=== PATIENT | female | born 1970 | race Caucasian/White ===

== ENCOUNTER 2017-03-21 14:44 | Observation (INO) | payer OTHER ==
[~2017-03-21] VITALS: Ht 170.2 cm; Wt 118.2 kg
[~2017-03-21 14:44] MED LIST: ALBUAER2 INH; CEFD300C3 PO; CETITAB27 PO; DIPH25CA37 PO; FLUT0.15 NAE; FURO-85 PO; GABA-1218 PO; LPT/40 PO; MELO15TA4 PO; NSNN50 NAE; PANT1TAB48 PO
[2017-03-21] MEDS ORDERED: ASPIRIN 81 MG CHEW PO STA (14:56)
[2017-03-21] MEDS ORDERED: SODIUM CHLORIDE 0.9% 1000ML 500 ML IV STA (14:56)
[2017-03-21] MEDS ORDERED: NITROGLYCERIN OINT 2% 1GM PACKET EXT STA (14:56)
[2017-03-21] MEDS ORDERED: SODIUM CHLORIDE 0.9% 1000ML 1,000 ML IV STA (14:56)
[2017-03-21 15:16] LABS: HEMATOCRIT 40.1 % (37-47); MEAN CELL VOLUME 86.2 fL (80-100); MEAN CORPUSCULAR HEMOGLOBIN 29.5 pg (25-34); MEAN CORPUSCULAR HGB CONC 34.2 g/dl (32-36); MEAN PLATELET VOLUME 10.3 fL (7.4-10.4); PLATELET COUNT 258 K/uL (130-400); RED BLOOD COUNT 4.65 M/uL (4.2-5.4); WHITE BLOOD COUNT 11.08 K/uL (4.8-10.8)
--- NOTE | 2017-03-21 15:23 | DIAGNOSTIC IMAGING REPORT ---
CHEST ONE VIEW PORTABLE CLINICAL HISTORY: CHEST PAIN dyspnea COMPARISON STUDY: 07/09/2016 FINDINGS: Mild cardia megaly. Increased pulmonary vasculature. Diaphragms smooth. Costophrenic angles are sharp. There are no focal infiltrates. IMPRESSION: Mild congestive heart failure Electronically signed by: Elieser Degroot M.D. 03/21/2017 3:21 PM Dictated Date/Time: 03/21/2017 3:21 PM
[2017-03-21 15:24] LABS: PROTHROMBIN TIME (PATIENT) 10.2 SECONDS (9.0-12.0)
[2017-03-21 15:36] LABS: ALB/GLOB RATIO 0.9 (0.9-2); BUN/CREATININE RATIO 15.9 (10-20); CALCIUM 8.9 mg/dl (8.5-10.1); CREATININE 0.94 mg/dl (0.60-1.20)
[2017-03-21] MEDS ORDERED: VNTHFA/IN INH (15:39)
[2017-03-21] MEDS ORDERED: MOME6000 NAE (15:39)
--- NOTE | 2017-03-21 15:53 | EMERGENCY ROOM VISIT NOTE ---
History Report prepared by Jessi: Ruthie Chirinos Under the Supervision of: Dr. Lio Smith M.D. First contact with patient: 14:51 Chief Complaint: CHEST PAIN Stated Complaint: CHEST PAIN History of Present Illness The patient is a 46 year old female who presents to the Emergency Room with complaints of persistent left sided chest pain starting this morning. She rates her discomfort as an 8/10 in severity. She has been having intermittent chest pain since November. It was attributed to her anxiety. She had some chest pain last night, but she was able to sleep well. She did not have pain when she woke. The chest pain returned when she learned of her sister's passing. The pain radiates down her arm. She has some SOB. She denies any back pain, jaw pain , nausea, diaphoresis. She has no history of CA. She has not had a stress test before. She has a history of high cholesterol. She is a former smoker. She denies any history of diabetes. She has a family history of CA. Source of History: patient Onset: this morning Position: chest (left) Symptom Intensity: 8/10 Timing: other (persistent) Associated Symptoms: + SOB, No back pain, No diaphoresis, No nausea Note: Pt reports arm pain. Pt denies jaw pain. Review of Systems See HPI for pertinent positives & negatives. A total of 10 systems reviewed and were otherwise negative. Past Medical & Surgical Medical Problems: (1) Elevated troponin (2) SOB (shortness of breath) Family History FH: heart attack Social History Smoking Status: Former Smoker Alcohol Use: none Marital Status: Housing Status: lives with family Occupation Status: unemployed Current/Historical Medications Scheduled Atorvastatin (Lipitor), 40 MG PO DAILY Azelastine Hcl (Astelin Nasal [place]), 2 SPRAYS AILYN BID Celecoxib (CeleBREX), 200 MG PO DAILY Fluticasone Propionate (Nasal) (Flonase Allergy Relief), 2 SPRAYS AILYN BID Gabapentin (Neurontin), 300 MG PO HS Hydroxychloroquine Sulfate (Plaquenil), 400 MG PO HS Mometasone Furoate (Nasal) (Mometasone Furoate), 2 SPRAY AILYN BID Montelukast Sodium (Singulair), 10 MG PO DAILY Pantoprazole (Protonix), 40 MG PO DAILY Scheduled PRN Albuterol Hfa (Ventolin Hfa), 2 PUFFS INH Q6H PRN for SOB/Wheezing Diphenhydramine Hcl (Benadryl Allergy), 25 MG PO HS PRN for Sleep Furosemide (Lasix), 20 MG PO DAILY PRN for Fluid Accumulation/Weight Gain Ipratropium-Albuterol (Combivent Respimat), 1 PUFF INH QID PRN for illness Meclizine Hcl (Meclizine Hcl), 12.5 MG PO TID PRN for Dizziness Meloxicam (Meloxicam), 15 MG PO DAILY PRN for Pain Allergies Coded Allergies: Penicillins (Verified Allergy, Mild, HIVES, 03/21/17) Physical Exam Vital Signs Date Time Temp Pulse Resp B/P Pulse Ox O2 Delivery O2 Flow Rate FiO2 03/21/17 15:13 78 03/21/17 15:06 95 Room Air 03/21/17 14:57 95 Room Air 03/21/17 14:48 36.6 89 20 155/89 96 Room Air Physical Exam GENERAL: Patient is in no acute distress. Tearful and upset. HEENT: No acute trauma, normocephalic atraumatic, mucous membranes moist, no nasal congestion, no scleral icterus. NECK: No stridor, no adenopathy, no meningismus, trachea is midline. LUNGS: Clear to auscultation bilaterally, no wheeze, no rhonchi, breath sounds equal. HEART: Without murmurs gallops or rubs, regular rate and rhythm. ABDOMEN: Soft, nontender, bowel sounds positive, no hernias, no peritonitis. EXTREMITIES: No cyanosis or edema, full range of motion of all the joints without pain or difficulty, no signs for acute trauma. NEUROLOGIC: Oriented x 3, no acute motor or sensory deficits, no focal weakness. SKIN: No rash, no jaundice, no diaphoresis. Medical Decision & Procedures ER Provider Diagnostic Interpretation: X-ray results as stated below per interpretation by me and the radiologist: CHEST ONE VIEW PORTABLE CLINICAL HISTORY: CHEST PAIN dyspnea COMPARISON STUDY: 07/09/2016 FINDINGS: Mild cardia megaly. Increased pulmonary vasculature. Diaphragms smooth. Costophrenic angles are sharp. There are no focal infiltrates. IMPRESSION: Mild congestive heart failure Electronically signed by: Elieser Degroot M.D. 03/21/2017 3:21 PM Dictated Date/Time: 03/21/2017 3:21 PM Laboratory Results 03/21/17 15:00 03/21/17 15:00 Test 03/21/17 15:00 Red Blood Count 4.65 M/uL (4.2-5.4) Mean Corpuscular Volume 86.2 fL (80-100) Mean Corpuscular Hemoglobin 29.5 pg (25-34) Mean Corpuscular Hemoglobin Concent 34.2 g/dl (32-36) RDW Standard Deviation 42.4 fL (36.4-46.3) RDW Coefficient of Variation 13.5 % (11.5-14.5) Mean Platelet Volume 10.3 fL (7.4-10.4) Prothrombin Time 10.2 SECONDS (9.0-12.0) Prothromb Time International Ratio 1.0 (0.9-1.1) Activated Partial Thromboplast Time 26.8 SECONDS (21.0-31.0) Partial Thromboplastin Ratio 1.0 Anion Gap 8.0 mmol/L (3-11) Est Creatinine Clear Calc Drug Dose 96.4 ml/min Estimated GFR () 83.1 Estimated GFR (Non- 71.7 BUN/Creatinine Ratio 15.9 (10-20) Calcium Level 8.9 mg/dl (8.5-10.1) Total Bilirubin 0.5 mg/dl (0.2-1) Aspartate Amino Transf (AST/SGOT) 25 U/L (15-37) Alanine Aminotransferase (ALT/SGPT) 33 U/L (12-78) Alkaline Phosphatase 109 U/L (45-117) Troponin I 0.116 ng/ml (0-0.045) Pro-B-Type Natriuretic Peptide 70 pg/ml (0-450) Total Protein 7.8 gm/dl (6.4-8.2) Albumin 3.6 gm/dl (3.4-5.0) Globulin 4.2 gm/dl (2.5-4.0) Albumin/Globulin Ratio 0.9 (0.9-2) Lipase 192 U/L (73-393) Chemistry Specimen Hemolysis Laboratory results reviewed by me. Medications Administered Medications (Trade) Dose Ordered Sig/Kim Route Start Time Stop Time Status Last Admin Dose Admin Sodium Chloride 500 ml @ 999 mls/hr Q31M STAT IV 03/21/17 14:56 5/16/17 15:26 DC 03/21/17 15:15 999 MLS/HR Sodium Chloride (Nss 1000ml) 1,000 ml @ 200 mls/hr Q5H STAT IV 03/21/17 14:56 03/21/17 19:55 03/21/17 15:50 200 MLS/HR Nitroglycerin (Nitroglycerin 2% Oint) 0.5 inch NOW STAT EXT 03/21/17 14:56 03/21/17 14:58 DC 03/21/17 15:17 0.5 INCH Aspirin (Aspirin Chew) 324 mg NOW STAT PO 03/21/17 14:56 03/21/17 14:58 DC 03/21/17 15:16 324 MG ECG Indication: chest pain Rate (beats per minute): 85 Rhythm: sinus rhythm Findings: PVC, no acute ischemic change, other (no dysrhythmia) ED Course 1451: The patient was evaluated in room A9B. A complete history and physical exam was performed. 1456: Aspirin 324 mg PO, Nitroglycerin 0.5 inch EXT, NSS 1000 ml @ 200 mls/hr IV , NSS 500 ml @ 999 mls/hr IV. 1556: Upon reexamination the patient is feeling somewhat better after the nitro. I discussed results and treatment plan with the patient. She verbalizes agreement and understanding. The patient will be evaluated for further management. 1609: I discussed the patient's case with Dr. Mtz, [facility] hospitalist. He will evaluate the patient for further management. Medical Decision Differential diagnosis: angina, CA, cardiac ischemia, grief response, musculoskeletal chest pain, aortic dissection, PE, anemia There is no anemia. A mild leukocytosis is present, the white count elevation could be consistent with infection or just the stress of her current situation. EKG shows a sinus rhythm with PVCs, no acute ischemia. Cardiac troponin is somewhat elevated-she does have a history of this from a year or so ago. The elevated troponin could be chronic or could be due to acute cardiac injury. Chest x-ray shows a poor inspiratory effort, the radiologist questioned heart failure, I think this is unlikely as her lungs sound clear. There was no pneumonia. BNP was not elevated making CHF less likely. There was no coagulopathy. The patient received IV saline and oral aspirin. She was given nitroglycerin paste. She is feeling improved. The patient's chest pain certainly could be cardiac. This could be a grief response as well I suppose. Given her cardiac risk factors and the troponin elevation, I did think admission/observation would be warranted. I spoke to the patient and to case management. The on-call hospitalist was consulted. Consults Time Called: 1600 Consulting Physician: [facility] Returned Call: 1609 I discussed the patient's case with him. He will evaluate the patient for further management. Impression Primary Impression: Precordial chest pain Additional Impression: Elevated troponin Scribe Attestation The scribe's documentation has been prepared under my direction and personally reviewed by me in its entirety. I confirm that the note above accurately reflects all work, treatment, procedures, and medical decision making performed by me. Departure Information Dispostion Being Evaluated By Hospitalist Rashawn Menezes M.D. (PCP) Patient Instructions My [facility] Problem Qualifiers
[2017-03-21 16:18] LABS: POTASSIUM 4.2 mmol/L (3.5-5.1)
[2017-03-21] MEDS ORDERED: ONDANSETRON INJ 2 MG/ML 2 ML VIAL IV PRN (17:00)
[2017-03-21] MEDS ORDERED: ACETAMINOPHEN 325 MG TAB PO PRN (17:00)
[2017-03-21] MEDS ORDERED: NITROGLYCERIN 0.4 MG SL PER TAB CHARGE SL PRN (17:00)
[2017-03-21 17:13] LABS: CKMB/CK RATIO 1.8 (0-3.0)
[2017-03-21] MEDS ORDERED: IV FLUIDS COMPLETED PRN (17:45)
[2017-03-21] MEDS ORDERED: LORAZEPAM 0.5 MG TAB PO PRN (17:45)
--- NOTE | 2017-03-21 18:00 | ECHOCARDIOGRAM REPORT ---
*NOTICE TO RECEIVING LIBERTARIAN AGENCY This information is strictly Confidential and protected under [place] law. [place] law prohibits you from making any further disclosure of this information unless further disclosure is expressly permitted by the written consent of the person to whom it pertains or is authorized by law. A general authorization for the release of medical or other information is not sufficient for this purpose. Hospital accepts no responsibility if the information is made available to any other person, INCLUDING THE PATIENT. Interpretation Summary * Name: JUSTINA RODRIGUEZ Study Date: 03/21/2017 05:16 PM BP: 140/79 mmHg * Patient Location: [facility] HR: 69 * : 1970 (M/d/yyyy) Gender: Female Height: 67 in * Age: 46 yrs Ethnicity: CA Weight: 256 lb * Ordering Physician: Laura Brasher * Referring Physician: Self, Referred * Performed By: Courtney Simms RCS * * Reason For Study: CHEST PAIN / ELEVATED TROPONIN * BSA: 2.2 m2 * -- Conclusions -- * Normal LV chamber size with moderate concentric LVH. * Normal LV systolic function, EF 65-70%. * No segmental left ventricular wall motion abnormalities are noted. * Grade I diastolic dysfunction. * Aortic valve sclerosis moderate, without significant aortic valvular stenosis. * Mild left atrial enlargement. Procedure Details * A complete two-dimensional transthoracic echocardiogram was performed (2D, M-mode, Doppler and color flow Doppler). Left Ventricle * The left ventricle is normal in size. * There is moderate concentric left ventricular hypertrophy. * Ejection Fraction = 65-70%. * Left ventricular systolic function is normal. * No segmental left ventricular wall motion abnormalities are noted. * The left ventricular wall motion is normal. Right Ventricle * The right ventricular cavity size is normal (basal dimension <4.2 cm in right ventricular apical 4-chamber view). * The right ventricular systolic function is normal as assessed by tricuspid annular plane systolic excursion (TAPSE) (normal >1.5 cm). Atria * The left atrium is mildly dilated. * Right atrial size is normal. * No ASD detected; PFO is not assessed. Mitral Valve * The mitral valve is normal in structure and function. Tricuspid Valve * The tricuspid valve is normal in structure and function. Aortic Valve * The aortic valve is trileaflet. * Aortic valve sclerosis moderate, without significant aortic valvular stenosis. * No hemodynamically significant valvular aortic stenosis. * There is no significant aortic regurgitation. Pulmonic Valve * The pulmonary valve is not well seen, but the Doppler examination is normal without significant regurgitation or stenosis. Great Vessels * The aortic root is normal size. Pericardium/Pleural * There is no pericardial effusion. Left Ventricular Diastolic Function * Grade I diastolic dysfunction, (abnormal relaxation pattern). MMode 2D Measurements and Calculations IVSd 1.6 cm IVSs 1.9 cm LVIDd 4.6 cm LVIDs 2.8 cm LVPWd 1.2 cm LVPWs 1.4 cm IVS/LVPW 1.3 FS 39.1 % EDV(Teich) 99.0 ml ESV(Teich) 30.1 ml EF(Teich) 69.6 % EDV(cubed) 99.5 ml ESV(cubed) 22.5 ml EF(cubed) 77.4 % % IVS thick 20.3 % % LVPW thick 9.5 % LV mass(C)d 261.3 grams LV mass(C)dI 116.3 grams/m\S\2 LV mass(C)s 168.1 grams LV mass(C)sI 74.9 grams/m\S\2 SV(Teich) 68.9 ml SI(Teich) 30.7 ml/m\S\2 SV(cubed) 77.0 ml SI(cubed) 34.3 ml/m\S\2 Ao root diam 2.8 cm Ao root area 6.1 cm\S\2 LA dimension 4.2 cm LA/Ao 1.5 LVOT diam 2.0 cm LVOT area 3.0 cm\S\2 LVAd ap4 32.1 cm\S\2 LVLd ap4 7.9 cm EDV(MOD-sp4) 107.8 ml EDV(sp4-el) 110.4 ml LVAs ap4 20.2 cm\S\2 LVLs ap4 7.0 cm ESV(MOD-sp4) 50.4 ml ESV(sp4-el) 49.5 ml EF(MOD-sp4) 53.2 % EF(sp4-el) 55.2 % LVAd ap2 37.3 cm\S\2 LVLd ap2 8.8 cm EDV(MOD-sp2) 127.2 ml EDV(sp2-el) 134.1 ml LVAs ap2 22.7 cm\S\2 LVLs ap2 7.5 cm ESV(MOD-sp2) 56.3 ml ESV(sp2-el) 58.2 ml EF(MOD-sp2) 55.8 % EF(sp2-el) 56.6 % LVLd %diff 9.9 % EDV(MOD-bp) 123.8 ml LVLs %diff 7.1 % ESV(MOD-bp) 54.4 ml EF(MOD-bp) 56.1 % SV(MOD-sp4) 57.3 ml SI(MOD-sp4) 25.5 ml/m\S\2 SV(MOD-sp2) 70.9 ml SI(MOD-sp2) 31.6 ml/m\S\2 SV(MOD-bp) 69.4 ml SI(MOD-bp) 30.9 ml/m\S\2 SV(sp4-el) 61.0 ml SI(sp4-el) 27.1 ml/m\S\2 SV(sp2-el) 75.9 ml SI(sp2-el) 33.8 ml/m\S\2 Doppler Measurements and Calculations MV E max tyrel 92.7 cm/sec MV A max tyrel 104.1 cm/sec MV E/A 0.89 MV P1/2t max tyrel 128.3 cm/sec MV P1/2t 63.0 msec MVA(P1/2t) 3.5 cm\S\2 MV dec slope 596.9 cm/sec\S\2 MV dec time 0.22 sec Ao V2 max 78.9 cm/sec Ao max PG 2.5 mmHg Ao max PG (full) -1.10 mmHg NIGEL(V,A) 3.7 cm\S\2 NIGEL(V,D) 3.7 cm\S\2 LV V1 max PG 3.6 mmHg LV V1 max 94.7 cm/sec PA V2 max 116.5 cm/sec PA max PG 5.4 mmHg
--- NOTE | 2017-03-21 18:11 | History and Physical ---
History & Physical Date & Time of Service: March 21, 2017 ~ 16:30 Chief Complaint: Chest Pain Primary Care Physician: Rashawn Witt M.D. History of Present Illness 46 year old female who presents to the ER with chest pain. Patient reports a long standing history of chest pain associated with stress or anxiety. Reports she developed chest pain last night after getting excited at her daughter's softball game. She reports the pain lasted a few hours into the evening however once she laid down to go to bed the pain resolved on it's own. This morning when the patient woke up she reports she was chest pain free. She unfortunately received news that her sister unexpectedly at the at the age of 54. She reports the chest pain then returned. She describes it as located on the left side of her chest and describes it as a squeezing sensation. She rates the pain #8/10 at it's worst and it currently now #4/10 after nitro was applied. She reports associated indigestion. She denies shortness of breath, palpitations , nausea, lightheadedness, or diaphoresis. She denies orthopnea and lower extremity edema. No abdominal pain, vomiting, or diarrhea. Denies fever and chills. No urinary symptoms. In the ER, patient's troponin is found to be 0.116 , EKG does not show any acute changes. She given ASA 324mg and nitro was applied. Past Medical/Surgical History Medical Problems: (1) Dyslipidemia Status: Chronic (2) GERD (gastroesophageal reflux disease) Status: Chronic (3) Lumbago Status: Chronic (4) YUSUF (obstructive sleep apnea) Status: Chronic (5) Rhinitis Status: Chronic (6) Sjogrens syndrome Status: Chronic Surgical Problems: (1) History of carpal tunnel surgery Status: Chronic (2) History of tonsillectomy Status: Chronic Family History FH: CAD (coronary artery disease) FATHER ( in his 70s from [place]) Sister today at the age of 54 unexpectedly - no significant known past medical history Social History Smoking Status: Former Smoker Alcohol Use: none Immunizations History of Tetanus Vaccine?: Yes Tetanus Immunization Date: Nov 30, 2009 History of Pneumococcal: Yes Pneumococcal Date: Oct 11, 2015 Multi-Drug Resistant Organisms History of MDRO: No Allergies Coded Allergies: Penicillins (Verified Allergy, Mild, HIVES, 03/21/17) Home Medications Scheduled Atorvastatin (Lipitor), 40 MG PO DAILY Azelastine Hcl (Astelin Nasal [place]), 2 SPRAYS AILYN BID Celecoxib (CeleBREX), 200 MG PO DAILY Fluticasone Propionate (Nasal) (Flonase Allergy Relief), 2 SPRAYS AILYN BID Gabapentin (Neurontin), 1 CAP PO TID Hydroxychloroquine Sulfate (Plaquenil), 400 MG PO HS Montelukast Sodium (Singulair), 10 MG PO DAILY Pantoprazole (Protonix), 40 MG PO DAILY Scheduled PRN Albuterol Hfa (Ventolin Hfa), 2 PUFFS INH Q6H PRN for SOB/Wheezing Diphenhydramine Hcl (Benadryl Allergy), 25 MG PO HS PRN for Sleep Furosemide (Lasix), 20 MG PO DAILY PRN for Fluid Accumulation/Weight Gain Ipratropium-Albuterol (Combivent Respimat), 1 PUFF INH QID PRN for illness Meclizine Hcl (Meclizine Hcl), 12.5 MG PO TID PRN for Dizziness Review of Systems ROS per HPI, all other systems reviewed and negative Physical Exam Vital Signs Date Time Temp Pulse Resp B/P Pulse Ox O2 Delivery O2 Flow Rate FiO2 03/21/17 16:54 75 18 140/79 94 Room Air 03/21/17 15:13 78 03/21/17 15:06 95 Room Air 03/21/17 14:57 95 Room Air 03/21/17 14:48 36.6 89 20 155/89 96 Room Air General Appearance: + pertinent finding (tearful during exam, but in no acute distress) Head: normocephalic Eyes: normal inspection ENT: hearing grossly normal Neck: supple, no JVD Respiratory/Chest: lungs clear, normal breath sounds, no respiratory distress Cardiovascular: regular rate, rhythm, no edema, + systolic murmur Abdomen/GI: normal bowel sounds, non tender, soft Extremities/Musculoskelatal: normal inspection, no calf tenderness Neurologic/Psych: no motor/sensory deficits, alert, normal mood/affect, oriented x 3 Skin: normal color, warm/dry Diagnostics Laboratory Results Results Past 24 Hours Test 03/21/17 15:00 03/21/17 16:04 Range/Units White Blood Count 11.08 4.8-10.8 K/uL Red Blood Count 4.65 4.2-5.4 M/uL Hemoglobin 13.7 12.0-16.0 g/dL Hematocrit 40.1 37-47 % Mean Corpuscular Volume 86.2 80-100 fL Mean Corpuscular Hemoglobin 29.5 25-34 pg Mean Corpuscular Hemoglobin Concent 34.2 32-36 g/dl RDW Standard Deviation 42.4 36.4-46.3 fL RDW Coefficient of Variation 13.5 11.5-14.5 % Platelet Count 258 130-400 K/uL Mean Platelet Volume 10.3 7.4-10.4 fL Prothrombin Time 10.2 9.0-12.0 SECONDS Prothromb Time International Ratio 1.0 0.9-1.1 Activated Partial Thromboplast Time 26.8 21.0-31.0 SECONDS Partial Thromboplastin Ratio 1.0 Sodium Level 140 136-145 mmol/L Potassium Level 4.2 3.5-5.1 mmol/L Chloride Level 108 98-107 mmol/L Carbon Dioxide Level 24 21-32 mmol/L Anion Gap 8.0 3-11 mmol/L Blood Urea Nitrogen 15 7-18 mg/dl Creatinine 0.94 0.60-1.20 mg/dl Est Creatinine Clear Calc Drug Dose 96.4 ml/min Estimated GFR () 83.1 Estimated GFR (Non- 71.7 BUN/Creatinine Ratio 15.9 10-20 Random Glucose 109 70-99 mg/dl Calcium Level 8.9 8.5-10.1 mg/dl Total Bilirubin 0.5 0.2-1 mg/dl Aspartate Amino Transf (AST/SGOT) 25 15-37 U/L Alanine Aminotransferase (ALT/SGPT) 33 12-78 U/L Alkaline Phosphatase 109 45-117 U/L Troponin I 0.116 0-0.045 ng/ml Pro-B-Type Natriuretic Peptide 70 0-450 pg/ml Total Protein 7.8 6.4-8.2 gm/dl Albumin 3.6 3.4-5.0 gm/dl Globulin 4.2 2.5-4.0 gm/dl Albumin/Globulin Ratio 0.9 0.9-2 Lipase 192 73-393 U/L Chemistry Specimen Hemolysis Total Creatine Kinase 130 26-192 U/L Creatine Kinase MB 2.3 0.5-3.6 ng/ml Creatine Kinase MB Ratio 1.8 0-3.0 Diagnostic Radiology CXR IMPRESSION: Mild congestive heart failure Impression Assessment and Plan CHEST PAIN - admit to tele - patient presenting with a long standing history of chest pain typically associated with stress and anxiety; developed chest pain this morning after receiving news that her sister unexpectedly - initial troponin 0.116, EKG without acute ST changes - suspect patient symptoms are due to stress/anxiety and the unexpected news she received today - improvement in chest pain with topical nitro however not resolved; will continue nitro paste - s/p full dose ASA in ED, will continue with 81mg daily - case discussed with Dr. Guzmán - continue to cycle cardiac enzymes, check resting echo - risk factors: HLD, obesity, chronic NSAID use, ? family history of sudden cardiac with sister's expected today - continue statin, check lipids in AM SJGR[employer]'S SYNDROME - on Plaquenil GERD - continue PPI DVT PROPHYLAXIS - SQ Lovenox DISPO - The patient will be placed as observation status for now until further work up is complete. VTE Prophylaxis VTE Risk Assessment Done? Y/N: Yes Risk Level: Moderate Given or contraindicated: Enoxaparin (Lovenox)SQ Note ATTENDING ADDENDUM Record reviewed. Patient interviewed and examined. Care coordinated with BRAEDEN Miranda. Please refer to her documentation for patient's history. Briefly 46 YO female with history of dyslipidemia; no history of ischemic heart disease. Her sister unexpectedly this morning. She developed chest pain after hearing the news of her passing. CP described as left-sided chest pressure with radiation to left arm. It was associated with some nausea, but no emesis, dyspnea, diaphoresis. Received aspirin and nitropaste in ED with improvement of the chest pain. EXAM: General- no distress VS- as noted Neck- no JVD; carotids 2/2 bilat Lungs- clear Heart- RRR, no murmur or gallop appreciated Abdomen- + BS, soft, nontender Extremities- no pretibial edema or calf tenderness; peripheral pulses intact and symmetric Neuro- alert, oriented DATA: Troponin I = 0.116. Other lab studies as noted. EKG performed at 14:55 reviewed and demonstrated NSR at 85 / minute, PVC's, no acute ST or T-wave abnormalities. Chest x-ray reviewed by the undersigned and interpreted by Radiology. Borderline enlargement of cardiac silhouette. Prominent pulmonary vasculature- possible CHF. ASSESSMENT AND PLAN: Chest pain associated with severe emotional stress. Serum troponin I slightly elevated; no acute EKG changes. Consider acute coronary syndrome or possible takotsubo cardiomyopathy. Chest x-ray shows possible CHF. Check echo to assess for wall motion abnormalities and LVEF. Check serial cardiac markers and EKG's. Received aspirin and NTP in ED which will be continued. Add beta mayela and IV heparin if cardiac markers rise or worrisome EKG changes occur. Low-moderate risk for VTE- SQ enoxaparin ordered. Please refer to AYLIN Brasher's documentation for discussion of other issues. Lewis Mtz MD .
[2017-03-21 18:33] VITALS: BP 128/68; PULSE 70; TEMP 36.9; O2SAT 96
[2017-03-21 18:35] VITALS: BP 128/68; PULSE 70; TEMP 36.9; Ht 170.2 cm; Wt 118.2 kg
[2017-03-21 18:43] VITALS: O2SAT 96
[2017-03-21] MEDS: GABAPENTIN 400 MG CAP PO SCH (20:16)
[2017-03-21] MEDS: FLUTICASONE PROPIONATE NA SPR 16 GM BTL NAE SCH (20:16)
[2017-03-21] MEDS: NITROGLYCERIN 2% OINTMENT 30GM TUBE EXT SCH (20:25)
[2017-03-21] MEDS ORDERED: AZELASTINE HCL NAE SCH (21:00)
[2017-03-21] MEDS ORDERED: ENOXAPARIN 40 MG/0.4 ML SYR SC SCH (21:00)
[2017-03-21] MEDS ORDERED: HYDROXYCHLOROQUINE SULFATE 200 MG TAB PO SCH (21:00)
[2017-03-21 23:54] VITALS: BP 134/74; PULSE 85; TEMP 36.6; O2SAT 95
[2017-03-22] MEDS: NITROGLYCERIN 2% OINTMENT 30GM TUBE EXT SCH ×2 (03:10→09:03)
[2017-03-22 03:30] VITALS: BP 101/53; PULSE 73; TEMP 36.8; O2SAT 94
[2017-03-22 05:53] LABS: HEMATOCRIT 37.7 % (37-47); MEAN CELL VOLUME 87.1 fL (80-100); MEAN CORPUSCULAR HEMOGLOBIN 29.8 pg (25-34); MEAN CORPUSCULAR HGB CONC 34.2 g/dl (32-36); MEAN PLATELET VOLUME 10.3 fL (7.4-10.4); PLATELET COUNT 230 K/uL (130-400); RED BLOOD COUNT 4.33 M/uL (4.2-5.4); WHITE BLOOD COUNT 10.48 K/uL (4.8-10.8)
[2017-03-22 06:22] LABS: BUN/CREATININE RATIO 18.4 (10-20); CALCIUM 8.4 mg/dl (8.5-10.1); CREATININE 0.83 mg/dl (0.60-1.20); POTASSIUM 4.2 mmol/L (3.5-5.1)
[2017-03-22 06:31] LABS: CHOLESTEROL/HDL RATIO 5.7; CKMB/CK RATIO 1.5 (0-3.0)
[2017-03-22 07:18] VITALS: BP 137/64; PULSE 69; TEMP 37; O2SAT 93
[2017-03-22] MEDS: GABAPENTIN 400 MG CAP PO SCH (07:45)
[2017-03-22] MEDS: FLUTICASONE PROPIONATE NA SPR 16 GM BTL NAE SCH (07:46)
[2017-03-22] MEDS ORDERED: ATORVASTATIN 40 MG TAB PO SCH (09:00)
[2017-03-22] MEDS ORDERED: ASPIRIN 81 MG ECTAB PO SCH (09:00)
[2017-03-22] MEDS ORDERED: PANTOprazole SOD 40 MG TAB PO SCH (09:00)
[2017-03-22] MEDS ORDERED: MONTELUKAST SOD 10 MG TAB PO SCH (09:00)
--- NOTE | 2017-03-22 10:52 | Procedure Note ---
Procedure Note Date of Service March 22, 2017. Procedure Note nonischemic exercise stress echo noncardiac chest pain ok to d/c to home from a cardiac standpoint hypertensive bp response to exercise recommend starting amlodipine 5mg daily and f/u with pcp for further management.
[2017-03-22] MEDS ORDERED: AMLO-110 PO (11:24)
[2017-03-22] MEDS ORDERED: ATV/1 PO (11:26)
[2017-03-22 11:28] VITALS: BP 156/61; PULSE 76; TEMP 36.6; O2SAT 96
--- NOTE | 2017-03-22 11:35 | Discharge Instructions ---
Discharge Instructions Date of Service March 22, 2017. Admission Reason for Admission: Chest Pain Discharge Discharge Diagnosis / Problem: CHEST PAIN , NO CARDIAC EVENT , HYPERTENSION , ANXIETY DISORDER Discharge Goals Goal(s): Decrease discomfort, Diagnostic testing Activity Recommendations Activity Limitations: resume your previous activity . Instructions / Follow-Up Instructions / Follow-Up HOSPITAL FOLLOW UP WITH DR IBARRA ON Monday03/28/17 @ 10:45 AM PLEASE HAVE BLOOD PRESSURE CHECKED IN CLINIC YOU ARE STARTED ON A NEW MEDICATION FOR HIGH BLOOD PRESSURE NORVASC/AMLODIPINE 5 MG DAILY PLEASE DISCUSS WITH DR IBARRA REGARDING ANXIETY ISSUES SOMETIMES REFERRAL TO A THERAPIST HELPS WITH SYMPTOM YOU ARE ORDERED ATIVAN 0.5 MG TWICE DAILY NEEDED TO TAKE FOR SEVERE ANXIETY SYMPTOM PREFERABLY TAKE AT NIGHT THIS MEDICATION IS HABIT FORMING , TRY TO LIMIT THE USE LESS POSSIBLE THIS MEDICATION WILL MAKE YOU DROWSY DO NOT DRIVE AFTER TAKING ATIVAN DO NOT DRINK ALCOHOL AFTER TAKING ATIVAN , WILL INCREASE THE SEDATIVE EFFECT Current Hospital Diet Patient's current hospital diet: AHA Diet (Heart Healthy) Discharge Diet Recommended Diet: AHA Diet (Heart Healthy) Pending Studies Studies pending at discharge: no Laboratory Results Lipid Panel Test 03/22/17 05:33 Range/Units Triglycerides Level 511 H 0-150 mg/dl Cholesterol Level 154 0-200 mg/dl HDL Cholesterol 27 mg/dl Cholesterol/HDL Ratio 5.7 LDL Cholesterol, Calculated mg/dl Medical Emergencies . Who to Call and When: Medical Emergencies: If at any time you feel your situation is an emergency, please call 911 immediately. . Non-Emergent Contact Non-Emergency issues call your: Primary Care Provider . . "Provider Documentation" section prepared by Iman Bauer. . VTE Core Measure Inpt VTE Proph given/why not?: Enoxaparin (Lovenox)SQ
--- NOTE | 2017-03-22 11:45 | EXERCISE STRESS ECHO ---
*NOTICE TO RECEIVING [employer]Y This information is strictly Confidential and protected under [place] law. [place] law prohibits you from making any further disclosure of this information unless further disclosure is expressly permitted by the written consent of the person to whom it pertains or is authorized by law. A general authorization for the release of medical or other information is not sufficient for this purpose. Hospital accepts no responsibility if the information is made available to any other person, INCLUDING THE PATIENT. Interpretation Summary * Name: JUSTINA RODRIGUEZ Study Date: 03/22/2017 09:48 AM BP: 110/53 mmHg * Patient Location: [id number].[id number]\E207\S\1 HR: 88 * : 1970 (M/d/yyyy) Gender: Female Height: 67 in * Age: 46 yrs Ethnicity: [place] Weight: 260 lb * Ordering Physician: Nicolás Guzmán * Referring Physician: Self, Referred * Performed By: Denisse Dobbs RDCS * * Reason For Study: Chest pain * BSA: 2.3 m2 * -- Conclusions -- * Nonischemic exercise echocardiogram. * No arrhythmias. * Hypertensive BP response to exercise. * Markedly reduced exercise tolerance. Procedure Details * ECHOEX, CPT #78273 Stress Parameters * The stress portion of this study was personally supervised by the undersigned interpreting physician. * Rest heart rate was '88' BPM. * Rest blood pressure was '110/53' * Maximum heart rate achieved was 173 bpm. * Maximum heart rate was 100 % of maximum age-predicted heart rate. * Maximum blood pressure was '214/73' * Total exercise time was '5:01' * Maximum exercise MET level achieved was '7.00' METS * Maximum treadmill speed was '2.50' miles per hour. * Maximum treadmill elevation was '12.00'% grade. * Exercise was terminated due to 'achieving target heart'
--- NOTE | 2017-03-22 13:06 | Discharge Summary ---
Discharge Summary Date of Service March 22, 2017. Discharge Summary Admission Date: March 21, 2017 at 16:50 Discharge Date: March 22, 2017 Discharge Disposition: Home Principal Diagnosis: CHEST PAIN , NO CARDIAC EVENT , HYPERTENSION , ANXIETY DISORDER Procedures: ECHO /CARDIAC EXERCISE STRESS TEST 03/22/17 : * Nonischemic exercise echocardiogram. * No arrhythmias. * Hypertensive BP response to exercise. * Markedly reduced exercise tolerance. RESTING ECHO : 03/21/17 * Normal LV chamber size with moderate concentric LVH. * Normal LV systolic function, EF 65-70%. * No segmental left ventricular wall motion abnormalities are noted. * Grade I diastolic dysfunction. * Aortic valve sclerosis moderate, without significant aortic valvular stenosis. * Mild left atrial enlargement. Pending Studies/Follow-Up: Instructions / Follow-Up HOSPITAL FOLLOW UP WITH DR WITT ON Monday03/28/17 @ 10:45 AM PLEASE HAVE BLOOD PRESSURE CHECKED IN CLINIC YOU ARE STARTED ON A NEW MEDICATION FOR HIGH BLOOD PRESSURE NORVASC/AMLODIPINE 5 MG DAILY PLEASE DISCUSS WITH DR WITT REGARDING ANXIETY ISSUES SOMETIMES REFERRAL TO A THERAPIST HELPS WITH SYMPTOM YOU ARE ORDERED ATIVAN 0.5 MG TWICE DAILY NEEDED TO TAKE FOR SEVERE ANXIETY SYMPTOM PREFERABLY TAKE AT NIGHT THIS MEDICATION IS HABIT FORMING , TRY TO LIMIT THE USE LESS POSSIBLE THIS MEDICATION WILL MAKE YOU DROWSY DO NOT DRIVE AFTER TAKING ATIVAN DO NOT DRINK ALCOHOL AFTER TAKING ATIVAN , WILL INCREASE THE SEDATIVE EFFECT Medication Reconciliation New Medications: Amlodipine (Norvasc) 5 Mg Tab 5 MG PO DAILY for 30 Days, #30 TAB 2 Refills Lorazepam (Ativan) 1 Mg Tab 0.5 MG PO BID PRN for Anxiety/Insomnia, #30 TAB Continued Medications: Albuterol Hfa (Ventolin Hfa) 200 Puffs/82962 Mcg Aers 2 PUFFS INH Q6H PRN for SOB/Wheezing, #1 INHALER Atorvastatin (Lipitor) 40 Mg Tab 40 MG PO DAILY, TAB Azelastine Hcl (Astelin Nasal [place]) 200 Sprays/30 Ml [place] 2 SPRAYS AILYN BID, BTL Celecoxib (CeleBREX) 200 Mg Cap 200 MG PO DAILY, CAP Diphenhydramine Hcl (Benadryl Allergy) 25 Mg Cap 25 MG PO HS PRN for Sleep for 30 Days, #30 CAP Fluticasone Propionate (Nasal) (Flonase Allergy Relief) 50 Mcg/Act Spr 2 SPRAYS AILYN BID Furosemide (Lasix) 20 Mg Tab 20 MG PO DAILY PRN for Fluid Accumulation/Weight Gain, TAB NEEDED FOR FLUID ACCUMULATION OR WEIGHT GAIN 3 DAYS IN A ROW. Gabapentin (Neurontin) 400 Mg Cap 1 CAP PO TID for 30 Days, #90 CAP 1 Refill Hydroxychloroquine Sulfate (Plaquenil) 200 Mg Tab 400 MG PO HS, TAB Ipratropium-Albuterol (Combivent Respimat) 1 Aer Aer 1 PUFF INH QID PRN for illness, INH Meclizine Hcl (Meclizine Hcl) 12.5 Mg Tab 12.5 MG PO TID PRN for Dizziness Montelukast Sodium (Singulair) 10 Mg Tab 10 MG PO DAILY, TAB Pantoprazole (Protonix) 40 Mg Tab 40 MG PO DAILY, TAB Referrals At Discharge Follow up Referrals: Physician Referral - 03/28/17 with Rashawn Witt M.D. Admission Information HPI (per Admitting provider): 46 year old female who presents to the ER with chest pain. Patient reports a long standing history of chest pain associated with stress or anxiety. Reports she developed chest pain last night after getting excited at her daughter's softball game. She reports the pain lasted a few hours into the evening however once she laid down to go to bed the pain resolved on it's own. This morning when the patient woke up she reports she was chest pain free. She unfortunately received news that her sister unexpectedly at the at the age of 54. She reports the chest pain then returned. She describes it as located on the left side of her chest and describes it as a squeezing sensation. She rates the pain #8/10 at it's worst and it currently now #4/10 after nitro was applied. She reports associated indigestion. She denies shortness of breath, palpitations , nausea, lightheadedness, or diaphoresis. She denies orthopnea and lower extremity edema. No abdominal pain, vomiting, or diarrhea. Denies fever and chills. No urinary symptoms. In the ER, patient's troponin is found to be 0.116 , EKG does not show any acute changes. She given ASA 324mg and nitro was applied. Physical Exam (per Admitting): General Appearance: + pertinent finding (tearful during exam, but in no acute distress) Head: normocephalic Eyes: normal inspection ENT: hearing grossly normal Neck: supple, no JVD Respiratory/Chest: lungs clear, normal breath sounds, no respiratory distress Cardiovascular: regular rate, rhythm, no edema, + systolic murmur Abdomen/GI: normal bowel sounds, non tender, soft Extremities/Musculoskelatal: normal inspection, no calf tenderness Neurologic/Psych: no motor/sensory deficits, alert, normal mood/affect, oriented x 3 Skin: normal color, warm/dry Hospital Course returned form exercise cardiac stress test this AM negative test for stress induced ischemia evaluated pt at bedside , no complain of chest pain or SOB BP remains stable very eager to be discharged home P/E: Gen : no sign of distress HEENT : sclera non icteric , HT : regular S1/S2 LUNGS: CTA , no wheeze or rales Abdomen : soft, non tender ext : no edema, no rash or deformity neuro: no focal deficit A/P : CHEST PAIN - atypical for angina -Cardiac stress test negative for stress induced angina /evidence of ischemia -had hypertensive response during stress test -per Cardiology recommendation : pt started on Norvasc 5 mg daily and follow up with PCP next week for further management ANXIETY DISORDER : - patient presented with a long standing history of chest pain typically associated with stress and anxiety; developed chest pain this morning after receiving news that her sister unexpectedly -ordered for low dose Ativan 0.5 mg BID as needed-script given for # 30 tabs only and no refills -pt is counselled to limit use for nursing home because or tolerance and dependency -pt is asked to have referral to Psychiatry and D/w with her family physician regarding her anxiety symptom and possible tx with SSRI and discontinuing Ativan PRN HTN : BP was elevated > 200 on presentation and during cardiac stress test resting BP improved to 130's pt started on Norvasc 5 mg daily -Cardiology recommendation -will need continued follow up with her PCP for further monitoring of BP and adjustment of dose of Norvasc if needed SJGREN'S SYNDROME - on Plaquenil GERD - continue PPI DVT PROPHYLAXIS - SQ Lovenox DISPOSITION : - Stable to be discharge home today Medicine follow up with Dr Witt on Monday03/28/17 @ 10: 45 am Total time spent on discharge = This includes examination of the patient, discharge planning, medication reconciliation, and communication with other providers. Discharge Instructions Discharge Instructions Date of Service March 22, 2017. Admission Reason for Admission: Chest Pain Discharge Discharge Diagnosis / Problem: CHEST PAIN , NO CARDIAC EVENT , HYPERTENSION , ANXIETY DISORDER Discharge Goals Goal(s): Decrease discomfort, Diagnostic testing Activity Recommendations Activity Limitations: resume your previous activity . Instructions / Follow-Up Instructions / Follow-Up HOSPITAL FOLLOW UP WITH DR WITT ON Monday03/28/17 @ 10:45 AM PLEASE HAVE BLOOD PRESSURE CHECKED IN CLINIC YOU ARE STARTED ON A NEW MEDICATION FOR HIGH BLOOD PRESSURE NORVASC/AMLODIPINE 5 MG DAILY PLEASE DISCUSS WITH DR WITT REGARDING ANXIETY ISSUES SOMETIMES REFERRAL TO A THERAPIST HELPS WITH SYMPTOM YOU ARE ORDERED ATIVAN 0.5 MG TWICE DAILY NEEDED TO TAKE FOR SEVERE ANXIETY SYMPTOM PREFERABLY TAKE AT NIGHT THIS MEDICATION IS HABIT FORMING , TRY TO LIMIT THE USE LESS POSSIBLE THIS MEDICATION WILL MAKE YOU DROWSY DO NOT DRIVE AFTER TAKING ATIVAN DO NOT DRINK ALCOHOL AFTER TAKING ATIVAN , WILL INCREASE THE SEDATIVE EFFECT Current Hospital Diet Patient's current hospital diet: AHA Diet (Heart Healthy) Discharge Diet Recommended Diet: AHA Diet (Heart Healthy) Pending Studies Studies pending at discharge: no Laboratory Results Lipid Panel Test 03/22/17 05:33 Range/Units Triglycerides Level 511 H 0-150 mg/dl Cholesterol Level 154 0-200 mg/dl HDL Cholesterol 27 mg/dl Cholesterol/HDL Ratio 5.7 LDL Cholesterol, Calculated mg/dl Medical Emergencies . Who to Call and When: Medical Emergencies: If at any time you feel your situation is an emergency, please call 911 immediately. . Non-Emergent Contact Non-Emergency issues call your: Primary Care Provider . . "Provider Documentation" section prepared by Iman Bauer. . VTE Core Measure Inpt VTE Proph given/why not?: Enoxaparin (Lovenox)SQ Additional Copies To Rashawn Witt M.D.
[2017-03-22 13:21] VITALS: BP 156/61; PULSE 76; TEMP 36.6; O2SAT 96
--- NOTE | 2017-03-22 13:45 | CARDIOLOGY CONSULTATION ---
DATE OF CONSULTATION: 03/21/2017 CONSULTATION REQUESTED BY: BRAEDEN Miranda. REASON FOR CONSULTATION: Chest pain. HISTORY OF PRESENT ILLNESS: Ms. Tucker is a very pleasant 46-year-old woman who presented to [facility] on 03/20/2017 with a complaint of chest pain. The patient was actually already at the hospital after the abrupt passing of her sister. While here, she developed chest pain. She described it as a sharp, stabbing/twisting sensation in her left chest that radiated down her left arm to her left elbow. She denied any associated shortness of breath, diaphoresis, nausea, palpitations, lightheadedness, dizziness, or syncope. She did become concerned and checked herself in the Emergency Department. Upon further questioning, the patient states that she has been having similar episodes over the last several years, all of which occurred in the setting of stress or anxiety. She never has symptoms with exertion and she was understandably very upset with her sister's passing. She states that she did have recurrences of chest discomfort overnight, but refused nitroglycerin. Nitroglycerin was not effective in the Emergency Department. PAST SURGICAL HISTORY: 1. Carpal tunnel surgery. 2. Tonsillectomy. MEDICAL ILLNESSES: 1. Dyslipidemia. 2. Obstructive sleep apnea. 3. Sjogren syndrome. 4. GERD. 5. Lumbago. 6. Obesity. FAMILY HISTORY: Remarkable for father developed coronary artery disease in his 70s. Sister suddenly at age 54 with no significant medical history. SOCIAL HISTORY: The patient is a former smoker, quit about 2 years ago. Denies any alcohol or recreational drug use. REVIEW OF SYSTEMS: As per HPI, all other systems were reviewed and negative at this time. ALLERGIES: PENICILLIN. MEDICATIONS AN OUTPATIENT: 1. Atorvastatin 40 mg daily. 2. Neurontin t.i.d. 3. Plaquenil at bedtime. 4. Singular daily. 5. Protonix daily. 6. Celebrex daily. PHYSICAL EXAMINATION: VITALS: Temperature is 37, pulse 69, respiratory rate 12, and blood pressure 137/64. GENERAL: Awake, alert, and oriented x3, in no acute distress. HEENT: Normocephalic and atraumatic. Pupils equal, round, and reactive to light and accommodation. Extraocular muscles are intact. Anicteric sclerae. Moist mucous membranes. NECK: No JVD, no bruit. CARDIOVASCULAR: Regular. Positive S4. Normal S1 and S2. No S3. There are no murmurs or rubs. PULMONARY: Clear to auscultation bilaterally. No rales, rhonchi, or wheezing. ABDOMEN: Bowel sounds x4, soft. No rebound, guarding, or tenderness. No organomegaly. EXTREMITIES: No clubbing, cyanosis or edema. +2 pedal pulses bilaterally. SKIN: Warm and dry. TEST RESULTS: A stat echocardiogram performed on 03/20/2017 showed normal LV chamber size with moderate concentric LVH, normal LV systolic function, EF 65%-70%, no segmental left ventricular wall motion abnormalities were noted, grade 1 diastolic dysfunction, moderate aortic valve sclerosis without stenosis, and mild left atrial enlargement. Stress echocardiogram performed today was nonischemic, hypertensive blood pressure response to exercise, and significantly reduced exercise tolerance. LABORATORY STUDIES OF SIGNIFICANCE: Troponin of 0.1 throughout the hospitalization. IMPRESSION: 1. Chest pain, nonischemic. 2. Hypertensive response to exercise. 3. Dyslipidemia. 4. Obesity. RECOMMENDATIONS: It was my pleasure to see Ms. Tucker in consultation today. Given the fact that her stress test was nonischemic, no further cardiac testing or intervention is necessary at this time. Her pain is likely secondary to anxiety. So from a cardiac standpoint given her risk factors, I would recommend a daily aspirin of 81 mg for primary prevention as well as starting antihypertensives, specifically amlodipine 5 mg daily and followup with her primary care physician afterwards. Otherwise, no cardiac care followup will be necessary. Okay to discharge to home from a cardiac standpoint.
[2017-06-21] MEDS ORDERED: DIPH25CA65 PO (15:39)
[2017-06-21] MEDS ORDERED: PANT40TA2 PO (17:38)
[2017-06-26] MEDS ORDERED: METO-478 PO (11:06)
[2017-06-26] MEDS ORDERED: LSN5 PO (11:06)
[2017-06-26] MEDS ORDERED: ASPEC81 PO (11:06)
[2017-06-26] MEDS ORDERED: ATOR-26 PO (11:06)
[2017-06-26] MEDS ORDERED: PLV75 PO (11:06)
[2017-06-26] MEDS ORDERED: TPRSR50 PO (11:10)
[2017-08-01] MEDS ORDERED: RANI300T2 PO (14:43)
[2017-08-28] MEDS ORDERED: TPRSR50 PO (11:16)
[2017-08-28] MEDS ORDERED: NTRSLP4 SL (11:39)
== END 2017-03-22 13:55 | disposition home or self-care (01) ==
LOC: ENRESERVDT → ENRESERVTM → C.EDB 14:45 → C.2E 16:50
PROVIDERS: ADMIT Hospitalist; ATTEND Hospitalist
DX: R07.9 Chest pain, unspecified (principal); I10 Essential (primary) hypertension; F41.9 Anxiety disorder, unspecified; M35.00 Sjogren syndrome, unspecified; E78.5 Hyperlipidemia, unspecified; K21.9 Gastro-esophageal reflux disease without esophagitis; E66.9 Obesity, unspecified; G47.33 Obstructive sleep apnea (adult) (pediatric); Z98.890 Other specified postprocedural states; Z90.89 Acquired absence of other organs; Z87.891 Personal history of nicotine dependence; Z88.0 Allergy status to penicillin; Z79.899 Other long term (current) drug therapy; Z82.49 Family history of ischemic heart disease and other diseases of the circulatory system

== ENCOUNTER 2017-06-21 16:43 | Inpatient (IN) | payer OTHER ==
[~2017-06-21] VITALS: Ht 170.2 cm; Wt 116.0 kg
[~2017-06-21 16:43] MED LIST changes: -ALBUAER2 INH; +AMLO-110 PO; -CEFD300C3 PO; -CETITAB27 PO; -DIPH25CA37 PO; +DIPH25CA65 PO; -GABA-1218 PO; -MELO15TA4 PO; -NSNN50 NAE; +VNTHFA/IN INH
[2017-06-21] MEDS ORDERED: GABA400C PO (17:11)
[2017-06-21] MEDS ORDERED: PRT/40 PO (17:38)
[2017-06-21] MEDS ORDERED: NRV/5 PO (17:38)
[2017-06-21] MEDS ORDERED: FLNIN/ NAE (17:38)
[2017-06-21] MEDS ORDERED: LPT40 PO (17:38)
[2017-06-21] MEDS ORDERED: ATV1 PO (17:38)
[2017-06-21] MEDS ORDERED: CYCL0.052 OPB (17:38)
[2017-06-21] MEDS ORDERED: ONDANSETRON INJ 2 MG/ML 2 ML VIAL IV STA (17:44)
--- NOTE | 2017-06-21 18:20 | DIAGNOSTIC IMAGING REPORT ---
CHEST ONE VIEW PORTABLE CLINICAL HISTORY: Evaluate Fever/Sepsis dyspnea COMPARISON STUDY: 03/21/2017 FINDINGS: Mild stable cardiomegaly. Diaphragms are smooth. Lungs are clear. IMPRESSION: Mild stable cardiomegaly. Otherwise negative study The above report was generated using voice recognition software. It may contain grammatical, syntax or spelling errors. Electronically signed by: Elieser Degroot M.D. 06/21/2017 6:18 PM Dictated Date/Time: 06/21/2017 6:18 PM
[2017-06-21 18:23] LABS: ALT/SGPT 34 U/L (12-78); AST/SGOT 52 U/L (15-37); BLOOD UREA NITROGEN 14 mg/dl (7-18); BUN/CREATININE RATIO 9.8 (10-20); CALCIUM 8.9 mg/dl (8.5-10.1); CARBON DIOXIDE 23 mmol/L (21-32); CHLORIDE 110 mmol/L (98-107); GLUCOSE 96 mg/dl (70-99); POTASSIUM 4.1 mmol/L (3.5-5.1); SODIUM 140 mmol/L (136-145)
[2017-06-21 18:24] LABS: INR 0.9 (0.9-1.1); PARTIAL THROMBOPLASTIN RATIO 1.1; PROTHROMBIN TIME (PATIENT) 10.1 SECONDS (9.0-12.0)
[2017-06-21 18:39] LABS: ALKALINE PHOSPHATASE 98 U/L (45-117); CKMB/CK RATIO 5.5 (0-3.0); THYROID STIMULATING HORMONE 0.752 uIu/ml (0.300-4.500)
--- NOTE | 2017-06-21 18:57 | Cardiology Follow-Up ---
Cardiology Follow-Up Date of Service Jun 21, 2017. Cardiology Follow-Up Interventional Cardiology called by Dr. Delgado from the emergency department regarding patient's need for possible urgent cardiac catheterization. Patient was previously seen by Dr. Guzmán from [facility] cardiology in March of 2017 in the setting of atypical chest pain and mildly elevated troponin to 0.1. Patient underwent a stress echo at that time which was negative for ischemia and showed normal LV function.. Mrs. Tucker has a history of hypertension, dyslipidemia, obesity, ongoing tobacco use and significant family history for coronary artery disease (sister of [place] at age 54 within last year) and she presented today after new onset diaphoresis, jaw pain, bilateral arm numbness and chest tightness. Initial EKG was unremarkable but initial troponin was positive to 4.76 When I saw the patient in the ED BP in 110/50s, intermittent sinus bradycardia to 50s. Her chest tightness/arm numbness had resolved with only aspirin en route. She remains very anxious. Suspicion for acute coronary syndrome is high and feel patient should be admitted to telemetry and treated for NSTEMI with aspirin, heparin infusion along with nitrates, opioids as needed. Plan for additional risk stratification , likely cath in AM. As patient is chest pain-free, hemodynamically and electrically stable no need for emergent cardiac catheterization at this time. If she were to have recurrent/persistent pain overnight, please contact and would have low threshold to do procedure tonight.
--- NOTE | 2017-06-21 19:22 | EMERGENCY ROOM VISIT NOTE ---
History Report prepared by Jessi: Vanesa Carrillo Under the Supervision of: Dr. Memo Delgado D.O. First contact with patient: 17:19 Chief Complaint: CARDIAC ASSESSMENT Stated Complaint: CARDIAC SX, History of Present Illness The patient is a 47 year old female who presents to the Emergency Room with complaints of sudden diaphoresis that began around 1500. She currently rates her discomfort as an 8/10 in severity. The patient states that she was at work and states that she broke out in diaphoresis. The patient states that she developed jaw pain, so she went to the nurse's station in the [employer] she works for and states that she had her blood pressure taken. She states that she was also found to be bradycardic. The patient states that she cannot breathe deeply, noting that she will cough. She states that the nurses became concerned and gave the patient 324 mg of aspirin and was transferred to the emergency department via ALS. The patient states that she does not feel like herself. She states that over the last few weeks she has noticed intermittent exertional symptoms. The patient states that today she developed sharp pain in the center of her back, but states that it has alleviated slightly. She additionally reports pain in her ribcage. The patient states that she developed hand tingling today as well. She states that since she was given the aspirin she has been feeling nauseous. The patient reports swelling to her lower extremities when standing for an extended period of time. She reports a history of hyperlipidemia and hypertension. The patient states that a few months ago she lost her sister to an [place], noting that she would have been turning 53 years old. She states that she is a past smoker. The patient denies being given any nitroglycerin. She denies any recent illness, chills, or fever. The patient states that when her sister in March she developed chest pain and was evaluated, noting that her troponin was slightly elevated then. She states that she had a stress test that was normal, so she never had a cardiac catheterization. Source of History: patient Onset: 1500 Position: other (global) Symptom Intensity: 8/10 Quality: other (diaphoresis) Timing: other (sudden) Associated Symptoms: + nausea, + back pain, No fevers, No chills Note: Associated symptoms: jaw pain, bradycardia Review of Systems See HPI for pertinent positives & negatives. A total of 10 systems reviewed and were otherwise negative. Past Medical & Surgical Medical Problems: (1) Dyslipidemia (2) GERD (gastroesophageal reflux disease) (3) Hypertension (4) Lumbago (5) YUSUF (obstructive sleep apnea) (6) Rhinitis (7) Sjogrens syndrome Surgical Problems: (1) History of carpal tunnel surgery (2) History of tonsillectomy Family History FH: CAD (coronary artery disease) FATHER ( in his 70s from [place]) Social History Smoking Status: Former Smoker Alcohol Use: none Housing Status: lives with family Occupation Status: employed Current/Historical Medications Scheduled Amlodipine Besylate (Amlodipine Besylate), 5 MG PO DAILY Atorvastatin (Atorvastatin Calcium), 40 MG PO DAILY Azelastine Hcl (Astelin Nasal [place]), 2 SPRAYS AILYN BID Celecoxib (CeleBREX), 200 MG PO DAILY Fluticasone Propionate (Fluticasone Propionate), 2 SPRAYS AILYN DAILY Gabapentin (Neurontin), 400 MG PO TID Hydroxychloroquine Sulfate (Plaquenil), 400 MG PO HS Ipratropium-Albuterol (Combivent Respimat), 1 PUFF INH QID Montelukast Sodium (Singulair), 10 MG PO DAILY Pantoprazole (Pantoprazole Sodium), 40 MG PO DAILY Scheduled PRN Cyclosporine (Ophth) (Restasis), 1 DROP OPB Q12 PRN for Dry Eye(s) Diphenhydramine Hcl (Benadryl Allergy), 25-50 MG PO HS PRN for Sleep Lorazepam (Lorazepam), 0.5 MG PO BID PRN for Anxiety/Insomnia Meclizine Hcl (Meclizine Hcl), 12.5 MG PO TID PRN for Dizziness Allergies Coded Allergies: Penicillins (Verified Allergy, Mild, HIVES, 03/21/17) Physical Exam Vital Signs Date Time Temp Pulse Resp B/P (MAP) Pulse Ox O2 Delivery O2 Flow Rate FiO2 06/21/17 18:31 113/52 06/21/17 18:30 55 18 98 06/21/17 18:01 143/60 06/21/17 18:00 61 22 98 06/21/17 17:30 46 18 96/58 96 06/21/17 17:26 49 06/21/17 17:00 99/54 8/16/17 16:45 98 Room Air 06/21/17 16:45 36.9 50 18 130/76 98 Room Air Physical Exam CONSTITUTIONAL/VITAL SIGNS: Reviewed / noted above. GENERAL: Non-toxic in appearance. INTEGUMENTARY: Warm, dry, and [place]. HEAD: Normocephalic. EYES: without scleral icterus or trauma. ENT/OROPHARYNX: clear and moist. LYMPHADENOPATHY/NECK: Is supple without lymphadenopathy or meningismus. RESPIRATORY: Lungs clear and equal. CARDIOVASCULAR: Regular rate and rhythm. GI/ABDOMEN: Soft and nontender. No organomegaly or pulsatile mass. No rebound or guarding. Normal bowel sounds. EXTREMITIES: Warm and well perfused. BACK: No CVA tenderness. NEUROLOGICAL: Intact without focal deficits. PSYCHIATRIC: normal affect. MUSCULOSKELETAL: Normally developed with good muscle tone. Medical Decision & Procedures ER Provider Diagnostic Interpretation: X ray results and stated below per my interpretation and radiology interpretation. CHEST ONE VIEW PORTABLE CLINICAL HISTORY: Evaluate Fever/Sepsis dyspnea COMPARISON STUDY: 03/21/2017 FINDINGS: Mild stable cardiomegaly. Diaphragms are smooth. Lungs are clear. IMPRESSION: Mild stable cardiomegaly. Otherwise negative study The above report was generated using voice recognition software. It may contain grammatical, syntax or spelling errors. Electronically signed by: Elieser Degroot M.D. 06/21/2017 6:18 PM Dictated Date/Time: 06/21/2017 6:18 PM Laboratory Results 06/21/17 16:40 Test 06/21/17 16:40 06/21/17 16:58 Prothrombin Time 10.1 SECONDS (9.0-12.0) Prothromb Time International Ratio 0.9 (0.9-1.1) Activated Partial Thromboplast Time 27.3 SECONDS (21.0-31.0) Partial Thromboplastin Ratio 1.1 D-Dimer 410 ug/L FEU (0-500) Anion Gap 7.0 mmol/L (3-11) Est Creatinine Clear Calc Drug Dose 64.2 ml/min Estimated GFR () 51.0 Estimated GFR (Non- 44.0 BUN/Creatinine Ratio 9.8 (10-20) Calcium Level 8.9 mg/dl (8.5-10.1) Total Bilirubin 0.3 mg/dl (0.2-1) Direct Bilirubin < 0.1 mg/dl (0-0.2) Aspartate Amino Transf (AST/SGOT) 52 U/L (15-37) Alanine Aminotransferase (ALT/SGPT) 34 U/L (12-78) Alkaline Phosphatase 98 U/L (45-117) Total Creatine Kinase 551 U/L (26-192) Creatine Kinase MB 30.1 ng/ml (0.5-3.6) Creatine Kinase MB Ratio 5.5 (0-3.0) Troponin I 7.780 ng/ml (0-0.045) Total Protein 7.7 gm/dl (6.4-8.2) Albumin 3.5 gm/dl (3.4-5.0) Lipase 151 U/L (73-393) Thyroid Stimulating Hormone (TSH) 0.752 uIu/ml (0.300-4.500) Bedside Troponin I 4.760 ng/ml (0-0.045) Laboratory results as stated above per my review. Medications Administered Medications (Trade) Dose Ordered Sig/Kim Route Start Time Stop Time Status Last Admin Dose Admin Ondansetron HCl (Zofran Inj) 4 mg NOW STAT IV 06/21/17 17:44 06/21/17 17:45 DC 06/21/17 18:37 4 MG ECG Indication: bradycardia, diaphoresis Rate (beats per minute): 51 Rhythm: sinus bradycardia Findings: no acute ischemic change, no ectopy ED Course 1737: Previous medical records were reviewed. The patient was evaluated in room C10. A complete history and physical examination was performed. 1743: Ordered Zofran Inj 4 mg IV. 1745: I discussed the patients case with Dr. Stafford, Interventional Cardiology. He states that he will come evaluate the patient and decide if the patient should be taken straight to the label folder or if she can be taken tomorrow. 1829: I spoke to Dr. Stafford, Interventional Cardiology. He states that the patient should be evaluated for further treatment and he will do a catheterization in the morning. He states that the patient is in agreement with the treatment plan. 1918: I discussed the patients case with Chelsey Ellis. He is going to evaluate the patient for further treatment. 1923: IV Heparin ordered. Medical Decision Differentials considered include acute myocardial infarction, acute coronary syndrome, myocarditis, pericarditis, pericardial effusions /tamponade, esophageal perforation, thoracic aortic dissection, pulmonary embolism, pneumonia, pneumothorax, pancreatitis, shingles, acute cholecystitis, and perforated abdominal viscus. This is a 47-year-old female who presents to the ED with a chief complaint of having a sudden onset of diaphoresis, jaw pain and some shortness of breath around 3 PM today. The patient reports history of high cholesterol hypertension as well as a sister who from an [place] at the age of 55. This was 3 months ago. 3 months ago the patient did have some discomfort after sister's and was admitted and had a mildly elevated troponin. A stress test the following day did not reveal anything and she was discharged. Her symptoms started today and she came into the ED for evaluation. Her initial twelve-lead EKG as well as a twelve-lead EKG by EMS did not show any acute ischemic changes. Her troponin was elevated at 7.7. The patient's d-dimer was normal. Blood work was otherwise unremarkable. The patient was told the results of the tests. She did see Dr. Stafford, the labor/excavator, who did not feel she required emergent cardiac catheterization tonight. She was not having any significant symptoms and did receive aspirin by EMS. The patient will probably placed on IV heparin. She was seen by the hospitalist and admitted the hospital for further intervention. Medication Reconcilliation Current Medication List: was personally reviewed by me Blood Pressure Screening Patient's blood pressure: Normal blood pressure Blood pressure disposition: Did not require urgent referral Consults Time Called: 1744 Consulting Physician: Dr. Stafford, Interventional Cardiology Returned Call: 1745 I discussed the patients case with Dr. Stafford, Interventional Cardiology. He states that he will come evaluate the patient and decide if the patient should be taken straight to the label folder or if she can be taken tomorrow. Additional Consults: Time Called: 1832 Consulted Physician: Chelsey Ellis Returned Call: 1918 Additional Comments: I discussed the patients case with Chelsey Ellis. He is going to evaluate the patient for further treatment. Impression Primary Impression: NSTEMI (non-ST elevated myocardial infarction) Scribe Attestation The scribe's documentation has been prepared under my direction and personally reviewed by me in its entirety. I confirm that the note above accurately reflects all work, treatment, procedures, and medical decision making performed by me. Departure Information Dispostion Being Evaluated By Hospitalist Referrals Rashawn Witt M.D. (PCP)
[2017-06-21] MEDS ORDERED: SODIUM CHLORIDE 0.9% 1000ML 1,000 ML IV SCH ×3 (19:45→22:45)
[2017-06-21] MEDS ORDERED: HEPARIN 25,000 UNIT/500ML D5W 500 ML IV PRN (19:45)
[2017-06-21] MEDS ORDERED: MoRPHine SULFATE 2 MG/ML CARP IV ONE (20:08)
[2017-06-21] MEDS ORDERED: SODIUM CHLORIDE 0.9% 250ML 250 ML IV ONE (20:15)
[2017-06-21 20:16] LABS: MAGNESIUM 2.3 mg/dl (1.8-2.4)
[2017-06-21] MEDS ORDERED: LORAZEPAM 1 MG TAB PO PRN (20:45)
[2017-06-21] MEDS ORDERED: ALBUT/IPRATROP 3MG/0.5MG NEB 3 ML VIAL INH PRN (20:45)
[2017-06-21] MEDS ORDERED: LORAZEPAM 2 MG/ML 1 ML VIAL IV PRN (20:45)
[2017-06-21] MEDS ORDERED: MECLIZINE HCL 12.5 MG TAB PO PRN ×2 (20:45→21:00)
[2017-06-21] MEDS ORDERED: ACETAMINOPHEN 325 MG TAB PO PRN ×2 (20:45→22:45)
[2017-06-21] MEDS ORDERED: MIDAZOLAM HCL 1 MG/ML 2ML VIAL ONE (21:00)
[2017-06-21] MEDS ORDERED: HEPARIN SOD (PORCINE) 1000 UNIT/ML 10 ML VIAL ONE (21:00)
[2017-06-21] MEDS ORDERED: NiCARDipine HCL INJ 2.5 MG/ML 10 ML AMP ONE (21:00)
[2017-06-21] MEDS ORDERED: FENTANYL CITRATE INJ 50 MCG/1 ML 2 ML VIAL ONE (21:01)
[2017-06-21] MEDS ORDERED: NITROGLYCERIN/D5W 100MCG/ML 20ML SYR ONE (21:01)
--- NOTE | 2017-06-21 21:11 | Procedure Note ---
Pre-Mod Sedation Assessment General Date of Moderate Sedation: Jun 21, 2017. Vital Signs: Vital Signs Past 12 Hours Date Time Temp Pulse Resp B/P (MAP) Pulse Ox O2 Delivery O2 Flow Rate FiO2 06/21/17 21:00 118/54 06/21/17 20:51 115/58 06/21/17 20:46 48 18 96 06/21/17 20:39 129/61 06/21/17 20:31 06/21/17 20:16 47 18 96 06/21/17 20:11 48 16 96 06/21/17 20:00 115/54 06/21/17 19:41 54 25 94 06/21/17 19:36 51 17 97 06/21/17 19:30 99/43 06/21/17 19:06 52 19 97 06/21/17 19:00 104/43 06/21/17 18:36 48 10 99 06/21/17 18:31 113/52 06/21/17 18:30 55 18 98 06/21/17 18:01 143/60 06/21/17 18:00 61 22 98 06/21/17 17:30 46 18 96/58 96 06/21/17 17:26 49 06/21/17 17:00 99/54 06/21/17 16:45 98 Room Air 06/21/17 16:45 36.9 50 18 130/76 98 Room Air Review Cardiovascular: regular rate, rhythm, no edema Abdomen: normal bowel sounds, non tender Lungs: chest non-tender, lungs clear Airway Class: III Pre-Sedation Airway Assessment Oral Cavity: WNL Able to Visualize Vocal Cords: No Short Thick Neck: Yes Hx of Sleep Apnea: No Smoking Status: Former Smoker Mallampati Classification: Class III ASA Classification: Class III Procedure Planning Contraindications-for Mod Sed: None Yes Notes The planned sedation has been discussed with the patient and consent obtained. I have identified the patient, determined the appropriateness of sedation and have assessed the patient immediately prior to the procedure. All medicine(s) and interventions are by my order.
[2017-06-21 21:50] LABS: BASO % 0.2 %; BASO ABS # 0.03 K/uL (0-0.2); COMPLETE YES; HEMATOCRIT 41.3 % (37-47); IG% 0.2 %; LYMPH % 30.3 %; LYMPH ABS # 3.69 K/uL (1.2-3.4); MEAN CELL VOLUME 87.7 fL (80-100); MEAN CORPUSCULAR HEMOGLOBIN 28.9 pg (25-34); MEAN CORPUSCULAR HGB CONC 32.9 g/dl (32-36); MEAN PLATELET VOLUME 11.1 fL (7.4-10.4); NEUT % 63.3 %; PLATELET COUNT 250 K/uL (130-400); RED BLOOD COUNT 4.71 M/uL (4.2-5.4); WHITE BLOOD COUNT 12.19 K/uL (4.8-10.8)
[2017-06-21] MEDS ORDERED: MONT1TAB3 PO (22:02)
[2017-06-21] MEDS ORDERED: HYDR200T5 PO (22:02)
[2017-06-21] MEDS ORDERED: ASTN NAE (22:02)
[2017-06-21] MEDS ORDERED: IPRA1AER2 INH (22:02)
[2017-06-21] MEDS ORDERED: MECL1TAB40 PO (22:02)
[2017-06-21] MEDS ORDERED: CLB/200 PO (22:02)
[2017-06-21] MEDS ORDERED: TICAGRELOR 90 MG TAB PO ONE (22:09)
--- NOTE | 2017-06-21 22:17 | Procedure Note ---
Post-Mod Sedation Assessment General Date of Moderate Sedation Jun 21, 2017. Vital Signs: Vital Signs Past 12 Hours Date Time Temp Pulse Resp B/P (MAP) Pulse Ox O2 Delivery O2 Flow Rate FiO2 06/21/17 21:00 118/54 06/21/17 20:51 115/58 06/21/17 20:46 48 18 96 06/21/17 20:39 129/61 06/21/17 20:31 06/21/17 20:16 47 18 96 06/21/17 20:11 48 16 96 06/21/17 20:00 115/54 06/21/17 19:41 54 25 94 06/21/17 19:36 51 17 97 06/21/17 19:30 99/43 06/21/17 19:06 52 19 97 06/21/17 19:00 104/43 06/21/17 18:36 48 10 99 06/21/17 18:31 113/52 06/21/17 18:30 55 18 98 06/21/17 18:01 143/60 06/21/17 18:00 61 22 98 06/21/17 17:30 46 18 96/58 96 06/21/17 17:26 49 06/21/17 17:00 99/54 06/21/17 16:45 98 Room Air 06/21/17 16:45 36.9 50 18 130/76 98 Room Air Review - Discharge Criteria Vital Signs Stable: Yes Alert/Oriented/Conversant: Yes Returned to Baseline Mental St: Yes Nausea Absent/Minimal: Yes Pain/Discomfort/Absent/Minimal: Yes Normal/Baseline Respirations: Yes Active Bleeding?: No Pt Received D/C Instructions: N/A Prescriptions Given: Transmitted Specific Proced. D/C Criteria Distal Pulses Present (Cardiac: Yes Groin site assessed-Card Cath: N/A Voided Prior To Discharge: N/A Discharged Patients Adult Escort/Transportation: Yes
[2017-06-21 22:35] VITALS: BP 101/34; PULSE 45; TEMP 36.8; O2SAT 94; Ht 170.2 cm; Wt 116.0 kg
--- NOTE | 2017-06-21 22:37 | Cardiac Catheterization ---
Procedure Note Procedure Date Jun 21, 2017. Pre-Procedure Diagnosis Non STEMI AUC Score 8 Post-Procedure Diagnosis Severe CAD, Successful PCI, Elevated Intracardiac Pressures Procedure(s) Performed Coronary Angiography, Left Heart Cath, LV Angiography, Drug Eluting Stent Director Of Strategic Marketing Rivera Cartridge Belt Puncher(s) Fan Estimated Blood Loss 15 Medication(s) Fentanyl, Heparin, Nicardipine, Nitroglycerin, Versed, Lidocaine 1% Ticagrelor Summary of Findings Indication: High-risk NSTEMI/Heart Alert Access: 6Fr Right Radial Artery Catheters: [place], pigtail; JR4 guide Findings: LM - Angiographically normal LAD - Moderate caliber, tortuous vessel, distal luminal irregularities. Small 2nd diagonal with 60-70% ostial stenosis (too small for intervention). Circumflex - Large caliber vessel, angiographically normal RCA - Dominant, mild proximal disease, 20% mid segment disease, 100% occluded distal RCA. Post intervention mild disease in R-PAV before PLB1, moderate caliber PLB2. LVEDP - 25 LVEF 50%, hypokinetic basilar inferior wall -- PCI -- Antithrombotic therapy: Heparin, Ticagrelor Procedure: RCA cannulated with JR 4 guide Vice President Sales And Marketing 50 wire passed across lesion into distal vessel Distal RCA lesion predilated with 2.0 compliant balloon Dilated lesion stented with 2.75 x 23 Xience GILDARDO Stent post-dilated with 2.75 noncompliant balloon IC vasodilators administered for spasm Post procedure BIJU 3 flow, stent well expanded with minimal residual stenosis and no apparent cardiac complications. Arterial Closure: TR Band Summary: 1. Acute 100% distal RCA occlusion 2. Elevated intracardiac filling pressure. Preserved LV function. 3. Successful PCI of distal RCA with 2.75 x 23 Xience GILDARDO Recommendations: Admit to ICU for continued monitoring Loaded with Ticagrelor 180 mg in phlebotomist lab assistant, likely switch to plavix prior to discharge Continue dual-antiplatelet therapy for 1 year Trend troponins until peak, Check Echo in AM Uptitrate SHANE as BP allows. Add beta-mayela as bradycardia resolves Consider diuretics if respiratory symptoms overnight High-dose statin Consult cardiac Rehab Hemodynamics Rest Ao: 108/56 Final Ao: 118/56 LV: 127/25 Recommendations PCI without planned CABG Specimens None Radiation Exposure (mGy) 4123 Contrast (mls) 165 Fluids (cc crystalloids) 205 Drains None Anesthesia Moderate Procedural Complication(s) None Disposition ICU ACC Data Cardiac Status Clinical evaluation leading to the procedure CAD Presntation: Non STEMI Anginal Classification: CCS IV Heart Failure: No, NYHA Class: CCS I Cardiogenic Shock w/in 24Hrs: No Cardiac Arrest w/in 24Hrs: No Imaging studies past 6 months: Yes Stress studies past 6 months: Yes Standard Exercise Stress Test: No Stress Echocardiogram: Yes - Negative Coronary Anatomy Dominant: Right LAD (% Stenosis): Normal D2 (% Stenosis): Ostial (60-70) Circumflex (% Stenosis): Normal RCA (% Stenosis): Distal (100) Left Ventricular Angiography EF (%): 50 Wall Motion: Inferior (Hypokinetic) Diagnostic Physician's Name: Kole Stafford MD Status: Emergency Closure Device Percutaneous Entry Location: Radial Closure Device: Radial Band Recommendations: PCI without planned CABG PCI Indication: PCI for high risk Non-STEMI Lesion Segment Name: Distal RCA Culprit Artery: Yes Stenosis Prior to Rx (%): 100 Chronic Total Occlusion: No IVUS: No FFR: No Pre-Procedure BIJU Flow: 0 Previously Treated Lesion: No Lesion Complexity: Non-High/Non-C Lesion Length (mm): 20 Thrombus Present: Yes Bifurcation Lesion: No Guidewire Across Lesion: Yes Guidewire: Stenosis Post-Procedure (%): 0 Post-Procedure BIJU Flow: 3 Device(s) Deployed: Yes Intraprocedure Events Significant Dissection: No Perforation: No
[2017-06-21 22:42] VITALS: BP 101/34; PULSE 42; TEMP 36.8; O2SAT 95
[2017-06-21] MEDS ORDERED: NITROGLYCERIN 0.4 MG SL PER TAB CHARGE SL PRN (22:45)
--- NOTE | 2017-06-21 22:59 | Critical Care Consultation ---
Critical Care Consultation Date of Consultation: Jun 21, 2017. Attending Physician: Davide Stout MD Reason for Consultation: Post cardiac catheterization care and observation; myocardial infarction secondary to 100% occlusion to the distal RCA History of Present Illness Carmen Tucker is a 47-year-old female past medical history for hyperlipidemia, hypertension and obesity who presented to the ED after reported diaphoresis left jaw pain and arm tingling while at work around 3 PM. Patient works at a [employer] and was seen by nurse there who administered 324 mg of aspirin in had patient transferred to [facility] via ambulance. On arrival to the emergency department her discomfort was rated as 8 out of 10. She was bradycardic. She complained of nausea secondary to aspirin administration. She also stated that her discomfort was radiating around her rib cage as well as a sharp pain in the center of her back. She reports a family history of a sister who a 3 months ago to the date at the age of 54 due of myocardial infarction. Pt states heart disease is common on maternal side of the family; while cancer is on her fathers side. Patient with a past smoker; quit October 2015; having smoked for 30 years 1ppd. Per outpatient records patient was seen by Dr. Guzmán of [facility] cardiology in March of this year for atypical chest pain. Normal left ventricular function was noted on stress echo without signs of ischemia. During the stress test and the patient did have a significant hypertensive response and was placed on amlodipine 5 mg daily. In the emergency department; patient was treated with nitroglycerin and zofran. [id number] troponin was elevated at 4.760 and lab troponin was elevated at 7.780. EKG demonstrated sinus bradycardia and was otherwise unremarkable; did not demonstrate ST segment changes. Dr. Kole Stafford did decide to take the patient for catheterization prior to transfer to the telemetry floor. Per his records and discussion with him 1 drug eluting stent was placed secondary to 100% occlusion to the distal RCA by means of a right radial approach. Patient received Ticagrelor and Heparin. Findings during catheterization were LVEDP 25 and LVEF 50% with hypokinetic basilar inferior wall; as well as 60-70% ostial stenosis of a second diagonal off the LAD that was too small for intervention. Patient was transferred to the ICU. Patient denies fever, chills, malaise. She continues to complain of minimal left jaw pain of 1/10, as well as some peripheral lines to her left vision. She denies any other numbness, tingling, unilateral neuro symptoms. Her chest/ back pain is alleviated. She denies current nausea, upset stomach, change in bowel or bladder habits. Her main complaint at this point is that she is hungry and per discussion with Dr. Stafford a [facility] heart healthy tray has been obtained. Past Medical/Surgical History Medical Problems: ACS (acute coronary syndrome) Dyslipidemia GERD (gastroesophageal reflux disease) Hypertension Lumbago YUSUF (obstructive sleep apnea) Rhinitis Sjogrens syndrome History of tobacco abuse History of carpal tunnel syndrome Chronic pain Surgical Problems: History of carpal tunnel surgery History of tonsillectomy and Adenoids Hx of Trigger finger repair D&C Knee Arthroplasty Biopsy of oropharynx Injections of lumbar/sacral region 4 Sinoplasty Family History Endocrine disorder MOTHER (Thyroid) FH: CAD (coronary artery disease) FATHER ( in his 70s from [place]) FH: breast cancer Aunt FH: diabetes mellitus GRANDMOTHER FHx: allergies FHx: heart disease GRANDMOTHER Uncle Social History Smoking Status: Former Smoker Smokeless Tobacco Use: No Alcohol Use: socially Marital Status: Housing Status: lives with family Occupation Status: employed Allergies Coded Allergies: Penicillins (Verified Allergy, Mild, HIVES, 03/21/17) Home Medications Scheduled Amlodipine Besylate (Amlodipine Besylate), 5 MG PO DAILY Atorvastatin (Atorvastatin Calcium), 40 MG PO DAILY Azelastine Hcl (Astelin Nasal [place]), 2 SPRAYS AILYN BID Celecoxib (CeleBREX), 200 MG PO DAILY Fluticasone Propionate (Fluticasone Propionate), 2 SPRAYS AILYN DAILY Gabapentin (Neurontin), 400 MG PO TID Hydroxychloroquine Sulfate (Plaquenil), 400 MG PO HS Ipratropium-Albuterol (Combivent Respimat), 1 PUFF INH QID Montelukast Sodium (Singulair), 10 MG PO DAILY Pantoprazole (Pantoprazole Sodium), 40 MG PO DAILY Scheduled PRN Cyclosporine (Ophth) (Restasis), 1 DROP OPB Q12 PRN for Dry Eye(s) Diphenhydramine Hcl (Benadryl Allergy), 25-50 MG PO HS PRN for Sleep Lorazepam (Lorazepam), 0.5 MG PO BID PRN for Anxiety/Insomnia Meclizine Hcl (Meclizine Hcl), 12.5 MG PO TID PRN for Dizziness Current Inpatient Medications Current Inpatient Medications Medications (Trade) Dose Ordered Sig/Kim Route Start Time Stop Time Status Last Admin Dose Admin Sodium Chloride 1,000 ml @ 75 mls/hr [id number] IV 06/21/17 19:45 07/21/17 19:44 Morphine Sulfate (MoRPHine SULFATE INJ) 4 mg Q3H PRN IV 06/21/17 20:15 07/05/17 20:14 Acetaminophen (Tylenol Tab) 650 mg Q4H PRN PO 06/21/17 20:45 07/21/17 20:44 Nitroglycerin (Nitrostat Tab) 0.4 mg UD PRN SL 06/21/17 20:45 07/21/17 20:44 Atorvastatin Calcium (Lipitor Tab) 40 mg DAILY PO 06/22/17 09:00 07/22/17 08:59 Fluticasone Propionate (Flonase Nasal [place]) 2 sprays DAILY AILYN 06/22/17 09:00 07/22/17 08:59 Gabapentin (Neurontin Cap) 400 mg TID PO 06/21/17 21:00 07/21/17 20:59 Hydroxychloroquine Sulfate (Plaquenil Tab) 400 mg HS PO 06/21/17 21:00 07/21/17 20:59 Albuterol/ Ipratropium (Combivent Respimat Inh) 2 puffs QID INH 06/21/17 21:00 07/21/17 20:59 Lorazepam (Ativan Tab) 0.5 mg BID PRN PO 06/21/17 20:45 07/21/17 20:44 Montelukast Sodium (Singulair Tab) 10 mg DAILY PO 06/22/17 09:00 07/22/17 08:59 Pantoprazole Sodium (Protonix Tab) 40 mg DAILY PO 06/22/17 09:00 07/22/17 08:59 Miscellaneous Information (Order Awaiting Action) 1 ea QS N/A 06/22/17 00:00 07/22/17 00:00 Miscellaneous Information (Order Awaiting Action) 1 ea QS N/A 06/22/17 00:00 07/22/17 00:00 Albuterol/ Ipratropium (Duoneb) 3 ml Q2H PRN INH 06/21/17 20:45 07/21/17 20:44 Lorazepam (Ativan Inj) 0.5 mg Q4H PRN IV 06/21/17 20:45 07/21/17 20:44 UNV Meclizine HCl (Antivert Tab) 12.5 mg TID PRN PO 06/21/17 21:00 07/21/17 20:44 Nitroglycerin (Nitrostat Tab) 0.4 mg UD PRN SL 06/21/17 22:45 07/21/17 22:44 UNV Sodium Chloride 1,000 ml @ 75 mls/hr [id number] IV 06/21/17 22:45 06/22/17 03:24 UNV Ondansetron HCl (Zofran Inj) 4 mg Q6H PRN IV 06/21/17 22:45 07/21/17 22:44 UNV Aspirin (Ecotrin Tab) 81 mg QAM PO 06/22/17 09:00 07/22/17 08:59 UNV Lisinopril (Zestril Tab) 5 mg QAM PO 06/22/17 09:00 07/22/17 08:59 UNV Acetaminophen (Tylenol Tab) 650 mg Q4H PRN PO 06/21/17 22:45 07/21/17 22:44 UNV Ticagrelor (Brilinta Cap) 90 mg BID PO 06/22/17 09:00 07/22/17 08:59 UNV Review of Systems 12 systems reviewed and negative other than previously mentioned in the HPI. Physical Exam Date Time Temp Pulse Resp B/P (MAP) Pulse Ox O2 Delivery O2 Flow Rate FiO2 06/21/17 22:42 36.8 42 20 101/34 (56) 95 Room Air 06/21/17 22:25 48 16 142/80 (100) 95 Room Air 06/21/17 22:10 48 16 135/80 (98) 95 Room Air 06/21/17 21:00 118/54 06/21/17 20:51 115/58 06/21/17 20:46 48 18 96 06/21/17 20:39 129/61 06/21/17 20:31 06/21/17 20:16 47 18 96 06/21/17 20:11 48 16 96 8/16/17 20:00 115/54 06/21/17 19:41 54 25 94 06/21/17 19:36 51 17 97 06/21/17 19:30 99/43 06/21/17 19:06 52 19 97 06/21/17 19:00 104/43 06/21/17 18:36 48 10 99 06/21/17 18:31 113/52 06/21/17 18:30 55 18 98 06/21/17 18:01 143/60 06/21/17 18:00 61 22 98 06/21/17 17:30 46 18 96/58 96 06/21/17 17:26 49 06/21/17 17:00 99/54 06/21/17 16:45 98 Room Air 06/21/17 16:45 36.9 50 18 130/76 98 Room Air Vital Signs - as noted Laboratory Data - as noted Physical Exam: General - NAD, Eating dinner tray Eyes - PERRL, EOMI No icterus, gaze conjugate ENT - Mucosa moist, no lesions or candidiasis Neck - Supple, trachea midline, no masses or lymphadenopathy, no JVD or bruits Lungs - No paradoxical chest wall movement, clear to auscultation bilaterally, no wheezes, rales, or rhonchi Heart - Sinus bradycardia, rate of 44, No murmur, rubs, clicks, or gallops appreciated Abdomen - BS present, no bruits noted, tympanic to percussion, soft, nontender, nondistended, no organomegaly Extremities - No edema, pedal pulses intact Neuro - A&O X 4 Proprioception intact, neg pronator drift Strength extremities equal and appropriate bilaterally Reflexes: normal and equal Cerebellum: Finger to nose appropriate CN:PERRL, EOMI, no facial asymmetry, uvula/tongue midline Laboratory Results Last 24 Hours Test 06/21/17 16:40 06/21/17 16:58 06/21/17 21:47 White Blood Count 12.19 K/uL Red Blood Count 4.71 M/uL Hemoglobin 13.6 g/dL Hematocrit 41.3 % Mean Corpuscular Volume 87.7 fL Mean Corpuscular Hemoglobin 28.9 pg Mean Corpuscular Hemoglobin Concent 32.9 g/dl Platelet Count 250 K/uL Mean Platelet Volume 11.1 fL Neutrophils (%) (Auto) 63.3 % Lymphocytes (%) (Auto) 30.3 % Monocytes (%) (Auto) 5.0 % Eosinophils (%) (Auto) 1.0 % Basophils (%) (Auto) 0.2 % Neutrophils # (Auto) 7.72 K/uL Lymphocytes # (Auto) 3.69 K/uL Monocytes # (Auto) 0.61 K/uL Eosinophils # (Auto) 0.12 K/uL Basophils # (Auto) 0.03 K/uL RDW Standard Deviation 45.3 fL RDW Coefficient of Variation 14.0 % Immature Granulocyte % (Auto) 0.2 % Immature Granulocyte # (Auto) 0.02 K/uL Prothrombin Time 10.1 SECONDS Prothromb Time International Ratio 0.9 Activated Partial Thromboplast Time 27.3 SECONDS Partial Thromboplastin Ratio 1.1 D-Dimer 410 ug/L FEU Sodium Level 140 mmol/L Potassium Level 4.1 mmol/L Chloride Level 110 mmol/L Carbon Dioxide Level 23 mmol/L Anion Gap 7.0 mmol/L Blood Urea Nitrogen 14 mg/dl Creatinine 1.40 mg/dl Est Creatinine Clear Calc Drug Dose 64.2 ml/min Estimated GFR () 51.0 Estimated GFR (Non- 44.0 BUN/Creatinine Ratio 9.8 Random Glucose 96 mg/dl Calcium Level 8.9 mg/dl Magnesium Level 2.3 mg/dl Total Bilirubin 0.3 mg/dl Direct Bilirubin < 0.1 mg/dl Aspartate Amino Transf (AST/SGOT) 52 U/L Alanine Aminotransferase (ALT/SGPT) 34 U/L Alkaline Phosphatase 98 U/L Total Creatine Kinase 551 U/L Creatine Kinase MB 30.1 ng/ml Creatine Kinase MB Ratio 5.5 Troponin I 7.780 ng/ml Total Protein 7.7 gm/dl Albumin 3.5 gm/dl Lipase 151 U/L Thyroid Stimulating Hormone (TSH) 0.752 uIu/ml Bedside Troponin I 4.760 ng/ml Kaolin Activated Coagulation Time 202 SECONDS Diagnostic Results CHEST ONE VIEW PORTABLE CLINICAL HISTORY: Evaluate Fever/Sepsis dyspnea COMPARISON STUDY: 03/21/2017 FINDINGS: Mild stable cardiomegaly. Diaphragms are smooth. Lungs are clear. IMPRESSION: Mild stable cardiomegaly. Otherwise negative study The above report was generated using voice recognition software. It may contain grammatical, syntax or spelling errors. Electronically signed by: Elieser Degroot M.D. 06/21/2017 6:18 PM Dictated Date/Time: 06/21/2017 6:18 PM Assessment & Plan (1) Dyslipidemia (2) GERD (gastroesophageal reflux disease) (3) ACS (acute coronary syndrome) (4) NSTEMI (non-ST elevated myocardial infarction) (5) Hypertension (6) YUSUF (obstructive sleep apnea) PLAN: Neuro: * Pain well controlled; will follow closely and provide pain medication base on hemodynamics * Chronic Low Back/Right Leg Pain * Continue home dose of Neurontin 400 mg PO TID * A & O x 4 Resp: * Supplemental oxygen as required * Adequate Saturations on room air * Monitor for changes; Goal Saturations > 92% * Continue home respiratory regimen * Ipratropium/albuterol * YUSUF: CPAP of 10 ordered * Pt not sure of home settings * Outpt records demonstrate Auto CPAP of 5-15 CV: * EKG post cath, will increasing pain * Asymptomatic Bradycardia: Requested pacer pads be placed in room * 180mg Ticagrelor in [employer] Worker, next dose in AM * Likely to transition to Plavix outpatient * Will require dual antiplatelet therapy x 1 yr * Trend Troponin x 8h * ECHO pending in AM * Will titrate post-MA Cardiac meds * SHANE & BB * Will hold BB currently 2/2 bradycardia * High dose Statin: Check Lipid Panel AM * Will need cardiac rehab Fluids/Renal: * Continue fluids overnight NSS @ 75mL/hr secondary to SONAM * EF of 50%, monitor for fluid overload * Monitor I&Os * No jeong in place * Daily PRP/Electrolytes ID: * Afebrile with mild leukocytosis * No indication for broad spectrum antibiotics at this time * Trend fever curve & Monitor CBC GI/Nutrition: * Begin AHA Heart Healthy Diet * Check LFTs x 1 2/2 Sjgren medications & Brilinta use * Continue Home pantoprazole 40mg PO Daily Heme: * H&H Stable, Plts WNL * DVT Prophylaxis: SCDs ordered Endocrine: * No DM Diagnosis: Obtain A1c * Accu-Checks per protocol, started insulin infusion for 2 blood sugars greater than 180 MSK/Skin: * Sjogren: Continue home medications * Plaquenil 400mg PO HS; Restasis PRN CCT: 0 Minutes; Level 3 in patient billing. This time is exclusive of all separately billable procedures. Thank you for involving us in the care of this patient. Please refer to Dr. Denver Eldridge's addendum for further recommendations.
[2017-06-21 23:59] VITALS: O2SAT 99
[2017-06-22] VITALS (27 sets, daily range): BP systolic 92–211; BP diastolic 46–81; PULSE 43–88; TEMP 36.7–37.2; O2SAT 91–99
[2017-06-22] MEDS ORDERED: MoRPHine SULFATE 2 MG/ML CARP IV STA (00:09)
[2017-06-22] MEDS: MoRPHine SULFATE 4 MG/ML 1 ML CARP\\VIAL IV PRN (00:14)
[2017-06-22] MEDS: IPRATROPIUM BROMIDE/ALBUTEROL respimat INH INH SCH ×5 (00:14→19:52)
[2017-06-22] MEDS: HYDROXYCHLOROQUINE SULFATE 200 MG TAB PO SCH ×2 (00:15→19:53)
[2017-06-22] MEDS: GABAPENTIN 400 MG CAP PO SCH ×4 (00:15→19:53)
[2017-06-22] MEDS: ONDANSETRON INJ 2 MG/ML 2 ML VIAL IV PRN (00:29)
[2017-06-22] MEDS ORDERED: NURSING VERBAL MED ORDER ONE (01:30)
[2017-06-22] MEDS ORDERED: AMIODARONE IV BOLUS / DRIP IV STA (02:09)
[2017-06-22] MEDS ORDERED: AMIODARONE 360MG / 200ML D5W ONE (02:10)
[2017-06-22] MEDS ORDERED: AMIODARONE 150MG / 100ML D5W ONE (02:10)
[2017-06-22] MEDS ORDERED: AMIODARONE / D5W 200 ML IV SCH (02:15)
[2017-06-22 03:00] LABS: URINE APPEARANCE CLOUDY (CLEAR); URINE BILIRUBIN NEG (NEG); URINE COLOR DK YELLOW; URINE EPITHELIAL CELL AUTO >30 /lpf (0-5); URINE NITRITE NEG (NEG); URINE SPECIFIC GRAVITY 1.041 (1.000-1.030); UROBILINOGEN NEG (NEG)
[2017-06-22 03:18] LABS: MANUAL MICROSCOPIC REQUIRED? NO; REVIEW REQ? YES
[2017-06-22 03:21] LABS: BUN/CREATININE RATIO 12.3 (10-20); CALCIUM 7.2 mg/dl (8.5-10.1); CREATININE 1.2 mg/dl (0.60-1.20); MAGNESIUM 1.8 mg/dl (1.8-2.4); PHOSPHORUS 3.1 mg/dl (2.5-4.9); POTASSIUM 3.6 mmol/L (3.5-5.1)
[2017-06-22 03:25] LABS: ISTAT ARTERIAL BLOOD GAS HCO3 16 meq/L (19-24); ISTAT ARTERIAL BLOOD GAS PCO2 26 mmHg (35-46); ISTAT ARTERIAL BLOOD GAS PO2 75 mmHg (80-95); ISTAT CARBON DIOXIDE 17 mEq/l (24-31); ISTAT HEMATOCRIT 33 % (37-47); ISTAT HEMOGLOBIN 11.2 g/dl (12.0-16.0); ISTAT SODIUM 139 mEq/L (135-144)
[2017-06-22 03:34] LABS: BETA-HYDROXYBUTYRATE 1.04 mg/dL (0.2-2.81)
[2017-06-22 03:54] LABS: BASO % 0.2 %; BASO ABS # 0.03 K/uL (0-0.2); COMPLETE YES; EOS % 0.2 %; HEMATOCRIT 35.5 % (37-47); IG% 0.2 %; LYMPH % 18.1 %; LYMPH ABS # 2.31 K/uL (1.2-3.4); MEAN CELL VOLUME 86.4 fL (80-100); MEAN CORPUSCULAR HEMOGLOBIN 29.2 pg (25-34); MEAN CORPUSCULAR HGB CONC 33.8 g/dl (32-36); MEAN PLATELET VOLUME 10.5 fL (7.4-10.4); MONO % 3.8 %; NEUT % 77.5 %; PLATELET COUNT 206 K/uL (130-400); RED BLOOD COUNT 4.11 M/uL (4.2-5.4); WHITE BLOOD COUNT 12.75 K/uL (4.8-10.8)
--- NOTE | 2017-06-22 04:00 | Critical Care Progress Note ---
Critical Care Progress Note Date of Service Jun 22, 2017. Critical Care Progress Note Around 0200 pt went from asymptomatic sinus bradycardia into V. fib and CODE BLUE was called. One round or approximately 2 minutes of chest compressions were performed while defibrillator was charging and patient was being fitted with pads. Epinephrine was ready and was about to be pushed when the all clear was given for shock. Patient did not receive epinephrine. Patient was shocked with 120 J once and chest compressions were immediately restarted. She began to become arousable and chest compressions were stopped to check for rhythm. She returned to normal sinus rhythm. Initially her blood pressure was in the 170s systolically but trended down to the 140s and eventually back into the low 100s; where she had been prior to this cardiac event. During this time both Dr. Eldridge and Dr. Stafford were made aware of the patient's condition. Pts remained in the room. An EKG was obtained and an amiodarone drip with bolus was started. Patient had CPAP in place secondary to obstructive sleep apnea prior to event; oxygen saturations remained stable throughout code. Stat PRP, magnesium and phosphorus were sent for lab. I was called with a lab value of greater than 600 for glucose. Having noted the patient's glucose was previously less than 100 and a urine taken shortly after the code was negative for glucose; I suspected that this was a spurious value. I asked the patient's nurse to check glucose via Accu-Check, which was in the 161. I recent stat PRP , magnesium and phosphorus. EKG performed after return to sinus rhythm did not demonstrate continued ischemia. STAT CXR was performed after CPR . Formal read is pending, per my professional opinion I see no overt fluid overload, pulmonary edema, pneumothorax, or rib fracture. Dr. Eldridge arrived to examine the pt and performed bedside cardiac ultrasound. Patient's EF was noted to be adequate. Greater than 50% collapse of the IVC was noted during respiration and a 500 mL bolus of Lactated Ringer was started. Patient requested lights be off and CPAP mask back on, so that she could get some rest. She is currently returned to the prior baseline of sinus bradycardia with a blood pressure systolically in the low 100s, and adequate oxygenation. She is hemodynamically stable. We'll continue to follow closely. I have personally evaluated and examined this patient. I agree with assessment and plan of Roly Daniels PA-C. Patient is critically ill due to patient is critically ill due to ventricular fibrillation, cardiac arrest requiring electrical cardioversion. During my evaluation the patient was chest pain and palpitation free, however she was complaining of global fatigue. I have answered her and her 's questions. Given the acute kidney injury decided to proceed with a limited bedside echo to better evaluate her current cardiac function that she she can tolerate increased hydration. Given that her EF appears to be normal at this time and not frankly hypokinetic we will proceed with a bolus of fluid and continue maintenance at 75 ML's an hour. I have personally spent 40 minutes of critical care time in the direct management of this patient. This is a life/limb threatening event. This includes time spent evaluating patient, direct bedside care, chart review, placing orders, interpretation of diagnostic studies, discussion with consultants, patient, and family members, as well as other required patient management activities. This time is exclusive of all separately billable procedures, and teaching time and separate from and in addition to any other critical care service time.
[2017-06-22 04:23] LABS: BUN/CREATININE RATIO 15.3 (10-20); CALCIUM 8.3 mg/dl (8.5-10.1); CHOLESTEROL/HDL RATIO 5.4; CREATININE 1.1 mg/dl (0.60-1.20); PHOSPHORUS 3.2 mg/dl (2.5-4.9); POTASSIUM 4.4 mmol/L (3.5-5.1)
--- NOTE | 2017-06-22 05:23 | Procedure Note ---
Procedure Note Date of Service Jun 22, 2017. Procedure Note Critical Care Medicine Point of Care Bedside Ultrasound Procedure: Limited Transthoracic Echocardiogram Indication: V. fib arrest in the setting of recent cardiac cath Date: 06/22/2017 Attending: Derrick Eldridge DO Fellow/Resident/Physician Traffic Chief: Brenda Daniels Organs Examined: Heart, Vascular system Pericardial fluid: Absent Right ventricle size: Normal LV Contractility: Normal RV Contractility: Normal IVC size: SIZE in CM 2cm (<1.2 cm predicts right atrial pressure < 10 mmHg) Mechanically ventilated breaths: No Hemodynamic Status: Heart rate 55, blood pressure 120/80 IVC respiratory variation 50 % Spontaneous breaths: Yes Positive Pressure breaths: Not applicable (> 20% variation indicative of fluid responsiveness) Intravascular volume status: Hypovolemic Impression: Normal right and left ventricular systolic function at this time, no evidence of volume overload Plan: Given 500 mils of a lactated Ringer bolus for hydration in the setting of acute kidney injury Images obtained are saved for permanent record
[2017-06-22 06:30] LABS: ALKALINE PHOSPHATASE 81 U/L (45-117); ALT/SGPT 172 U/L (12-78); AST/SGOT 234 U/L (15-37)
--- NOTE | 2017-06-22 06:37 | DIAGNOSTIC IMAGING REPORT ---
CHEST ONE VIEW PORTABLE CLINICAL HISTORY: Code Purple dyspnea COMPARISON STUDY: 06/21/2017 FINDINGS: Mild bronchovascular prominence. No focal infiltrate. Diaphragms remain smooth. IMPRESSION: Mild stable cardiomegaly. Bronchovascular prominence with no well-defined focal infiltrate The above report was generated using voice recognition software. It may contain grammatical, syntax or spelling errors. Electronically signed by: Elieser Degroot M.D. 06/22/2017 6:35 AM Dictated Date/Time: 06/22/2017 6:35 AM
--- NOTE | 2017-06-22 06:42 | HISTORY & PHYSICAL EXAMINATION ---
DATE OF ADMISSION: 06/21/2017 PRIMARY CARE DOCTOR: Dr. Witt. CHIEF COMPLAINT: Left-sided chest pain. HISTORY OF PRESENT ILLNESS: History obtained from patient and records. Medical history significant for hypertension, hyperlipidemia, reflux, past tobacco abuse, Sjogren's syndrome as per records, YUSUF on CPAP. Recent confinement last March 2017 for chest pain. Stress test was normal. 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 No unusual cough symptoms. Coworkers at facility gave her aspirin prior to EMS transport to the hospital. Troponin was noted to be 7 at the ER. IV heparin started in the ER for acute coronary syndrome. Pain initially improved in the Emergency Room. Seen by the technician support engineer at the Emergency Room. Diagnostic cardiac catheterization contemplated in the morning; low threshold for emergent cardiac cath with recurrence of discomfort as per note. Patient currently complaining of escalating discomfort in the left jaw with shortness of breath. MEDICAL HISTORY: As above. SURGERIES: She has had carpal tunnel surgery, tonsillectomy, trigger finger surgery. HOME MEDICATIONS: Include fluticasone, Neurontin, Plaquenil, Combivent, lorazepam, meclizine, Singulair, Protonix, Zolastin, amlodipine, atorvastatin, Celebrex, Restasis, Benadryl. ALLERGIES: PENICILLIN. FAMILY HISTORY: Heart disease. PERSONAL AND SOCIAL HISTORY: Past history of chronic intake of alcoholic beverages. Personal shelter cook. REVIEW OF SYSTEMS: As per HPI, all other ROS negative. PHYSICAL EXAMINATION: VITAL SIGNS: Blood pressure was noted to be 101/34, pulse rate 45, RR 18, temperature 36.8, sats 94 on room air. GENERAL: Noted to be uncomfortable, obese, no respiratory distress. SKIN: Normal color. HEENT: [place] palpebral conjunctivae. Dry mucosa. NECK: Short neck. LUNGS: Decreased breath sounds. HEART: Bradycardic. ABDOMEN: Soft. NT EXTREMITIES: Minimal LE edema. No tenderness NEUROLOGIC: No gross focality. LABS: Hemoglobin was noted to be 14, hematocrit 41, white cell count was noted to be 2.19, platelets noted to be 250. Sodium noted to be 140, potassium 4.1, chloride 110, CO2 20, BUN 40, creatinine 1.4, glucose was noted to be 96, troponin 7.78. Chest x-ray cardiomegaly. EKG, as per my interpretation, rate of 51, sinus bradycardia, Q-waves in the inferior leads. ASSESSMENT: 1. Acute coronary syndrome. Patient's jaw discomfort currently escalating again 2. Hypertension, blood pressure on the lower side. 3. Hyperlipidemia on statin therapy. 4. Past tobacco abuse. 5. Sjogren syndrome, as per records. PLAN: PCU as per initial Cardiology recommendations. Analgesia Aspirin for CAD prevention ff troponin . 2D echo R ACS Lipid profile Fluid bolus now for borderline blood pressure. DVT prophylaxis, heparin. Full code. I updated Dr. Stafford of the patient's worsening jaw discomfort. He is okay proceeding with tele admission for now. PX may need a heart alert later. MTDD
[2017-06-22] MEDS: FLUTICASONE PROPIONATE NA SPR 16 GM BTL NAE SCH (07:52)
[2017-06-22] MEDS: MONTELUKAST SOD 10 MG TAB PO SCH (07:53)
[2017-06-22] MEDS: PANTOprazole SOD 40 MG TAB PO SCH (07:53)
[2017-06-22] MEDS: ASPIRIN 81 MG ECTAB PO SCH (07:53)
[2017-06-22] MEDS: LISINOPRIL 5 MG TAB PO SCH (07:54)
[2017-06-22 07:56] LABS: ESTIMATED AVERAGE GLUCOSE 123 mg/dl; HA1C FLAG Normal (Normal)
[2017-06-22] MEDS ORDERED: TICAGRELOR 90 MG TAB PO ONE (07:57)
--- NOTE | 2017-06-22 07:58 | Critical Care Progress Note ---
Critical Care Progress Note Date of Service Jun 22, 2017. ICU Day ICU Day Number: [address] Eldridge Subjective Patient is a 47-year-old female who was admitted to the ICU overnight status post NSTEMI with cardiac catheterization revealing 100% distal RCA occlusion. Patient received one GILDARDO. At approximately 2 AM, the patient went into V. fib. She was shocked one time with return of spontaneous circulation. She remains on the amiodarone drip which has been decreased per cardiology. On evaluation today, the patient reports that she has had a little bit of a cough and felt some tightness with breathing, but denies any other symptoms at this point. She just completed her breakfast. She denies any current headaches , dizziness, lightheadedness, chest pain, palpitations, hemoptysis, nausea, vomiting, or abdominal pain. Objective VITAL SIGNS - Vital signs and nursing notes were reviewed. GENERAL - 47-year-old female appearing her stated age who is in no acute distress. Communicates well with provider and answers questions appropriately. NECK - Neck with FROM. Supple to palpation. LUNGS - Chest wall symmetric without accessory muscle use, intercostals retractions, or central cyanosis. Normal vesicular breath sounds CTA B/L. No wheezes, rales, or rhonchi appreciated. CARDIAC - RRR with S1/S2. No murmur, rubs, or gallops appreciated. No reproducible tenderness to palpation appreciated over the anterior chest wall. ABDOMEN - Abdominal contour obese and without pulsations or visible masses. BS normoactive all four quadrants. No tenderness, palpable masses, hepatosplenomegaly, or ascites noted. EXTREMITIES - No clubbing or peripheral cyanosis. No pretibial edema present. +3 /5 radial and dorsalis pedis pulses palpated throughout. +5/5 strength noted in UE/LE bilaterally. NEUROLOGIC - Cranial nerves II through XII grossly intact. PSYCH - A&Ox3 and cooperates fully with examiner. Pt is very pleasant and interacts well with examiner. Current SOFA Score SOFA Score Response (Comments) Value Platelets (x10) > 150 0 Bilirubin (mg/dL) < 1.2 0 [place] Coma Score 15 0 Level of Hypotension No Hypotension 0 Creatinine (mg/dL) < 1.2 0 Total 0 Assessment & Plan (1) GERD (gastroesophageal reflux disease) (2) ACS (acute coronary syndrome) (3) NSTEMI (non-ST elevated myocardial infarction) (4) Hypertension (5) YUSUF (obstructive sleep apnea) (6) Dyslipidemia (7) Ventricular fibrillation Reason Critically Ill: 47-year-old female presenting with an STEMI with subsequent GILDARDO to distal RCA with subsequent V. fib episode last evening. Neuro - * CAM ICU: NEGATIVE * PRN pain medication as needed. Cardiac - * NSTEMI with 100% RCA occlusion - GILDARDO x1 * DAPT/SHANE/BB/Statin per protocol. * Trend Troponins. * Echo: * Conclusions -- * 1. Normal LV size, mild concentric LVH. * 2. Normal LV systolic function. LVEF 65-70%. Moderate inferior hypokineis at the base. * 3. Normal RV size and function. * 4. Mild aortic valve sclerorsis. Trace mitral regurgitation. * 5. No prior studies for comparison. * Will increase statin to 80 mg daily - home dose 40 mg. * Will defer to Cardiology for continue recommendations for v. fib management. Respiratory - * Former Smoker, YUSUF. * Continue home CPAP settings. * Supplemental oxygen as needed. * Changed from DuoNeb 2 Xopenex when necessary. * Continue home inhalers as scheduled. GI - * Tolerating AHA diet well. * Does not use her Pantoprazole regularly at home. Will continue to encourage her do so. RENAL/LYTES - * Discontinued IVF as tolerating POs well. * Monitor Lyes - replace appropriately. - * Discontinued Isabel Catheter. ENDO - * A1C 5.9. * No h/o DM. HEME - * Stable H&H. ID - * No concerns for infection at this time. * Continue to monitor fever curve. LINES/IV ACCESS - * PIVs intact DVT PROPHYLAXIS - * SCDs. * Shaun Thank you for this consultation allow us to be part of this patient's care. Please refer to my attending physician's documentation for any further recommendations. I have personally evaluated and examined this patient. I agree with assessment and plan of Ashley Tapia PA-C. I discussed the patient's case with cardiology: Dr. Stafford continue IV amiodarone and convert to oral once infusion load completed. Anticipate downgrade to telemetry tomorrow Consults & Procedures Consultants: Dr. Stafford - Cardiology Procedures: Recent PTCA Data Medications: Current Inpatient Medications Medications (Trade) Dose Ordered Sig/Kim Route Start Time Stop Time Status Last Admin Dose Admin Sodium Chloride 1,000 ml @ 75 mls/hr [id number] IV 06/21/17 19:45 07/21/17 19:44 06/22/17 00:14 75 MLS/HR Morphine Sulfate (MoRPHine SULFATE INJ) 4 mg Q3H PRN IV 06/21/17 20:15 07/05/17 20:14 06/22/17 00:14 4 MG Acetaminophen (Tylenol Tab) 650 mg Q4H PRN PO 06/21/17 20:45 07/21/17 20:44 Nitroglycerin (Nitrostat Tab) 0.4 mg UD PRN SL 06/21/17 20:45 07/21/17 20:44 Atorvastatin Calcium (Lipitor Tab) 40 mg DAILY PO 06/22/17 09:00 07/22/17 08:59 Fluticasone Propionate (Flonase Nasal [place]) 2 sprays DAILY AILYN 06/22/17 09:00 07/22/17 08:59 Gabapentin (Neurontin Cap) 400 mg TID PO 06/21/17 21:00 07/21/17 20:59 06/22/17 00:15 400 MG Hydroxychloroquine Sulfate (Plaquenil Tab) 400 mg HS PO 06/21/17 21:00 07/21/17 20:59 06/22/17 00:15 400 MG Albuterol/ Ipratropium (Combivent Respimat Inh) 2 puffs QID INH 06/21/17 21:00 07/21/17 20:59 06/22/17 00:14 2 PUFFS Lorazepam (Ativan Tab) 0.5 mg BID PRN PO 06/21/17 20:45 07/21/17 20:44 Montelukast Sodium (Singulair Tab) 10 mg DAILY PO 06/22/17 09:00 07/22/17 08:59 Pantoprazole Sodium (Protonix Tab) 40 mg DAILY PO 06/22/17 09:00 07/22/17 08:59 Miscellaneous Information (Order Awaiting Action) 1 ea QS N/A 06/22/17 00:00 07/22/17 00:00 Miscellaneous Information (Order Awaiting Action) 1 ea QS N/A 06/22/17 00:00 07/22/17 00:00 Albuterol/ Ipratropium (Duoneb) 3 ml Q2H PRN INH 06/21/17 20:45 07/21/17 20:44 Lorazepam (Ativan Inj) 0.5 mg Q4H PRN IV 06/21/17 20:45 07/21/17 20:44 Meclizine HCl (Antivert Tab) 12.5 mg TID PRN PO 06/21/17 21:00 07/21/17 20:44 Ondansetron HCl (Zofran Inj) 4 mg Q6H PRN IV 06/21/17 22:45 07/21/17 22:44 06/22/17 00:29 4 MG Aspirin (Ecotrin Tab) 81 mg QAM PO 06/22/17 09:00 07/22/17 08:59 Lisinopril (Zestril Tab) 5 mg QAM PO 06/22/17 09:00 07/22/17 08:59 Ticagrelor (Brilinta Cap) 90 mg BID PO 06/22/17 09:00 07/22/17 08:59 Amiodarone HCL/ Dextrose 200 ml @ 33.3 mls/hr Q6H1M IV 06/22/17 02:15 06/22/17 08:15 06/22/17 02:30 33.3 MLS/HR Amiodarone HCL/ Dextrose 200 ml @ 16.7 mls/hr [id number] IV 06/22/17 08:00 07/22/17 07:59 Vital Signs: Date Time Temp Pulse Resp B/P (MAP) Pulse Ox O2 Delivery O2 Flow Rate FiO2 06/22/17 06:00 54 18 131/55 (80) 96 CPAP 06/22/17 04:00 36.9 49 18 113/55 (74) 98 CPAP 06/22/17 04:00 98 CPAP 06/22/17 03:21 47 98 21 06/22/17 03:10 48 108/49 (56) 97 06/22/17 03:00 51 109/55 (66) 95 06/22/17 02:50 51 104/49 (60) 95 06/22/17 02:40 57 115/46 (75) 94 06/22/17 02:30 62 101/65 (80) 94 06/22/17 02:21 84 92/72 (82) 93 06/22/17 02:14 74 155/81 (115) 95 06/22/17 02:10 61 211/53 (113) 98 06/22/17 02:00 46 16 106/55 (72) 97 CPAP 06/22/17 00:53 45 16 95 CPAP 21 06/22/17 00:53 45 95 21 06/22/17 00:01 36.7 48 16 127/70 (89) 99 Room Air 06/21/17 23:59 99 Room Air 06/21/17 22:42 36.8 42 20 101/34 (56) 95 Room Air 06/21/17 22:35 36.8 45 18 101/34 94 Room Air 06/21/17 22:25 48 16 142/80 (100) 95 Room Air 06/21/17 22:10 48 16 135/80 (98) 95 Room Air 06/21/17 21:00 118/54 06/21/17 20:51 115/58 06/21/17 20:46 48 18 96 06/21/17 20:39 129/61 06/21/17 20:31 06/21/17 20:16 47 18 96 06/21/17 20:11 48 16 96 06/21/17 20:00 115/54 06/21/17 19:41 54 25 94 06/21/17 19:36 51 17 97 06/21/17 19:30 99/43 06/21/17 19:06 52 19 97 06/21/17 19:00 104/43 06/21/17 18:36 48 10 99 06/21/17 18:31 113/52 06/21/17 18:30 55 18 98 06/21/17 18:01 143/60 06/21/17 18:00 61 22 98 06/21/17 17:30 46 18 96/58 96 06/21/17 17:26 49 06/21/17 17:00 99/54 06/21/17 16:45 98 Room Air 06/21/17 16:45 36.9 50 18 130/76 98 Room Air Laboratory Results: Last 24 Hours Test 06/21/17 16:40 06/21/17 16:58 06/21/17 21:47 06/22/17 02:27 White Blood Count 12.19 K/uL Red Blood Count 4.71 M/uL Hemoglobin 13.6 g/dL Hematocrit 41.3 % Mean Corpuscular Volume 87.7 fL Mean Corpuscular Hemoglobin 28.9 pg Mean Corpuscular Hemoglobin Concent 32.9 g/dl Platelet Count 250 K/uL Mean Platelet Volume 11.1 fL Neutrophils (%) (Auto) 63.3 % Lymphocytes (%) (Auto) 30.3 % Monocytes (%) (Auto) 5.0 % Eosinophils (%) (Auto) 1.0 % Basophils (%) (Auto) 0.2 % Neutrophils # (Auto) 7.72 K/uL Lymphocytes # (Auto) 3.69 K/uL Monocytes # (Auto) 0.61 K/uL Eosinophils # (Auto) 0.12 K/uL Basophils # (Auto) 0.03 K/uL RDW Standard Deviation 45.3 fL RDW Coefficient of Variation 14.0 % Immature Granulocyte % (Auto) 0.2 % Immature Granulocyte # (Auto) 0.02 K/uL Prothrombin Time 10.1 SECONDS Prothromb Time International Ratio 0.9 Activated Partial Thromboplast Time 27.3 SECONDS Partial Thromboplastin Ratio 1.1 D-Dimer 410 ug/L FEU Sodium Level 140 mmol/L 130 mmol/L Potassium Level 4.1 mmol/L 3.6 mmol/L Chloride Level 110 mmol/L 97 mmol/L Carbon Dioxide Level 23 mmol/L 16 mmol/L Anion Gap 7.0 mmol/L 17.0 mmol/L Blood Urea Nitrogen 14 mg/dl 15 mg/dl Creatinine 1.40 mg/dl 1.20 mg/dl Est Creatinine Clear Calc Drug Dose 64.2 ml/min 74.4 ml/min Estimated GFR () 51.0 61.5 Estimated GFR (Non- 44.0 53.0 BUN/Creatinine Ratio 9.8 12.3 Random Glucose 96 mg/dl 650 mg/dl Calcium Level 8.9 mg/dl 7.2 mg/dl Magnesium Level 2.3 mg/dl 1.8 mg/dl Total Bilirubin 0.3 mg/dl Direct Bilirubin < 0.1 mg/dl Aspartate Amino Transf (AST/SGOT) 52 U/L Alanine Aminotransferase (ALT/SGPT) 34 U/L Alkaline Phosphatase 98 U/L Total Creatine Kinase 551 U/L Creatine Kinase MB 30.1 ng/ml Creatine Kinase MB Ratio 5.5 Troponin I 7.780 ng/ml Total Protein 7.7 gm/dl Albumin 3.5 gm/dl Lipase 151 U/L Thyroid Stimulating Hormone (TSH) 0.752 uIu/ml Bedside Troponin I 4.760 ng/ml Kaolin Activated Coagulation Time 202 SECONDS Phosphorus Level 3.1 mg/dl Beta-Hydroxybutyric Acid 1.04 mg/dL Test 06/22/17 02:40 06/22/17 02:49 06/22/17 03:25 06/22/17 03:35 Urine Color DK YELLOW Urine Appearance CLOUDY Urine pH 5.0 Urine Specific [place] 1.041 Urine Protein 3+ Urine Glucose (UA) NEG Urine Ketones NEG Urine Occult Blood TRACE Urine Nitrite NEG Urine Bilirubin NEG Urine Urobilinogen NEG Urine Leukocyte Esterase NEG Urine WBC (Auto) 1-5 /hpf Urine RBC (Auto) 0-4 /hpf Urine Hyaline Casts (Auto) 5-10 /lpf Urine Epithelial Cells (Auto) >30 /lpf Urine Bacteria (Auto) NEG Urine Renal Epithelial Cells /lpf Urine Pathogenic Casts /lpf Bedside Hemoglobin 11.2 g/dl Bedside Hematocrit 33 % Bedside Blood Gas pH (LAB) 7.40 Bedside Blood Gas pCO2 (LAB) 26 mmHg Bedside Blood Gas pO2 (LAB) 75 mmHg Bedside Blood Gas HCO3 (LAB) 16 meq/L Bedside Blood Gas Total CO2 17 mEq/l Bedside Blood Gas Base Excess (LAB) -9.0 meq/L Bedside Blood Gas O2 Saturation 95.0 % Bedside Sodium 139 mEq/L Bedside Potassium 3.8 mEq/L Bedside Glucose 161 mg/dl White Blood Count 12.75 K/uL Red Blood Count 4.11 M/uL Hemoglobin 12.0 g/dL Hematocrit 35.5 % Mean Corpuscular Volume 86.4 fL Mean Corpuscular Hemoglobin 29.2 pg Mean Corpuscular Hemoglobin Concent 33.8 g/dl Platelet Count 206 K/uL Mean Platelet Volume 10.5 fL Neutrophils (%) (Auto) 77.5 % Lymphocytes (%) (Auto) 18.1 % Monocytes (%) (Auto) 3.8 % Eosinophils (%) (Auto) 0.2 % Basophils (%) (Auto) 0.2 % Neutrophils # (Auto) 9.87 K/uL Lymphocytes # (Auto) 2.31 K/uL Monocytes # (Auto) 0.48 K/uL Eosinophils # (Auto) 0.03 K/uL Basophils # (Auto) 0.03 K/uL RDW Standard Deviation 44.4 fL RDW Coefficient of Variation 14.0 % Immature Granulocyte % (Auto) 0.2 % Immature Granulocyte # (Auto) 0.03 K/uL Sodium Level 141 mmol/L Potassium Level 4.4 mmol/L Chloride Level 112 mmol/L Carbon Dioxide Level 21 mmol/L Anion Gap 8.0 mmol/L Blood Urea Nitrogen 17 mg/dl Creatinine 1.10 mg/dl Est Creatinine Clear Calc Drug Dose 81.1 ml/min Estimated GFR () 68.3 Estimated GFR (Non- 58.9 BUN/Creatinine Ratio 15.3 Random Glucose 161 mg/dl Estimated Average Glucose 123 mg/dl Hemoglobin A1c 5.9 % Calcium Level 8.3 mg/dl Phosphorus Level 3.2 mg/dl Magnesium Level 2.0 mg/dl Triglycerides Level 412 mg/dl Cholesterol Level 136 mg/dl HDL Cholesterol 25 mg/dl LDL Cholesterol Direct 82 mg/dl LDL Cholesterol, Calculated mg/dl VLDL Cholesterol, Calculated mg/dl Cholesterol/HDL Ratio 5.4 Test 06/22/17 05:45 Total Bilirubin 0.2 mg/dl Direct Bilirubin < 0.1 mg/dl Aspartate Amino Transf (AST/SGOT) 234 U/L Alanine Aminotransferase (ALT/SGPT) 172 U/L Alkaline Phosphatase 81 U/L Troponin I 30.000 ng/ml Total Protein 6.6 gm/dl Albumin 3.0 gm/dl
[2017-06-22] MEDS: AMIODARONE / D5W 200 ML IV SCH ×3 (07:59→22:09)
[2017-06-22] MEDS: TICAGRELOR 90 MG TAB PO SCH ×2 (08:00→19:52)
[2017-06-22] MEDS ORDERED: AMLODIPINE BESYLATE 5 MG TAB PO SCH (09:00)
[2017-06-22] MEDS ORDERED: ASPIRIN 325 MG ECTAB PO SCH (09:00)
[2017-06-22] MEDS ORDERED: ATORVASTATIN 40 MG TAB PO SCH (09:00)
[2017-06-22] MEDS ORDERED: ATORVASTATIN 40 MG TAB PO STA (09:12)
[2017-06-22] MEDS: LEVALBUTEROL 1.25MG/3ML NEB INH PRN ×2 (09:42→22:15)
--- NOTE | 2017-06-22 10:07 | ECHOCARDIOGRAM REPORT ---
*NOTICE TO RECEIVING [employer] This information is strictly Confidential and protected under [place] law. [place] law prohibits you from making any further disclosure of this information unless further disclosure is expressly permitted by the written consent of the person to whom it pertains or is authorized by law. A general authorization for the release of medical or other information is not sufficient for this purpose. Hospital accepts no responsibility if the information is made available to any other person, INCLUDING THE PATIENT. Interpretation Summary * Name: JUSTINA RODRIGUEZ Study Date: 06/22/2017 06:36 AM BP: 113/55 mmHg * Patient Location: .MSICU\[id number]\E105\S\1 HR: 46 * : 1970 (M/d/yyyy) Gender: Female Height: 67 in * Age: 47 yrs Ethnicity: CA Weight: 257 lb * Ordering Physician: Boyd Cunningham * Referring Physician: Self, Referred * Performed By: Yash Kennedy RCS * * Reason For Study: AMI * BSA: 2.2 m2 * -- Conclusions -- * 1. Normal LV size, mild concentric LVH. * 2. Normal LV systolic function. LVEF 65-70%. Moderate inferior hypokineis at the base. * 3. Normal RV size and function. * 4. Mild aortic valve sclerorsis. Trace mitral regurgitation. * 5. No prior studies for comparison. Procedure Details * Left Ventricle The left ventricle is grossly normal size. There is mild concentric left ventricular hypertrophy. Ejection Fraction = 65-70%. Moderate inferior hypokinesis at the base. * Right Ventricle The right ventricle is grossly normal size. The right ventricular systolic function is normal as assessed by tricuspid annular plane systolic excursion (TAPSE) (normal >1.5 cm). * Atria The left atrial size is normal. Right atrial size is normal. No ASD detected; PFO is not assessed. * Mitral Valve The mitral valve is grossly normal. There is no mitral valve stenosis. There is trace mitral regurgitation. * Tricuspid Valve The tricuspid valve is not well visualized, but is grossly normal. There is trace tricuspid regurgitation. Right ventricular systolic pressure is normal. * Aortic Valve Aortic valve sclerosis mild, without significant aortic valvular stenosis. No hemodynamically significant valvular aortic stenosis. There is no significant aortic regurgitation. * Pulmonic Valve The pulmonary valve is inadequately visualized, but the Doppler data is adequate for interpretation. There is no pulmonic valvular stenosis. There is no pulmonic valvular regurgitation. * Great Vessels The aortic root and proximal ascending aorta are normal sized. * Pericardium/Pleural There is no pericardial effusion. * * MMode 2D Measurements and Calculations * IVSd 1.3 cm * * LVIDd 4.8 cm * LVIDs 2.7 cm * LVPWd 1.4 cm * * IVS/LVPW 0.94 * FS 44.1 % * EDV(Teich) 109.0 ml * ESV(Teich) 27.0 ml * EF(Teich) 75.3 % * * EDV(cubed) 112.5 ml * ESV(cubed) 19.6 ml * EF(cubed) 82.6 % * * LV mass(C)d 264.5 grams * LV mass(C)dI 117.6 grams/m\S\2 * * SV(Teich) 82.0 ml * SI(Teich) 36.5 ml/m\S\2 * SV(cubed) 92.9 ml * SI(cubed) 41.3 ml/m\S\2 * * Ao root diam 2.8 cm * Ao root area 6.0 cm\S\2 * * LVOT diam 2.1 cm * LVOT area 3.4 cm\S\2 * * LVAd ap4 28.3 cm\S\2 * LVLd ap4 8.9 cm * EDV(MOD-sp4) 73.8 ml * EDV(sp4-el) 76.9 ml * LVAs ap4 12.6 cm\S\2 * LVLs ap4 6.1 cm * ESV(MOD-sp4) 22.5 ml * ESV(sp4-el) 22.1 ml * EF(MOD-sp4) 69.5 % * EF(sp4-el) 71.3 % * * LVAd ap2 28.5 cm\S\2 * LVLd ap2 8.3 cm * EDV(MOD-sp2) 80.4 ml * EDV(sp2-el) 83.3 ml * LVAs ap2 12.7 cm\S\2 * LVLs ap2 6.8 cm * ESV(MOD-sp2) 21.2 ml * ESV(sp2-el) 20.3 ml * EF(MOD-sp2) 73.6 % * EF(sp2-el) 75.7 % * * LVLd %diff -6.87 % * EDV(MOD-bp) 79.3 ml * LVLs %diff 10.1 % * ESV(MOD-bp) 20.9 ml * EF(MOD-bp) 73.7 % * * SV(MOD-sp4) 51.3 ml * SI(MOD-sp4) 22.8 ml/m\S\2 * * SV(MOD-sp2) 59.2 ml * SI(MOD-sp2) 26.3 ml/m\S\2 * * SV(MOD-bp) 58.4 ml * SI(MOD-bp) 26.0 ml/m\S\2 * * SV(sp4-el) 54.8 ml * SI(sp4-el) 24.4 ml/m\S\2 * * SV(sp2-el) 63.1 ml * SI(sp2-el) 28.0 ml/m\S\2 * * * Doppler Measurements and Calculations * MV E max tyrel 126.0 cm/sec * MV A max tyrel 71.3 cm/sec * * MV E/A 1.8 * * MV dec time 0.20 sec * * Ao V2 max 236.7 cm/sec * Ao max PG 22.4 mmHg * Ao max PG (full) 17.5 mmHg * Ao V2 mean 140.6 cm/sec * Ao mean PG 10.1 mmHg * Ao mean PG (full) 7.6 mmHg * Ao V2 VTI 50.3 cm * NIGEL(I,A) 1.8 cm\S\2 * NIGEL(I,D) 1.8 cm\S\2 * NIGEL(V,A) 1.6 cm\S\2 * NIGEL(V,D) 1.6 cm\S\2 * * LV V1 max PG 4.9 mmHg * LV V1 mean PG 2.5 mmHg * * LV V1 max 111.1 cm/sec * LV V1 mean 73.9 cm/sec * LV V1 VTI 27.2 cm * * SV(Ao) 302.9 ml * SI(Ao) 134.6 ml/m\S\2 * SV(LVOT) 92.1 ml * SI(LVOT) 41.0 ml/m\S\2 * * TR max tyrel 207.2 cm/sec * *
[2017-06-22] MEDS: HEPARIN SOD 5000 UNIT/0.5 ML CARP SQ SCH ×2 (13:49→22:10)
[2017-06-22] MEDS ORDERED: SODIUM CHLORIDE 0.9% 10ML FLUSH IV ONE (13:51)
--- NOTE | 2017-06-22 17:22 | Progress Note ---
Internal Med Progress Note Date of Service: Jun 22, 2017. Provider Documentation: SUBJECTIVE: s/p cardiac cath and stent placement last night no chest pain but not able to take breath and somewhat ob afebrile no nausea no sweating hemodynamics stable OBJECTIVE: Vital Signs-as noted below Exam: General-alert and awake. Not in distress. Obese ENT-normal hearing Neck-no neck masses Lungs-cta b/l no wheezing or crackles Heart-s1 and s2 heard regular rhythm no murmurs Abdomen-soft bowel sounds present non tender no distension Extremities-no edema no erythema Neuro-alert and oriented moves extremities Lab data as noted below. ASSESSMENT & PLAN: 1. Acute coronary syndrome. s/p cardiac cath and GILDARDO to Distal RCA post cath had an episode of v fib and was shocked once currently stable on amiodarone drip on aspirin, statin and Brilinta cardiology and critical on board. 2. Hypertension, blood pressure on the lower side. on lisinopril will monitor. 3. Hyperlipidemia on statin therapy. 4. Past tobacco abuse. 5. Sjogren syndrome, as per records. On Plaquenil 6. Morbid Obesity may need sleep study as out patient. DVT PROPHYLAXIS hep sub q DISPOSITION monitor in ICU Vital Signs: Date Time Temp Pulse Resp B/P (MAP) Pulse Ox O2 Delivery O2 Flow Rate FiO2 06/22/17 16:00 37.2 68 18 123/51 (75) 97 Room Air 06/22/17 16:00 97 Room Air 06/22/17 14:00 68 18 97/53 (68) 95 Room Air 06/22/17 12:00 36.7 66 20 109/53 (71) 96 Room Air 06/22/17 12:00 96 Room Air 06/22/17 10:00 68 18 142/70 (94) 97 Nasal Cannula 2.0 06/22/17 09:43 55 18 97 Nasal Cannula 2.0 06/22/17 08:00 36.7 43 18 151/52 (85) 97 Nasal Cannula 2.0 06/22/17 08:00 97 Room Air 06/22/17 06:00 54 18 131/55 (80) 96 CPAP 06/22/17 04:00 36.9 49 18 113/55 (74) 98 CPAP 06/22/17 04:00 98 CPAP 06/22/17 03:21 47 98 21 06/22/17 03:10 48 108/49 (56) 97 06/22/17 03:00 51 109/55 (66) 95 06/22/17 02:50 51 104/49 (60) 95 06/22/17 02:40 57 115/46 (75) 94 06/22/17 02:30 62 101/65 (80) 94 06/22/17 02:21 84 92/72 (82) 93 06/22/17 02:14 74 155/81 (115) 95 06/22/17 02:10 61 211/53 (113) 98 06/22/17 02:00 46 16 106/55 (72) 97 CPAP 06/22/17 00:53 45 16 95 CPAP 21 06/22/17 00:53 45 95 21 06/22/17 00:01 36.7 48 16 127/70 (89) 99 Room Air 06/21/17 23:59 99 Room Air 06/21/17 22:42 36.8 42 20 101/34 (56) 95 Room Air 06/21/17 22:35 36.8 45 18 101/34 94 Room Air 06/21/17 22:25 48 16 142/80 (100) 95 Room Air 06/21/17 22:10 48 16 135/80 (98) 95 Room Air 06/21/17 21:00 118/54 06/21/17 20:51 115/58 06/21/17 20:46 48 18 96 06/21/17 20:39 129/61 06/21/17 20:31 06/21/17 20:16 47 18 96 06/21/17 20:11 48 16 96 06/21/17 20:00 115/54 06/21/17 19:41 54 25 94 06/21/17 19:36 51 17 97 06/21/17 19:30 99/43 06/21/17 19:06 52 19 97 06/21/17 19:00 104/43 06/21/17 18:36 48 10 99 06/21/17 18:31 113/52 06/21/17 18:30 55 18 98 06/21/17 18:01 143/60 06/21/17 18:00 61 22 98 06/21/17 17:30 46 18 96/58 96 06/21/17 17:26 49 Lab Results: Results Past 24 Hours Test 06/21/17 21:47 06/22/17 02:27 06/22/17 02:40 06/22/17 02:49 Range/Units Kaolin Activated Coagulation Time 202 94-140 SECONDS Sodium Level 130 136-145 mmol/L Potassium Level 3.6 3.5-5.1 mmol/L Chloride Level 97 98-107 mmol/L Carbon Dioxide Level 16 21-32 mmol/L Anion Gap 17.0 3-11 mmol/L Blood Urea Nitrogen 15 7-18 mg/dl Creatinine 1.20 0.60-1.20 mg/dl Est Creatinine Clear Calc Drug Dose 74.4 ml/min Estimated GFR () 61.5 Estimated GFR (Non- 53.0 BUN/Creatinine Ratio 12.3 10-20 Random Glucose 650 70-99 mg/dl Calcium Level 7.2 8.5-10.1 mg/dl Phosphorus Level 3.1 2.5-4.9 mg/dl Magnesium Level 1.8 1.8-2.4 mg/dl Beta-Hydroxybutyric Acid 1.04 0.2-2.81 mg/dL Urine Color DK YELLOW Urine Appearance CLOUDY CLEAR Urine pH 5.0 4.5-7.5 Urine Specific [place] 1.041 1.000-1.030 Urine Protein 3+ NEG Urine Glucose (UA) NEG NEG Urine Ketones NEG NEG Urine Occult Blood TRACE NEG Urine Nitrite NEG NEG Urine Bilirubin NEG NEG Urine Urobilinogen NEG NEG Urine Leukocyte Esterase NEG NEG Urine WBC (Auto) 1-5 0-5 /hpf Urine RBC (Auto) 0-4 0-4 /hpf Urine Hyaline Casts (Auto) 5-10 0-5 /lpf Urine Epithelial Cells (Auto) >30 0-5 /lpf Urine Bacteria (Auto) NEG NEG Urine Renal Epithelial Cells 0-5 /lpf Urine Pathogenic Casts 0 /lpf Bedside Hemoglobin 11.2 12.0-16.0 g/dl Bedside Hematocrit 33 37-47 % Bedside Blood Gas pH (LAB) 7.40 7.35-7.45 Bedside Blood Gas pCO2 (LAB) 26 35-46 mmHg Bedside Blood Gas pO2 (LAB) 75 80-95 mmHg Bedside Blood Gas HCO3 (LAB) 16 19-24 meq/L Bedside Blood Gas Total CO2 17 24-31 mEq/l Bedside Blood Gas Base Excess (LAB) -9.0 -9-1.8 meq/L Bedside Blood Gas O2 Saturation 95.0 90-95 % Bedside Sodium 139 135-144 mEq/L Bedside Potassium 3.8 3.3-5.0 mEq/L Test 06/22/17 03:25 06/22/17 03:35 06/22/17 05:45 06/22/17 12:22 Range/Units Bedside Glucose 161 70-90 mg/dl White Blood Count 12.75 4.8-10.8 K/uL Red Blood Count 4.11 4.2-5.4 M/uL Hemoglobin 12.0 12.0-16.0 g/dL Hematocrit 35.5 37-47 % Mean Corpuscular Volume 86.4 80-100 fL Mean Corpuscular Hemoglobin 29.2 25-34 pg Mean Corpuscular Hemoglobin Concent 33.8 32-36 g/dl Platelet Count 206 130-400 K/uL Mean Platelet Volume 10.5 7.4-10.4 fL Neutrophils (%) (Auto) 77.5 % Lymphocytes (%) (Auto) 18.1 % Monocytes (%) (Auto) 3.8 % Eosinophils (%) (Auto) 0.2 % Basophils (%) (Auto) 0.2 % Neutrophils # (Auto) 9.87 1.4-6.5 K/uL Lymphocytes # (Auto) 2.31 1.2-3.4 K/uL Monocytes # (Auto) 0.48 0.11-0.59 K/uL Eosinophils # (Auto) 0.03 0-0.5 K/uL Basophils # (Auto) 0.03 0-0.2 K/uL RDW Standard Deviation 44.4 36.4-46.3 fL RDW Coefficient of Variation 14.0 11.5-14.5 % Immature Granulocyte % (Auto) 0.2 % Immature Granulocyte # (Auto) 0.03 0.00-0.02 K/uL Sodium Level 141 136-145 mmol/L Potassium Level 4.4 3.5-5.1 mmol/L Chloride Level 112 98-107 mmol/L Carbon Dioxide Level 21 21-32 mmol/L Anion Gap 8.0 3-11 mmol/L Blood Urea Nitrogen 17 7-18 mg/dl Creatinine 1.10 0.60-1.20 mg/dl Est Creatinine Clear Calc Drug Dose 81.1 ml/min Estimated GFR () 68.3 Estimated GFR (Non- 58.9 BUN/Creatinine Ratio 15.3 10-20 Random Glucose 161 70-99 mg/dl Estimated Average Glucose 123 mg/dl Hemoglobin A1c 5.9 4.5-5.6 % Calcium Level 8.3 8.5-10.1 mg/dl Phosphorus Level 3.2 2.5-4.9 mg/dl Magnesium Level 2.0 1.8-2.4 mg/dl Triglycerides Level 412 0-150 mg/dl Cholesterol Level 136 0-200 mg/dl HDL Cholesterol 25 mg/dl LDL Cholesterol Direct 82 mg/dl LDL Cholesterol, Calculated mg/dl VLDL Cholesterol, Calculated mg/dl Cholesterol/HDL Ratio 5.4 Total Bilirubin 0.2 0.2-1 mg/dl Direct Bilirubin < 0.1 0-0.2 mg/dl Aspartate Amino Transf (AST/SGOT) 234 15-37 U/L Alanine Aminotransferase (ALT/SGPT) 172 12-78 U/L Alkaline Phosphatase 81 45-117 U/L Troponin I 30.000 14.000 0-0.045 ng/ml Total Protein 6.6 6.4-8.2 gm/dl Albumin 3.0 3.4-5.0 gm/dl Microbiology Results 06/21/17 MRSA DNA Surveillance Screen - Final, Complete Specimen Negative for MRSA by DNA Probe
--- NOTE | 2017-06-22 18:13 | Cardiology Consultation ---
Cardiology Consultation Date of Consultation: Jun 22, 2017. Reason for Consultation: Post AMI care History of Present Illness Mrs. Tucker is a 47 year-old female with a history of hypertension, dyslipidemia, obesity, ongoing tobacco use and a significant family history for coronary artery disease (sister of [place] at age 54 within last year) who presented yesterday after with new onset diaphoresis, jaw pain, bilateral arm numbness and chest tightness. She was seen initially in the ED where initial BP [id number] with intermittent sinus bradycardia to 50s. Her chest tightness/arm numbness had resolved with only aspirin en route but she continued to have mild jaw discomfort. Initial EKG was unremarkable but initial troponin was positive to 4.76. Attempted initially to control pain with opiods/nitro but jaw pain persistent and patient eventually taken urgently to [facility] main[facility] yesterday evening. In [facility] found to have an occluded distal RCA which was treated with a single GILDARDO (2.75 x 23 Xience) with good angiographic result and resolution of chest/jaw discomfort. She was transferred to the ICU where overnight had 1 episode of VT/VF requiring brief chest compressions, and defibrillation. She had quick ROSC and did not require intubation. Post event ECG unchanged. Started on amiodarone infusion. Since then she has remained chest pain free. She endorses feeling of difficulty catching her breath while trying to sleep. Intermittently using bipap. Past Medical/Surgical History Hypertension, hyperlipidemia, reflux, past tobacco abuse, Sjogren's syndrome as per records, YUSUF on CPAP. Family History Endocrine disorder MOTHER (Thyroid) FH: CAD (coronary artery disease) FATHER ( in his 70s from [place]) FH: breast cancer Aunt FH: diabetes mellitus GRANDMOTHER FHx: allergies FHx: heart disease GRANDMOTHER Uncle Sister from [place] in 50s Dad from [place] in 70s. Social History Smoking Status: Former Smoker History of Alcohol Use: No Review of Systems 10 point review of systems was completed and was otherwise negative unless stated in HPI All Other Systems: Reviewed and Negative Allergies Coded Allergies: Penicillins (Verified Allergy, Mild, HIVES, 03/21/17) Medications Current Inpatient Medications Medications (Trade) Dose Ordered Sig/Kim Route Start Time Stop Time Status Last Admin Dose Admin Morphine Sulfate (MoRPHine SULFATE INJ) 4 mg Q3H PRN IV 06/21/17 20:15 07/05/17 20:14 06/22/17 00:14 4 MG Acetaminophen (Tylenol Tab) 650 mg Q4H PRN PO 06/21/17 20:45 07/21/17 20:44 Nitroglycerin (Nitrostat Tab) 0.4 mg UD PRN SL 06/21/17 20:45 07/21/17 20:44 Fluticasone Propionate (Flonase Nasal [place]) 2 sprays DAILY AILYN 06/22/17 09:00 07/22/17 08:59 06/22/17 07:52 2 SPRAYS Gabapentin (Neurontin Cap) 400 mg TID PO 06/21/17 21:00 07/21/17 20:59 06/22/17 13:48 400 MG Hydroxychloroquine Sulfate (Plaquenil Tab) 400 mg HS PO 06/21/17 21:00 07/21/17 20:59 06/22/17 00:15 400 MG Albuterol/ Ipratropium (Combivent Respimat Inh) 2 puffs QID INH 06/21/17 21:00 07/21/17 20:59 06/22/17 17:31 2 PUFFS Lorazepam (Ativan Tab) 0.5 mg BID PRN PO 06/21/17 20:45 07/21/17 20:44 Montelukast Sodium (Singulair Tab) 10 mg DAILY PO 06/22/17 09:00 07/22/17 08:59 06/22/17 07:53 10 MG Pantoprazole Sodium (Protonix Tab) 40 mg DAILY PO 06/22/17 09:00 07/22/17 08:59 06/22/17 07:53 40 MG Miscellaneous Information (Order Awaiting Action) 1 ea QS N/A 06/22/17 00:00 07/22/17 00:00 Miscellaneous Information (Order Awaiting Action) 1 ea QS N/A 06/22/17 00:00 07/22/17 00:00 Lorazepam (Ativan Inj) 0.5 mg Q4H PRN IV 06/21/17 20:45 07/21/17 20:44 Meclizine HCl (Antivert Tab) 12.5 mg TID PRN PO 06/21/17 21:00 07/21/17 20:44 Ondansetron HCl (Zofran Inj) 4 mg Q6H PRN IV 06/21/17 22:45 07/21/17 22:44 06/22/17 00:29 4 MG Aspirin (Ecotrin Tab) 81 mg QAM PO 06/22/17 09:00 07/22/17 08:59 06/22/17 07:53 81 MG Lisinopril (Zestril Tab) 5 mg QAM PO 06/22/17 09:00 07/22/17 08:59 06/22/17 07:54 5 MG Ticagrelor (Brilinta Cap) 90 mg BID PO 06/22/17 09:00 07/22/17 08:59 06/22/17 08:00 90 MG Amiodarone HCL/ Dextrose 200 ml @ 16.7 mls/hr [id number] IV 06/22/17 08:00 07/22/17 07:59 06/22/17 09:49 16.7 MLS/HR Atorvastatin Calcium (Lipitor Tab) 80 mg DAILY PO 06/23/17 09:00 07/22/17 08:59 Heparin Sodium (Porcine) (Heparin Sq 5000 Unit/0.5ml) 5,000 unit Q8 SQ 06/22/17 14:00 07/22/17 13:59 06/22/17 13:49 5,000 UNIT Levalbuterol (Xopenex 1.25MG/ 3ML Neb) 1.25 mg Q6R PRN INH 06/22/17 09:15 07/22/17 09:14 06/22/17 09:42 1.25 MG Physical Exam Vital Signs Past 12 Hours Date Time Temp Pulse Resp B/P (MAP) Pulse Ox O2 Delivery O2 Flow Rate FiO2 06/22/17 16:00 37.2 68 18 123/51 (75) 97 Room Air 06/22/17 16:00 97 Room Air 06/22/17 14:00 68 18 97/53 (68) 95 Room Air 06/22/17 12:00 36.7 66 20 109/53 (71) 96 Room Air 06/22/17 12:00 96 Room Air 06/22/17 10:00 68 18 142/70 (94) 97 Nasal Cannula 2.0 06/22/17 09:43 55 18 97 Nasal Cannula 2.0 06/22/17 08:00 36.7 43 18 151/52 (85) 97 Nasal Cannula 2.0 06/22/17 08:00 97 Room Air 06/22/17 06:00 54 18 131/55 (80) 96 CPAP General: Comfortable, no acute distress Eyes: Sclerae anicteric, extraocular movements intact HENT: Oropharynx clear mucous membranes moist Neck: Supple, no lymphadenopathy, no thyromegaly. Lungs: Clear to auscultation bilaterally, no rhonchi or wheezes Cardiac: Regular rate and rhythm, 2/6 systolic ejection murmur, no rubs or gallops. No JVD. No peripheral edema. Extremities well perfused. Vascular: Normal carotid upstrokes, no bruits. 2+ radial pulses. No access site complications Abdomen: Soft, nontender, nondistended positive bowel sounds. No hepatosplenomegaly Musculoskeletal: Normal gait. No joint deformities Skin: No rashes or lesions. Neuro: Cranial nerves 2-12 grossly intact, remainder exam nonfocal Psych: Alert orient x3, normal affect and mood Data Laboratory Results: Last 24 Hours Test 06/21/17 21:47 06/22/17 02:27 06/22/17 02:40 06/22/17 02:49 Kaolin Activated Coagulation Time 202 SECONDS Sodium Level 130 mmol/L Potassium Level 3.6 mmol/L Chloride Level 97 mmol/L Carbon Dioxide Level 16 mmol/L Anion Gap 17.0 mmol/L Blood Urea Nitrogen 15 mg/dl Creatinine 1.20 mg/dl Est Creatinine Clear Calc Drug Dose 74.4 ml/min Estimated GFR () 61.5 Estimated GFR (Non- 53.0 BUN/Creatinine Ratio 12.3 Random Glucose 650 mg/dl Calcium Level 7.2 mg/dl Phosphorus Level 3.1 mg/dl Magnesium Level 1.8 mg/dl Beta-Hydroxybutyric Acid 1.04 mg/dL Urine Color DK YELLOW Urine Appearance CLOUDY Urine pH 5.0 Urine Specific [place] 1.041 Urine Protein 3+ Urine Glucose (UA) NEG Urine Ketones NEG Urine Occult Blood TRACE Urine Nitrite NEG Urine Bilirubin NEG Urine Urobilinogen NEG Urine Leukocyte Esterase NEG Urine WBC (Auto) 1-5 /hpf Urine RBC (Auto) 0-4 /hpf Urine Hyaline Casts (Auto) 5-10 /lpf Urine Epithelial Cells (Auto) >30 /lpf Urine Bacteria (Auto) NEG Urine Renal Epithelial Cells /lpf Urine Pathogenic Casts /lpf Bedside Hemoglobin 11.2 g/dl Bedside Hematocrit 33 % Bedside Blood Gas pH (LAB) 7.40 Bedside Blood Gas pCO2 (LAB) 26 mmHg Bedside Blood Gas pO2 (LAB) 75 mmHg Bedside Blood Gas HCO3 (LAB) 16 meq/L Bedside Blood Gas Total CO2 17 mEq/l Bedside Blood Gas Base Excess (LAB) -9.0 meq/L Bedside Blood Gas O2 Saturation 95.0 % Bedside Sodium 139 mEq/L Bedside Potassium 3.8 mEq/L Test 06/22/17 03:25 06/22/17 03:35 06/22/17 05:45 06/22/17 12:22 Bedside Glucose 161 mg/dl White Blood Count 12.75 K/uL Red Blood Count 4.11 M/uL Hemoglobin 12.0 g/dL Hematocrit 35.5 % Mean Corpuscular Volume 86.4 fL Mean Corpuscular Hemoglobin 29.2 pg Mean Corpuscular Hemoglobin Concent 33.8 g/dl Platelet Count 206 K/uL Mean Platelet Volume 10.5 fL Neutrophils (%) (Auto) 77.5 % Lymphocytes (%) (Auto) 18.1 % Monocytes (%) (Auto) 3.8 % Eosinophils (%) (Auto) 0.2 % Basophils (%) (Auto) 0.2 % Neutrophils # (Auto) 9.87 K/uL Lymphocytes # (Auto) 2.31 K/uL Monocytes # (Auto) 0.48 K/uL Eosinophils # (Auto) 0.03 K/uL Basophils # (Auto) 0.03 K/uL RDW Standard Deviation 44.4 fL RDW Coefficient of Variation 14.0 % Immature Granulocyte % (Auto) 0.2 % Immature Granulocyte # (Auto) 0.03 K/uL Sodium Level 141 mmol/L Potassium Level 4.4 mmol/L Chloride Level 112 mmol/L Carbon Dioxide Level 21 mmol/L Anion Gap 8.0 mmol/L Blood Urea Nitrogen 17 mg/dl Creatinine 1.10 mg/dl Est Creatinine Clear Calc Drug Dose 81.1 ml/min Estimated GFR () 68.3 Estimated GFR (Non- 58.9 BUN/Creatinine Ratio 15.3 Random Glucose 161 mg/dl Estimated Average Glucose 123 mg/dl Hemoglobin A1c 5.9 % Calcium Level 8.3 mg/dl Phosphorus Level 3.2 mg/dl Magnesium Level 2.0 mg/dl Triglycerides Level 412 mg/dl Cholesterol Level 136 mg/dl HDL Cholesterol 25 mg/dl LDL Cholesterol Direct 82 mg/dl LDL Cholesterol, Calculated mg/dl VLDL Cholesterol, Calculated mg/dl Cholesterol/HDL Ratio 5.4 Total Bilirubin 0.2 mg/dl Direct Bilirubin < 0.1 mg/dl Aspartate Amino Transf (AST/SGOT) 234 U/L Alanine Aminotransferase (ALT/SGPT) 172 U/L Alkaline Phosphatase 81 U/L Troponin I 30.000 ng/ml 14.000 ng/ml Total Protein 6.6 gm/dl Albumin 3.0 gm/dl Test 06/22/17 17:35 Echo from today shows normal LV function EF 65-70 percent, moderate basilar inferior wall hypokinesis. Trace mitral regurgitation aortic valve sclerosis without stenosis. EKG from this a.m. shows sinus bradycardia with no dynamic ST changes and inferior infarct Assessment & Plan 1. Occluded RCA/acute coronary syndrome--status post PCI with GILDARDO to RCA 2. Post [place] cardiac arrest/VF requiring single defibrillation 3. Sinus bradycardia 4. Dyslipidemia 5. Hypertension with LVH 6. Morbid obesity with suspected obstructive sleep apnea 7. Prior tobacco abuse Patient has been chest pain-free and hemodynamically stable since cardiac arrest event overnight LV function is preserved on echo and troponin has peaked For now recommend-- -continued monitoring in ICU setting overnight -Continue amiodarone infusion for 48 hours -continue dual antiplatelet therapy with aspirin and ticagrelor -Continue high-intensity statin -continue SHANE-inhibitor and titrate as able. No beta-mayela in the setting of bradycardia Will continue to follow
[2017-06-22] MEDS ORDERED: POLYETHYLENE (MIRALAX) 17 GM PACK PO SCH (19:45)
[2017-06-22] MEDS ORDERED: DOCUSATE SODIUM 100 MG CAP ONE (19:50)
[2017-06-22] MEDS: DOCUSATE SODIUM 100 MG CAP PO SCH (19:52)
[2017-06-23] VITALS (20 sets, daily range): BP systolic 93–135; BP diastolic 49–69; PULSE 64–99; TEMP 36.6–37.2; O2SAT 92–98
[2017-06-23 06:03] LABS: BASO % 0.3 %; BASO ABS # 0.03 K/uL (0-0.2); COMPLETE YES; EOS % 1.2 %; HEMATOCRIT 34.6 % (37-47); IG% 0.2 %; LYMPH % 35.1 %; LYMPH ABS # 3.41 K/uL (1.2-3.4); MEAN CELL VOLUME 87.2 fL (80-100); MEAN CORPUSCULAR HEMOGLOBIN 28.5 pg (25-34); MEAN CORPUSCULAR HGB CONC 32.7 g/dl (32-36); MEAN PLATELET VOLUME 10.5 fL (7.4-10.4); MONO % 5.7 %; NEUT % 57.5 %; PLATELET COUNT 191 K/uL (130-400); RED BLOOD COUNT 3.97 M/uL (4.2-5.4); WHITE BLOOD COUNT 9.71 K/uL (4.8-10.8)
[2017-06-23] MEDS: HEPARIN SOD 5000 UNIT/0.5 ML CARP SQ SCH ×3 (06:05→21:39)
[2017-06-23 06:37] LABS: ALT/SGPT 104 U/L (12-78); BLOOD UREA NITROGEN 14 mg/dl (7-18); BUN/CREATININE RATIO 16.7 (10-20); CALCIUM 7.9 mg/dl (8.5-10.1); CARBON DIOXIDE 25 mmol/L (21-32); CHLORIDE 112 mmol/L (98-107); CREATININE 0.84 mg/dl (0.60-1.20); GLUCOSE 94 mg/dl (70-99); MAGNESIUM 2.1 mg/dl (1.8-2.4); SODIUM 141 mmol/L (136-145)
[2017-06-23 06:45] LABS: ALKALINE PHOSPHATASE 75 U/L (45-117); AST/SGOT 61 U/L (15-37)
[2017-06-23] MEDS: MONTELUKAST SOD 10 MG TAB PO SCH (07:37)
[2017-06-23] MEDS: TICAGRELOR 90 MG TAB PO SCH ×2 (07:37→21:31)
[2017-06-23] MEDS: GABAPENTIN 400 MG CAP PO SCH ×3 (07:37→21:30)
[2017-06-23] MEDS: ASPIRIN 81 MG ECTAB PO SCH (07:37)
[2017-06-23] MEDS: LISINOPRIL 5 MG TAB PO SCH (07:37)
[2017-06-23] MEDS: PANTOprazole SOD 40 MG TAB PO SCH (07:37)
[2017-06-23] MEDS: ATORVASTATIN 40 MG TAB PO SCH (07:37)
[2017-06-23] MEDS: DOCUSATE SODIUM 100 MG CAP PO SCH ×2 (07:38→17:49)
[2017-06-23] MEDS: IPRATROPIUM BROMIDE/ALBUTEROL respimat INH INH SCH ×4 (07:38→21:29)
[2017-06-23] MEDS: FLUTICASONE PROPIONATE NA SPR 16 GM BTL NAE SCH (07:38)
[2017-06-23] MEDS: AMIODARONE 200 MG TAB PO SCH ×2 (09:47→21:29)
--- NOTE | 2017-06-23 12:07 | Critical Care Progress Note ---
Critical Care Progress Note Date of Service Jun 23, 2017. ICU Day ICU Day Number: [address] Eldridge Subjective Patient is a 47-year-old female admitted to the ICU status post GILDARDO placement to the distal RCA. Patient had episode of V. fib which resolved with one shock. There is been no return of dysrhythmia. Her amiodarone drip has completed. She will be transitioned to oral amiodarone while in hospital. Patient felt well overnight. She complained of some reproducible pain to the anterior chest. She reports that her breathing has improved. She offers no other complaints at this time. Objective VITAL SIGNS - Vital signs and nursing notes were reviewed. GENERAL - 47-year-old female appearing her stated age who is in no acute distress. Communicates well with provider and answers questions appropriately. NECK - Neck with FROM. Supple to palpation. LUNGS - Chest wall symmetric without accessory muscle use, intercostals retractions, or central cyanosis. Normal vesicular breath sounds CTA B/L. No wheezes, rales, or rhonchi appreciated. CARDIAC - RRR with S1/S2. No murmur, rubs, or gallops appreciated. Mil reproducible tenderness to palpation appreciated over the anterior chest wall. ABDOMEN - Abdominal contour obese and without pulsations or visible masses. BS normoactive all four quadrants. No tenderness, palpable masses, hepatosplenomegaly, or ascites noted. EXTREMITIES - No clubbing or peripheral cyanosis. No pretibial edema present. +3 /5 radial and dorsalis pedis pulses palpated throughout. +5/5 strength noted in UE/LE bilaterally. NEUROLOGIC - Cranial nerves II through XII grossly intact. PSYCH - A&Ox3 and cooperates fully with examiner. Pt is very pleasant and interacts well with examiner. Current SOFA Score SOFA Score Response (Comments) Value Platelets (x10) > 150 0 Bilirubin (mg/dL) < 1.2 0 Ryley Coma Score 15 0 Level of Hypotension No Hypotension 0 Creatinine (mg/dL) < 1.2 0 Total 0 Previous SOFA Scores 0 Assessment & Plan (1) GERD (gastroesophageal reflux disease) (2) ACS (acute coronary syndrome) (3) NSTEMI (non-ST elevated myocardial infarction) (4) Hypertension (5) YUSUF (obstructive sleep apnea) (6) Dyslipidemia (7) Ventricular fibrillation Reason Critically Ill: 47-year-old female presenting with an STEMI with subsequent GILDARDO to distal RCA with subsequent V. fib episode last evening. Neuro - * [facility] ICU: NEGATIVE Cardiac - * NSTEMI with 100% RCA occlusion - GILDARDO x1 * DAPT/SHANE/BB/Statin per protocol. - Will hold on BB at this time 2/2 to bradycardia - this can be titrated up as tolerated per cardiology recommendation. * Troponins continue to trend down. * Amiodarone gtt d/c - now on 200 mg PO daily - will defer to cardiology for any continued treatments. Respiratory - * Former Smoker, YUSUF. * Continue home CPAP settings. * Supplemental oxygen as needed. * Changed from DuoNeb 2 Xopenex when necessary. * Continue home inhalers as scheduled. GI - * Tolerating AHA diet well. * Does not use her Pantoprazole regularly at home. Will continue to encourage her do so. RENAL/LYTES - * Monitor Lyes - replace appropriately. - * Discontinued Isabel Catheter. ENDO - * A1C 5.9. * No h/o DM. HEME - * Stable H&H. ID - * No concerns for infection at this time. * Continue to monitor fever curve. LINES/IV ACCESS - * PIVs intact DVT PROPHYLAXIS - * SCDs. * Brilinta At this time, the patient can be downgraded to telemetry status for continued monitoring throughout her stay per cardiology. Thank you for this consultation allow us to be part of this patient's care. Please refer to my attending physician's documentation for any further recommendations. I have personally evaluated and examined this patient. I agree with assessment and plan of Ashley Tapia PA-C. No ectopy overnight, stable for down grade to telemetry. Consults & Procedures Consultants: Dr. Stafford - Cardiology Procedures: Recent PTCA Data Medications: Current Inpatient Medications Medications (Trade) Dose Ordered Sig/Kim Route Start Time Stop Time Status Last Admin Dose Admin Morphine Sulfate (MoRPHine SULFATE INJ) 4 mg Q3H PRN IV 06/21/17 20:15 07/05/17 20:14 06/22/17 00:14 4 MG Acetaminophen (Tylenol Tab) 650 mg Q4H PRN PO 06/21/17 20:45 07/21/17 20:44 Nitroglycerin (Nitrostat Tab) 0.4 mg UD PRN SL 06/21/17 20:45 07/21/17 20:44 Fluticasone Propionate (Flonase Nasal [place]) 2 sprays DAILY AILYN 06/22/17 09:00 07/22/17 08:59 06/23/17 07:38 2 SPRAYS Gabapentin (Neurontin Cap) 400 mg TID PO 06/21/17 21:00 07/21/17 20:59 06/23/17 07:37 400 MG Hydroxychloroquine Sulfate (Plaquenil Tab) 400 mg HS PO 06/21/17 21:00 07/21/17 20:59 06/22/17 19:53 400 MG Albuterol/ Ipratropium (Combivent Respimat Inh) 2 puffs QID INH 06/21/17 21:00 07/21/17 20:59 06/23/17 07:38 2 PUFFS Lorazepam (Ativan Tab) 0.5 mg BID PRN PO 06/21/17 20:45 07/21/17 20:44 Montelukast Sodium (Singulair Tab) 10 mg DAILY PO 06/22/17 09:00 07/22/17 08:59 06/23/17 07:37 10 MG Pantoprazole Sodium (Protonix Tab) 40 mg DAILY PO 06/22/17 09:00 07/22/17 08:59 06/23/17 07:37 40 MG Miscellaneous Information (Order Awaiting Action) 1 ea QS N/A 06/22/17 00:00 07/22/17 00:00 Miscellaneous Information (Order Awaiting Action) 1 ea QS N/A 06/22/17 00:00 07/22/17 00:00 Lorazepam (Ativan Inj) 0.5 mg Q4H PRN IV 06/21/17 20:45 07/21/17 20:44 Meclizine HCl (Antivert Tab) 12.5 mg TID PRN PO 06/21/17 21:00 07/21/17 20:44 Ondansetron HCl (Zofran Inj) 4 mg Q6H PRN IV 06/21/17 22:45 07/21/17 22:44 06/22/17 00:29 4 MG Aspirin (Ecotrin Tab) 81 mg QAM PO 06/22/17 09:00 07/22/17 08:59 06/23/17 07:37 81 MG Lisinopril (Zestril Tab) 5 mg QAM PO 06/22/17 09:00 07/22/17 08:59 06/23/17 07:37 5 MG Ticagrelor (Brilinta Cap) 90 mg BID PO 06/22/17 09:00 07/22/17 08:59 06/23/17 07:37 90 MG Atorvastatin Calcium (Lipitor Tab) 80 mg DAILY PO 06/23/17 09:00 07/22/17 08:59 06/23/17 07:37 80 MG Heparin Sodium (Porcine) (Heparin Sq 5000 Unit/0.5ml) 5,000 unit Q8 SQ 06/22/17 14:00 07/22/17 13:59 06/23/17 06:05 5,000 UNIT Levalbuterol (Xopenex 1.25MG/ 3ML Neb) 1.25 mg Q6R PRN INH 06/22/17 09:15 07/22/17 09:14 06/22/17 22:15 1.25 MG Docusate Sodium (coLACE CAP) 100 mg BID PO 06/22/17 21:00 07/22/17 20:59 06/23/17 07:38 100 MG Amiodarone HCl (Cordarone Tab) 200 mg BID PO 06/23/17 09:00 07/23/17 08:59 06/23/17 09:47 200 MG Vital Signs: Date Time Temp Pulse Resp B/P (MAP) Pulse Ox O2 Delivery O2 Flow Rate FiO2 06/23/17 08:00 71 18 107/58 (74) 95 Room Air 06/23/17 08:00 Room Air 06/23/17 06:24 66 18 97 Room Air 06/23/17 05:01 82 18 118/58 (78) 96 Room Air 06/23/17 04:01 36.9 64 17 93/51 (65) 96 Room Air 06/23/17 04:00 95 Room Air 06/23/17 03:12 85 21 135/62 (86) 95 Room Air 06/23/17 03:01 65 18 111/55 (73) 98 Room Air 06/23/17 02:00 66 16 107/50 (69) 97 Room Air 06/23/17 01:00 66 16 102/49 (66) 96 Room Air 06/23/17 00:37 37.2 83 18 124/54 (77) 95 BiPAP 06/23/17 00:01 95 Room Air 06/22/17 23:00 79 16 120/60 (80) 91 BiPAP 06/22/17 22:27 77 97 21 06/22/17 22:21 77 18 99/56 (70) 99 Room Air 06/22/17 22:15 76 18 95 Room Air 06/22/17 20:11 36.9 73 18 108/61 (77) 94 Room Air 06/22/17 20:00 95 Room Air 06/22/17 18:00 88 18 97 Room Air 06/22/17 16:00 37.2 68 18 123/51 (75) 97 Room Air 06/22/17 16:00 97 Room Air 06/22/17 14:00 68 18 97/53 (68) 95 Room Air 06/22/17 12:00 36.7 66 20 109/53 (71) 96 Room Air 06/22/17 12:00 96 Room Air Laboratory Results: Last 24 Hours Test 06/22/17 12:22 06/22/17 17:35 06/22/17 23:28 06/22/17 23:59 Troponin I 14.000 ng/ml 10.500 ng/ml 8.410 ng/ml Bedside Glucose 131 mg/dl Test 06/23/17 05:46 06/23/17 05:48 Bedside Glucose 97 mg/dl White Blood Count 9.71 K/uL Red Blood Count 3.97 M/uL Hemoglobin 11.3 g/dL Hematocrit 34.6 % Mean Corpuscular Volume 87.2 fL Mean Corpuscular Hemoglobin 28.5 pg Mean Corpuscular Hemoglobin Concent 32.7 g/dl Platelet Count 191 K/uL Mean Platelet Volume 10.5 fL Neutrophils (%) (Auto) 57.5 % Lymphocytes (%) (Auto) 35.1 % Monocytes (%) (Auto) 5.7 % Eosinophils (%) (Auto) 1.2 % Basophils (%) (Auto) 0.3 % Neutrophils # (Auto) 5.58 K/uL Lymphocytes # (Auto) 3.41 K/uL Monocytes # (Auto) 0.55 K/uL Eosinophils # (Auto) 0.12 K/uL Basophils # (Auto) 0.03 K/uL RDW Standard Deviation 45.7 fL RDW Coefficient of Variation 14.4 % Immature Granulocyte % (Auto) 0.2 % Immature Granulocyte # (Auto) 0.02 K/uL Sodium Level 141 mmol/L Potassium Level 4.0 mmol/L Chloride Level 112 mmol/L Carbon Dioxide Level 25 mmol/L Anion Gap 4.0 mmol/L Blood Urea Nitrogen 14 mg/dl Creatinine 0.84 mg/dl Est Creatinine Clear Calc Drug Dose 106.5 ml/min Estimated GFR () 94.6 Estimated GFR (Non- 81.6 BUN/Creatinine Ratio 16.7 Random Glucose 94 mg/dl Calcium Level 7.9 mg/dl Phosphorus Level 3.0 mg/dl Magnesium Level 2.1 mg/dl Total Bilirubin 0.3 mg/dl Direct Bilirubin < 0.1 mg/dl Aspartate Amino Transf (AST/SGOT) 61 U/L Alanine Aminotransferase (ALT/SGPT) 104 U/L Alkaline Phosphatase 75 U/L Troponin I 6.770 ng/ml Total Protein 6.4 gm/dl Albumin 2.8 gm/dl
--- NOTE | 2017-06-23 13:29 | Cardiology Follow-Up ---
Subjective Subjective Date of Service: Jun 23, 2017. Pt evaluation today including: conversation w/ patient, conversation w/ family , physical exam, chart review, lab review, review of studies, review of inpatient medication list Additional Details: Feeling well this a.m.. Denies any recurrent chest or jaw discomfort. Shortness of breath from yesterday improved Telemetry reviewed no further events overnight. Problem List Medical Problems: (1) Chest pain Status: Acute (2) GERD (gastroesophageal reflux disease) Status: Chronic (3) NSTEMI (non-ST elevated myocardial infarction) Status: Acute (4) Pneumonia Status: Acute (5) Right knee pain Status: Acute (6) Sinusitis Status: Acute (7) Vertigo Status: Acute Review of Systems Constitutional: No fever, No chills ENT: No hearing loss Respiratory: No cough, No sputum Cardiac: No chest pain Abdomen: No pain Heme: No abnormal bleeding/bruising Skin: No rash Objective Vital Signs Last Vital Signs Documentation Date Time Temp Pulse Resp B/P (MAP) Pulse Ox O2 Delivery O2 Flow Rate FiO2 06/23/17 12:00 99 18 99/49 (66) Room Air 06/23/17 08:00 95 06/23/17 04:01 36.9 06/22/17 22:27 21 06/22/17 10:00 2.0 Physical Exam: General Appearance: no apparent distress ENT: hearing grossly normal, pharynx normal Neck: no JVD Respiratory/Chest: lungs clear, normal breath sounds, no respiratory distress Cardiovascular: regular rate, rhythm, no JVD, + systolic murmur (2/6 systolic ejection) Abdomen: normal bowel sounds, non tender, soft Extremities: no pedal edema, no calf tenderness, + pertinent finding (Right radial artery access site hematoma, ecchymosis. Distal sensation, pulses intact ) Neurologic/Psychiatric: no motor/sensory deficits, alert, normal mood/affect Skin: normal color, no rash Assessment and Plan 1. Occluded RCA/acute coronary syndrome--status post PCI with GILDARDO to RCA 2. Post NM cardiac arrest/VF requiring single defibrillation 3. Sinus bradycardia 4. Dyslipidemia 5. Hypertension with LVH 6. Morbid obesity with suspected obstructive sleep apnea 7. Prior tobacco abuse 8. Sjogren syndrome Patient remains largely asymptomatic, chest pain-free. She has been hemodynamically and electrically stable since the night immediately postprocedure. No apparent access site complications. Stable blood counts and renal function --from a cardiac standpoint okay for transition to telemetry today --continue dual antiplatelet therapy with aspirin and ticagrelor --continue current SHANE-inhibitor, high-intensity statin --will consider addition of low-dose beta-mayela tomorrow --agree transition from IV to p.o. amiodarone today --> transition off amiodarone tomorrow From cardiac standpoint would tentatively target discharge on Monday. Prior to discharge would transition from Brilinta to clopidogrel (hold a.m. dose of Brilinta on 06/25 and instead give clopidogrel 300 mg that morning and then continue 75 mg of clopidogrel daily the following day) Medications: 06/23/17 05:48 Red Blood Count 3.97, Mean Corpuscular Volume 87.2, Mean Corpuscular Hemoglobin 28.5, Mean Corpuscular Hemoglobin Concent 32.7, Mean Platelet Volume 10.5, Neutrophils (%) (Auto) 57.5, Lymphocytes (%) (Auto) 35.1, Monocytes (%) (Auto) 5.7, Eosinophils (%) (Auto) 1.2, Basophils (%) (Auto) 0.3, Neutrophils # (Auto) 5.58, Lymphocytes # (Auto) 3.41, Monocytes # (Auto) 0.55, Eosinophils # (Auto) 0.12, Basophils # (Auto) 0.03 06/23/17 05:48 Test 06/23/17 05:46 06/23/17 05:48 Bedside Glucose 97 mg/dl (70-90) White Blood Count 9.71 K/uL (4.8-10.8) Red Blood Count 3.97 M/uL (4.2-5.4) Hemoglobin 11.3 g/dL (12.0-16.0) Hematocrit 34.6 % (37-47) Mean Corpuscular Volume 87.2 fL (80-100) Mean Corpuscular Hemoglobin 28.5 pg (25-34) Mean Corpuscular Hemoglobin Concent 32.7 g/dl (32-36) Platelet Count 191 K/uL (130-400) Mean Platelet Volume 10.5 fL (7.4-10.4) Neutrophils (%) (Auto) 57.5 % Lymphocytes (%) (Auto) 35.1 % Monocytes (%) (Auto) 5.7 % Eosinophils (%) (Auto) 1.2 % Basophils (%) (Auto) 0.3 % Neutrophils # (Auto) 5.58 K/uL (1.4-6.5) Lymphocytes # (Auto) 3.41 K/uL (1.2-3.4) Monocytes # (Auto) 0.55 K/uL (0.11-0.59) Eosinophils # (Auto) 0.12 K/uL (0-0.5) Basophils # (Auto) 0.03 K/uL (0-0.2) RDW Standard Deviation 45.7 fL (36.4-46.3) RDW Coefficient of Variation 14.4 % (11.5-14.5) Immature Granulocyte % (Auto) 0.2 % Immature Granulocyte # (Auto) 0.02 K/uL (0.00-0.02) Anion Gap 4.0 mmol/L (3-11) Est Creatinine Clear Calc Drug Dose 106.5 ml/min Estimated GFR () 94.6 Estimated GFR (Non- 81.6 BUN/Creatinine Ratio 16.7 (10-20) Calcium Level 7.9 mg/dl (8.5-10.1) Phosphorus Level 3.0 mg/dl (2.5-4.9) Magnesium Level 2.1 mg/dl (1.8-2.4) Total Bilirubin 0.3 mg/dl (0.2-1) Direct Bilirubin < 0.1 mg/dl (0-0.2) Aspartate Amino Transf (AST/SGOT) 61 U/L (15-37) Alanine Aminotransferase (ALT/SGPT) 104 U/L (12-78) Alkaline Phosphatase 75 U/L (45-117) Troponin I 6.770 ng/ml (0-0.045) Total Protein 6.4 gm/dl (6.4-8.2) Albumin 2.8 gm/dl (3.4-5.0) Lab Results: Current Inpatient Medications Medications (Trade) Dose Ordered Sig/Kim Route Start Time Stop Time Status Last Admin Dose Admin Morphine Sulfate (MoRPHine SULFATE INJ) 4 mg Q3H PRN IV 06/21/17 20:15 07/05/17 20:14 06/22/17 00:14 4 MG Acetaminophen (Tylenol Tab) 650 mg Q4H PRN PO 06/21/17 20:45 07/21/17 20:44 Nitroglycerin (Nitrostat Tab) 0.4 mg UD PRN SL 06/21/17 20:45 07/21/17 20:44 Fluticasone Propionate (Flonase Nasal [place]) 2 sprays DAILY AILYN 06/22/17 09:00 07/22/17 08:59 06/23/17 07:38 2 SPRAYS Gabapentin (Neurontin Cap) 400 mg TID PO 06/21/17 21:00 07/21/17 20:59 06/23/17 07:37 400 MG Hydroxychloroquine Sulfate (Plaquenil Tab) 400 mg HS PO 06/21/17 21:00 07/21/17 20:59 06/22/17 19:53 400 MG Albuterol/ Ipratropium (Combivent Respimat Inh) 2 puffs QID INH 06/21/17 21:00 07/21/17 20:59 06/23/17 07:38 2 PUFFS Lorazepam (Ativan Tab) 0.5 mg BID PRN PO 06/21/17 20:45 07/21/17 20:44 Montelukast Sodium (Singulair Tab) 10 mg DAILY PO 06/22/17 09:00 07/22/17 08:59 06/23/17 07:37 10 MG Pantoprazole Sodium (Protonix Tab) 40 mg DAILY PO 06/22/17 09:00 07/22/17 08:59 06/23/17 07:37 40 MG Miscellaneous Information (Order Awaiting Action) 1 ea QS N/A 06/22/17 00:00 07/22/17 00:00 Miscellaneous Information (Order Awaiting Action) 1 ea QS N/A 06/22/17 00:00 07/22/17 00:00 Lorazepam (Ativan Inj) 0.5 mg Q4H PRN IV 06/21/17 20:45 07/21/17 20:44 Meclizine HCl (Antivert Tab) 12.5 mg TID PRN PO 06/21/17 21:00 07/21/17 20:44 Ondansetron HCl (Zofran Inj) 4 mg Q6H PRN IV 06/21/17 22:45 07/21/17 22:44 06/22/17 00:29 4 MG Aspirin (Ecotrin Tab) 81 mg QAM PO 06/22/17 09:00 07/22/17 08:59 06/23/17 07:37 81 MG Lisinopril (Zestril Tab) 5 mg QAM PO 06/22/17 09:00 07/22/17 08:59 06/23/17 07:37 5 MG Ticagrelor (Brilinta Cap) 90 mg BID PO 06/22/17 09:00 07/22/17 08:59 06/23/17 07:37 90 MG Atorvastatin Calcium (Lipitor Tab) 80 mg DAILY PO 06/23/17 09:00 07/22/17 08:59 06/23/17 07:37 80 MG Heparin Sodium (Porcine) (Heparin Sq 5000 Unit/0.5ml) 5,000 unit Q8 SQ 06/22/17 14:00 07/22/17 13:59 06/23/17 06:05 5,000 UNIT Levalbuterol (Xopenex 1.25MG/ 3ML Neb) 1.25 mg Q6R PRN INH 06/22/17 09:15 07/22/17 09:14 06/22/17 22:15 1.25 MG Docusate Sodium (coLACE CAP) 100 mg BID PO 06/22/17 21:00 07/22/17 20:59 06/23/17 07:38 100 MG Amiodarone HCl (Cordarone Tab) 200 mg BID PO 06/23/17 09:00 07/23/17 08:59 06/23/17 09:47 200 MG
[2017-06-23] MEDS: ONDANSETRON INJ 2 MG/ML 2 ML VIAL IV PRN (14:10)
--- NOTE | 2017-06-23 18:30 | Progress Note ---
Internal Med Progress Note Date of Service: Jun 23, 2017. Provider Documentation: SUBJECTIVE: s/p cardiac cath and stent placement resting comfortably afebrile denies any chest pain or sob today no nausea OBJECTIVE: Vital Signs-as noted below Exam: General-alert and awake. Not in distress. Obese ENT-normal hearing Neck-no neck masses Lungs-cta b/l no wheezing or crackles Heart-s1 and s2 heard regular rhythm no murmurs Abdomen-soft bowel sounds present non tender no distension Extremities-no edema no erythema Neuro-alert and oriented moves extremities Lab data as noted below. ASSESSMENT & PLAN: 1. Acute coronary syndrome. s/p cardiac cath and GILDARDO to Distal RCA post cath had an episode of v fib and was shocked once currently stable was on amiodarone drip currently transitioned to po amiodarone on aspirin, statin and Brilinta cardiology and critical on board. Transferred to tele today 2. Hypertension, blood pressure on the lower side. on lisinopril will monitor. 3. Hyperlipidemia on statin therapy. 4. Past tobacco abuse. 5. Sjogren syndrome, as per records. On Plaquenil 6. Morbid Obesity YUSUF on cap at home. DVT PROPHYLAXIS hep sub q DISPOSITION Transfer to tele possible d/c on Monday Vital Signs: Date Time Temp Pulse Resp B/P (MAP) Pulse Ox O2 Delivery O2 Flow Rate FiO2 06/23/17 16:00 95 Room Air 06/23/17 15:30 36.8 65 18 114/65 (81) 95 Room Air 06/23/17 12:00 99 18 99/49 (66) Room Air 06/23/17 12:00 Room Air 06/23/17 08:00 71 18 107/58 (74) 95 Room Air 06/23/17 08:00 Room Air 06/23/17 06:24 66 18 97 Room Air 06/23/17 05:01 82 18 118/58 (78) 96 Room Air 06/23/17 04:01 36.9 64 17 93/51 (65) 96 Room Air 06/23/17 04:00 95 Room Air 06/23/17 03:12 85 21 135/62 (86) 95 Room Air 06/23/17 03:01 65 18 111/55 (73) 98 Room Air 06/23/17 02:00 66 16 107/50 (69) 97 Room Air 06/23/17 01:00 66 16 102/49 (66) 96 Room Air 06/23/17 00:37 37.2 83 18 124/54 (77) 95 BiPAP 06/23/17 00:01 95 Room Air 06/22/17 23:00 79 16 120/60 (80) 91 BiPAP 06/22/17 22:27 77 97 21 06/22/17 22:21 77 18 99/56 (70) 99 Room Air 06/22/17 22:15 76 18 95 Room Air 06/22/17 20:11 36.9 73 18 108/61 (77) 94 Room Air 06/22/17 20:00 95 Room Air Lab Results: Results Past 24 Hours Test 06/22/17 23:28 06/22/17 23:59 06/23/17 05:46 06/23/17 05:48 Range/Units Troponin I 8.410 6.770 0-0.045 ng/ml Bedside Glucose 131 97 70-90 mg/dl White Blood Count 9.71 4.8-10.8 K/uL Red Blood Count 3.97 4.2-5.4 M/uL Hemoglobin 11.3 12.0-16.0 g/dL Hematocrit 34.6 37-47 % Mean Corpuscular Volume 87.2 80-100 fL Mean Corpuscular Hemoglobin 28.5 25-34 pg Mean Corpuscular Hemoglobin Concent 32.7 32-36 g/dl Platelet Count 191 130-400 K/uL Mean Platelet Volume 10.5 7.4-10.4 fL Neutrophils (%) (Auto) 57.5 % Lymphocytes (%) (Auto) 35.1 % Monocytes (%) (Auto) 5.7 % Eosinophils (%) (Auto) 1.2 % Basophils (%) (Auto) 0.3 % Neutrophils # (Auto) 5.58 1.4-6.5 K/uL Lymphocytes # (Auto) 3.41 1.2-3.4 K/uL Monocytes # (Auto) 0.55 0.11-0.59 K/uL Eosinophils # (Auto) 0.12 0-0.5 K/uL Basophils # (Auto) 0.03 0-0.2 K/uL RDW Standard Deviation 45.7 36.4-46.3 fL RDW Coefficient of Variation 14.4 11.5-14.5 % Immature Granulocyte % (Auto) 0.2 % Immature Granulocyte # (Auto) 0.02 0.00-0.02 K/uL Sodium Level 141 136-145 mmol/L Potassium Level 4.0 3.5-5.1 mmol/L Chloride Level 112 98-107 mmol/L Carbon Dioxide Level 25 21-32 mmol/L Anion Gap 4.0 3-11 mmol/L Blood Urea Nitrogen 14 7-18 mg/dl Creatinine 0.84 0.60-1.20 mg/dl Est Creatinine Clear Calc Drug Dose 106.5 ml/min Estimated GFR () 94.6 Estimated GFR (Non- 81.6 BUN/Creatinine Ratio 16.7 10-20 Random Glucose 94 70-99 mg/dl Calcium Level 7.9 8.5-10.1 mg/dl Phosphorus Level 3.0 2.5-4.9 mg/dl Magnesium Level 2.1 1.8-2.4 mg/dl Total Bilirubin 0.3 0.2-1 mg/dl Direct Bilirubin < 0.1 0-0.2 mg/dl Aspartate Amino Transf (AST/SGOT) 61 15-37 U/L Alanine Aminotransferase (ALT/SGPT) 104 12-78 U/L Alkaline Phosphatase 75 45-117 U/L Total Protein 6.4 6.4-8.2 gm/dl Albumin 2.8 3.4-5.0 gm/dl
[2017-06-23] MEDS: HYDROXYCHLOROQUINE SULFATE 200 MG TAB PO SCH (21:31)
[2017-06-23] MEDS: LEVALBUTEROL 1.25MG/3ML NEB INH PRN (21:51)
[2017-06-23] MEDS: NITROGLYCERIN 0.4 MG SL PER TAB CHARGE SL PRN ×2 (22:29→22:43)
[2017-06-23] MEDS: MoRPHine SULFATE 4 MG/ML 1 ML CARP\\VIAL IV PRN (22:44)
[2017-06-23] MEDS ORDERED: TRAMADOL HCL 50 MG TAB PO PRN (22:45)
[2017-06-24] VITALS (11 sets, daily range): BP systolic 93–126; BP diastolic 41–58; PULSE 64–81; TEMP 36.5–36.8; O2SAT 92–96
[2017-06-24] MEDS ORDERED: SODIUM CHLORIDE 0.9% 250ML 250 ML IV ONE
[2017-06-24] MEDS: HEPARIN SOD 5000 UNIT/0.5 ML CARP SQ SCH ×3 (06:39→21:12)
[2017-06-24 07:01] LABS: BASO % 0.3 %; BASO ABS # 0.03 K/uL (0-0.2); COMPLETE YES; EOS % 1.9 %; HEMATOCRIT 34.7 % (37-47); IG% 0.3 %; MEAN CELL VOLUME 86.1 fL (80-100); MEAN CORPUSCULAR HEMOGLOBIN 29.3 pg (25-34); MEAN PLATELET VOLUME 10.6 fL (7.4-10.4); MONO % 4.9 %; NEUT % 61.6 %; PLATELET COUNT 215 K/uL (130-400); RED BLOOD COUNT 4.03 M/uL (4.2-5.4); WHITE BLOOD COUNT 10.96 K/uL (4.8-10.8)
[2017-06-24] MEDS: TICAGRELOR 90 MG TAB PO SCH ×2 (08:11→21:07)
[2017-06-24] MEDS: FLUTICASONE PROPIONATE NA SPR 16 GM BTL NAE SCH (08:12)
[2017-06-24] MEDS: LISINOPRIL 5 MG TAB PO SCH (08:12)
[2017-06-24] MEDS: MONTELUKAST SOD 10 MG TAB PO SCH (08:13)
[2017-06-24] MEDS: GABAPENTIN 400 MG CAP PO SCH ×3 (08:13→21:06)
[2017-06-24] MEDS: PANTOprazole SOD 40 MG TAB PO SCH (08:13)
[2017-06-24] MEDS: ATORVASTATIN 40 MG TAB PO SCH (08:14)
[2017-06-24] MEDS: AMIODARONE 200 MG TAB PO SCH ×2 (08:14→21:05)
[2017-06-24] MEDS: ASPIRIN 81 MG ECTAB PO SCH (08:14)
[2017-06-24] MEDS: IPRATROPIUM BROMIDE/ALBUTEROL respimat INH INH SCH ×4 (08:15→21:05)
[2017-06-24] MEDS: DOCUSATE SODIUM 100 MG CAP PO SCH ×2 (11:00→21:00)
--- NOTE | 2017-06-24 16:19 | CARDIOLOGY PROGRESS NOTE ---
DATE: 06/24/2017 DATE: 06/24/2017 SUBJECTIVE: The patient was seen by me today in her telemetry unit room. She reports that overnight she had and episode of left lateral squeezing chest discomfort. It is beneath her left breast. No associated symptoms with it. No associated jaw or midscapular discomfort. With her presenting symptoms she had jaw l and mid scapular discomfort. She states that the discomfort overnight was similar to that which she experienced at the time of admission, but less intensity. Since then, she reports no further such discomfort. She is predominantly staying in bed. She has gotten up to go to the toilet. No chest discomfort with her minimal exertion. No orthopnea or PND. No palpitations, lightheadedness, or syncope. No calf discomfort. No neurologic symptoms. No bleeding complaints. No fevers or chills. No pulmonary, GI, or urinary complaints. The patient stated to me that her chest discomfort was approximately 4:00 a.m. overnight. Reviewed nursing notes states that the discomfort was actually reported at 2215 last evening. An electrocardiogram was performed and revealed no acute changes. No relief with sublingual nitroglycerin. She did receive relief after after intravenous morphine. MEDICATIONS: Atorvastatin 80 mg daily, amiodarone 200 mg b.i.d., docusate sodium 100 mg b.i.d., subQ heparin 5000 units q. 8 hours, Xopenex 1.25 mg nebulizer q. 6 hours as needed, fluticasone 2 sprays daily, Singulair 10 mg daily, pantoprazole 40 mg daily, aspirin 81 mg daily, lisinopril 5 mg daily, ticagrelor 90 mg b.i.d., gabapentin 400 mg t.i.d., Plaquenil 400 mg at bedtime, Combivent 2 puffs q.i.d., and a few p.r.n. medications. ALLERGIES AND ADVERSE DRUG REACTIONS: PENICILLIN. MONITOR HISTORY OVER THE PAST 24 HOURS: Sinus rhythm. No ventricular tachycardia. PHYSICAL EXAMINATION: VITAL SIGNS: Late this morning with oral temperature 36.7, pulse 70, blood pressure 100/58, pulse oximetry room air 95%. GENERAL APPEARANCE: Shows her to be in no distress. She is sitting upright in her bed. NECK: No jugular venous distention noted. She does have a thick neck. Difficult to evaluate JVP. LUNGS: Normal respiratory effort. Clear. No rales or wheezes. HEART: Regular rate and rhythm. S1, S2 normal. No S3 or S4. No rub. 2/6 systolic murmur left lower sternal border. No diastolic murmur. ABDOMEN: Soft. Nontender. No palpable masses or organomegaly. EXTREMITIES: Right radial catheterization site without active bleeding. Right radial pulse strongly palpable. Nontender. No evidence of arterial insufficiency right hand. Trace pretibial edema bilaterally. No calf tenderness. NEUROLOGIC: Alert and oriented x3. Motor grossly intact. PSYCHIATRIC: Affect is normal. Metabolic profile today with WBC 10.96, hemoglobin 11.8, hematocrit 34.7, platelet count 215. Metabolic profile not performed today. Troponin I on June 22 was 30.00. Since then, the troponin I's have progressively decreased. Troponin I last evening was 5.850. ASSESSMENT: 1. Status post cardiac catheterization 06/21/2017 for non-ST elevation myocardial infarction. Total distal RCA occlusion noted. Subsequent PCI to the occlusion. Deployment of a 2.75 x 23 mm Xience drug-eluting stent. No residual stenosis. 2. Episode of left-sided chest discomfort overnight. No acute ST segment abnormalities noted. Since then, no further complaints of chest discomfort. 3. Normal overall left ventricular systolic function on post-PCI echo. Basal inferior hypokinesis. 4. Troponin I obtained last night was 5.850. However, this was obtained at the time of the chest discomfort. No followup troponin I's were ordered. 5. Ventricular fibrillation complicating reperfusion of the RCA. No further significant ventricular arrhythmias. 6. No evidence of congestive heart failure. 7. Blood pressure under good control. RECOMMENDATIONS AND PLAN: 1. Repeat troponin I today. 2. Switch to clopidogrel tomorrow. We will give a loading dose of 300 mg, then 75 mg daily. 3. Discontinue amiodarone tomorrow morning. Tomorrow morning start metoprolol succinate ER 50 mg daily. The bradycardia present at time of admission has resolved. 4. Increase activity. The patient is reluctant to get out of bed. 5. Continue atorvastatin and aspirin. 6. Continue low dose lisinopril. She had borderline low blood pressure this morning.
--- NOTE | 2017-06-24 19:06 | Progress Note ---
Internal Med Progress Note Date of Service: Jun 24, 2017. Provider Documentation: SUBJECTIVE: had chest pain last night but resolved now afebrile no sob no nausea hemodynamics stable OBJECTIVE: Vital Signs-as noted below Exam: General-alert and awake. Not in distress. Obese ENT-normal hearing Neck-no neck masses Lungs-cta b/l no wheezing or crackles Heart-s1 and s2 heard regular rhythm no murmurs Abdomen-soft bowel sounds present non tender no distension Extremities-no edema no erythema Neuro-alert and oriented moves extremities Lab data as noted below. ASSESSMENT & PLAN: 1. Acute coronary syndrome. s/p cardiac cath and GILDARDO to Distal RCA post cath had an episode of v fib and was shocked once currently stable was on amiodarone drip currently transitioned to po amiodarone on aspirin, statin and Brilinta cardiology on board. had an episode of chest pain last night relieved by morphine. Ekg no acute findings and troponin trending down cardiology changing Brilinta to Plavix and adding Lopressor. Will monitor 2. Hypertension, blood pressure on the lower side. on lisinopril. Starting Toprol xl tomorrow will monitor. 3. Hyperlipidemia on statin therapy. 4. Past tobacco abuse. 5. Sjogren syndrome, as per records. On Plaquenil 6. Morbid Obesity YUSUF on cap at home. DVT PROPHYLAXIS hep sub q DISPOSITION Monitor in tele possible d/c in 1-2 day. Vital Signs: Date Time Temp Pulse Resp B/P (MAP) Pulse Ox O2 Delivery O2 Flow Rate FiO2 06/24/17 16:00 95 Room Air 06/24/17 15:11 36.8 73 18 117/57 (77) 94 Room Air 06/24/17 12:00 95 Room Air 06/24/17 11:56 36.7 70 20 100/58 (72) 95 Room Air 06/24/17 08:05 36.8 69 18 105/41 (62) 94 Room Air 06/24/17 08:00 95 Room Air 06/24/17 04:42 36.5 67 22 111/52 (71) 94 Room Air 06/24/17 04:00 Room Air 06/24/17 00:03 36.7 81 22 93/53 (66) 96 BiPAP 06/24/17 00:00 Room Air CPAP 06/23/17 23:00 89 20 93/53 (66) 97 06/23/17 22:30 85 110/65 (80) 06/23/17 22:15 84 20 129/65 (86) 97 CPAP 06/23/17 21:58 80 95 21 06/23/17 21:51 80 18 95 Room Air 06/23/17 20:00 Room Air 06/23/17 19:34 36.6 80 22 110/69 (83) 92 Room Air Lab Results: Results Past 24 Hours Test 06/23/17 22:59 06/24/17 04:44 06/24/17 06:42 06/24/17 16:14 Range/Units Troponin I 5.850 4.510 0-0.045 ng/ml White Blood Count 10.96 4.8-10.8 K/uL Red Blood Count 4.03 4.2-5.4 M/uL Hemoglobin 11.8 12.0-16.0 g/dL Hematocrit 34.7 37-47 % Mean Corpuscular Volume 86.1 80-100 fL Mean Corpuscular Hemoglobin 29.3 25-34 pg Mean Corpuscular Hemoglobin Concent 34.0 32-36 g/dl Platelet Count 215 130-400 K/uL Mean Platelet Volume 10.6 7.4-10.4 fL Neutrophils (%) (Auto) 61.6 % Lymphocytes (%) (Auto) 31.0 % Monocytes (%) (Auto) 4.9 % Eosinophils (%) (Auto) 1.9 % Basophils (%) (Auto) 0.3 % Neutrophils # (Auto) 6.75 1.4-6.5 K/uL Lymphocytes # (Auto) 3.40 1.2-3.4 K/uL Monocytes # (Auto) 0.54 0.11-0.59 K/uL Eosinophils # (Auto) 0.21 0-0.5 K/uL Basophils # (Auto) 0.03 0-0.2 K/uL RDW Standard Deviation 44.9 36.4-46.3 fL RDW Coefficient of Variation 14.3 11.5-14.5 % Immature Granulocyte % (Auto) 0.3 % Immature Granulocyte # (Auto) 0.03 0.00-0.02 K/uL
[2017-06-24] MEDS: HYDROXYCHLOROQUINE SULFATE 200 MG TAB PO SCH (21:06)
[2017-06-24] MEDS: LEVALBUTEROL 1.25MG/3ML NEB INH PRN (21:22)
[2017-06-25] VITALS (7 sets, daily range): BP systolic 112–124; BP diastolic 48–58; PULSE 63–83; TEMP 36.5–36.8; O2SAT 92–98
[2017-06-25] MEDS: HEPARIN SOD 5000 UNIT/0.5 ML CARP SQ SCH ×3 (05:47→21:09)
[2017-06-25 06:08] LABS: BASO % 0.4 %; BASO ABS # 0.04 K/uL (0-0.2); COMPLETE YES; EOS % 2.3 %; HEMATOCRIT 36.3 % (37-47); IG% 0.4 %; LYMPH % 26.3 %; LYMPH ABS # 2.95 K/uL (1.2-3.4); MEAN CELL VOLUME 86.2 fL (80-100); MEAN CORPUSCULAR HEMOGLOBIN 29.5 pg (25-34); MEAN CORPUSCULAR HGB CONC 34.2 g/dl (32-36); MEAN PLATELET VOLUME 10.4 fL (7.4-10.4); MONO % 5.6 %; PLATELET COUNT 226 K/uL (130-400); RED BLOOD COUNT 4.21 M/uL (4.2-5.4); WHITE BLOOD COUNT 11.21 K/uL (4.8-10.8)
[2017-06-25] MEDS ORDERED: CLOPIDOGREL BISULFATE 300 MG TAB PO ONE (07:00)
[2017-06-25] MEDS: PANTOprazole SOD 40 MG TAB PO SCH (08:03)
[2017-06-25] MEDS: MONTELUKAST SOD 10 MG TAB PO SCH (08:03)
[2017-06-25] MEDS: ASPIRIN 81 MG ECTAB PO SCH (08:03)
[2017-06-25] MEDS: GABAPENTIN 400 MG CAP PO SCH ×3 (08:03→20:59)
[2017-06-25] MEDS: LISINOPRIL 5 MG TAB PO SCH (08:03)
[2017-06-25] MEDS: ATORVASTATIN 40 MG TAB PO SCH (08:04)
[2017-06-25] MEDS: IPRATROPIUM BROMIDE/ALBUTEROL respimat INH INH SCH ×4 (08:05→20:58)
[2017-06-25] MEDS: FLUTICASONE PROPIONATE NA SPR 16 GM BTL NAE SCH (08:05)
[2017-06-25] MEDS: METOPROLOL SUCC 50MG EXT REL TAB PO SCH (08:32)
[2017-06-25] MEDS: DOCUSATE SODIUM 100 MG CAP PO SCH ×2 (14:07→20:58)
--- NOTE | 2017-06-25 14:37 | CARDIOLOGY PROGRESS NOTE ---
DATE: 06/25/2017 SUBJECTIVE: The patient was seen by me this morning in the telemetry unit room. She has had no further complaints of chest pain since early yesterday. None since I saw her yesterday. She is walking in the [place]. No dyspnea at rest or with her normal activities. No palpitations, lightheadedness, or syncope. No pain at her right radial catheterization site. She complains of belching after eating meals. No abdominal pain or epigastric pain. She complains of pain in her right leg with walking, this is anterior in location and extends from her knee down to her foot. No complaint of calf pain. No bleeding complaints. No skin rash complaints. No fevers or chills. No pulmonary complaints. ALLERGIES AND ADVERSE DRUG REACTIONS: PENICILLIN. CURRENT MEDICATIONS: Clopidogrel 75 mg daily, metoprolol succinate ER 50 mg daily, atorvastatin 80 mg daily, docusate sodium 100 mg b.i.d., subQ heparin 5000 units q. 8 hours, fluticasone 2 sprays daily, Singulair 10 mg daily, pantoprazole 40 mg daily, aspirin 81 mg daily, lisinopril 5 mg daily, gabapentin 400 mg t.i.d., Plaquenil 400 mg at bedtime, Combivent 2 puffs q.i.d., and several p.r.n. medications. Monitor reveals sinus rhythm. PHYSICAL EXAMINATION: VITAL SIGNS: This morning with oral temperature 36.7, pulse 69, blood pressure 117/53, pulse oximetry 95%. NECK: No jugular venous distention. LUNGS: Normal respiratory effort. Clear. No rales or wheezes. HEART: Regular rate and rhythm. S1, S2 normal. No S3 or S4. No rub. 2/6 systolic murmur left sternal border. No diastolic murmur. ABDOMEN: Soft. Nontender. No palpable masses or organomegaly. EXTREMITIES: Trace pretibial edema bilaterally. No calf tenderness. No erythema or increased warmth of the legs. Right radial catheterization site without bleeding. Right radial pulse strongly palpable. No evidence for arterial insufficiency in the right hand. NEUROLOGIC: Alert and oriented x3. Motor grossly intact. PSYCHIATRIC: Affect normal. Electrocardiogram performed this morning with normal sinus rhythm, right superior axis deviation, inferior OK, T-wave inversions 1 and aVL. Suspect arm lead reversal. LABORATORY DATA: This morning with WBC 11.21, hemoglobin 12.4, hematocrit 36.3, platelet count 226. Metabolic profile: Sodium 141, potassium 4.0, chloride 112, carbon dioxide 25, BUN 14, creatinine 0.4, random glucose 94. Troponin I yesterday afternoon was 4.510, the evening before on 06/23/2017 it had been 5.850, prior to that it had been 6.770. Peak troponin I was 30.00 on 06/22/2017 at 05:45 a.m. ASSESSMENT: 1. No further complaints of any chest discomfort. Cardiac enzymes after the episode of chest discomfort the evening of 06/23/2017 shows steadily decline since the peak troponin I on 06/22/2017. No evidence of acute myocardial injury based on the repeat cardiac enzymes. Electrocardiogram without any diagnostic ischemic changes. She does have an inferior myocardial infarction. 2. Status post drug-eluting stent distal right coronary artery on 06/21/2017. 3. Ventricular fibrillation complicating reperfusion of right coronary artery. No further significant ventricular arrhythmias. 4. No evidence of congestive heart failure. 5. Complaints of leg pain. No evidence of significant swelling in the leg. Nothing to suggest deep venous thrombosis on exam. 6. Postprandial belching. She is on pantoprazole. RECOMMENDATIONS: 1. Continue current doses of metoprolol and lisinopril. Her blood pressure and heart rate under adequate control. 2. Continue dual antiplatelet therapy of aspirin and clopidogrel. 3. Continue maximum dose of atorvastatin. 4. Increase activity.
--- NOTE | 2017-06-25 18:23 | Progress Note ---
Internal Med Progress Note Date of Service: Jun 25, 2017. Provider Documentation: SUBJECTIVE: resting comfortably hemodynamically stable no chest pain or sob today ambulated in [address] way but complained of some leg pain while ambulating as per nursing staff no nausea OBJECTIVE: Vital Signs-as noted below Exam: General-alert and awake. Not in distress. Obese ENT-normal hearing Neck-no neck masses Lungs-cta b/l no wheezing or crackles Heart-s1 and s2 heard regular rhythm no murmurs Abdomen-soft bowel sounds present non tender no distension Extremities-no edema no erythema Neuro-alert and oriented moves extremities Lab data as noted below. ASSESSMENT & PLAN: 1. Acute coronary syndrome. s/p cardiac cath and GILDARDO to Distal RCA post cath had an episode of v fib and was shocked once currently stable was on amiodarone drip currently transitioned to po amiodarone which was discontinued yesterday on aspirin, statin and Brilinta cardiology on board. had an episode of chest pain last night relieved by morphine. Ekg no acute findings and troponin trending down cardiology changing Brilinta to Plavix and adding Lopressor. stable 2. Hypertension, blood pressure on the lower side. on lisinopril. Starting Toprol xl tomorrow will monitor.stable 3. Hyperlipidemia on statin therapy. 4. Past tobacco abuse. 5. Sjogren syndrome, as per records. On Plaquenil 6. Morbid Obesity YUSUF on cap at home. DVT PROPHYLAXIS hep sub q DISPOSITION Monitor in tele possible d/c in am Vital Signs: Date Time Temp Pulse Resp B/P (MAP) Pulse Ox O2 Delivery O2 Flow Rate FiO2 06/25/17 16:00 Room Air CPAP 06/25/17 15:29 36.5 69 20 116/51 (72) 95 Room Air 06/25/17 12:17 36.8 63 18 118/58 (78) 93 Room Air 06/25/17 12:00 Room Air CPAP 06/25/17 08:00 Room Air CPAP 06/25/17 07:44 36.7 69 18 117/53 (74) 95 Room Air 06/25/17 04:00 36.7 83 18 112/48 (69) 98 Room Air 06/25/17 04:00 CPAP 06/25/17 00:00 CPAP 06/25/17 00:00 36.7 83 18 119/52 (74) 94 Room Air 06/24/17 21:30 64 92 21 06/24/17 21:23 64 18 92 Room Air 06/24/17 20:00 Room Air 06/24/17 19:52 36.7 76 18 126/48 (74) 95 Room Air Lab Results: Results Past 24 Hours Test 06/25/17 05:41 06/25/17 16:02 Range/Units White Blood Count 11.21 4.8-10.8 K/uL Red Blood Count 4.21 4.2-5.4 M/uL Hemoglobin 12.4 12.0-16.0 g/dL Hematocrit 36.3 37-47 % Mean Corpuscular Volume 86.2 80-100 fL Mean Corpuscular Hemoglobin 29.5 25-34 pg Mean Corpuscular Hemoglobin Concent 34.2 32-36 g/dl Platelet Count 226 130-400 K/uL Mean Platelet Volume 10.4 7.4-10.4 fL Neutrophils (%) (Auto) 65.0 % Lymphocytes (%) (Auto) 26.3 % Monocytes (%) (Auto) 5.6 % Eosinophils (%) (Auto) 2.3 % Basophils (%) (Auto) 0.4 % Neutrophils # (Auto) 7.29 1.4-6.5 K/uL Lymphocytes # (Auto) 2.95 1.2-3.4 K/uL Monocytes # (Auto) 0.63 0.11-0.59 K/uL Eosinophils # (Auto) 0.26 0-0.5 K/uL Basophils # (Auto) 0.04 0-0.2 K/uL RDW Standard Deviation 44.6 36.4-46.3 fL RDW Coefficient of Variation 14.2 11.5-14.5 % Immature Granulocyte % (Auto) 0.4 % Immature Granulocyte # (Auto) 0.04 0.00-0.02 K/uL Bedside Glucose 108 70-90 mg/dl
[2017-06-25] MEDS: HYDROXYCHLOROQUINE SULFATE 200 MG TAB PO SCH (20:59)
[2017-06-26] VITALS: BP 107/54; PULSE 68; TEMP 36.8; O2SAT 95
[2017-06-26 03:55] VITALS: BP 111/43; PULSE 66; TEMP 36.5; O2SAT 96
[2017-06-26] MEDS: HEPARIN SOD 5000 UNIT/0.5 ML CARP SQ SCH (06:00)
[2017-06-26 06:19] LABS: BASO % 0.3 %; BASO ABS # 0.03 K/uL (0-0.2); COMPLETE YES; EOS % 2.8 %; HEMATOCRIT 37.5 % (37-47); IG% 0.3 %; LYMPH % 29.3 %; LYMPH ABS # 2.75 K/uL (1.2-3.4); MEAN CELL VOLUME 86.4 fL (80-100); MEAN CORPUSCULAR HGB CONC 33.6 g/dl (32-36); MEAN PLATELET VOLUME 10.6 fL (7.4-10.4); NEUT % 61.3 %; PLATELET COUNT 252 K/uL (130-400); RED BLOOD COUNT 4.34 M/uL (4.2-5.4); WHITE BLOOD COUNT 9.39 K/uL (4.8-10.8)
[2017-06-26] MEDS: LISINOPRIL 5 MG TAB PO SCH (07:44)
[2017-06-26] MEDS: FLUTICASONE PROPIONATE NA SPR 16 GM BTL NAE SCH (07:44)
[2017-06-26] MEDS: IPRATROPIUM BROMIDE/ALBUTEROL respimat INH INH SCH (07:44)
[2017-06-26] MEDS: GABAPENTIN 400 MG CAP PO SCH (07:45)
[2017-06-26] MEDS: METOPROLOL SUCC 50MG EXT REL TAB PO SCH (07:45)
[2017-06-26] MEDS: DOCUSATE SODIUM 100 MG CAP PO SCH (07:45)
[2017-06-26] MEDS: MONTELUKAST SOD 10 MG TAB PO SCH (07:45)
[2017-06-26] MEDS: ASPIRIN 81 MG ECTAB PO SCH (07:45)
[2017-06-26] MEDS: ATORVASTATIN 40 MG TAB PO SCH (07:46)
[2017-06-26] MEDS: PANTOprazole SOD 40 MG TAB PO SCH (07:46)
[2017-06-26 08:00] VITALS: BP 97/59; PULSE 62; TEMP 36.8; O2SAT 94
[2017-06-26] MEDS ORDERED: CLOPIDOGREL BISULFATE 75 MG TAB PO SCH (09:00)
[2017-06-26] MEDS ORDERED: ATOR-26 PO (11:06)
[2017-06-26] MEDS ORDERED: ASPEC81 PO (11:06)
[2017-06-26] MEDS ORDERED: METO1TAB31 PO (11:06)
[2017-06-26] MEDS ORDERED: LSN5 PO (11:06)
[2017-06-26] MEDS ORDERED: PLV75 PO (11:06)
--- NOTE | 2017-06-26 11:09 | Discharge Instructions ---
Discharge Instructions Date of Service Jun 26, 2017. Admission Reason for Admission: Acute Coronary Syndrome, Nstemi Discharge Discharge Diagnosis / Problem: NSTEMI, V.FIB Discharge Goals Goal(s): Decrease discomfort, Improve function Activity Recommendations Activity Limitations: per Instructions/Follow-up section Lifting Limitations: no more than 5 pounds Exercise/Sports Limitations: until after follow-up appointment Shower/Bathe: keep incision dry . Instructions / Follow-Up Instructions / Follow-Up FOLLOWUP WITH FAMILY DOCTOR ON June AT 11AM FOLLOWUP WITH CARDIOLOGY SCHEDULED. TO TAKE MEDICATIONS PRESCRIBED REGULARLY. AVOID ADVIL, MOTRIN, IBUPROFEN, ALEVE, MELOXICAM OR CELECOXIB OR ANY OTHER NSAID 'S( AT PRESCRIBED FOR MAINTENANCE PARTS TECHNICIAN USE THEY CAN CAUSE, GASTRIC ULCERS, KIDNEY FAILURE AND HEART ATTACKS. TO D/W FAMILY DOCTAR FOR ALTERNATIVE PAIN MEDS. CAN USE TYLENOL NEEDED (AT APPROPRIATE DOSES.) NO STRENUOUS ACTIVITY OR WEIGHT LIFTING(NOT MORE THAN 5POUNDS) UNTIL SEEN BY CARDIOLOGY. Current Hospital Diet Patient's current hospital diet: AHA Diet (Heart Healthy) Discharge Diet Recommended Diet: AHA Diet (Heart Healthy) Pending Studies Studies pending at discharge: no Laboratory Results Hemoglobin A1c Test 06/22/17 03:35 Range/Units Estimated Average Glucose 123 mg/dl Hemoglobin A1c 5.9 H 4.5-5.6 % Lipid Panel Test 06/22/17 03:35 Range/Units Triglycerides Level 412 H 0-150 mg/dl Cholesterol Level 136 0-200 mg/dl HDL Cholesterol 25 mg/dl Cholesterol/HDL Ratio 5.4 LDL Cholesterol, Calculated mg/dl Work Instructions Return To Work: after follow-up (LEAVE FROM WORK UNTIL SEEN BY CARDIOLOGY IN 2 WEEKS) Lifting Limitations: NO MORE THAN 5POUNDS Additional Instructions: LEAVE FROM WORK UNTIL SEEN BY CARDIOLOGY IN 2 WEEKS Medical Emergencies . Who to Call and When: Medical Emergencies: If at any time you feel your situation is an emergency, please call 911 immediately. . Non-Emergent Contact Non-Emergency issues call your: Primary Care Provider . . "Provider Documentation" section prepared by Davide Stout. . VTE Core Measure Inpt VTE Proph given/why not?: Unfractionated heparin SQ
[2017-06-26] MEDS ORDERED: TPRSR50 PO (11:10)
[2017-06-26 11:23] VITALS: BP 97/59; PULSE 62; TEMP 36.8; O2SAT 94
--- NOTE | 2017-06-26 11:35 | Progress Note ---
Post ICU Progress Note Date & Time Jun 26, 2017 at 11:32 Vital Signs Vital Signs Past 12 Hours Date Time Temp Pulse Resp B/P (MAP) Pulse Ox O2 Delivery O2 Flow Rate FiO2 06/26/17 11:23 36.8 62 20 94 Room Air 06/26/17 08:00 Room Air 06/26/17 08:00 36.8 62 20 97/59 (72) 94 Room Air 06/26/17 04:00 Room Air 06/26/17 03:55 36.5 66 18 111/43 (65) 96 Room Air 06/26/17 00:00 36.8 68 18 107/54 (71) 95 Room Air 06/25/17 23:59 CPAP Notes Mental Status: alert / awake, participated in evaluation Nausea / Vomiting: adequately controlled Pain: adequately controlled Airway Patency, RR, SpO2: stable & adequate BP & HR: stable & adequate Carmen was admitted after experiencing chest discomfort and shortness of breath requiring the need for cardiac catheterization. She was found to have a 100% occluded RCA. Status post stenting, the patient had an episode of ventricular fibrillation which responded to cardioversion 1. She was on amiodarone for the initial portion of her stay. She had been doing well throughout the weekend, but did describe an episode of chest discomfort which prolong her stay and additional day. On review of her cardiology notes and troponin, she has had no other complaints of pain. She is scheduled to be discharged today. I did discuss patient's admission with her today. She offers no complaint this point and reports feeling much better. She does report that she did have an episode where her leg buckled while ambulating the halls, but she feels this may be related to being bedridden over the last few days. She does have a known history of sciatic issues and relates it to this. The patient does have an appointment on with her primary care provider and in 2 weeks with her interventionalist. I'll patient questions were addressed and answered appropriately to the patient's satisfaction. Consider outpatient follows: PCP - , Cardiology - 2 weeks Repeat imaging needed: Per Cardiology Follow up cultures: None Reviewed progress notes, labs, and inpatient medication list Continue current management Additional recommendations: None at this time. Please feel free to reconsult as needed. Critical Care will sign off at this time. Resident Physician Supervision Note: I agree with the above note Documented By: Enrico Garsia MD Consults & Procedures Consultants: Dr. Stafford - Cardiology Procedures: Recent PTCA
[2017-06-26 11:36] VITALS: BP 110/49; PULSE 68; TEMP 36.8; O2SAT 94
--- NOTE | 2017-06-26 15:05 | Progress Note ---
Internal Med Progress Note Date of Service: Jun 26, 2017. Provider Documentation: SUBJECTIVE: resting comfortably slept ok ambulated ok except for some left knee discomfort no chest pain or sob no nausea ok for discharge OBJECTIVE: Vital Signs-as noted below Exam: General-alert and awake. Not in distress. Obese ENT-normal hearing Neck-no neck masses Lungs-cta b/l no wheezing or crackles Heart-s1 and s2 heard regular rhythm no murmurs Abdomen-soft bowel sounds present non tender no distension Extremities-no edema no erythema Neuro-alert and oriented moves extremities Lab data as noted below. ASSESSMENT & PLAN: 1. Acute coronary syndrome. s/p cardiac cath and GILDARDO to Distal RCA post cath had an episode of v fib and was shocked once currently stable was on amiodarone drip currently transitioned to po amiodarone which was discontinued yesterday on aspirin, statin and Brilinta cardiology on board. had an episode of chest pain last night relieved by morphine. Ekg no acute findings and troponin trending down cardiology changing Brilinta to Plavix and adding Lopressor. stable d/cde on aspirin, Plavix, Toprol xl, statin and lisinopril advised not to stop aspirin and Plavix and to take all her medications regularly as prescribed f/u with pcp and cardiology 2. Hypertension, blood pressure on the lower side. on lisinopril and Toprol xl will monitor.f/u with pcp 3. Hyperlipidemia on high dose statin therapy. 4. Past tobacco abuse. 5. Sjogren syndrome, as per records. On Plaquenil 6. Morbid Obesity YUSUF on cap at home. discharged home Vital Signs: Date Time Temp Pulse Resp B/P (MAP) Pulse Ox O2 Delivery O2 Flow Rate FiO2 06/26/17 11:36 36.8 68 18 110/49 (69) 94 Room Air 06/26/17 11:23 36.8 62 20 94 Room Air 06/26/17 08:00 Room Air 06/26/17 08:00 36.8 62 20 97/59 (72) 94 Room Air 06/26/17 04:00 Room Air 06/26/17 03:55 36.5 66 18 111/43 (65) 96 Room Air 06/26/17 00:00 36.8 68 18 107/54 (71) 95 Room Air 06/25/17 23:59 CPAP 06/25/17 22:16 64 92 21 06/25/17 20:00 Room Air 06/25/17 19:35 36.6 75 18 124/55 (78) 95 Room Air 06/25/17 16:00 Room Air CPAP 06/25/17 15:29 36.5 69 20 116/51 (72) 95 Room Air Lab Results: Results Past 24 Hours Test 06/25/17 16:02 06/26/17 05:26 Range/Units Bedside Glucose 108 70-90 mg/dl White Blood Count 9.39 4.8-10.8 K/uL Red Blood Count 4.34 4.2-5.4 M/uL Hemoglobin 12.6 12.0-16.0 g/dL Hematocrit 37.5 37-47 % Mean Corpuscular Volume 86.4 80-100 fL Mean Corpuscular Hemoglobin 29.0 25-34 pg Mean Corpuscular Hemoglobin Concent 33.6 32-36 g/dl Platelet Count 252 130-400 K/uL Mean Platelet Volume 10.6 7.4-10.4 fL Neutrophils (%) (Auto) 61.3 % Lymphocytes (%) (Auto) 29.3 % Monocytes (%) (Auto) 6.0 % Eosinophils (%) (Auto) 2.8 % Basophils (%) (Auto) 0.3 % Neutrophils # (Auto) 5.76 1.4-6.5 K/uL Lymphocytes # (Auto) 2.75 1.2-3.4 K/uL Monocytes # (Auto) 0.56 0.11-0.59 K/uL Eosinophils # (Auto) 0.26 0-0.5 K/uL Basophils # (Auto) 0.03 0-0.2 K/uL RDW Standard Deviation 44.8 36.4-46.3 fL RDW Coefficient of Variation 14.3 11.5-14.5 % Immature Granulocyte % (Auto) 0.3 % Immature Granulocyte # (Auto) 0.03 0.00-0.02 K/uL
--- NOTE | 2017-06-26 15:08 | Discharge Summary ---
Discharge Summary Date of Service Jun 26, 2017. Discharge Summary Admission Date: Jun 21, 2017 at 23:40 Discharge Date: Jun 26, 2017 Discharge Disposition: Home Principal Diagnosis: nstemi v fib post cath resolved with one shock Secondary Diagnoses/Problems: for hypertension, hyperlipidemia, reflux, past tobacco abuse, Sjogren's syndrome as per records, YUSUF on CPAP. Procedures: CXR: Mild stable cardiomegaly. Otherwise negative study ECHO: 1. Normal LV size, mild concentric LVH. * 2. Normal LV systolic function. LVEF 65-70%. Moderate inferior hypokineis at the base. * 3. Normal RV size and function. * 4. Mild aortic valve sclerorsis. Trace mitral regurgitation. * 5. No prior studies for comparison. Consultations: CARDIOLOGY CRITICAL CARE Medication Reconciliation New Medications: Atorvastatin (Lipitor) 80 Mg Tab 1 TAB PO DAILY for 30 Days, #30 TAB 2 Refills Aspirin (Aspirin EC Low Dose) 81 Mg Ectab 81 MG PO QAM, #30 2 Refills Clopidogrel Bisulfate (Clopidogrel) 75 Mg Tab 75 MG PO QAM, #30 TAB 2 Refills Lisinopril (Lisinopril) 5 Mg Tab 5 MG PO QAM, #30 TAB 2 Refills Metoprolol Succinate (Metoprolol Succinate ER) 50 Mg Tabcr 50 MG PO QAM, #30 2 Refills Continued Medications: Azelastine Hcl (Astelin Nasal [place]) 200 Sprays/30 Ml [place] 2 SPRAYS AILYN BID, BTL Cyclosporine (Ophth) (Restasis) 0.05 % Emu 1 DROP OPB Q12 PRN for Dry Eye(s) Diphenhydramine Hcl (Benadryl Allergy) 25 Mg Cap 25-50 MG PO HS PRN for Sleep, CAP Fluticasone Propionate (Fluticasone Propionate) 120 Sprays/6000 Mcg [place] 2 SPRAYS AILYN DAILY Gabapentin (Neurontin) 400 Mg Cap 400 MG PO TID, CAP Hydroxychloroquine Sulfate (Plaquenil) 200 Mg Tab 400 MG PO HS, TAB Ipratropium-Albuterol (Combivent Respimat) 1 Aer Aer 1 PUFF INH QID, INH Lorazepam (Lorazepam) 1 Mg Tab 0.5 MG PO BID PRN for Anxiety/Insomnia Meclizine Hcl (Meclizine Hcl) 12.5 Mg Tab 12.5 MG PO TID PRN for Dizziness Montelukast Sodium (Singulair) 10 Mg Tab 10 MG PO DAILY, TAB Pantoprazole (Pantoprazole Sodium) 40 Mg Tab 40 MG PO DAILY Discontinued Medications: Amlodipine Besylate (Amlodipine Besylate) 5 Mg Tab 5 MG PO DAILY Atorvastatin (Atorvastatin Calcium) 40 Mg Tab 40 MG PO DAILY Celecoxib (CeleBREX) 200 Mg Cap 200 MG PO DAILY, CAP Admission Information HPI (per Admitting provider): History obtained from patient and records. Medical history significant for hypertension, hyperlipidemia, reflux, past tobacco abuse, Sjogren's syndrome as per records, YUSUF on CPAP. Recent confinement last March 2017 for chest pain. Stress test was normal. Yesterday, patient was at work as a cook for a local personal [employer] when she noted to have left-sided pain, achy, going to her neck and jaw with some shortness of breath. No unusual cough symptoms. Coworkers at facility gave her aspirin prior to EMS transport to the hospital. Troponin was noted to be 7 at the ER. IV heparin started in the ER for acute coronary syndrome. Pain initially improved in the Emergency Room. Seen by the development writer at the Emergency Room. Diagnostic cardiac catheterization contemplated in the morning; low threshold for emergent cardiac cath with recurrence of discomfort as per note. Patient currently complaining of escalating discomfort in the left jaw with shortness of breath. Physical Exam (per Admitting): VITAL SIGNS: Blood pressure was noted to be 101/34, pulse rate 45, RR 18, temperature 36.8, sats 94 on room air. GENERAL: Noted to be uncomfortable, obese, no respiratory distress. SKIN: Normal color. HEENT: [place] palpebral conjunctivae. Dry mucosa. NECK: Short neck. LUNGS: Decreased breath sounds. HEART: Bradycardic. ABDOMEN: Soft. NT EXTREMITIES: Minimal LE edema. No tenderness NEUROLOGIC: No gross focality. Hospital Course 1. Acute coronary syndrome. s/p cardiac cath and GILDARDO to Distal RCA post cath had an episode of v fib and was shocked once currently stable was on amiodarone drip currently transitioned to po amiodarone which was discontinued yesterday on aspirin, statin and Brilinta cardiology on board. had an episode of chest pain last night relieved by morphine. Ekg no acute findings and troponin trending down cardiology changing Brilinta to Plavix and adding Lopressor. stable d/cde on aspirin, Plavix, Toprol xl, statin and lisinopril advised not to stop aspirin and Plavix and to take all her medications regularly as prescribed f/u with pcp and cardiology 2. Hypertension, blood pressure on the lower side. on lisinopril and Toprol xl will monitor.f/u with pcp 3. Hyperlipidemia on high dose statin therapy. 4. Past tobacco abuse. 5. Sjogren syndrome, as per records. On Plaquenil 6. Morbid Obesity YUSUF on cap at home. discharged home Total time spent on discharge = 35MINUTES This includes examination of the patient, discharge planning, medication reconciliation, and communication with other providers. Discharge Instructions Discharge Instructions Date of Service Jun 26, 2017. Admission Reason for Admission: Acute Coronary Syndrome, Nstemi Discharge Discharge Diagnosis / Problem: NSTEMI, V.FIB Discharge Goals Goal(s): Decrease discomfort, Improve function Activity Recommendations Activity Limitations: per Instructions/Follow-up section Lifting Limitations: no more than 5 pounds Exercise/Sports Limitations: until after follow-up appointment Shower/Bathe: keep incision dry . Instructions / Follow-Up Instructions / Follow-Up FOLLOWUP WITH FAMILY DOCTOR ON June AT 11AM FOLLOWUP WITH CARDIOLOGY SCHEDULED. TO TAKE MEDICATIONS PRESCRIBED REGULARLY. AVOID ADVIL, MOTRIN, IBUPROFEN, ALEVE, MELOXICAM OR CELECOXIB OR ANY OTHER NSAID 'S( AT PRESCRIBED FOR RETIREMENT USE THEY CAN CAUSE, GASTRIC ULCERS, KIDNEY FAILURE AND HEART ATTACKS. TO D/W FAMILY DOCTAR FOR ALTERNATIVE PAIN MEDS. CAN USE TYLENOL NEEDED (AT APPROPRIATE DOSES.) NO STRENUOUS ACTIVITY OR WEIGHT LIFTING(NOT MORE THAN 5POUNDS) UNTIL SEEN BY CARDIOLOGY. Current Hospital Diet Patient's current hospital diet: AHA Diet (Heart Healthy) Discharge Diet Recommended Diet: AHA Diet (Heart Healthy) Pending Studies Studies pending at discharge: no Laboratory Results Hemoglobin A1c Test 06/22/17 03:35 Range/Units Estimated Average Glucose 123 mg/dl Hemoglobin A1c 5.9 H 4.5-5.6 % Lipid Panel Test 06/22/17 03:35 Range/Units Triglycerides Level 412 H 0-150 mg/dl Cholesterol Level 136 0-200 mg/dl HDL Cholesterol 25 mg/dl Cholesterol/HDL Ratio 5.4 LDL Cholesterol, Calculated mg/dl Work Instructions Return To Work: after follow-up (LEAVE FROM WORK UNTIL SEEN BY CARDIOLOGY IN 2 WEEKS) Lifting Limitations: NO MORE THAN 5POUNDS Additional Instructions: LEAVE FROM WORK UNTIL SEEN BY CARDIOLOGY IN 2 WEEKS Medical Emergencies . Who to Call and When: Medical Emergencies: If at any time you feel your situation is an emergency, please call 911 immediately. . Non-Emergent Contact Non-Emergency issues call your: Primary Care Provider . . "Provider Documentation" section prepared by Davide Stout. . VTE Core Measure Inpt VTE Proph given/why not?: Unfractionated heparin SQ
[2017-08-01] MEDS ORDERED: RANI300T2 PO (14:43)
== END 2017-06-26 12:15 | disposition home or self-care (01) | DRG 246 ==
LOC: EDBD 16:43 → C.EDC 16:44 → CANRESERV 19:57 → ENRESERV 19:57 → C.MSICU 20:13 → UNDOADMIN 20:13 → ENRESERV 21:55 → C.MSICU 23:40 → C.2E 06-23 15:40
PROVIDERS: ADMIT Internal Medicine; ATTEND Internal Medicine
PROC: 4A023N7 Measurement of Cardiac Sampling and Pressure, Left Heart, Percutaneous Approach (ICD-10-PCS; principal; 2017-06-21 20:58)
PROC: B2111ZZ Fluoroscopy of Multiple Coronary Arteries using Low Osmolar Contrast (ICD-10-PCS; principal; 2017-06-21 20:58)
PROC: B2151ZZ Fluoroscopy of Left Heart using Low Osmolar Contrast (ICD-10-PCS; principal; 2017-06-21 20:58)
PROC: 027034Z Dilation of Coronary Artery, One Artery with Drug-eluting Intraluminal Device, Percutaneous Approach (ICD-10-PCS; principal; 2017-06-21 20:58)
PROC: 5A2204Z Restoration of Cardiac Rhythm, Single (ICD-10-PCS; 2017-06-22)
DX: I21.4 Non-ST elevation (NSTEMI) myocardial infarction (principal); I46.9 Cardiac arrest, cause unspecified; I49.01 Ventricular fibrillation; N17.9 Acute kidney failure, unspecified; Z68.41 Body mass index [BMI] 40.0-44.9, adult; I24.9 Acute ischemic heart disease, unspecified; I25.10 Atherosclerotic heart disease of native coronary artery without angina pectoris; R00.1 Bradycardia, unspecified; R14.2 Eructation; I10 Essential (primary) hypertension; E78.5 Hyperlipidemia, unspecified; K21.9 Gastro-esophageal reflux disease without esophagitis; M35.00 Sjogren syndrome, unspecified; G89.29 Other chronic pain; G47.33 Obstructive sleep apnea (adult) (pediatric); E66.01 Morbid (severe) obesity due to excess calories; Z96.659 Presence of unspecified artificial knee joint; Z87.891 Personal history of nicotine dependence; Z82.49 Family history of ischemic heart disease and other diseases of the circulatory system; Z79.1 Long term (current) use of non-steroidal anti-inflammatories (NSAID); Z79.899 Other long term (current) drug therapy

== ENCOUNTER 2017-08-25 18:57 | Inpatient (IN) | payer OTHER ==
[~2017-08-25] VITALS: Ht 180.3 cm; Wt 112.9 kg
[~2017-08-25 18:57] MED LIST changes: -AMLO-110 PO; +ASPEC81 PO; +ATOR-26 PO; -DIPH25CA65 PO; +FLNIN/ NAE; -FLUT0.15 NAE; -FURO-85 PO; +IPRA1AER2 INH; -LPT/40 PO; +LSN5 PO; -PANT1TAB48 PO; +PLV75 PO; +PRT/40 PO; +RANI300T2 PO; +TPRSR50 PO; -VNTHFA/IN INH
[2017-08-25] MEDS ORDERED: ASPIRIN 324 MG CHEW PO STA (19:42)
[2017-08-25] MEDS ORDERED: SODIUM CHLORIDE 0.9% 500ML 500 ML IV STA (19:42)
[2017-08-25] MEDS ORDERED: NITROGLYCERIN OINT 2% 1GM PACKET EXT ONE (19:45)
[2017-08-25] MEDS ORDERED: DOXY100C2 PO (20:01)
[2017-08-25] MEDS ORDERED: TRAZ50TA35 PO (20:01)
[2017-08-25] MEDS ORDERED: ONDANSETRON INJ 2 MG/ML 2 ML VIAL IV STA (20:06)
--- NOTE | 2017-08-25 20:17 | DIAGNOSTIC IMAGING REPORT ---
CHEST ONE VIEW PORTABLE CLINICAL HISTORY: Atypical chest pain COMPARISON STUDY: 06/22/2017 FINDINGS: The heart is at the upper limits of normal in size. There is no failure. There is no focal pulmonary consolidation. There are no pleural effusions.[ IMPRESSION: No active disease in the chest. Electronically signed by: Yunier Graves M.D. 08/25/2017 8:16 PM Dictated Date/Time: 08/25/2017 8:16 PM
[2017-08-25 20:18] LABS: BASO % 0.4 %; BASO ABS # 0.04 K/uL (0-0.2); COMPLETE YES; EOS % 1.6 %; HEMATOCRIT 38.2 % (37-47); IG% 0.2 %; LYMPH % 38.4 %; LYMPH ABS # 3.85 K/uL (1.2-3.4); MEAN CELL VOLUME 85.5 fL (80-100); MEAN CORPUSCULAR HEMOGLOBIN 29.1 pg (25-34); MEAN PLATELET VOLUME 10.9 fL (7.4-10.4); MONO % 5.5 %; NEUT % 53.9 %; PLATELET COUNT 247 K/uL (130-400); RED BLOOD COUNT 4.47 M/uL (4.2-5.4); WHITE BLOOD COUNT 10.02 K/uL (4.8-10.8)
[2017-08-25 20:30] LABS: INR 0.9 (0.9-1.1); PARTIAL THROMBOPLASTIN RATIO 1.1
[2017-08-25] MEDS ORDERED: FENTANYL CITRATE INJ 50 MCG/1 ML 2 ML VIAL IV STA ×2 (20:33→21:27)
[2017-08-25 20:48] LABS: BUN/CREATININE RATIO 21.9 (10-20); CALCIUM 8.7 mg/dl (8.5-10.1); CREATININE 0.83 mg/dl (0.60-1.20); POTASSIUM 4.1 mmol/L (3.5-5.1)
[2017-08-25] MEDS ORDERED: HEPARIN IV LOW DOSE NO BOLUS STA (21:51)
[2017-08-25 22:08] LABS: MAGNESIUM 1.9 mg/dl (1.8-2.4)
[2017-08-25 22:15] VITALS: BP 118/68; PULSE 66; TEMP 36.8; O2SAT 96; Ht 180.3 cm; Wt 112.9 kg
[2017-08-25] MEDS ORDERED: ATORVASTATIN 40 MG TAB PO ONE (22:18)
[2017-08-25] MEDS ORDERED: TRAZODONE HCL 50 MG TAB PO PRN (22:30)
[2017-08-25] MEDS ORDERED: SODIUM CHLORIDE 0.9% 1000ML 1,000 ML IV ONE (22:30)
--- NOTE | 2017-08-25 22:43 | EMERGENCY ROOM VISIT NOTE ---
History Report prepared by Jessi: Mechelle Shin Under the Supervision of: Dr. Clay Abraham M.D. First contact with patient: 19:35 Chief Complaint: CHEST PAIN Stated Complaint: JAW PAIN,CHEST PAIN Nursing Triage Summary: pt c/o jaw pain into her shoulder, past mi in jun and she states that how it started back then History of Present Illness The patient is a 47 year old female who presents to the Emergency Room with complaints of jaw pain which radiates to her shoulder that started last night. The patient notes that she also has some chest tightness that is similar to when she had a heart attack. The patient rates her pain as a 7/10. She notes that when she previously had a heart attack her pain started in her jaw. The patient denies any shortness of breath, sweats, leg swelling or abdominal pain. Source of History: patient Onset: last night Position: jaw Symptom Intensity: 7 on the 10 Quality: other (radiates to shoulder) Timing: constant Associated Symptoms: No diaphoresis, No SOB, No abdominal pain Review of Systems See HPI for pertinent positives & negatives. A total of 10 systems reviewed and were otherwise negative. Past Medical & Surgical Medical Problems: (1) ACS (acute coronary syndrome) (2) Dyslipidemia (3) GERD (gastroesophageal reflux disease) (4) Hypertension (5) Lumbago (6) YUSUF (obstructive sleep apnea) (7) Rhinitis (8) Sjogrens syndrome (9) Ventricular fibrillation Surgical Problems: (1) History of carpal tunnel surgery (2) History of tonsillectomy Family History Endocrine disorder MOTHER (Thyroid) FH: CAD (coronary artery disease) FATHER ( in his 70s from [place]) FH: breast cancer Aunt FH: diabetes mellitus GRANDMOTHER FHx: allergies FHx: heart disease GRANDMOTHER Uncle Social History Smoking Status: Never Smoker Alcohol Use: none Marital Status: Housing Status: lives with family Occupation Status: employed Current/Historical Medications Scheduled Aspirin (Aspirin EC Low Dose), 81 MG PO QAM Atorvastatin (Lipitor), 1 TAB PO DAILY Clopidogrel Bisulfate (Clopidogrel), 75 MG PO QAM Doxycycline Hyclate (Vibramycin), 100 MG PO BID Fluticasone Propionate (Fluticasone Propionate), 2 SPRAYS AILYN DAILY Ipratropium-Albuterol (Combivent Respimat), 1 PUFF INH QID Lisinopril (Lisinopril), 5 MG PO QAM Metoprolol Succinate (Metoprolol Succinate ER), 50 MG PO QAM Pantoprazole (Pantoprazole Sodium), 40 MG PO DAILY Ranitidine (Zantac), 300 MG PO HS Scheduled PRN Trazodone Hcl (Trazodone), 50 MG PO HS PRN for Sleep Allergies Coded Allergies: Penicillins (Verified Allergy, Mild, HIVES, 03/21/17) Physical Exam Vital Signs Date Time Temp Pulse Resp B/P (MAP) Pulse Ox O2 Delivery O2 Flow Rate FiO2 08/25/17 20:45 66 18 141/73 96 Room Air 08/25/17 20:04 95 Room Air 08/25/17 20:03 67 16 170/77 95 Room Air 08/25/17 19:18 91 08/25/17 19:02 36.6 85 18 125/71 97 Room Air Physical Exam Constitutional: Vital signs reviewed. Eyes: Pupils are equal round reactive to light. Conjunctiva are noninjected. ENT: Pharynx is clear without erythema or exudate. Mucous membranes are moist. Neck supple without meningeal signs. Respiratory: Clear to auscultation bilaterally. Breath sounds are equal bilaterally. Cardiovascular: Regular rate and rhythm. No rubs or gallops. GI: Soft, nondistended and nontender. Bowel sounds are present. Musculoskeletal: No peripheral edema. No lower extremity tenderness. Integumentary: No cyanosis. Neurological: The patient is awake and alert. No focal deficits. Psychiatric: Normal affect. Medical Decision & Procedures ER Provider Diagnostic Interpretation: Radiology results as stated below per my review and the radiologist's interpretation: CHEST ONE VIEW PORTABLE FINDINGS: The heart is at the upper limits of normal in size. There is no failure. There is no focal pulmonary consolidation. There are no pleural effusions.[ IMPRESSION: No active disease in the chest. Electronically signed by: Yunier Graves M.D. Laboratory Results 08/25/17 19:18 Red Blood Count 4.47, Mean Corpuscular Volume 85.5, Mean Corpuscular Hemoglobin 29.1, Mean Corpuscular Hemoglobin Concent 34.0, Mean Platelet Volume 10.9, Neutrophils (%) (Auto) 53.9, Lymphocytes (%) (Auto) 38.4, Monocytes (%) (Auto) 5.5, Eosinophils (%) (Auto) 1.6, Basophils (%) (Auto) 0.4, Neutrophils # (Auto) 5.40, Lymphocytes # (Auto) 3.85, Monocytes # (Auto) 0.55, Eosinophils # (Auto) 0.16, Basophils # (Auto) 0.04 08/25/17 19:18 Test 08/25/17 19:18 08/25/17 19:43 White Blood Count 10.02 K/uL (4.8-10.8) Red Blood Count 4.47 M/uL (4.2-5.4) Hemoglobin 13.0 g/dL (12.0-16.0) Hematocrit 38.2 % (37-47) Mean Corpuscular Volume 85.5 fL (80-100) Mean Corpuscular Hemoglobin 29.1 pg (25-34) Mean Corpuscular Hemoglobin Concent 34.0 g/dl (32-36) Platelet Count 247 K/uL (130-400) Mean Platelet Volume 10.9 fL (7.4-10.4) Neutrophils (%) (Auto) 53.9 % Lymphocytes (%) (Auto) 38.4 % Monocytes (%) (Auto) 5.5 % Eosinophils (%) (Auto) 1.6 % Basophils (%) (Auto) 0.4 % Neutrophils # (Auto) 5.40 K/uL (1.4-6.5) Lymphocytes # (Auto) 3.85 K/uL (1.2-3.4) Monocytes # (Auto) 0.55 K/uL (0.11-0.59) Eosinophils # (Auto) 0.16 K/uL (0-0.5) Basophils # (Auto) 0.04 K/uL (0-0.2) RDW Standard Deviation 43.2 fL (36.4-46.3) RDW Coefficient of Variation 13.9 % (11.5-14.5) Immature Granulocyte % (Auto) 0.2 % Immature Granulocyte # (Auto) 0.02 K/uL (0.00-0.02) Anion Gap 8.0 mmol/L (3-11) Est Creatinine Clear Calc Drug Dose 104.8 ml/min Estimated GFR () 96.0 Estimated GFR (Non- 82.8 BUN/Creatinine Ratio 21.9 (10-20) Calcium Level 8.7 mg/dl (8.5-10.1) Magnesium Level 1.9 mg/dl (1.8-2.4) Troponin I 0.771 ng/ml (0-0.045) Chemistry Specimen Hemolysis Bedside Troponin I 0.070 ng/ml (0-0.045) Medications Administered Medications (Trade) Dose Ordered Sig/Kim Route Start Time Stop Time Status Last Admin Dose Admin Aspirin (Aspirin Chew) 324 mg NOW STAT PO 08/25/17 19:42 08/25/17 19:43 DC 08/25/17 19:50 324 MG Nitroglycerin (Nitroglycerin 2% Oint) 1 inch NOW ONCE EXT 08/25/17 19:45 08/25/17 19:46 DC 08/25/17 19:50 1 INCH Sodium Chloride 500 ml @ 999 mls/hr Q31M STAT IV 08/25/17 19:42 08/25/17 20:12 DC 08/25/17 19:52 999 MLS/HR Ondansetron HCl (Zofran Inj) 4 mg NOW STAT IV 08/25/17 20:06 08/25/17 20:07 DC 08/25/17 20:14 4 MG Fentanyl Citrate (Fentanyl Inj) 50 mcg NOW STAT IV 08/25/17 20:33 08/25/17 20:34 DC 08/25/17 20:44 50 MCG Fentanyl Citrate (Fentanyl Inj) 50 mcg NOW STAT IV 08/25/17 21:27 08/25/17 21:28 DC 08/25/17 21:43 50 MCG ECG Indication: chest pain Rate (beats per minute): 68 Rhythm: normal sinus Findings: T-wave inversion (lead 3), no ectopy Comparison ECG Date: Repeat EKG: rate 63 bpm Change: no significant change ED Course 1937: The patient was evaluated in room A2. A complete history and physical exam was performed. 1941: Sodium Chloride 500 ml @ 999 mls/hr IV, Aspirin 324 mg PO. 1944: Nitroglycerin 1 inch EXT. 2005: Zofran Inj 4 mg IV. 2027: I discussed the patient's test results with her. She still has some chest pain with a rate of 4. I recommended admission to the patient. 2032: Fentanyl Inj 50 mcg IV. 2033: I spoke with Dr. Narayan. We discussed the patient and her results. The patient will be further evaluated by him. 2119: The patient is still having some chest pain. I am repeating EKG. 2146: I reassessed the patient she is in mild residual pain and Dr. Cunningham is in the room her. Medical Decision This is a 47-year-old female presents with chest pain. Differential diagnosis includes unstable angina, [place], and STEMI, pleurisy, pneumonia. I did perform a limited focused review of portions of the patient's old chart on the electronic medical record. The patient was admitted in June for a NSTEMI stent in distal RCA and has a episode of vfib post cath. I did evaluate the patient as noted above. Patient is presenting with chest pain radiating to her jaw and shoulder. She had similar symptoms when she had her and STEMI several months ago. IV access was established. The patient was placed on a continuous youth nutritional monitor. I did treat patient with nitroglycerin paste. She was also given normal saline IV and aspirin orally. I did order and personally review the patient's 12-lead EKG and chest x-ray as described above. Her twelve-lead EKG does not show any acute ischemic changes. I did order and review the patient's blood work as noted in the electronic medical record. Troponin is slightly elevated. I did reassess the patient several times. She did have recurrent pain and was given 2 doses of IV fentanyl. I also repeated twelve-lead EKG which showed no change from her prior EKG. I did recommend hospitalization. I did discuss case with the hospitalist and medical case manager. The hospitalist did start her on heparin IV. Medication Reconcilliation Current Medication List: was personally reviewed by me Blood Pressure Screening Patient's blood pressure: Elevated blood pressure Blood pressure disposition: Elevated BP felt to be situational Consults Time Called: 2029 Consulting Physician: Dr. Erma Barbosa Returned Call: [address] Narayan. We discussed the patient and her results. The patient will be further evaluated by him. Impression Primary Impression: Acute coronary syndrome Scribe Attestation The scribe's documentation has been prepared under my direct and personally reviewed by me in its entirety. I confirm that the note above accurately reflects all work, treatment, procedures, and medical decision making performed by me. Departure Information Dispostion Being Evaluated By Hospitalist Referrals Rashawn Witt M.D. (PCP) Patient Instructions My [facility]
[2017-08-25] MEDS: RANITIDINE HCL 150 MG TAB PO SCH (22:55)
[2017-08-25 23:07] LABS: INR 0.9 (0.9-1.1); PARTIAL THROMBOPLASTIN RATIO 1.1; PROTHROMBIN TIME (PATIENT) 10.1 SECONDS (9.0-12.0)
[2017-08-25] MEDS: HEPARIN 25,000 UNIT/500ML D5W 500 ML IV PRN (23:41)
[2017-08-26] VITALS (16 sets, daily range): BP systolic 91–139; BP diastolic 53–79; PULSE 49–65; TEMP 36.5–37.2; O2SAT 94–98
--- NOTE | 2017-08-26 05:18 | HISTORY & PHYSICAL EXAMINATION ---
DATE OF ADMISSION: 08/25/2017 PRIMARY CARE PHYSICIAN: Rashawn Witt MD. CHIEF COMPLAINT: Chest pain. HISTORY OF PRESENT ILLNESS: History obtained from patient and records. Medical history significant for CAD post-stenting, hypertension, hyperlipidemia, reflux, sleep apnea on CPAP, past tobacco abuse. Recent confinement last June 2017 for non-ST elevation [place]. Patient had drug-eluting stent placement to distal RCA. Post-cath had an episode of ventricular fibrillation and was shocked once. Patient discharged on aspirin and Plavix. Px compliant with medication. Last night the patient noted some jaw discomfort similar to episode of angina before going to bed. Discomfort was gone when the patient woke up in the morning. 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 Patient later on noted left-sided chest pain, achy, going to the jaw. Patient brought to the Emergency Room. Some relief with nitro paste placed in the ER. MEDICAL HISTORY: As above. A 2D echo done in June 2017 showed LVH, LVEF 60-70%, moderate inferior hypokinesis at the base. Normal RV size function, mild aortic valve sclerosis, trace MR. SURGERIES: She has had carpal tunnel, tonsillectomy, trigger finger. HOME MEDICATIONS: Include trazodone, Zantac, atorvastatin, aspirin, Plavix, lisinopril, metoprolol, Combivent, fluticasone, gabapentin. ALLERGIES: ALLERGIC TO PENICILLIN. FAMILY HISTORY: Heart disease. 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 REVIEW OF SYSTEMS: As per HPI. All other ROS negative. PHYSICAL EXAMINATION: VITAL SIGNS: Blood pressure was noted to be initially 170/70 later 141/70, later 115/58, pulse rate noted to be 63, RR 16, T 37 sats 96% on room air. GENERAL: Noted to be obese, looks older than stated age, slightly uncomfortable. Slightly anxious, no respiratory distress. SKIN: Normal color. Warm. HEENT: [place] palpebral conjunctivae. No ptosis. Moist buccal mucosa. NECK: Short neck. No tenderness. LUNGS: Decreased breath sounds. No anterior chest wall tenderness. CV: Regular rate and rhythm. No murmur. Palpable LE pulses. ABDOMEN: Some distention, non tender. EXTREMITIES: No edema, mo tenderness. No gross deformities. NEUROLOGIC: Coherent, no gross focality. LABORATORY DATA: Hemoglobin was noted to be 13, hematocrit 38.2, white cell count 10, platelets 247. Sodium 139, chloride 109, CO2 22, BUN 18, creatinine 0.88, glucose 108. Troponin was noted to be 0.771. Chest x-ray showed no active disease. EKG as per my interpretation, rate of 65, normal sinus rhythm, some T-wave inversion in inferior leads, PRWP. ASSESSMENT: 1. Acute coronary syndrome history of coronary artery disease, post stenting June 2017. 2. Hypertension, slightly elevated. 3. Hyperlipidemia on statin therapy. 4. hx postcath VF 5. Past tobacco abuse. 6. Sleep apnea on CPAP. PLAN: PCU. Continue antiplatelets, beta mayela, statin medications, IV heparin for now. Follow cardiac markers. 2D echo. Cardio consult. RE ACS (Patient known to Dr. Stafford.) DVT prophylaxis, Heparin. Full code. MTDD
[2017-08-26 07:18] LABS: BASO % 0.6 %; BASO ABS # 0.05 K/uL (0-0.2); COMPLETE YES; EOS % 1.9 %; HEMATOCRIT 35.9 % (37-47); IG% 0.2 %; LYMPH ABS # 3.89 K/uL (1.2-3.4); MEAN CELL VOLUME 85.9 fL (80-100); MEAN CORPUSCULAR HEMOGLOBIN 28.5 pg (25-34); MEAN CORPUSCULAR HGB CONC 33.1 g/dl (32-36); MEAN PLATELET VOLUME 10.5 fL (7.4-10.4); MONO % 5.8 %; NEUT % 47.5 %; PLATELET COUNT 198 K/uL (130-400); RED BLOOD COUNT 4.18 M/uL (4.2-5.4); WHITE BLOOD COUNT 8.85 K/uL (4.8-10.8)
[2017-08-26 07:31] LABS: PARTIAL THROMBOPLASTIN RATIO 1.2
[2017-08-26] MEDS: IPRATROPIUM BROMIDE/ALBUTEROL respimat INH INH SCH ×4 (07:40→19:32)
[2017-08-26] MEDS: FLUTICASONE PROPIONATE NA SPR 16 GM BTL NAE SCH (07:41)
[2017-08-26] MEDS: LISINOPRIL 5 MG TAB PO SCH (07:42)
[2017-08-26] MEDS: ASPIRIN 81 MG ECTAB PO SCH (07:42)
[2017-08-26] MEDS: METOPROLOL SUCC 50MG EXT REL TAB PO SCH (07:42)
[2017-08-26] MEDS: PANTOprazole SOD 40 MG TAB PO SCH (07:43)
[2017-08-26] MEDS: CLOPIDOGREL BISULFATE 75 MG TAB PO SCH (07:43)
[2017-08-26] MEDS ORDERED: HEPARIN IV BOLUS 4,500 UNIT in SYRINGE 0 ML IV ONE ×2 (08:45→21:45)
[2017-08-26] MEDS: ACETAMINOPHEN 325 MG TAB PO PRN ×2 (08:57→17:09)
[2017-08-26] MEDS: HEPARIN 25,000 UNIT/500ML D5W 500 ML IV PRN ×3 (09:00→21:46)
[2017-08-26] MEDS: NITROGLYCERIN 0.4 MG SL PER TAB CHARGE SL PRN ×2 (09:40→16:16)
[2017-08-26] MEDS ORDERED: MIDAZOLAM HCL 1 MG/ML 2ML VIAL ONE (11:45)
[2017-08-26] MEDS ORDERED: NiCARDipine HCL INJ 2.5 MG/ML 10 ML AMP ONE (11:45)
[2017-08-26] MEDS ORDERED: HEPARIN SOD (PORCINE) 1000 UNIT/ML 10 ML VIAL ONE (11:45)
[2017-08-26] MEDS ORDERED: FENTANYL CITRATE INJ 50 MCG/1 ML 2 ML VIAL ONE (11:45)
[2017-08-26] MEDS ORDERED: NITROGLYCERIN/D5W 100MCG/ML 20ML SYR ONE (11:47)
--- NOTE | 2017-08-26 12:28 | CARDIOLOGY CONSULTATION ---
DATE OF CONSULTATION: 08/26/2017 PERTINENT HISTORY: Mrs. Tucker is a 47-year-old white female, admitted yesterday with an intermittent chest pain syndrome. Her initial troponin was elevated and EKG abnormal. This consultation was ordered to assist in her cardiac management. The patient's recent history began on June 21 of this year when she presented to our Emergency Room with a non-ST elevation [place]. She was taken to the cardiac catheterization lab by Dr. Stafford and was found to have a totally occluded distal right coronary artery. A 2.75 x 23 mm Xience drug-eluting stent was placed. She was also noted to have a 60%-70% ostial second diagonal stenosis, which was too small for an intervention. There was a 20% mid right coronary artery stenosis also noted. The patient's procedure was complicated by ventricular fibrillation arrest, which converted to sinus rhythm after 1 defibrillation. She was found to have normal left ventricular systolic function with an ejection fraction of 50% and an basilar inferior wall motion abnormality. The patient did well until evening, August 24. She developed intermittent jaw discomfort at approximately 08:30 p.m. She is able to fall asleep at 10:00 p.m. and when she woke Monday morning, had no symptoms. The patient proceeded to work and then noted intermittent jaw discomfort, which occasionally radiated to her left shoulder. There were no other associated symptoms such as shortness of breath, nausea, vomiting, or diaphoresis. However, the patient explains this as reminiscent of her presentation back in June. She was brought to the Emergency Room because of her complaints and a sublingual nitroglycerin was able to resolve her symptoms. She was placed on intravenous heparin and admitted to the telemetry unit. She did demonstrate dynamic inferior EKG changes. She had one further episode of jaw discomfort radiating to the left shoulder last evening while on the telemetry unit. Currently, the patient is resting comfortably without complaints. PAST MEDICAL HISTORY: 1. Coronary artery disease -- see above. 2. Right coronary artery drug-eluting stent -- 2.75 x 23 Xience -- 06/21/2017. 3. Hypertension. 4. Mild left ventricular hypertrophy. 5. Hypercholesterolemia. 6. Obstructive sleep apnea. 7. GERD. 8. Carpal tunnel release. 9. Tonsillectomy. 10. Sjogren syndrome. 11. Trigger finger repair. 12. History of D&C. MEDICATIONS: 1. Heparin drip. 2. Toprol-XL 50 mg per day. 3. Zestril 5 mg per day. 4. Lipitor 80 mg at bedtime. 5. Aspirin 81 mg per day. 6. Plavix 75 mg per day. 7. Zantac 300 mg at bedtime. 8. Protonix 40 mg per day. 9. Combivent 1 puff q.i.d. 10. Flonase 2 squirts daily. ALLERGIES: PENICILLIN. SOCIAL HISTORY: The patient is and lives with her . She works as a cook at [employer]. Quit tobacco use in 2015, but has a 12-rprn-vull history. Alcohol use is social. FAMILY HISTORY: Father in his 70s from an [place]. Sister at age 54 from an [place]. REVIEW OF SYSTEMS: Ten point review of systems is negative except for that described above. PHYSICAL EXAMINATION: GENERAL: This is a well-developed and well-nourished white female in no acute distress. VITAL SIGNS: Blood pressure 121/71 with a regular pulse of 60. Respiratory rate is 18. The patient is afebrile at 36.5 degrees Celsius. Saturation is 98% on room air. HEENT: Negative. NECK: Supple with full carotid upstrokes. There are no carotid bruits. Jugular venous pressure is flat at 90 degrees. There is no thyromegaly. CARDIOVASCULAR: Reveals a regular rhythm with normal S1 and S2. Heart sounds are distant. No obvious murmurs. LUNGS: Clear without rales, rhonchi, or wheezes. ABDOMEN: Obese without bruits. EXTREMITIES: Reveal intact radial artery pulses bilaterally. There is no peripheral edema. LABORATORY DATA: CBC notes a hemoglobin of 11.9, hematocrit 35.9, white count 8.8, and platelet count 190,000. Electrolytes note a sodium of 139, potassium 4.1, chloride 109, bicarbonate 22, BUN 18, creatinine 0.8, and glucose 108. Magnesium level normal at 1.9. Troponin I level was 0.771 with a followup value of 0.712. PTT is supratherapeutic at 31.2. Initial EKG notes sinus rhythm with a left atrial abnormality and a subacute inferior wall infarction pattern. Second EKG was identical to the first. Third EKG notes sinus bradycardia and a nonspecific T-wave abnormality. Subacute inferior wall pattern has resolved. Chest x-ray shows no acute disease. IMPRESSION: Mrs. Tucker was experiencing an acute coronary syndrome. I have discussed the case with Dr. Singleton, who is wholesale diamond broker for the interventional program. She will be taken to cardiac catheterization laboratory for an urgent procedure. PLAN: 1. Continue current medications. 2. Heart alert activated to initiate an urgent cardiac catheterization.
[2017-08-26] MEDS ORDERED: D5W AND 1/2NSS 1,000 ML IV SCH (12:32)
--- NOTE | 2017-08-26 13:00 | ECHOCARDIOGRAM REPORT ---
*NOTICE TO RECEIVING REPUBLICAN AGENCY This information is strictly Confidential and protected under [place] law. [place] law prohibits you from making any further disclosure of this information unless further disclosure is expressly permitted by the written consent of the person to whom it pertains or is authorized by law. A general authorization for the release of medical or other information is not sufficient for this purpose. Hospital accepts no responsibility if the information is made available to any other person, INCLUDING THE PATIENT. Interpretation Summary * Name: JUSTINA RODRIGUEZ Study Date: 08/26/2017 06:49 AM BP: 139/78 mmHg * Patient Location: C.2T\S\S244\S\1 HR: 57 * : 1970 (M/d/yyyy) Gender: Female Height: 67 in * Age: 47 yrs Ethnicity: CA Weight: 242 lb * Ordering Physician: Boyd Cunningham * Referring Physician: Self, Referred * Performed By: Anant Santos RCS * * Reason For Study: AMI * BSA: 2.2 m2 * -- Conclusions -- * Left ventricular systolic function is normal. * Small area of akinesis involving the inferior base. * Ejection Fraction = 60-65%. * There is mild concentric left ventricular hypertrophy. * There is mild mitral regurgitation. Procedure Details * A complete two-dimensional transthoracic echocardiogram was performed (2D, M-mode, Doppler and color flow Doppler). Left Ventricle * The left ventricle is normal in size. * There is mild concentric left ventricular hypertrophy. * Left ventricular systolic function is normal. * Ejection Fraction = 60-65%. * Small area of akinesis involving the inferior base. Right Ventricle * The right ventricle is grossly normal size. * The right ventricular systolic function is normal as assessed by tricuspid annular plane systolic excursion (TAPSE) (normal >1.5 cm). Atria * The left atrium is mildly dilated. * Right atrial size is normal. * There is no evidence of atrial septal defect, but resolution does not allow assessment for a patent foramen ovale. Mitral Valve * The mitral valve anatomy is normal. * There is no mitral valve stenosis. * There is mild mitral regurgitation. Tricuspid Valve * The tricuspid valve anatomy is normal. * There is no tricuspid stenosis. * There is mild tricuspid regurgitation. Aortic Valve * The aortic valve is tricuspid. The leaflet thickness if normal. There is no aortic stenosis, and no significant insufficiency. * The aortic valve opens well. * Aortic valve sclerosis mild, without significant aortic valvular stenosis. * No aortic regurgitation is present. Pulmonic Valve * The pulmonary valve is not well seen, but the Doppler examination is normal without significant regurgitation or stenosis. Great Vessels * The aortic root is normal size. * The pulmonary is not well visualized. Pericardium/Pleural * There is no pericardial effusion. Great Vessels * Normal inferior vena cava size and collapsability with sniff indicates a normal right atrial pressure of 3 mmHg MMode 2D Measurements and Calculations IVSd 1.3 cm IVSs 1.5 cm LVIDd 4.4 cm LVIDs 2.8 cm LVPWd 1.3 cm LVPWs 1.5 cm IVS/LVPW 1.0 FS 36.3 % EDV(Teich) 89.7 ml ESV(Teich) 30.3 ml EF(Teich) 66.2 % EDV(cubed) 87.7 ml ESV(cubed) 22.6 ml EF(cubed) 74.2 % % IVS thick 19.4 % % LVPW thick 20.0 % LV mass(C)d 211.4 grams LV mass(C)dI 96.4 grams/m\S\2 LV mass(C)s 150.4 grams LV mass(C)sI 68.6 grams/m\S\2 SV(Teich) 59.4 ml SI(Teich) 27.1 ml/m\S\2 SV(cubed) 65.1 ml SI(cubed) 29.7 ml/m\S\2 Ao root diam 3.6 cm Ao root area 10.2 cm\S\2 ACS 1.5 cm LA dimension 4.6 cm asc Aorta Diam 2.7 cm LA/Ao 1.3 LVOT diam 2.1 cm LVOT area 3.4 cm\S\2 EDV(MOD-sp4) 104.0 ml ESV(MOD-sp4) 42.0 ml EF(MOD-sp4) 59.6 % EDV(MOD-sp2) 123.0 ml ESV(MOD-sp2) 41.0 ml EF(MOD-sp2) 66.7 % SV(MOD-sp4) 62.0 ml SI(MOD-sp4) 28.3 ml/m\S\2 SV(MOD-sp2) 82.0 ml SI(MOD-sp2) 37.4 ml/m\S\2 Doppler Measurements and Calculations MV E max tyrel 122.1 cm/sec MV A max tyrel 80.5 cm/sec MV E/A 1.5 MV P1/2t max tyrel 154.4 cm/sec MV P1/2t 82.3 msec MVA(P1/2t) 2.7 cm\S\2 MV dec slope 549.6 cm/sec\S\2 MV dec time 0.23 sec Ao V2 max 252.5 cm/sec Ao max PG 25.5 mmHg Ao max PG (full) 20.7 mmHg Ao V2 mean 149.2 cm/sec Ao mean PG 10.8 mmHg Ao mean PG (full) 8.7 mmHg Ao V2 VTI 54.6 cm NIGEL(I,A) 1.6 cm\S\2 NIGEL(I,D) 1.6 cm\S\2 NIGEL(V,A) 1.5 cm\S\2 NIGEL(V,D) 1.5 cm\S\2 LV V1 max PG 4.8 mmHg LV V1 mean PG 2.1 mmHg LV V1 max 109.9 cm/sec LV V1 mean 67.3 cm/sec LV V1 VTI 26.2 cm SV(Ao) 555.5 ml SI(Ao) 253.3 ml/m\S\2 SV(LVOT) 89.3 ml SI(LVOT) 40.7 ml/m\S\2 PA V2 max 110.9 cm/sec PA max PG 5.0 mmHg TR max tyrel 183.2 cm/sec
[2017-08-26] MEDS ORDERED: NURSING VERBAL MED ORDER ONE (13:15)
[2017-08-26] MEDS ORDERED: ~HEPARIN DRIP~STOP ORDER SCH (13:30)
[2017-08-26 13:32] LABS: PARTIAL THROMBOPLASTIN RATIO 1.2
--- NOTE | 2017-08-26 15:26 | Progress Note ---
Progress Note Date of Service Aug 26, 2017. Progress Note Patient s/p cardiac cath. As per cardiology Dr. Krause, there was no stent placed however patient will continue to benefit from medical management for NSTEMI. Heparin drip IV reordered to be restarted today. Patient's physical exam after cardiac cath is unchanged as before cardiac cath General: no acute distress, verbal Neuro: awake and alert and follows directions HEENT: continues to express having left jaw pain but jaw is nontender, eyes EOMI , no JVD Heart: regular rate Lungs: CTABL, no wheezing Abdomen: soft, nontender, + bowel sounds Extremities: no focal neurological deficits of extremities Plan: Continue IV heparin, antiplatelets, beta mayela, statin medications. follow further cardiology recommendations Full code.
[2017-08-26] MEDS: ATORVASTATIN 40 MG TAB PO SCH (19:32)
[2017-08-26] MEDS: RANITIDINE HCL 150 MG TAB PO SCH (19:32)
[2017-08-26 21:23] LABS: PARTIAL THROMBOPLASTIN RATIO 1.2
--- NOTE | 2017-08-26 21:51 | OPERATIVE REPORT ---
DATE OF OPERATION: 08/26/2017 CATHETERIZATION REPORT INDICATIONS: Unstable angina and positive troponin in a 45-year-old female, whose past medical history is significant for an inferior wall ND 2 months earlier. The patient has [place] Cardiovascular Society class 4 angina with variable T-wave inversions. No congestive heart failure. No stress test was performed. METHOD: Upon arrival in the cathead operator, the patient was prepped and draped in the usual sterile fashion. After local infiltration of 2% lidocaine, a 6-Citizen Of [place] sheath was placed in the right femoral artery. The sheath was aspirated and flushed. A 6-Citizen [place] JL4 diagnostic catheter was advanced under fluoroscopic guidance to the central circulation, where it was aspirated and flushed and after confirmation of an adequate waveform, it was advanced into the left main. Cineangiograms of the left coronary artery obtained and reviewed. The catheter ____ the sheath was aspirated and flushed. A 6-[place]izen [place] diagnostic JR4 catheter was advanced over wire under fluoroscopic guidance to the central circulation, where it was aspirated and flushed. After confirmation of adequate waveform, it was advanced into the right coronary artery. Cineangiograms of the right coronary artery obtained and reviewed. The catheter ____ the sheath was aspirated and flushed. A 6-[place]izen [place] angled pigtail was used to cross the aortic valve in retrograde fashion. Left ventricular diastolic pressure was measured. Left ventriculography was performed using 36 mL of contrast dye at 0.3 seconds less than 450 psi. The catheter was removed from the left ventricle to aorta under continuous pressure monitoring and removed from the body over the wire and the sheath aspirated and flushed. An Angio-Seal was deployed in right femoral artery. The patient returned to her room in good condition. COMPLICATIONS: None. FINDINGS: Left main is normal. Left anterior descending artery is moderate in caliber with a 25% mid noncritical stenosis. No dissection flap. No thrombus. Normal BIUJ grade 3 flow is noted. First diagonal branch is free of significant disease. Left circumflex marginal branches are free of significant disease. A low rising small circumflex posterolateral branch has a mid 50% stenosis, too small to consider for percutaneous coronary intervention. The right coronary artery is moderate in caliber with no significant stenosis present. The posterior descending artery is free of significant disease. The ostial and proximal posterior AV extension of the right coronary artery is patent with no thrombus, no restenosis, and no dissection present. The remainder of the posterior AV extension of the right coronary artery and multiple posterolateral branches arising from it are free of significant disease. Left ventricular end diastolic pressure is normal. No significant aortic valve gradient demonstrated. Left ventriculography demonstrates normal left ventricular size and function. Ejection fraction estimated at 55%-60% with basilar inferior akinesis noted. IMPRESSION: Noncritical coronary artery disease. No evidence of restenosis of the stented right coronary artery. Normal LV systolic function with evidence of prior inferior wall myocardial infarction as described above. I attest to the content of the Intraoperative Record and any orders documented therein. Any exception s are noted below.
[2017-08-27] VITALS (8 sets, daily range): BP systolic 94–134; BP diastolic 57–73; PULSE 52–74; TEMP 36.5–36.9; O2SAT 93–98
[2017-08-27 03:42] LABS: BASO % 0.3 %; BASO ABS # 0.03 K/uL (0-0.2); COMPLETE YES; HEMATOCRIT 36.3 % (37-47); IG% 0.1 %; LYMPH % 41.7 %; LYMPH ABS # 3.68 K/uL (1.2-3.4); MEAN CELL VOLUME 86.4 fL (80-100); MEAN CORPUSCULAR HEMOGLOBIN 28.6 pg (25-34); MEAN CORPUSCULAR HGB CONC 33.1 g/dl (32-36); MEAN PLATELET VOLUME 10.3 fL (7.4-10.4); MONO % 5.7 %; NEUT % 50.2 %; PLATELET COUNT 190 K/uL (130-400); WHITE BLOOD COUNT 8.83 K/uL (4.8-10.8)
[2017-08-27 03:53] LABS: PARTIAL THROMBOPLASTIN RATIO 1.4
[2017-08-27] MEDS: NITROGLYCERIN 0.4 MG SL PER TAB CHARGE SL PRN (03:55)
[2017-08-27] MEDS ORDERED: HEPARIN IV BOLUS 4,500 UNIT in SYRINGE 0 ML IV ONE (04:15)
[2017-08-27] MEDS: HEPARIN 25,000 UNIT/500ML D5W 500 ML IV PRN (04:19)
[2017-08-27] MEDS ORDERED: SIMETHICONE 80 MG CHEW PO STA (04:20)
[2017-08-27 05:02] LABS: ALB/GLOB RATIO 0.7 (0.9-2); BUN/CREATININE RATIO 13.1 (10-20); CALCIUM 8.4 mg/dl (8.5-10.1); CREATININE 0.86 mg/dl (0.60-1.20); POTASSIUM 4.3 mmol/L (3.5-5.1)
[2017-08-27] MEDS: LISINOPRIL 5 MG TAB PO SCH (08:28)
[2017-08-27] MEDS: ASPIRIN 81 MG ECTAB PO SCH (08:28)
[2017-08-27] MEDS: PANTOprazole SOD 40 MG TAB PO SCH (08:28)
[2017-08-27] MEDS: IPRATROPIUM BROMIDE/ALBUTEROL respimat INH INH SCH ×4 (08:28→21:28)
[2017-08-27] MEDS: CLOPIDOGREL BISULFATE 75 MG TAB PO SCH (08:28)
[2017-08-27] MEDS: METOPROLOL SUCC 50MG EXT REL TAB PO SCH ×2 (08:28→21:27)
[2017-08-27] MEDS: FLUTICASONE PROPIONATE NA SPR 16 GM BTL NAE SCH (08:29)
--- NOTE | 2017-08-27 12:05 | CARDIOLOGY PROGRESS NOTE ---
DATE: 08/27/2017 SUBJECTIVE: Ms. Tucker is resting comfortably in bed. She had 1 episode of chest discomfort approximately 02:00 a.m. this morning that resolved spontaneously. No further jaw discomfort. Results of her cardiac catheterization assessed in detail. OBJECTIVE: VITAL SIGNS: Blood pressure 110/60 with a regular pulse of 52. Respiratory rate is 16. The patient is afebrile at 36.7 degrees Celsius. Saturation is 96% on room air. NECK: Supple with full carotid upstrokes. No carotid bruits. Jugular venous pressure is flat at 90 degrees. There is no thyromegaly. CARDIOVASCULAR: Reveals a regular rhythm with normal S1 and S2. Heart sounds are distant. No obvious murmurs. LUNGS: Clear without rales, rhonchi, or wheezes. ABDOMEN: Soft and nontender without bruits. EXTREMITIES: Reveal intact radial artery pulses bilaterally. There is no peripheral edema. Dressing on her right groin is dry. No bruits or ecchymoses noted. LABORATORY DATA: CBC notes hemoglobin 12.0, hematocrit 36.3, white count 8.8, and platelet count 190,000. Electrolytes note a sodium of 141, potassium 4.3, chloride 109, bicarbonate 27, BUN 11, creatinine 0.86, and glucose 101. EKG this morning notes sinus rhythm with a left atrial abnormality and a subacute pattern of an inferior myocardial infarction. brand marketing manager is benign. IMPRESSION AND PLAN: 1. Presumed acute coronary syndrome -- underwent urgent cardiac catheterization yesterday, which revealed a patent stent in the right coronary artery, a 25% mid LAD stenosis, and a 50% posterolateral branch stenosis, which was too small for an intervention. She either had spontaneous lysis of a thrombus or her symptoms could be nonischemic. We will discontinue heparin today and increase her beta mayela. 2. Hypertension -- controlled. 3. Mild left ventricular hypertrophy. 4. Hypercholesterolemia -- continue high intensity statin. 5. Obstructive sleep apnea. 6. Gastroesophageal reflux disease. MTDD
--- NOTE | 2017-08-27 18:50 | Progress Note ---
Progress Note Date of Service Aug 27, 2017. Progress Note Subjective: no acute distress, periodically having same complaint of left sided jaw pain, no chest pain, no shortness of breath General: no acute distress, verbal Neuro: awake and alert and follows directions HEENT: continues to express having left jaw pain but jaw is nontender, eyes EOMI , no JVD Heart: regular rate Lungs: CTABL, no wheezing Abdomen: soft, nontender, + bowel sounds Extremities: no focal neurological deficits of extremities Assessment and Plan Patient was evaluated for NSTEMI. Patient was placed on IV heparin drip. Cardiac cath was performed on 08/26/[address]. Patient resumed IV heparin drip for further medical management. Cardiology service requested heparin drip to be stopped today on 08/27/17. As per Cardiology, Dr. Krause, I have ordered metoprolol succinate 50 mg BID which is an increased dose of Beta mayela. Continuing aspirin and statin. Also continueing medications to treat GERD. It is unclear as to why patient still having symptoms of jaw pain - possible anginal symptoms vs dental work needed? Patient otherwise can be discharged to home as per cardiology service Dr. Krause if continues to be doing well and stable on the increased Beta blockers Full code.
[2017-08-27] MEDS: RANITIDINE HCL 150 MG TAB PO SCH (21:28)
[2017-08-27] MEDS: ATORVASTATIN 40 MG TAB PO SCH (21:28)
[2017-08-28 02:44] VITALS: BP 119/64; PULSE 64; TEMP 36.8; O2SAT 96
[2017-08-28 07:07] LABS: BASO % 0.5 %; BASO ABS # 0.04 K/uL (0-0.2); COMPLETE YES; HEMATOCRIT 38.6 % (37-47); IG% 0.2 %; LYMPH % 34.3 %; LYMPH ABS # 2.85 K/uL (1.2-3.4); MEAN CELL VOLUME 86.2 fL (80-100); MEAN CORPUSCULAR HEMOGLOBIN 28.8 pg (25-34); MEAN CORPUSCULAR HGB CONC 33.4 g/dl (32-36); MEAN PLATELET VOLUME 10.8 fL (7.4-10.4); MONO % 5.4 %; NEUT % 57.6 %; PLATELET COUNT 216 K/uL (130-400); RED BLOOD COUNT 4.48 M/uL (4.2-5.4); WHITE BLOOD COUNT 8.31 K/uL (4.8-10.8)
[2017-08-28 07:10] LABS: PARTIAL THROMBOPLASTIN RATIO 1.1
[2017-08-28 07:48] VITALS: BP 120/76; PULSE 56; TEMP 36.9; O2SAT 97
[2017-08-28] MEDS: IPRATROPIUM BROMIDE/ALBUTEROL respimat INH INH SCH (08:25)
[2017-08-28] MEDS: METOPROLOL SUCC 50MG EXT REL TAB PO SCH (08:25)
[2017-08-28] MEDS: FLUTICASONE PROPIONATE NA SPR 16 GM BTL NAE SCH (08:25)
[2017-08-28] MEDS: ASPIRIN 81 MG ECTAB PO SCH (08:26)
[2017-08-28] MEDS: PANTOprazole SOD 40 MG TAB PO SCH (08:26)
[2017-08-28] MEDS: CLOPIDOGREL BISULFATE 75 MG TAB PO SCH (08:26)
[2017-08-28] MEDS: LISINOPRIL 5 MG TAB PO SCH (08:26)
[2017-08-28] MEDS ORDERED: TPRSR50 PO (11:16)
--- NOTE | 2017-08-28 11:18 | Discharge Instructions ---
Discharge Instructions Date of Service Aug 28, 2017. Admission Reason for Admission: Acs (Acute Coronary Syndrome) Discharge Discharge Diagnosis / Problem: NSTEMI Discharge Goals Goal(s): Improve function, Improve disease control Activity Recommendations Activity Limitations: resume your previous activity NSTEMI . Instructions / Follow-Up Instructions / Follow-Up Patient was evaluated for NSTEMI. Patient was placed on IV heparin drip. Cardiac cath was performed on 08/26/[address]. Cardiac Cath report Left main is normal. Left anterior descending artery is moderate in caliber with a 25% mid noncritical stenosis. No dissection flap. No thrombus. Normal BIJU grade 3 flow is noted. First diagonal branch is free of significant disease. Left circumflex marginal branches are free of significant disease. A low rising small circumflex posterolateral branch has a mid 50% stenosis, too small to consider for percutaneous coronary intervention. The right coronary artery is moderate in caliber with no significant stenosis present. The posterior descending artery is free of significant disease. The ostial and proximal posterior AV extension of the right coronary artery is patent with no thrombus, no restenosis, and no dissection present. The remainder of the posterior AV extension of the right coronary artery and multiple posterolateral branches arising from it are free of significant disease. Left ventricular end diastolic pressure is normal. No significant aortic valve gradient demonstrated. Left ventriculography demonstrates normal left ventricular size and function. Ejection fraction estimated at 55%-60% with basilar inferior akinesis noted. IMPRESSION: Noncritical coronary artery disease. No evidence of restenosis of the stented right coronary artery. Normal LV systolic function with evidence of prior inferior wall myocardial infarction Patient resumed IV heparin drip for further medical management after cardiac cath. Cardiology service requested heparin drip to be stopped today on 08/27/17. As per Cardiology, Dr. Krause, start on metoprolol succinate 50 mg BID which is an increased dose of Beta mayela. Continue other home medications Discharge with follow up to Cardiology with Naldo Narayanan Primary care appointment with primary care doctor Eduar on 08/31/17 at 1: 05 PM. Patient can call [phone] for re-scheduling with primary acre doctor if needed Current Hospital Diet Patient's current hospital diet: AHA Diet (Heart Healthy) Discharge Diet Recommended Diet: AHA Diet (Heart Healthy) Pending Studies Studies pending at discharge: no Laboratory Results 08/28/17 06:14 Red Blood Count 4.48, Mean Corpuscular Volume 86.2, Mean Corpuscular Hemoglobin 28.8, Mean Corpuscular Hemoglobin Concent 33.4, Mean Platelet Volume 10.8, Neutrophils (%) (Auto) 57.6, Lymphocytes (%) (Auto) 34.3, Monocytes (%) (Auto) 5.4, Eosinophils (%) (Auto) 2.0, Basophils (%) (Auto) 0.5, Neutrophils # (Auto) 4.78, Lymphocytes # (Auto) 2.85, Monocytes # (Auto) 0.45, Eosinophils # (Auto) 0.17, Basophils # (Auto) 0.04 08/27/17 03:34 Test 08/25/17 19:18 08/25/17 19:43 08/25/17 22:48 08/26/17 12:13 Magnesium Level 1.9 mg/dl (1.8-2.4) Chemistry Specimen Hemolysis Bedside Troponin I 0.070 ng/ml (0-0.045) Prothrombin Time 10.1 SECONDS (9.0-12.0) Prothromb Time International Ratio 0.9 (0.9-1.1) Kaolin Activated Coagulation Time 153 SECONDS (94-140) Test 08/27/17 03:34 08/27/17 11:55 08/28/17 06:14 Anion Gap 5.0 mmol/L (3-11) Est Creatinine Clear Calc Drug Dose 109.4 ml/min Estimated GFR () 91.9 Estimated GFR (Non- 79.3 BUN/Creatinine Ratio 13.1 (10-20) Calcium Level 8.4 mg/dl (8.5-10.1) Total Bilirubin 0.2 mg/dl (0.2-1) Aspartate Amino Transf (AST/SGOT) 13 U/L (15-37) Alanine Aminotransferase (ALT/SGPT) 24 U/L (12-78) Alkaline Phosphatase 91 U/L (45-117) Total Protein 6.8 gm/dl (6.4-8.2) Albumin 2.9 gm/dl (3.4-5.0) Globulin 3.9 gm/dl (2.5-4.0) Albumin/Globulin Ratio 0.7 (0.9-2) Troponin I 0.752 ng/ml (0-0.045) White Blood Count 8.31 K/uL (4.8-10.8) Red Blood Count 4.48 M/uL (4.2-5.4) Hemoglobin 12.9 g/dL (12.0-16.0) Hematocrit 38.6 % (37-47) Mean Corpuscular Volume 86.2 fL (80-100) Mean Corpuscular Hemoglobin 28.8 pg (25-34) Mean Corpuscular Hemoglobin Concent 33.4 g/dl (32-36) Platelet Count 216 K/uL (130-400) Mean Platelet Volume 10.8 fL (7.4-10.4) Neutrophils (%) (Auto) 57.6 % Lymphocytes (%) (Auto) 34.3 % Monocytes (%) (Auto) 5.4 % Eosinophils (%) (Auto) 2.0 % Basophils (%) (Auto) 0.5 % Neutrophils # (Auto) 4.78 K/uL (1.4-6.5) Lymphocytes # (Auto) 2.85 K/uL (1.2-3.4) Monocytes # (Auto) 0.45 K/uL (0.11-0.59) Eosinophils # (Auto) 0.17 K/uL (0-0.5) Basophils # (Auto) 0.04 K/uL (0-0.2) RDW Standard Deviation 44.0 fL (36.4-46.3) RDW Coefficient of Variation 14.1 % (11.5-14.5) Immature Granulocyte % (Auto) 0.2 % Immature Granulocyte # (Auto) 0.02 K/uL (0.00-0.02) Activated Partial Thromboplast Time 27.8 SECONDS (21.0-31.0) Partial Thromboplastin Ratio 1.1 Hemoglobin A1c Test 06/22/17 03:35 Range/Units Estimated Average Glucose 123 mg/dl Hemoglobin A1c 5.9 H 4.5-5.6 % Lipid Panel Test 06/22/17 03:35 Range/Units Triglycerides Level 412 H 0-150 mg/dl Cholesterol Level 136 0-200 mg/dl HDL Cholesterol 25 mg/dl Cholesterol/HDL Ratio 5.4 LDL Cholesterol, Calculated mg/dl Work Instructions Return To Work: after follow-up (return t work on 09/11/2017) Medical Emergencies . Who to Call and When: Medical Emergencies: If at any time you feel your situation is an emergency, please call 911 immediately. . Non-Emergent Contact Non-Emergency issues call your: Primary Care Provider, Transportation Design Engineer . . "Provider Documentation" section prepared by Luis Trinidda. . VTE Core Measure Inpt VTE Proph given/why not?: Unfractionated heparin SQ
[2017-08-28 11:20] VITALS: BP 120/76; PULSE 56; TEMP 36.9; O2SAT 97
--- NOTE | 2017-08-28 11:28 | Discharge Summary ---
Discharge Summary Date of Service Aug 28, 2017. Discharge Summary Admission Date: Aug 25, 2017 at 21:35 Discharge Date: Aug 28, 2017 Discharge Disposition: Home Principal Diagnosis: NSTEMI Procedures: cardiac cath Consultations: cardiology Medication Reconciliation New Medications: Metoprolol Succinate (Metoprolol Succinate ER) 50 Mg Tabcr 50 MG PO BID for 30 Days, #60 Continued Medications: Aspirin (Aspirin EC Low Dose) 81 Mg Ectab 81 MG PO QAM, #30 2 Refills Atorvastatin (Lipitor) 80 Mg Tab 1 TAB PO DAILY for 30 Days, #30 TAB 2 Refills Clopidogrel Bisulfate (Clopidogrel) 75 Mg Tab 75 MG PO QAM, #30 TAB 2 Refills Fluticasone Propionate (Fluticasone Propionate) 120 Sprays/6000 Mcg Inha 2 SPRAYS AILYN DAILY Ipratropium-Albuterol (Combivent Respimat) 1 Aer Aer 1 PUFF INH QID, INH Lisinopril (Lisinopril) 5 Mg Tab 5 MG PO QAM, #30 TAB 2 Refills Pantoprazole (Pantoprazole Sodium) 40 Mg Tab 40 MG PO DAILY Ranitidine (Zantac) 300 Mg Tab 300 MG PO HS, TAB Trazodone Hcl (Trazodone) 50 Mg Tab 50 MG PO HS PRN for Sleep DID NOT START YET Discontinued Medications: Doxycycline Hyclate (Vibramycin) 100 Mg Cap 100 MG PO BID Metoprolol Succinate (Metoprolol Succinate ER) 50 Mg Tabcr 50 MG PO QAM, #30 2 Refills Admission Information HPI (per Admitting provider): Recent confinement last June 2017 for non-ST elevation FL. Patient had drug- eluting stent placement to distal RCA. Post-cath had an episode of ventricular fibrillation and was shocked once. Patient discharged on aspirin and Plavix. Px compliant with medication. Last night the patient noted some jaw discomfort similar to episode of angina before going to bed. Discomfort was gone when the patient woke up in the morning. 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 Patient later on noted left-sided chest pain, achy, going to the jaw. Patient brought to the Emergency Room. Some relief with nitro paste placed in the ER. MEDICAL HISTORY: As above. A 2D echo done in June 2017 showed LVH, LVEF 60-70%, moderate inferior hypokinesis at the base. Normal RV size function, mild aortic valve sclerosis, trace MR. SURGERIES: She has had carpal tunnel, tonsillectomy, trigger finger. HOME MEDICATIONS: Include trazodone, Zantac, atorvastatin, aspirin, Plavix, lisinopril, metoprolol, Combivent, fluticasone, gabapentin. ALLERGIES: ALLERGIC TO PENICILLIN. FAMILY HISTORY: Heart disease. 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 REVIEW OF SYSTEMS: As per HPI. All other ROS negative. Physical Exam (per Admitting): PHYSICAL EXAMINATION: VITAL SIGNS: Blood pressure was noted to be initially 170/70 later 141/70, later 115/58, pulse rate noted to be 63, RR 16, T 37 sats 96% on room air. GENERAL: Noted to be obese, looks older than stated age, slightly uncomfortable. Slightly anxious, no respiratory distress. SKIN: Normal color. Warm. HEENT: [place] palpebral conjunctivae. No ptosis. Moist buccal mucosa. NECK: Short neck. No tenderness. LUNGS: Decreased breath sounds. No anterior chest wall tenderness. CV: Regular rate and rhythm. No murmur. Palpable LE pulses. ABDOMEN: Some distention, non tender. EXTREMITIES: No edema, mo tenderness. No gross deformities. NEUROLOGIC: Coherent, no gross focality. Hospital Course Patient was evaluated for NSTEMI. Patient was placed on IV heparin drip. Cardiac cath was performed on 08/26/[address] Cardiac Cath report Left main is normal. Left anterior descending artery is moderate in caliber with a 25% mid noncritical stenosis. No dissection flap. No thrombus. Normal BJIU grade 3 flow is noted. First diagonal branch is free of significant disease. Left circumflex marginal branches are free of significant disease. A low rising small circumflex posterolateral branch has a mid 50% stenosis, too small to consider for percutaneous coronary intervention. The right coronary artery is moderate in caliber with no significant stenosis present. The posterior descending artery is free of significant disease. The ostial and proximal posterior AV extension of the right coronary artery is patent with no thrombus, no restenosis, and no dissection present. The remainder of the posterior AV extension of the right coronary artery and multiple posterolateral branches arising from it are free of significant disease. Left ventricular end diastolic pressure is normal. No significant aortic valve gradient demonstrated. Left ventriculography demonstrates normal left ventricular size and function. Ejection fraction estimated at 55%-60% with basilar inferior akinesis noted. IMPRESSION: Noncritical coronary artery disease. No evidence of restenosis of the stented right coronary artery. Normal LV systolic function with evidence of prior inferior wall myocardial infarction Patient resumed IV heparin drip for further medical management after cardiac cath. Cardiology service requested heparin drip to be stopped today on 08/27/17. As per Cardiology, Dr. Krause, start on metoprolol succinate 50 mg BID which is an increased dose of Beta mayela. Continue other home medications Discharge with follow up to Cardiology with Naldo Narayanan Primary care appointment with primary care doctor Eduar on 08/31/17 at 1: 05 PM. Patient can call [phone] for re-scheduling with primary care doctor if needed Total time spent on discharge = This includes examination of the patient, discharge planning, medication reconciliation, and communication with other providers. Discharge Instructions see above
[2017-08-28] MEDS ORDERED: NTRSLP4 SL (11:39)
== END 2017-08-28 11:55 | disposition home or self-care (01) | DRG 282 ==
LOC: C.EDB 18:58 → C.2T 21:35 → ENRESERV 21:44
PROVIDERS: ADMIT Hospitalist; ATTEND Hospitalist
PROC: 4A023N7 Measurement of Cardiac Sampling and Pressure, Left Heart, Percutaneous Approach (ICD-10-PCS; principal; 2017-08-26 11:41)
PROC: B211YZZ Fluoroscopy of Multiple Coronary Arteries using Other Contrast (ICD-10-PCS; principal; 2017-08-26 11:41)
DX: I21.4 Non-ST elevation (NSTEMI) myocardial infarction (principal); E78.5 Hyperlipidemia, unspecified; I25.2 Old myocardial infarction; I11.9 Hypertensive heart disease without heart failure; K21.9 Gastro-esophageal reflux disease without esophagitis; G47.33 Obstructive sleep apnea (adult) (pediatric); M35.00 Sjogren syndrome, unspecified; E78.00 Pure hypercholesterolemia, unspecified; E66.9 Obesity, unspecified; Z79.899 Other long term (current) drug therapy; Z79.82 Long term (current) use of aspirin; Z79.02 Long term (current) use of antithrombotics/antiplatelets; Z95.5 Presence of coronary angioplasty implant and graft; Z68.34 Body mass index [BMI] 34.0-34.9, adult; Z87.891 Personal history of nicotine dependence; Z83.49 Family history of other endocrine, nutritional and metabolic diseases; Z82.49 Family history of ischemic heart disease and other diseases of the circulatory system; Z85.3 Personal history of malignant neoplasm of breast; Z83.3 Family history of diabetes mellitus

== ENCOUNTER → 2017-11-07 | Outpatient (CLI) | payer OTHER ==
[~2017-11-07] MED LIST changes: -ASPEC81 PO; +ASPI-320 PO; +ASPI81TA28 PO; +CLOP1TAB15 PO; +EZET10TA66 PO; +FLUT0.15 NAE; +ISOS60TA25 PO; +LISI-730 PO; -LSN5 PO; +METO50TA8 PO; +NTRGSL/4 UT; +NTRSLP4 SL; +PANT40TA PO; +PANT40TA2 PO; -PRT/40 PO; +TRAZ50TA35 PO
--- NOTE | 2017-11-07 12:04 | DIAGNOSTIC IMAGING REPORT ---
RIGHT GROIN DOPPLER ULTRASOUND CLINICAL HISTORY: Right groin pain. Recent catheterization. Evaluate access site. COMPARISON STUDY: No previous studies for comparison. TECHNIQUE: Grayscale and color and duplex Doppler sonography of the right groin was performed. FINDINGS: No right groin pseudoaneurysm was identified. There was biphasic flow within the right external iliac artery with monophasic flow within the right common femoral and superficial femoral arteries. There was biphasic flow within the left external iliac and common femoral arteries. No right groin hematoma was identified. IMPRESSION: 1. No right groin pseudoaneurysm or hematoma. 2. Monophasic flow within the right common femoral and superficial femoral arteries which raises the possibility of inflow disease. Electronically signed by: Otoniel Daugherty M.D. 11/07/2017 12:02 PM Dictated Date/Time: 11/07/2017 12:00 PM
== END | disposition home or self-care (01) ==
LOC: C.ULTR 10:27
PROVIDERS: ATTEND Physician Assistant Medical
DX: R10.30 Lower abdominal pain, unspecified (principal)

== ENCOUNTER → 2018-01-04 | Outpatient (CLI) | payer OTHER ==
[~2018-01-04] MED LIST changes: +ASPEC81 PO; -ASPI-320 PO; -ASPI81TA28 PO; -CLOP1TAB15 PO; -EZET10TA66 PO; -FLUT0.15 NAE; -ISOS60TA25 PO; -LISI-730 PO; +LSN5 PO; -METO50TA8 PO; -NTRGSL/4 UT; -PANT40TA PO
--- NOTE | 2018-01-04 15:56 | DIAGNOSTIC IMAGING REPORT ---
CT OF THE SINUSES WITHOUT CONTRAST FUSION PROTOCOL CLINICAL HISTORY: Recurrent acute and chronic sinusitis status post sinus surgery. COMPARISON STUDY: Sinus CT December 16, [address] July 09, 2016. TECHNIQUE: Axial images of the sinuses were obtained without IV contrast according to the Fusion protocol. Coronal reformats were viewed. FINDINGS: The visualized portions of the intracranial contents are unremarkable on this unenhanced exam. Orbits are unremarkable. There is no fluid within the mastoid air cells or middle ears. The ossicles are intact. There is no mass within the nasal cavity or the sinuses. There are postoperative findings consistent with bilateral maxillary medial antrostomies as well as partial ethmoidectomies and turbinate resections. The frontoethmoidal and sphenoethmoidal recesses are patent. There is mild mucosal thickening of the sinuses. The medial antrostomies are patent. There is minimal rightward deviation of the nasal septum without spur formation. No air-fluid levels are present. Sinus opacification has significantly improved since exam of July 09, 2016. There are minimal secretions within left ethmoid air cells. The patient is edentulous. IMPRESSION: 1. Postoperative findings within the sinuses, as described above. Mild mucosal thickening of the sinuses with patent major drainage pathways. Significant improvement when compared to exam of July 09, 2016. 2. Minimal rightward deviation of the nasal septum without spur formation. Electronically signed by: Otoniel Daugherty M.D. 01/04/2018 3:54 PM Dictated Date/Time: 01/04/2018 3:49 PM
== END | disposition home or self-care (01) ==
LOC: C.CTS 15:09
DX: J32.9 Chronic sinusitis, unspecified (principal)

== ENCOUNTER 2018-01-16 19:13 | Emergency (ER) | payer OTHER ==
[~2018-01-16] VITALS: Ht 170.2 cm; Wt 108.1 kg
[2018-01-16 19:23] VITALS: TEMP 36.7; Ht 170.2 cm; Wt 108.1 kg
[2018-01-16] MEDS ORDERED: ISOS60TA25 PO (21:00)
[2018-01-16 21:04] LABS: BASO % 0.3 %; BASO ABS # 0.04 K/uL (0-0.2); EOS % 0.4 %; EOS ABS # 0.06 K/uL (0-0.5); IG# 0.05 K/uL (0.00-0.02); LYMPH ABS # 3.93 K/uL (1.2-3.4); MEAN CELL VOLUME 84.7 fL (80-100); MEAN CORPUSCULAR HEMOGLOBIN 28.9 pg (25-34); MEAN CORPUSCULAR HGB CONC 34.1 g/dl (32-36); MEAN PLATELET VOLUME 10.6 fL (7.4-10.4); MONO ABS # 1.02 K/uL (0.11-0.59); NEUT ABS # 9.44 K/uL (1.4-6.5); PLATELET COUNT 267 K/uL (130-400); RED CELL DISTRIBUTION WIDTH SD 43.3 fL (36.4-46.3); WHITE BLOOD COUNT 14.54 K/uL (4.8-10.8)
[2018-01-16] MEDS ORDERED: FLUT0.15 NAE (21:09)
[2018-01-16] MEDS ORDERED: NTRGSL/4 UT (21:09)
[2018-01-16] MEDS ORDERED: CLOP1TAB15 PO (21:09)
[2018-01-16] MEDS ORDERED: RANI300T2 PO (21:09)
[2018-01-16] MEDS ORDERED: ASPI81TA28 PO (21:09)
[2018-01-16] MEDS ORDERED: METO50TA8 PO (21:09)
[2018-01-16] MEDS ORDERED: TRAZ50TA35 PO (21:09)
[2018-01-16] MEDS ORDERED: ATOR-26 PO (21:09)
[2018-01-16] MEDS ORDERED: LSN5 PO (21:09)
[2018-01-16] MEDS ORDERED: IPRA1AER2 INH (21:09)
[2018-01-16] MEDS ORDERED: PANT40TA PO (21:09)
[2018-01-16 21:14] LABS: INR 0.9 (0.9-1.1); PTT PATIENT 26.1 SECONDS (21.0-31.0)
[2018-01-16] MEDS ORDERED: OPTIRAY 320 IV PRN (21:15)
[2018-01-16 21:50] LABS: POTASSIUM 4.1 mmol/L (3.5-5.1)
[2018-01-16 21:58] LABS: CREATININE 1.03 mg/dl (0.60-1.20)
[2018-01-16 21:59] LABS: ALBUMIN 3.8 gm/dl (3.4-5.0); CALCIUM 9.1 mg/dl (8.5-10.1); TOTAL PROTEIN 8.3 gm/dl (6.4-8.2)
[2018-01-16] MEDS ORDERED: SODIUM CHLORIDE 0.9% 1000ML 1,000 ML IV STA (22:01)
--- NOTE | 2018-01-16 22:29 | EMERGENCY ROOM VISIT NOTE ---
History First contact with patient: 20:16 Chief Complaint: EYE ASSESSMENT Stated Complaint: BLURRIED VISION History of Present Illness The patient is a 47 year old female who presents to the Emergency Room with complaints of "blurred vision". The patient states that she was referred here from the [facility] eye clinic for evaluation for a finding of plaque in the R eye. The patient states that the eye doctor, Dr. Villanueva did call here in advance. The call was taken by our charge nurse here, and it was noted that there was plaque identified in the patient's right eye, and because of this indicating a risk of stroke, they sent her here to be safe. Patient notes no symptoms at this time other than blurred vision because she had her eyes dilated. Prior to having her eyes dilated at the doctor's office she had no symptoms. She notes in the past she has had periodic blurred vision, as well as double vision. She notes none at this time. She denies any other symptoms. She notes that she did have an [facility] in August 2017. She does take Plavix, as well as cholesterol medications. Review of Systems A complete 10-point Review of Systems was discussed with the patient, with pertinent positives and negatives listed in the History of Present Illness. All remaining Review of Systems questions can be considered negative unless otherwise specified. Past Medical/Surgical History Medical Problems: (1) ACS (acute coronary syndrome) (2) Dyslipidemia (3) GERD (gastroesophageal reflux disease) (4) Hypertension (5) Lumbago (6) YUSUF (obstructive sleep apnea) (7) Rhinitis (8) Sjogrens syndrome (9) Ventricular fibrillation Surgical Problems: (1) History of carpal tunnel surgery (2) History of tonsillectomy Family History Endocrine disorder MOTHER (Thyroid) FH: CAD (coronary artery disease) FATHER ( in his 70s from [place]) FH: breast cancer Aunt FH: diabetes mellitus GRANDMOTHER FHx: allergies FHx: heart disease GRANDMOTHER Uncle Social History Smoking Status: Never Smoker Alcohol Use: none Marital Status: Housing Status: lives with family Occupation Status: employed Current/Historical Medications Scheduled Aspirin (Aspirin Ec), 81 MG PO DAILY Atorvastatin (Lipitor), 80 MG PO DAILY Clopidogrel (Plavix), 75 MG PO DAILY Fluticasone Propionate (Nasal) (Flonase Allergy Relief), 2 SPRAYS AILYN DAILY Ipratropium-Albuterol (Combivent Respimat), 1 PUFFS INH QID Isosorbide Mononitrate Ext Rel (Imdur Ext Rel), 60 MG PO DAILY Lisinopril (Lisinopril), 5 MG PO DAILY Metoprolol Succ (Toprol Xl) (Toprol-Xl), 50 MG PO BID Nitroglycerin (Nitrostat), 0.4 MG UT PRN Pantoprazole (Protonix), 40 MG PO DAILY Ranitidine (Zantac), 300 MG PO HS Trazodone Hcl (Trazodone), 50 MG PO HS Physical Exam Vital Signs Date Time Temp Pulse Resp B/P (MAP) Pulse Ox O2 Delivery O2 Flow Rate FiO2 01/17/18 00:38 81 20 118/65 96 Room Air 01/16/18 23:10 63 18 119/59 96 01/16/18 21:35 66 115/60 95 Room Air 01/16/18 19:23 36.7 80 18 148/80 97 Room Air Right Eye Acuity: 20/25 W/O CORRECTIVE LENSES Left Eye Acuity: 20/20 W/O CORRECTIVE LENSES Physical Exam VITAL SIGNS - Vital signs and nursing notes were reviewed. Stable. GENERAL -47-year-old female appearing her stated age who is in no acute distress. Communicates well with provider and answers questions appropriately. SKIN - Without rashes. No petechial rashes. HEAD - NC/AT. EYES - PERRL with EOMI bilaterally. Pupils are dilated. Brief funduscopic examination is unremarkable. Sclera anicteric. Palpebral conjunctiva pink and moist with no injection noted. EARS - No deformities of external structures noted on gross examination bilaterally. External auditory canals without discharge or otorrhea. Tympanic membranes pearly ac without retraction or bulging. No fluid or purulent material visualized behind the TM. Handle of malleus, umbo, cone of light, pars tensa/flaccid all easily visualized. NOSE - Midline and without cyanosis. No epistaxis or purulent drainage noted. MOUTH/OROPHARYNX - Without perioral cyanosis. Tongue is midline. EXTREMITIES - +5/5 strength noted in UE/LE bilaterally. NEUROLOGIC - Cranial nerves II through XII grossly intact. Medical Decision & Procedures ER Provider Diagnostic Interpretation: ANGIOGRAPHY HEAD COMBO CLINICAL HISTORY: Transient visual changes. COMPARISON STUDY: Head CT July 09, 2016. TECHNIQUE: Unenhanced and arterial phase imaging of the head was performed. Injection of 116 cc Optiray 320 IV was uneventful. Sagittal and coronal reconstructions were viewed as well as maximal intensity projections on an independent 3-D workstation. FINDINGS: No acute intracranial hemorrhage, midline shift or mass effect is present. Ventricular system is normal. Basilar cisterns are patent. There are no extra-axial collections. Ac-white differentiation is maintained. There are no findings to suggest acute dural sinus thrombosis or acute territorial infarct. There is mild calcified plaque within bilateral cavernous carotids without significant stenosis. The bilateral M1, M2, A1 and A2 segments are patent. There is no abrupt vessel cut off. Posterior circulation is intact. IMPRESSION: 1. No acute intracranial findings. 2. Unremarkable CTA of the head. 3. Mild atherosclerotic plaque within bilateral cavernous carotids without significant stenosis. Electronically signed by: Otoniel Daugherty M.D. 01/16/2018 10:42 PM Dictated Date/Time: 01/16/2018 10:[address] ANGIOGRAPHY OF THE NECK WITH CONTRAST CLINICAL HISTORY: Transient vision changes. COMPARISON STUDY: No previous studies for comparison. Technique: CT angiography of the carotid and vertebral arteries was obtained using Optiray 320 IV and 3D reconstruction on an independent workstation. NASCET criteria was utilized. A dose lowering technique was utilized adhering to the principles of ALARA. Findings: Lung apices are clear. There is no cervical lymphadenopathy. There are no suspicious osseous lesions. No prevertebral edema is noted. A few thyroid nodules are noted, including a 1.5 cm left lobe thyroid nodule. The origins of the bilateral common carotid, internal carotid and vertebral arteries are patent. Both vertebral arteries are patent without significant stenosis. There is no dissection within the major vasculature of the neck. There is moderate calcified and noncalcified atherosclerotic plaque within the proximal bilateral internal carotid arteries. The proximal right internal carotid artery measures 2.9 mm in caliber while the distal cervical portion of the right internal carotid artery measures 4 mm. The proximal left internal carotid artery measures 2.8 mm in caliber while the distal left internal carotid artery measures 4 mm. The left internal carotid artery plaque is ulcerated. The CTA of the head will be reported separately. IMPRESSION: 1. Moderate calcified and noncalcified atherosclerotic plaque within the proximal bilateral internal carotid arteries with mild stenosis of the proximal bilateral internal carotid arteries, measuring approximately 30%. Left internal carotid artery plaque is ulcerated. 2. Otherwise, unremarkable CTA of the neck. 3. Several thyroid nodules which measure up to 1.5 cm. Electronically signed by: Otoniel Daugherty M.D. 01/16/2018 10:37 PM Dictated Date/Time: 01/16/2018 10:29 PM Laboratory Results 01/16/18 20:50 Red Blood Count 4.84, Mean Corpuscular Volume 84.7, Mean Corpuscular Hemoglobin 28.9, Mean Corpuscular Hemoglobin Concent 34.1, Mean Platelet Volume 10.6, Neutrophils (%) (Auto) 65.0, Lymphocytes (%) (Auto) 27.0, Monocytes (%) (Auto) 7.0, Eosinophils (%) (Auto) 0.4, Basophils (%) (Auto) 0.3, Neutrophils # (Auto) 9.44, Lymphocytes # (Auto) 3.93, Monocytes # (Auto) 1.02, Eosinophils # (Auto) 0.06, Basophils # (Auto) 0.04 01/16/18 20:50 Test 01/16/18 20:50 01/16/18 22:28 White Blood Count 14.54 K/uL (4.8-10.8) Red Blood Count 4.84 M/uL (4.2-5.4) Hemoglobin 14.0 g/dL (12.0-16.0) Hematocrit 41.0 % (37-47) Mean Corpuscular Volume 84.7 fL (80-100) Mean Corpuscular Hemoglobin 28.9 pg (25-34) Mean Corpuscular Hemoglobin Concent 34.1 g/dl (32-36) Platelet Count 267 K/uL (130-400) Mean Platelet Volume 10.6 fL (7.4-10.4) Neutrophils (%) (Auto) 65.0 % Lymphocytes (%) (Auto) 27.0 % Monocytes (%) (Auto) 7.0 % Eosinophils (%) (Auto) 0.4 % Basophils (%) (Auto) 0.3 % Neutrophils # (Auto) 9.44 K/uL (1.4-6.5) Lymphocytes # (Auto) 3.93 K/uL (1.2-3.4) Monocytes # (Auto) 1.02 K/uL (0.11-0.59) Eosinophils # (Auto) 0.06 K/uL (0-0.5) Basophils # (Auto) 0.04 K/uL (0-0.2) RDW Standard Deviation 43.3 fL (36.4-46.3) RDW Coefficient of Variation 14.0 % (11.5-14.5) Immature Granulocyte % (Auto) 0.3 % Immature Granulocyte # (Auto) 0.05 K/uL (0.00-0.02) Prothrombin Time 9.9 SECONDS (9.0-12.0) Prothromb Time International Ratio 0.9 (0.9-1.1) Activated Partial Thromboplast Time 26.1 SECONDS (21.0-31.0) Partial Thromboplastin Ratio 1.0 Anion Gap 11.0 mmol/L (3-11) Est Creatinine Clear Calc Drug Dose 83.7 ml/min Estimated GFR () 73.9 Estimated GFR (Non- 63.8 BUN/Creatinine Ratio 16.9 (10-20) Calcium Level 9.1 mg/dl (8.5-10.1) Total Bilirubin 0.2 mg/dl (0.2-1) Aspartate Amino Transf (AST/SGOT) 17 U/L (15-37) Alanine Aminotransferase (ALT/SGPT) 29 U/L (12-78) Alkaline Phosphatase 96 U/L (45-117) Total Protein 8.3 gm/dl (6.4-8.2) Albumin 3.8 gm/dl (3.4-5.0) Globulin 4.5 gm/dl (2.5-4.0) Albumin/Globulin Ratio 0.9 (0.9-2) Urine Color YELLOW Urine Appearance CLEAR (CLEAR) Urine pH 5.0 (4.5-7.5) Urine Specific [place] 1.042 (1.000-1.030) Urine Protein NEG (NEG) Urine Glucose (UA) NEG (NEG) Urine Ketones NEG (NEG) Urine Occult Blood TRACE (NEG) Urine Nitrite NEG (NEG) Urine Bilirubin NEG (NEG) Urine Urobilinogen NEG (NEG) Urine Leukocyte Esterase NEG (NEG) Urine WBC (Auto) 1-5 /hpf (0-5) Urine RBC (Auto) 0-4 /hpf (0-4) Urine Hyaline Casts (Auto) 0 /lpf (0-5) Urine Epithelial Cells (Auto) 20-30 /lpf (0-5) Urine Bacteria (Auto) NEG (NEG) Medications Administered Medications (Trade) Dose Ordered Sig/Kim Route Start Time Stop Time Status Last Admin Dose Admin Sodium Chloride 1,000 ml @ 999 mls/hr Q1H1M STAT IV 01/16/18 22:01 01/16/18 23:01 DC 01/16/18 22:26 999 MLS/HR Medical Decision Patient was seen and evaluated as above. She presents to us today referred by her eye doctor because during routine examination there are findings of plaque in the right eye. The eye doctor called here in advance and spoke with the ED charge nurse, it was noted that because of the identified plaque in the R eye she has an increased risk of stroke therefore to be safe sent her here for evaluation. I did attempt to call this eye doctor to review physical exam findings however it was already past 8:00 PM and they were closed. Review was performed of nursing notes and vital signs. After obtaining a thorough history and physical examination the above work up was performed. Decision was made to obtain a CTA of the patient's head and neck to evaluate for any potential stenosis or occlusion. The timing of the finding in the right eye at this time is uncertain, and could be chronic. For that reason, I do not believe that any emergent intervention is necessary. It is important that upon my examination she has no symptoms not had any earlier today per patient. Visual acuity unremarkable. CBC does reveal leukocytosis around 14.5 however this appears to be nonspecific, and she has no infectious symptoms or findings at this time. She was given a liter of fluid she certainly could be dehydrated. I discussed the case with the attending physician, and it was recommended to have the patient closely follow-up with her family doctor as well as have evaluation by ophthalmology. I did have a thorough discussion with the patient regarding the plaque on the CT scans, and the findings of the eye. I informed her that these findings could be chronic and have been there for quite some time, but did caution her that if she develops strokelike symptoms or sudden loss of vision she is certainly to return as soon as possible. I informed her that there is really no way to completely prevent a stroke however did go over with her different risk factors of which can be modified to decrease her risk. She is to call the family doctor and harness preparer first thing tomorrow. There is no chest pain, shortness of breath, cough or fever. No urinary symptoms. The patient was educated upon management, had questions answered prior to discharge , and was discharged home in good condition. Case was discussed with the attending physician, Dr. Monteiro. I attest that I have personally reviewed the patient medication list. I attest that I have reviewed the patient's blood pressure and it was found to be elevated. In the evaluation and treatment of this patient, the following differential diagnoses were considered: Concussion, Contrecoup Injury, Brain Tumor, Depression, Encephalitis, Hypothyroidism, Meningitis, CVA, TIA, Migraine, Cluster Headache, Intracranial Abnormality, Intracranial Hemorrhage, Subdural Hematoma, Subarachnoid Hemorrhage, Hydrocephalus, central retinal artery occlusion, vein occlusion, among others. Impression Primary Impression: Eye exam abnormal Additional Impression: Elevated white blood cell count, unspecified Departure Information Dispostion Home / Self-Care Condition GOOD Referrals Rashawn Witt M.D. (PCP) Chuy Zimmer M.D. Patient Instructions My [facility] Additional Instructions You were seen in the emergency department for evaluation of an abnormal eye exam. A CT scan of your head and neck looking at the arteries was obtained. No emergent finding was identified however follow-up with family doctor is recommended for further evaluation and management of your symptoms and plaque found on CT scan results. Please call eye doctor (Dr. Zimmer) for further evaluation and management by the harness preparer of your eye from their standpoint. I do recommend continuing your medications and watching your blood pressure. As discussed, elevated blood pressure, high cholesterol and other factors can place you at risk for stroke. For this reason, I do recommend follow-up with the family doctor for further evaluation into risks that can lead to stroke. Your white blood count on blood work was found to be elevated today. For this reason I also recommend follow up with your family doctor to trend this elevated value. Please return with any new/concerning symptoms. Thank you for your time. Problem Qualifiers
--- NOTE | 2018-01-16 22:39 | DIAGNOSTIC IMAGING REPORT ---
CT ANGIOGRAPHY OF THE NECK WITH CONTRAST CLINICAL HISTORY: Transient vision changes. COMPARISON STUDY: No previous studies for comparison. Technique: CT angiography of the carotid and vertebral arteries was obtained using OptiraInteractive TKO 320 IV and 3D reconstruction on an independent workstation. NASCET criteria was utilized. A dose lowering technique was utilized adhering to the principles of ALARA. Findings: Lung apices are clear. There is no cervical lymphadenopathy. There are no suspicious osseous lesions. No prevertebral edema is noted. A few thyroid nodules are noted, including a 1.5 cm left lobe thyroid nodule. The origins of the bilateral common carotid, internal carotid and vertebral arteries are patent. Both vertebral arteries are patent without significant stenosis. There is no dissection within the major vasculature of the neck. There is moderate calcified and noncalcified atherosclerotic plaque within the proximal bilateral internal carotid arteries. The proximal right internal carotid artery measures 2.9 mm in caliber while the distal cervical portion of the right internal carotid artery measures 4 mm. The proximal left internal carotid artery measures 2.8 mm in caliber while the distal left internal carotid artery measures 4 mm. The left internal carotid artery plaque is ulcerated. The CTA of the head will be reported separately. IMPRESSION: 1. Moderate calcified and noncalcified atherosclerotic plaque within the proximal bilateral internal carotid arteries with mild stenosis of the proximal bilateral internal carotid arteries, measuring approximately 30%. Left internal carotid artery plaque is ulcerated. 2. Otherwise, unremarkable CTA of the neck. 3. Several thyroid nodules which measure up to 1.5 cm. Electronically signed by: Otoniel Daugherty M.D. 01/16/2018 10:37 PM Dictated Date/Time: 01/16/2018 10:29 PM
--- NOTE | 2018-01-16 22:43 | DIAGNOSTIC IMAGING REPORT ---
ANGIOGRAPHY HEAD COMBO CLINICAL HISTORY: Transient visual changes. COMPARISON STUDY: Head CT July 09, 2016. TECHNIQUE: Unenhanced and arterial phase imaging of the head was performed. Injection of 116 cc Optiray 320 IV was uneventful. Sagittal and coronal reconstructions were viewed as well as maximal intensity projections on an independent 3-D workstation. FINDINGS: No acute intracranial hemorrhage, midline shift or mass effect is present. Ventricular system is normal. Basilar cisterns are patent. There are no extra-axial collections. Ac-white differentiation is maintained. There are no findings to suggest acute dural sinus thrombosis or acute territorial infarct. There is mild calcified plaque within bilateral cavernous carotids without significant stenosis. The bilateral M1, M2, A1 and A2 segments are patent. There is no abrupt vessel cut off. Posterior circulation is intact. IMPRESSION: 1. No acute intracranial findings. 2. Unremarkable CTA of the head. 3. Mild atherosclerotic plaque within bilateral cavernous carotids without significant stenosis. Electronically signed by: Otoniel Daugherty M.D. 01/16/2018 10:42 PM Dictated Date/Time: 01/16/2018 10:38 PM
[2018-01-17 00:38] VITALS: BP 118/65; PULSE 81; O2SAT 96
== END 2018-01-17 00:39 | disposition home or self-care (01) ==
LOC: C.EDB 19:14 → C.EDC 01-17 00:39
DX: H57.8 Other specified disorders of eye and adnexa (principal); D72.829 Elevated white blood cell count, unspecified; I10 Essential (primary) hypertension; E78.5 Hyperlipidemia, unspecified; M35.00 Sjogren syndrome, unspecified; K21.9 Gastro-esophageal reflux disease without esophagitis; G47.33 Obstructive sleep apnea (adult) (pediatric); Z79.02 Long term (current) use of antithrombotics/antiplatelets; Z79.82 Long term (current) use of aspirin; Z98.890 Other specified postprocedural states; Z86.79 Personal history of other diseases of the circulatory system; Z82.49 Family history of ischemic heart disease and other diseases of the circulatory system; Z80.3 Family history of malignant neoplasm of breast; Z83.3 Family history of diabetes mellitus; Z83.49 Family history of other endocrine, nutritional and metabolic diseases; Z84.89 Family history of other specified conditions

== ENCOUNTER → 2018-01-18 | Outpatient (CLI) | payer OTHER ==
[~2018-01-18] MED LIST changes: -ASPEC81 PO; +ASPI81TA28 PO; +CLOP1TAB15 PO; -FLNIN/ NAE; +FLUT0.15 NAE; +ISOS60TA25 PO; +METO50TA8 PO; +NTRGSL/4 UT; -NTRSLP4 SL; +PANT40TA PO; -PANT40TA2 PO; -PLV75 PO; -TPRSR50 PO
[2018-01-18 18:07] LABS: ALT/SGPT 26 U/L (12-78); AST/SGOT 8 U/L (15-37); CHOLESTEROL 151 mg/dl (0-200); LDL CHOLESTEROL (DIRECT) 102 mg/dl
== END | disposition home or self-care (01) ==
LOC: C.LAB1850 16:42
PROVIDERS: ATTEND Physician Assistant Medical
DX: I25.10 Atherosclerotic heart disease of native coronary artery without angina pectoris (principal)

== ENCOUNTER → 2018-03-22 | Outpatient (CLI) | payer OTHER ==
--- NOTE | 2018-03-22 13:16 | DIAGNOSTIC IMAGING REPORT ---
PA ERECT CHEST SINGLE VIEW CLINICAL HISTORY: Preoperative chest. COMPARISON STUDY: 08/25/2017 FINDINGS: The cardiac and mediastinal contours are normal. There is no evidence of focal pulmonary consolidation. There is no evidence of failure. No pleural effusions are visualized.[ IMPRESSION: No active disease in the chest. Electronically signed by: Yunier Graves M.D. 03/22/2018 1:15 PM Dictated Date/Time: 03/22/2018 1:15 PM
== END | disposition home or self-care (01) ==
LOC: C.RAD1850 12:34
PROVIDERS: ATTEND Student in an Organized Health Care Education/Training Program
DX: Z01.810 Encounter for preprocedural cardiovascular examination (principal)

== ENCOUNTER 2018-11-22 16:41 | Observation (INO) ==
[2018-11-22] MEDS ORDERED: ENOXAPARIN 1 MG/KG SC SCH (17:45)
[2018-11-22] MEDS ORDERED: NITROGLYCERIN SL 0.4 MG/TAB TAB SL PRN (17:46)
[2018-11-22] MEDS ORDERED: NITROGLYCERIN 2% OINTMENT 30GM TUBE EXT STA (17:46)
[2018-11-22] MEDS ORDERED: ONDANSETRON INJ 2 MG/ML 2 ML VIAL IV PRN (17:52)
[2018-11-22] MEDS ORDERED: ZOLPIDEM TARTRATE 5 MG TAB PO PRN (17:52)
[2018-11-22] MEDS ORDERED: MoRPHine SULFATE 4 MG/ML 1 ML CARP\\VIAL IV PRN (17:52)
[2018-11-22] MEDS ORDERED: ACETAMINOPHEN 325 MG TAB PO PRN (17:52)
[2018-11-22] MEDS ORDERED: ALUMINUM/MAGNESIUM SUSP 30 ML UDC PO PRN (17:52)
[2018-11-22] MEDS ORDERED: ASPIRIN 81 MG CHEW PO ONE (17:55)
[2018-11-22 18:28] LABS: Basophils # (auto) 0.04 K/uL (0-0.2); Basophils % (auto) 0.3 %; Eosinophils # (auto) 0.13 K/uL (0-0.5); Hematocrit (blood only) 37.7 % (37-47); Immature Granulocytes # (auto) 0.02 K/uL (0.00-0.02); Immature Granulocytes % (auto) 0.2 %; Lymphocytes # (auto) 4.39 K/uL (1.2-3.4); Lymphocytes % (auto) 34.7 %; Mean Corpuscular Hgb Conc 34.5 g/dL (32-36); Mean Corpuscular Volume 84.9 fL (80-100); Mean Platelet Volume 9.9 fL (7.4-10.4); Monocytes # (auto) 0.71 K/uL (0.11-0.59); Monocytes % (auto) 5.6 %; Neutrophils # (auto) 7.37 K/uL (1.4-6.5); Neutrophils % (auto) 58.2 %; Platelet Count 225 K/uL (130-400); RDW Standard Deviation 46.5 fL (36.4-46.3); Red Blood Count 4.44 M/uL (4.2-5.4); White Blood Count 12.66 K/uL (4.8-10.8)
[2018-11-22 18:46] LABS: Alanine Aminotransferase 24 U/L (12-78); Albumin Level 3.4 gm/dl (3.4-5.0); Aspartate Aminotransferase 13 U/L (15-37); BUN Creatinine Ratio 21.6 (10-20); Bilirubin Direct < 0.1 mg/dl (0-0.2); Blood Urea Nitrogen 22 mg/dl (7-18); Carbon Dioxide 22 mmol/L (21-32); Chloride 109 mmol/L (98-107); Creatinine Clr Calc Pharmacy 85.2 ml/min; Est GFR (African American) 73.4; Est GFR (Non-African American) 63.3; Glucose 82 mg/dl (70-99); Potassium 3.8 mmol/L (3.5-5.1); Sodium 138 mmol/L (136-145)
[2018-11-22] MEDS: AMLODIPINE BESYLATE 5 MG TAB PO SCH (18:47)
[2018-11-22 18:52] LABS: Albumin Globulin Ratio 0.8 (0.9-2); Alkaline Phosphatase 100 U/L (45-117); Bilirubin,Total 0.3 mg/dl (0.2-1); Globulin 4.2 gm/dl (2.5-4.0); Total Protein 7.6 gm/dl (6.4-8.2); Troponin I 0.355 ng/ml (0-0.045)
[2018-11-22 19:22] LABS: Partial Thromboplastin Time 26.4 Seconds (21.0-31.0); Prothrombin Time 10.4 Seconds (9.0-12.0)
--- NOTE | 2018-11-22 21:21 | XRay Report ---
XR chest 2V routine CLINICAL HISTORY: Chest pain. COMPARISON STUDY: Chest radiograph September 20, 2018. FINDINGS: Lung volumes are normal. There is no pneumothorax or pleural effusion. There is no consolid ation. Cardiomediastinal silhouette is stable. There may be subtle Rosa B lines. IMPRESSION: Possible Rosa B lines which raise the possibility of mild interstitial pulmonary edema . Electronically signed by: Otoniel Daugherty M.D. 11/22/2018 9:19 PM
[2018-11-22] MEDS: ENOXAPARIN INJ 120 MG/0.8 ML SYR SQ SCH (21:25)
[2018-11-22] MEDS ORDERED: HYDROXYCHLOROQUINE SULFATE 200 MG TAB PO PRN (22:31)
[2018-11-22] MEDS ORDERED: AMLODIPINE BESYLATE 5 MG TAB PO ONE (22:39)
[2018-11-22] MEDS ORDERED: ATORVASTATIN 40 MG TAB PO SCH (22:40)
[2018-11-22] MEDS ORDERED: EZETIMIBE 10 MG TABLET PO SCH (22:40)
[2018-11-23 06:17] LABS: Troponin I 0.365 ng/ml (0-0.045)
[2018-11-23] MEDS ORDERED: AZELASTINE~ORDER AWAITING ACTION SCH (08:00)
[2018-11-23] MEDS: ENOXAPARIN INJ 120 MG/0.8 ML SYR SQ SCH (08:11)
[2018-11-23] MEDS: AMLODIPINE BESYLATE 5 MG TAB PO SCH (08:14)
[2018-11-23] MEDS ORDERED: ISOSORBIDE MONO EXTENDED REL 60 MG TABCR PO SCH (09:00)
[2018-11-23] MEDS ORDERED: FLUTICASONE PROPIONATE NA SPR 16 GM BTL SCH (09:00)
[2018-11-23] MEDS ORDERED: CLOPIDOGREL BISULFATE 75 MG TAB PO SCH (09:00)
[2018-11-23] MEDS ORDERED: RANOLAZINE 500 MG ER TAB PO SCH (09:00)
[2018-11-23] MEDS ORDERED: PANTOprazole 40 MG TAB PO SCH (09:00)
[2018-11-23] MEDS ORDERED: ASPIRIN 81 MG ECTAB PO SCH (09:00)
[2018-11-23] MEDS ORDERED: IOVERSOL 100ml IV PRN (10:02)
--- NOTE | 2018-11-23 10:09 | CT Scan Report ---
CT angio chest PE protocol CT DOSE: 676.52 mGy.cm HISTORY: Chest pain. Dyspnea. r/o PE PE PROTOCOL PER DR GUAJARDO TECHNIQUE: Multiaxial CT images of the chest were performed following the intravenous administration of contrast to evaluate the pulmonary arteries. Maximal intensity projection images were also obtaine d. A dose lowering technique was utilized adhering to the principles of ALARA. COMPARISON STUDY: None. FINDINGS: There is a normal caliber thoracic aorta with no evidence for dissection. There is no evide nce for pulmonary embolus. No pleural effusions. No pneumothorax. The liver and spleen are unremarkab le. No mediastinal or hilar lymphadenopathy. The central airways are patent. The lungs are clear. IMPRESSION: No evidence for pulmonary embolus. The lungs are clear. The above report was generated using voice recognition software. It may contain grammatical, syntax or spelling errors. Electronically signed by: Elieser Degroot M.D. 11/23/2018 10:08 AM
--- NOTE | 2018-11-28 12:43 | History & Physical Report ---
Date of Service November 28, 2018 Assessment & Plan (1) Chest pain: 1. Coronary artery disease--NSTEMI 06/2017 post GILDARDO to distal RCA; residual branch vessel disease 2. Dyslipidemia--on high intensity statin 3. Hypertension--well-controlled on current therapy 4. Ongoing tobacco abuse 5. Reported peripheral arterial disease Dr. Stafford also saw the patient and plan was made in collaboration with him. Patient presents to the clinic acutely complaining of left sided jaw and chest discomfort as well as nausea. Her symptoms started around 2:00 a.m. this morning and are similar to previous angina. She underwent cardiac catheterization in August 2018 for similar symptoms with elevated troponin which demonstrated patent RCA stent and severe small vessel branch disease. Her troponin drawn at 10 am this morning is elevated at 0.327. EKG demonstrates sinus rhythm without any acute changes. Her symptoms may be secondary to vasospasm. We recommend direct hospital admission for observation and trending of cardiac enzymes which the patient is agreeable to. History of Present Illness Primary Care Provider: Rashawn Tucker is a 48-year-old female with a medical history significant for coronary artery disease status post NSTEMI with distal RCA GILDARDO 06/21/2017, dyslipidemia, obesity, tobacco use, mild carotid artery stenosis, peripheral arterial disease, stenosis of distal aorta. Patient's cardiac history dates back to 06/21/2017 when she presented acutely to [facility] complaining of New Onset Chest Tightness, Jaw Pain, Diaphoresis, and Bilateral Arm Numbness which resolved following the administration of Aspirin in route. Her initial EKG showed no acute changes, but her initial Troponin I was elevated at 4.76 ng/mL. Patient was diagnosed with an NSTEMI. Patient was noted to have an acute distal RCA occlusion which was treated with a single drug -eluting stent. Post MS course complicated by VT/VF requiring compressions and defibrillation. Post MS LV function preserved. She completed cardiac rehab post MS. Since that time she was diagnosed with peripheral arterial disease with decreased RHONDA on the right. She was also noted to have a retinal plaque on eye exam 01/2018. More recently patient was readmitted to [facility] in August 2018 with chest pain/ pain into neck reminiscent of prior symptoms. Troponin mildly elevated to 0.34. Underwent repeat cardiac catheterization which showed patent RCA stent. She was noted to have branch vessel disease involving very small right PDA and second diagonal. To be a potential culprit. Vessels too small for intervention and treated medically. She was discharged on amlodipine in addition to prior antianginal therapy. She presents to the clinic acutely today complaining jaw and chest pain. She reports that her symptoms started around 2:00 a.m. when she woke up with left- sided jaw pain. She took nitroglycerin and her symptoms resolved about 30 minutes later. Her jaw pain returned earlier today and his been constant but not nearly as severe. She also complains of intermittent left-sided chest discomfort radiating into her left upper extremity which occurs at random and most recently occurred while driving to our office. Her symptoms are similar to what she experienced with her NSTEMI and most recent hospitalization. She also reports not feeling well in general. She has some nausea currently. She denies shortness of breath, vomiting, diaphoresis, orthopnea, PND, edema, palpitations, lightheadedness, near-syncope or syncope. Allergies Allergy/AdvReac Type Severity Reaction Status Date / Time Penicillins Allergy Mild HIVES Verified 09/25/18 12:05 Home Medications Home Medications Medication Instructions Recorded Confirmed Type aspirin 81 mg PO QAM 08/27/18 09/25/18 History atorvastatin 80 mg PO QPM 08/27/18 09/25/18 History azelastine 2 spray INTRANASAL QAM 08/27/18 09/25/18 History clopidogrel 75 mg PO QAM 08/27/18 09/25/18 History ezetimibe 10 mg PO QPM 08/27/18 09/25/18 History fluticasone 2 spray INTRANASAL QAM 08/27/18 09/25/18 History furosemide [Lasix] 20 mg PO DAILY PRN 08/27/18 09/25/18 History hydroxychloroquine [Plaquenil] 200 mg PO QPM PRN 08/27/18 09/25/18 History ipratropium-albuterol [Combivent 1 puff INHALATION QID PRN 08/27/18 09/25/18 History Respimat] nitroglycerin 0.4 mg SUBLINGUAL DIRECTED PRN 08/27/18 09/25/18 History pantoprazole 40 mg PO QAM 08/27/18 09/25/18 History ranitidine HCl 300 mg PO HS 08/27/18 09/25/18 History hydrocodone-acetaminophen [[place]] 1 - 2 tab PO .q4-6 hours PRN #30 09/25/18 Rx tab amlodipine [Norvasc] 10 mg PO QAM #60 tab 11/23/18 Rx isosorbide mononitrate 120 mg PO QAM #30 tab 11/23/18 Rx nitroglycerin [Nitrostat] 0.4 mg SUBLINGUAL UD PRN 30 Days 11/23/18 Rx #30 tab ranolazine [Ranexa] 1,000 mg PO BID #60 tab 11/23/18 Rx Past Med/Surg History Medical History Myocardial Infarction 06/2017 STENT X 1 TO RCA, second MS in 08/2018 Pre-diabetes A1C 6.0 08/28/18 CAD (coronary artery disease) STENT X 1 TO RCA (06/2017) PVD (peripheral vascular disease) GERD (gastroesophageal reflux disease) CONTROLLED Dyslipidemia YUSUF (obstructive sleep apnea) CPAP Sjogrens syndrome Arthritis ON PLAQUENIL; PATIENT DENIES RHEUMATOID ARTHTIS Asthma STABLE Chronic obstructive pulmonary disease STABLE Hyperlipidemia Hypertension Osteoarthritis Rhinitis Social History marital status: Current Living Situation: Spouse current occupational status: employed Other Information That Helps Us Care for You: No Feels Safe at Home: Yes Smoking Status: Former smoker Second Hand Exposure: No Hx Alcohol Use: No Hx Substance Use: No Beliefs That Will Affect Care: None Preferred Language: Divehi Review of Systems 10 point ROS otherwise negative unless stated in HPI Physical Exam 2 Vital Signs (Past 24 Hours): Last Vital Signs Temp 36.6 C 11/23/18 14:36 Pulse 64 11/23/18 14:36 Resp 18 11/23/18 14:36 BP 155/78 H 11/23/18 14:36 Pulse Ox 98 11/23/18 14:36 Physical Exam: General: No acute distress but obviously does not feel well. HEENT: Head is normal. PERRLA. EOMI. Sclerae anicteric. Ears, nose and throat unremarkable. Mucous membranes moist. Neck: Normal carotid upstrokes, no bruits. No appreciable JVD. Lungs: Clear to auscultation bilaterally without rales, rhonchi or wheezes. Cardiac: Regular rate and rhythm. S1-S2 normal. No appreciable murmur, gallop or rub. Abdomen: Soft and nontender. Bowel sounds normal. No mass or organomegaly. No abdominal bruit. Extremities/vascular: Well perfused. No peripheral edema. Radial, DP and PT pulses 2+ bilaterally Skin: No rash or abnormal lesions. Normal turgor. Neurologic: Nonfocal Psychiatric: Affect appropriate. Alert and oriented.
--- NOTE | 2018-11-28 22:56 | Discharge Summary ---
Date of Service November 23, 2018 Admission HPI Per Admitting Provider Mrs. Tucker is a 48-year-old female with a medical history significant for coronary artery disease status post NSTEMI with distal RCA GILDARDO 06/21/2017, dyslipidemia, obesity, tobacco use, mild carotid artery stenosis, peripheral arterial disease, stenosis of distal aorta. Patient's cardiac history dates back to 06/21/2017 when she presented acutely to [facility] complaining of New Onset Chest Tightness, Jaw Pain, Diaphoresis, and Bilateral Arm Numbness which resolved following the administration of Aspirin in route. Her initial EKG showed no acute changes, but her initial Troponin I was elevated at 4.76 ng/mL. Patient was diagnosed with an NSTEMI. Patient was noted to have an acute distal RCA occlusion which was treated with a single drug -eluting stent. Post AR course complicated by VT/VF requiring compressions and defibrillation. Post AR LV function preserved. She completed cardiac rehab post AR. Since that time she was diagnosed with peripheral arterial disease with decreased RHONDA on the right. She was also noted to have a retinal plaque on eye exam 01/2018. More recently patient was readmitted to [facility] in August 2018 with chest pain/ pain into neck reminiscent of prior symptoms. Troponin mildly elevated to 0.34. Underwent repeat cardiac catheterization which showed patent RCA stent. She was noted to have branch vessel disease involving very small right PDA and second diagonal. To be a potential culprit. Vessels too small for intervention and treated medically. She was discharged on amlodipine in addition to prior antianginal therapy. She presents to the clinic acutely today complaining jaw and chest pain. She reports that her symptoms started around 2:00 a.m. when she woke up with left- sided jaw pain. She took nitroglycerin and her symptoms resolved about 30 minutes later. Her jaw pain returned earlier today and his been constant but not nearly as severe. She also complains of intermittent left-sided chest discomfort radiating into her left upper extremity which occurs at random and most recently occurred while driving to our office. Her symptoms are similar to what she experienced with her NSTEMI and most recent hospitalization. She also reports not feeling well in general. She has some nausea currently. She denies shortness of breath, vomiting, diaphoresis, orthopnea, PND, edema, palpitations, lightheadedness, near-syncope or syncope. Hospital Course (1) Chest pain: Patient was admitted to telemetry from outpatient cardiology clinic due to chest pain radiating up into her jaw consistent with prior anginal symptoms and mildly elevated troponin. She was started on Nitropaste and home calcium channel mayela, long-acting nitrate were increased. Beta-mayela was discontinued in the setting of suspected vasospastic angina. Overnight chest pain gradually resolved. Serial troponins essentially flat at 0.3, and unchanged from last admission in August 2018 during which she underwent cardiac catheterization which showed nonobstructive disease. CTA in the a.m. showed no evidence of PE or dissection. Repeat echocardiogram showed preserved LV function with no pericardial effusion. On hospital day 2 patient was up walking the halls largely symptom-free. Telemetry was unremarkable. Patient's presenting symptoms were thought unlikely to be secondary to an acute coronary syndrome and was discharged to home on vasodilators for vasospastic angina. She will follow-up in cardiology clinic in 2-3 weeks. Discharge Instructions Home Medications aspirin 81 mg PO QAM 08/27/18 [History Confirmed 09/25/18] atorvastatin 80 mg PO QPM 08/27/18 [History Confirmed 09/25/18] azelastine 2 spray INTRANASAL QAM 08/27/18 [History Confirmed 09/25/18] clopidogrel 75 mg PO QAM 08/27/18 [History Confirmed 09/25/18] ezetimibe 10 mg PO QPM 08/27/18 [History Confirmed 09/25/18] fluticasone 2 spray INTRANASAL QAM 08/27/18 [History Confirmed 09/25/18] furosemide [Lasix] 20 mg PO DAILY PRN 08/27/18 [History Confirmed 09/25/18] hydroxychloroquine [Plaquenil] 200 mg PO QPM PRN 08/27/18 [History Confirmed ] ipratropium-albuterol [Combivent Respimat] 1 puff INHALATION QID PRN 08/27/18 [ History Confirmed 09/25/18] nitroglycerin 0.4 mg SUBLINGUAL DIRECTED PRN 08/27/18 [History Confirmed ] pantoprazole 40 mg PO QAM 08/27/18 [History Confirmed 09/25/18] ranitidine HCl 300 mg PO HS 08/27/18 [History Confirmed 09/25/18] hydrocodone-acetaminophen [[place]] 1 - 2 tab PO .q4-6 hours PRN #30 tab 09/25/18 [Rx] amlodipine [Norvasc] 10 mg PO QAM #60 tab 11/23/18 [Rx] isosorbide mononitrate 120 mg PO QAM #30 tab 11/23/18 [Rx] nitroglycerin [Nitrostat] 0.4 mg SUBLINGUAL UD PRN 30 Days #30 tab 11/23/18 [Rx] ranolazine [Ranexa] 1,000 mg PO BID #60 tab 11/23/18 [Rx]
== END 2018-11-23 15:09 | disposition home or self-care (01) ==
LOC: 2S

== ENCOUNTER 2019-06-16 14:13 | Observation (INO) ==
[2019-06-16] MEDS ORDERED: NITROGLYCERIN SL 0.4 MG/TAB TAB SL PRN ×3 (15:02→18:16)
--- NOTE | 2019-06-16 15:21 | XRay Report ---
XR chest 1V portable CLINICAL HISTORY: 48 years-old Female presenting with Chest Pain. TECHNIQUE: Portable upright AP view of the chest was obtained. COMPARISON: 03/05/2019. FINDINGS: Borderline enlarged cardiac silhouette. Mild pulmonary vascular prominence. No focal opacity. No larg e effusion or pneumothorax. Osseous structures normal. Upper abdomen normal. IMPRESSION: 1. Possible mild volume overload. Otherwise no acute cardiopulmonary disease. Electronically signed by: Adolfo Abbott M.D. 06/16/2019 3:20 PM
[2019-06-16 15:29] LABS: Basophils # (auto) 0.03 K/uL (0-0.2); Basophils % (auto) 0.2 %; Eosinophils # (auto) 0.17 K/uL (0-0.5); Eosinophils % (auto) 1.3 %; Hematocrit (blood only) 39.1 % (37-47); Hemoglobin 13.2 g/dL (12.0-16.0); Immature Granulocytes # (auto) 0.03 K/uL (0.00-0.02); Immature Granulocytes % (auto) 0.2 %; Lymphocytes # (auto) 3.57 K/uL (1.2-3.4); Lymphocytes % (auto) 27.2 %; Mean Corpuscular Hgb Conc 33.8 g/dL (32-36); Mean Corpuscular Volume 81.8 fL (80-100); Mean Platelet Volume 10.3 fL (7.4-10.4); Monocytes # (auto) 0.73 K/uL (0.11-0.59); Monocytes % (auto) 5.6 %; Neutrophils # (auto) 8.58 K/uL (1.4-6.5); Neutrophils % (auto) 65.5 %; Platelet Count 243 K/uL (130-400); RDW Coefficient of Variation 14.4 % (11.5-14.5); RDW Standard Deviation 43.1 fL (36.4-46.3); Red Blood Count 4.78 M/uL (4.2-5.4); White Blood Count 13.11 K/uL (4.8-10.8)
[2019-06-16 15:36] LABS: Albumin Level 3.6 gm/dl (3.4-5.0); BUN Creatinine Ratio 22.1 (10-20); Calcium 8.8 mg/dl (8.5-10.1); Creatinine Clr Calc Pharmacy 96.1 ml/min; Est GFR (African American) 85.3; Est GFR (Non-African American) 73.6; Magnesium 1.9 mg/dl (1.8-2.4); Potassium 3.8 mmol/L (3.5-5.1)
[2019-06-16 15:39] LABS: Prothrombin Time 9.9 Seconds (9.0-12.0)
[2019-06-16 15:44] LABS: D Dimer 360 ug/L FEU (0-500)
[2019-06-16 16:02] LABS: Albumin Globulin Ratio 0.9 (0.9-2); Bilirubin,Total 0.3 mg/dl (0.2-1); Globulin 4.2 gm/dl (2.5-4.0); Total Protein 7.8 gm/dl (6.4-8.2); Troponin I 0.343 ng/ml (0-0.045)
[2019-06-16 16:06] LABS: Pregnancy Test, Serum Negative (Negative)
[2019-06-16] MEDS ORDERED: ASPIRIN CHEW 324 MG PO STA (16:20)
--- NOTE | 2019-06-16 17:18 | History & Physical Report ---
Date of Service June 16, 2019 Assessment & Plan (1) Chest pain: (2) CAD (coronary artery disease): Mrs. Tucker is a 48-year-old female with a significant PMH for coronary artery disease status post NSTEMI with distal RCA GILDARDO 06/21/2017, dyslipidemia, HTN, obesity, former tobacco use, mild carotid artery stenosis, peripheral arterial disease, Sjogren's, YUSUF, GERD who presents to [facility] ED secondary to chest pain x2 hours. In ED Chest pain relieved with nitro SL EKG unchanged, troponin chronically elevated 0.313 today hemodynamically stable ACS vs coronary vasospasm due to known distal RCA disease admit to telemetry consult [facility] cardiology cycle troponin x 2 repeat ECG A1C, Lipid panel in a.m. repeat echocardiogram NPO after midnight in event cardiology to procedure with additonal diagnostic testing continue current Antianginal regimen/cardiac regimen of ASA, statin, Plavix, diltiazem, Imdur (3) Hypertension: blood pressure acceptable on lisinopril, diltiazem, imdur (4) Dyslipidemia: continue high intensity statin, zetia (5) PVD (peripheral vascular disease): Hx of distal aortic stent 03/28/2018 with chronic mild lower extremity dependent edema continue high dose statin, ASA, plavix (6) Pre-diabetes: 1C 6.0 08/28/18 In setting of CAD/PVD recommend dietary and lifestyle modifications for disease prevention repeat A1C (7) YUSUF (obstructive sleep apnea): CPAP at HS (8) GERD (gastroesophageal reflux disease): continue PPI and F2lxszwch, sx controlled (9) DVT prophylaxis: SCD/TEDS Disposition: D/C to home when able Follow up: PCP Dr. Witt upon discharge along with appropriate [facility] cardiology follow up Patient was seen and examined in collaboration with Dr. Bauer, please see addendum History of Present Illness Chief Complaint: Chest pain radiating to Jaw x 2 hours. Primary Care Provider: Rashawn Witt MD Mrs. Tucker is a 48-year-old female with a significant PMH for coronary artery disease status post NSTEMI with distal RCA GILDARDO 06/21/2017, dyslipidemia, HTN, obesity, former tobacco use, mild carotid artery stenosis, peripheral arterial disease, Sjogren's, YUSUF, GERD who presents to [facility] ED secondary to chest pain x2 hours. 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 Symptoms lasted until arrival to ED where she was administered sublingual nitro and symptoms resolved. Pain rated 5/10. She further had associated diaphoresis and nausea. Symptoms improved with rest, but nothing made them worse. Sx similar to prior presentation of angina and NSTEMI. Pt overall very frustrated due to have similar presentations in past. Up until today she overall been doing well. Taking medications as prescribed. No significant weight gain. Denies any recent illness, fever, chills, sweats, lightheadedness, dizziness, syncope, shortness breath at rest, hemoptysis, nausea, vomiting, diarrhea, change in bowel or urinary habits. Patient's cardiac history dates back to 06/21/2017 when she presented to [facility] acutely complaining of chest pain, jaw pain, diaphoresis. She was diagnosed with an NSTEMI and initial troponin elevation of 4.76. She underwent cardiac cath and had acute distal RCA occlusion and was treated with single drug-eluting stent. Most recently patient was readmitted to [facility] in 08/2018 with similar presenting chest pain. She had mild troponin elevation of 0.34. She underwent repeat cardiac catheterization which showed patent RCA stent. Further noted to have severe branch vessel disease involving small right PDA and second diagonal. This is unfortunately too small to undergo intervention. She was therefore managed medically. She presented to outpatient cardiology office in November 2018 with again similar symptoms but unchanged EKG or troponin. She was admitted to hospital for further observation and initiated on diltiazem. Cardiology has been managing her medically. She follows [facility] cardiology. Allergies Allergy/AdvReac Type Severity Reaction Status Date / Time Penicillins Allergy Mild Hives Verified 06/16/19 15:01 Home Medications Home Medications Medication Instructions Recorded Confirmed Type Combivent Respimat 1 puff INHALATION QID PRN 08/27/18 06/16/19 History aspirin 81 mg PO QAM 08/27/18 06/16/19 History atorvastatin 80 mg PO QPM 08/27/18 06/16/19 History azelastine 2 spray INTRANASAL QAM 08/27/18 06/16/19 History clopidogrel 75 mg PO QAM 08/27/18 06/16/19 History ezetimibe 10 mg PO QPM 08/27/18 06/16/19 History fluticasone propionate 2 spray INTRANASAL QAM 08/27/18 06/16/19 History furosemide [Lasix] 20 mg PO DAILY PRN 08/27/18 06/16/19 History nitroglycerin 0.4 mg SUBLINGUAL DIRECTED PRN 08/27/18 06/16/19 History pantoprazole 40 mg PO QAM 08/27/18 06/16/19 History ranitidine HCl 300 mg PO HS 08/27/18 06/16/19 History diltiazem HCl 120 mg PO QAM 03/05/19 06/16/19 History isosorbide mononitrate 180 mg PO QAM 03/05/19 06/16/19 History omega 4-afs-rqd-fish oil [Fish Oil] 1 cap PO BID 03/05/19 06/16/19 History doxycycline monohydrate 100 mg PO BID 06/16/19 06/16/19 History Past Med/Surg History Medical History Myocardial Infarction 06/2017 STENT X 1 TO RCA, second OR in 08/2018 Pre-diabetes A1C 6.0 08/28/18 CAD (coronary artery disease) STENT X 1 TO RCA (06/2017) PVD (peripheral vascular disease) GERD (gastroesophageal reflux disease) CONTROLLED Dyslipidemia YUSUF (obstructive sleep apnea) CPAP Sjogrens syndrome Arthritis ON PLAQUENIL; PATIENT DENIES RHEUMATOID ARTHTIS Asthma STABLE Chronic obstructive pulmonary disease STABLE Hyperlipidemia Hypertension Osteoarthritis Rhinitis Surgical History History of procedure for peripheral vascular disease DISTAL AORTIC STENT/BALLOON ANGIOPLASTY (03/2018)- FOLLOWS WITH [facility] History of adenoidectomy History of arthroscopy RT KNEE History of cardiac cath X3 TOTAL 06/2017- STENT TO RCA X 1 PLACED 08/2018= NO STENTS History of carpal tunnel release History of dilatation and curettage History of sinus surgery ENDOSCOPIC SINUS SURGERY= 04/07/14= GRADE 2 VIEW, MAC 3, ETT 7.0 AT [facility] History of tonsillectomy S/P trigger finger release Family History Grandmother Coronary heart disease Diabetes Social History Preferred Language: Korean Communication Ability: Effective Visual Impairment: No Limitations Mounter Flutes And Piccolos Required: No Beliefs That Will Affect Care: None marital status: Current Living Situation: Spouse current occupational status: employed Other Information That Helps Us Care for You: No Feels Safe at Home: Yes Safety Concerns: Feels Safe At This Time Smoking Status: Former smoker Age Started Using Tobacco: 16 ; packs per day: 1 ; Years Smoked: 28 ; Number of Years Since Quit: 2 ; Second Hand Exposure: Yes ; Tobacco Cessation Education Requested by Patient: No (quit 3 years ago) Hx Alcohol Use: No Hx Substance Use: No Review of Systems Review of Systems: As noted per HPI, 10 systems reviewed and negative unless noted above. Physical Exam Physical Exam: Gen: WD/WN, obese, F, NAD, tearful, sitting up in bed, pleasant, conversing easily Head: Normocephalic, Atraumatic Eyes: Sclera normal, no conjunctival injection, PERRLA, EOMI ENT: Gross hearing intact, normal pharynx, mucous membranes moist Neck: supple, no adenopathy, No JVD, no bruit, Resp: Clear to auscultation b/l, no wheeze, rales, rhonchi. Normal insp/exp effort, no accessory muscle use CV: Regular rate, regular rhythm, soft 1/6 BRAULIO RUSB, no rub, gallop, or ectopy Abd: obese abd, +BS x 4, soft, nontender, nondistended Musculoskeletal: moves extremities active rom x 4, strength intact, good third mate strength Extremities: No edema bilaterally Skin: warm, moist, no rash, negative turgor, cap refill < 2sec Neuro: Alert and oriented x 3, speech normal, good mood/affect, cran nerve 2-12 intact grossly : deferred Results & Data Vital Signs (Past 12 Hours) Vital Signs Temp Pulse Pulse Resp BP BP Pulse Ox 06/16/19 15:50 65 18 116/71 95 06/16/19 15:45 73 18 125/79 96 06/16/19 15:40 64 18 121/80 96 06/16/19 15:35 71 18 135/77 94 06/16/19 15:32 71 18 137/65 94 06/16/19 15:25 73 18 98/56 L 95 08/11/19 15:20 84 18 112/64 96 06/16/19 15:13 93 06/16/19 15:00 66 18 112/69 95 06/16/19 14:57 76 21 139/72 94 06/16/19 14:54 97 06/16/19 14:44 73 18 139/72 95 06/16/19 14:18 37.0 C 81 18 156/79 H 97 Laboratory Results Short CBC 06/16/19 06/16/19 06/16/19 Range/Units 14:45 14:45 14:45 WBC 13.11 H (4.8-10.8) K/uL Hgb 13.2 (12.0-16.0) g/dL Hct 39.1 (37-47) % Plt Count 243 (130-400) K/uL Magnesium 1.9 Cancelled (1.8-2.4) mg/dl Troponin I 0.343 H* (0-0.045) ng/ml TSH 0.362 Cancelled (0.300-4.500) uIu/ml BMP 06/16/19 14:45 Sodium 141 Potassium 3.8 Chloride 108 H Carbon Dioxide 24 BUN 20 H Creatinine 0.91 Glucose 104 H Calcium 8.8 Cardiac Enzymes 06/16/19 Range/Units 14:45 Troponin I 0.343 H* (0-0.045) ng/ml Liver Function 06/16/19 Range/Units 14:45 Total Bilirubin 0.3 (0.2-1) mg/dl AST 14 L (15-37) U/L ALT 28 (12-78) U/L Alkaline Phosphatase 109 (45-117) U/L Albumin 3.6 (3.4-5.0) gm/dl Diagnostic Findings CXR: IMPRESSION: 1. Possible mild volume overload. Otherwise no acute cardiopulmonary disease. Medications Administered Nitroglycerin (Nitrostat) 0.4 mg SL UD PRN PRN Reason: Chest Pain Stop: 07/16/19 15:01 Last Admin: 06/16/19 15:18 Dose: 0.4 mg Documented by: [id number] Discontinued Medications Aspirin (Aspirin) 324 mg PO NOW STA Stop: 06/16/19 16:21 Last Admin: 06/16/19 16:37 Dose: 324 mg Documented by: [id number] ECG Rate (beats per minute): 74 Rhythm: normal sinus Change: no significant change Code Status & VTE Plan Code Status Full Code VTE Prophylaxis Plan VTE Prophylaxis will be ordered: Yes Supervising Physician Co-Signing Physician Notes Attending addendum: Seen examined care coordinated with Neelam Rashid PA-C This is a 48-year-old female with history of coronary artery disease, presents with recurrent episode of unstable angina symptoms last admission to [facility] on May 2019 with similar symptoms Had ER visit on March 05 with anginal symptoms, ER cardiac work-up found to be negative, patient was discharged home Patient had a cardiac MRI done on January 14, 2019 at [facility] Showed normal cardiac function, mild mild wall motion abnormality at basal area, Report of the cardiac MRI will be scanned into the system Presented today with symptom of chest heaviness tightness with pain radiating to the jaw since 11 AM In the ER symptoms subsided with sublingual nitro EKG unremarkable, initial troponin mildly elevated, history of chronically elevated troponin, Physical exam: General: Anxious, no apparent distress HEENT: Sclera nonicteric pupils equal bilateral reactive to light Neck: No thyromegaly noted carotid bruit Pulmonary: Clear to auscultate bilaterally no wheeze or rales Cardio: Regular rate and rhythm normal S1 and S2 no murmur gallop, no lower extremity edema, no JVD Abdomen: Soft nontender Extremity: Normal strength no cyanosis or clubbing Skin: Warm and moist, no rash noted Neuro: No focal neurological deficit Assessment plan: Anginal symptom, recurrent Presents with substernal chest heaviness with symptoms radiating to jaw No complaint of shortness of breath no orthopnea no dizzy spell or lightheadedness Symptom improved with sublingual nitro Patient will be observed in telemetry Serial cardiac marker markers will be followed Resting echo ordered We will order Nitropaste, (patient reports of resolution of chest heaviness after sublingual nitro Ordered to be held if systolic blood pressure less than 100 Case discussed with on-call cardiology by MICHAEL Cortes Recommends to increase diltiazem dose No indication to for IV heparin Agreeable for echo serial cardiac marker and cardiac work-up for angina Patient will be evaluated by cardiology team tomorrow Follows with [facility] physician group cardiology Dr. Kole Stafford- consulted Please refer to further documentation by Neelam Rashid PA-C for discussion of other chronic issues Iman Bauer MD
--- NOTE | 2019-06-16 17:43 | Emergency Department Note ---
Entered by Toma Dalal acting as a scribe for History of Present Illness General Chief complaint: Cardiac Assessment Stated complaint: JAW PAIN, NAUSEA, INDIGESTION, SWEATY, WEAK Source: patient History of Present Illness Onset (ago): hour(s) 6 Location: chest Radiation: non-radiation Severity: similar to prior episodes Pain Consistency: + constant Maximum Pain Intensity: 4 Current Pain Intensity: 4 Quality: + other (tightness) Associated symptoms: + cough, + fever/chills (negative fever), + nausea/vomiting (negative vomiting), + weakness and + other (dizziness); no shortness of breath The patient is a 48 year old female with a history of myocardial infarctions who presents to the Emergency Room with complaints of chest pain that started around 11 am this morning, about 6 hours prior to arrival. The patient first noticed the pain while she was at work, and noted that she was not doing any heavy lifting. She describes the chest pain as a "tightness" and denies any pain radiating to her arms. She also reports widespread body weakness as well as jaw pain. She states that she feels slightly lightheaded, nauseous, and has chills. The patient describes her current symptoms as being similar to a prior [place] she was treated for. She is currently taking Aspirin and Plavix, but did not take any Nitroglycerin today. She also reports lower leg swelling, which has been an ongoing problem but comes and goes. The patient notes a cough as well, and is not a smoker. She denies fever, SOB, and abdominal pain. Home Medications Home Medications Medication Instructions Recorded Confirmed Type Combivent Respimat 1 puff INHALATION QID PRN 08/27/18 06/16/19 History aspirin 81 mg PO QAM 08/27/18 06/16/19 History atorvastatin 80 mg PO QPM 08/27/18 06/16/19 History azelastine 2 spray INTRANASAL QAM 08/27/18 06/16/19 History clopidogrel 75 mg PO QAM 08/27/18 06/16/19 History ezetimibe 10 mg PO QPM 08/27/18 06/16/19 History fluticasone propionate 2 spray INTRANASAL QAM 08/27/18 06/16/19 History furosemide [Lasix] 20 mg PO DAILY PRN 08/27/18 06/16/19 History nitroglycerin 0.4 mg SUBLINGUAL DIRECTED PRN 08/27/18 06/16/19 History pantoprazole 40 mg PO QAM 08/27/18 06/16/19 History ranitidine HCl 300 mg PO HS 08/27/18 06/16/19 History diltiazem HCl 120 mg PO QAM 03/05/19 06/16/19 History isosorbide mononitrate 180 mg PO QAM 03/05/19 06/16/19 History omega 6-czk-nij-fish oil [Fish Oil] 1 cap PO BID 03/05/19 06/16/19 History doxycycline monohydrate 100 mg PO BID 06/16/19 06/16/19 History Allergies Allergy/AdvReac Type Severity Reaction Status Date / Time Penicillins Allergy Mild Hives Verified 06/16/19 15:01 Past Med/Surg History Medical History Myocardial Infarction 06/2017 STENT X 1 TO RCA, second [place] in 08/2018 Pre-diabetes A1C 6.0 08/28/18 CAD (coronary artery disease) STENT X 1 TO RCA (06/2017) PVD (peripheral vascular disease) GERD (gastroesophageal reflux disease) CONTROLLED Dyslipidemia YUSUF (obstructive sleep apnea) CPAP Sjogrens syndrome Arthritis ON PLAQUENIL; PATIENT DENIES RHEUMATOID ARTHTIS Asthma STABLE Chronic obstructive pulmonary disease STABLE Hyperlipidemia Hypertension Osteoarthritis Rhinitis Surgical History History of procedure for peripheral vascular disease DISTAL AORTIC STENT/BALLOON ANGIOPLASTY (03/2018)- FOLLOWS WITH [facility] History of adenoidectomy History of arthroscopy RT KNEE History of cardiac cath X3 TOTAL 06/2017- STENT TO RCA X 1 PLACED 08/2018= NO STENTS History of carpal tunnel release History of dilatation and curettage History of sinus surgery ENDOSCOPIC SINUS SURGERY= 04/07/14= GRADE 2 VIEW, MAC 3, ETT 7.0 AT [facility] History of tonsillectomy S/P trigger finger release Family History Grandmother Coronary heart disease Diabetes Social History Preferred Language: Kinyarwanda Communication Ability: Effective Visual Impairment: No Limitations Breaker Operator Required: No Beliefs That Will Affect Care: None marital status: Current Living Situation: Spouse current occupational status: employed Other Information That Helps Us Care for You: No Feels Safe at Home: Yes Safety Concerns: Feels Safe At This Time Smoking Status: Former smoker Age Started Using Tobacco: 16 ; packs per day: 1 ; Years Smoked: 28 ; Number of Years Since Quit: 2 ; Second Hand Exposure: Yes ; Tobacco Cessation Education Requested by Patient: No (quit 3 years ago) Hx Alcohol Use: No Hx Substance Use: No Review of Systems See HPI for pertinent positives & negatives. and A total of 10 systems reviewed and were otherwise negative Physical Exam Vital Signs Vital Signs - 24 hr 06/16/19 14:18 06/16/19 14:44 06/16/19 14:54 Temperature 37.0 C Temperature Source Oral Sepsis Recent Fever Within 48 Hours No Sepsis New/Unexplained Change in Mental Status No Sepsis Action Taken by Nursing No Action Required Pulse Rate 81 73 Pulse Rate [Apical] Pulse Rate from SpO2 Sensor 74 Pulse Rhythm [Apical] Pulse Strength [Apical] Respiratory Rate 18 18 Respiratory Effort / Characteristics Respiratory Depth Normal Respiratory Pattern Blood Pressure 156/79 H 139/72 Blood Pressure [Right Arm] Blood Pressure Mean 104 94 Blood Pressure Mean [Right Arm] Pulse Oximetry 97 95 97 Oxygen Delivery Method Room Air Room Air 06/16/19 14:57 06/16/19 15:00 06/16/19 15:13 Temperature Temperature Source Sepsis Recent Fever Within 48 Hours Sepsis New/Unexplained Change in Mental Status Sepsis Action Taken by Nursing Pulse Rate 66 Pulse Rate [Apical] 76 Pulse Rate from SpO2 Sensor 69 Pulse Rhythm [Apical] Regular Pulse Strength [Apical] Normal Respiratory Rate 21 18 Respiratory Effort / Characteristics Non-Labored Spontaneous Respiratory Depth Normal Respiratory Pattern Regular Blood Pressure 112/69 Blood Pressure [Right Arm] 139/72 Blood Pressure Mean 83 Blood Pressure Mean [Right Arm] 94 Pulse Oximetry 94 95 93 Oxygen Delivery Method Room Air Room Air 06/16/19 15:20 06/16/19 15:25 06/16/19 15:32 Temperature Temperature Source Sepsis Recent Fever Within 48 Hours Sepsis New/Unexplained Change in Mental Status Sepsis Action Taken by Nursing Pulse Rate 84 73 71 Pulse Rate [Apical] Pulse Rate from SpO2 Sensor 82 71 69 Pulse Rhythm [Apical] Pulse Strength [Apical] Respiratory Rate 18 18 18 Respiratory Effort / Characteristics Respiratory Depth Respiratory Pattern Blood Pressure 112/64 98/56 L 137/65 Blood Pressure [Right Arm] Blood Pressure Mean 80 70 89 Blood Pressure Mean [Right Arm] Pulse Oximetry 96 95 94 Oxygen Delivery Method 06/16/19 15:35 06/16/19 15:40 06/16/19 15:45 Temperature Temperature Source Sepsis Recent Fever Within 48 Hours Sepsis New/Unexplained Change in Mental Status Sepsis Action Taken by Nursing Pulse Rate 71 64 73 Pulse Rate [Apical] Pulse Rate from SpO2 Sensor 67 65 71 Pulse Rhythm [Apical] Pulse Strength [Apical] Respiratory Rate 18 18 18 Respiratory Effort / Characteristics Respiratory Depth Respiratory Pattern Blood Pressure 135/77 121/80 125/79 Blood Pressure [Right Arm] Blood Pressure Mean 96 93 94 Blood Pressure Mean [Right Arm] Pulse Oximetry 94 96 96 Oxygen Delivery Method 06/16/19 15:50 06/16/19 17:00 Temperature Temperature Source Sepsis Recent Fever Within 48 Hours Sepsis New/Unexplained Change in Mental Status Sepsis Action Taken by Nursing Pulse Rate 65 Pulse Rate [Apical] Pulse Rate from SpO2 Sensor 64 Pulse Rhythm [Apical] Pulse Strength [Apical] Respiratory Rate 18 18 Respiratory Effort / Characteristics Respiratory Depth Respiratory Pattern Blood Pressure 116/71 Blood Pressure [Right Arm] 106/57 L Blood Pressure Mean 86 Blood Pressure Mean [Right Arm] 73 Pulse Oximetry 95 97 Oxygen Delivery Method Room Air GENERAL: Awake, alert, fatigued-appearing HENT: Normocephalic, atraumatic. EYES: Normal conjunctiva. Sclera non-icteric. NECK: Supple. No nuchal rigidity. RESPIRATORY: Clear to auscultation. No wheezes. Normal respiratory effort. CARDIAC: Normal rate. Normal rhythm. Extremities warm and well perfused. GI: Soft, non-distended. No tenderness to palpation. No rebound or guarding. No masses. RECTAL: Deferred. MUSCULOSKELETAL: Atraumatic. Chest examination reveals no tenderness. LOWER EXTREMITIES: Calves are equal size bilaterally and non-tender. Trace edema NEURO: Normal sensorium. No sensory or motor deficits noted. No facial droop. SKIN: Warm and dry. No rash or jaundice noted. Course 1503: Past medical records reviewed. The patient was evaluated in room B04B. A complete history and physical exam was performed. 1625: Upon reevaluation, I discussed findings and results with the patient, and they verbalized agreement of the treatment plan. I spoke with Juancarlos Roth of the [facility]. The patient will be evaluated for further management and care. Administered Medications Discontinued Medications Aspirin (Aspirin) 324 mg PO NOW STA Stop: 06/16/19 16:21 Last Admin: 06/16/19 16:37 Dose: 324 mg Documented by: [id number] Nitroglycerin (Nitrostat) 0.4 mg SL UD PRN PRN Reason: Chest Pain Stop: 07/16/19 15:01 Last Admin: 06/16/19 15:18 Dose: 0.4 mg Documented by: [id number] Medical Decision Making Differential Diagnosis Differential diagnosis includes: cardiac ischemia, aortic dissection, pulmonary embolism, pneumonia, pneumothorax, musculoskeletal, infections, pericarditis, myocarditis, esophageal rupture, gastrointestinal, as well as others were entertained. Medical Records Attestation: I reviewed the patient's medical records. Home Medications Current Medication List: was personally reviewed by me Laboratory Data Attestation: I reviewed the patient's lab results. Result diagrams: 06/16/19 14:45 06/16/19 14:45 Lab Results 06/16/19 06/16/19 06/16/19 Range/Units 14:45 14:45 14:45 WBC 13.11 H (4.8-10.8) K/uL RBC 4.78 (4.2-5.4) M/uL Hgb 13.2 (12.0-16.0) g/dL Hct 39.1 (37-47) % MCV 81.8 (80-100) fL MCH 27.6 (25-34) pg MCHC 33.8 (32-36) g/dL RDW Std Deviation 43.1 (36.4-46.3) fL RDW Coeff of Clifford 14.4 (11.5-14.5) % Plt Count 243 (130-400) K/uL MPV 10.3 (7.4-10.4) fL Immature Gran % (Auto) 0.2 % Neut % (Auto) 65.5 % Lymph % (Auto) 27.2 % Stephens % (Auto) 5.6 % Eos % (Auto) 1.3 % Baso % (Auto) 0.2 % Immature Gran # (Auto) 0.03 H (0.00-0.02) K/uL Neut # (Auto) 8.58 H (1.4-6.5) K/uL Lymph # (Auto) 3.57 H (1.2-3.4) K/uL Stephens # (Auto) 0.73 H (0.11-0.59) K/uL Eos # (Auto) 0.17 (0-0.5) K/uL Baso # (Auto) 0.03 (0-0.2) K/uL PT (9.0-12.0) Seconds INR (0.9-1.1) D-Dimer 360 (0-500) ug/L FEU Sodium 141 (136-145) mmol/L Potassium 3.8 (3.5-5.1) mmol/L Chloride 108 H (98-107) mmol/L Carbon Dioxide 24 (21-32) mmol/L Anion Gap 9.0 (3-11) BUN 20 H (7-18) mg/dl Creatinine 0.91 (0.6-1.2) mg/dl Est Cr Clr Drug Dosing 96.1 ml/min Est GFR ( Amer) 85.3 Est GFR (Non-Af Amer) 73.6 BUN/Creatinine Ratio 22.1 H (10-20) Glucose 104 H (70-99) mg/dl Calcium 8.8 (8.5-10.1) mg/dl Magnesium 1.9 (1.8-2.4) mg/dl Total Bilirubin 0.3 (0.2-1) mg/dl AST 14 L (15-37) U/L ALT 28 (12-78) U/L Alkaline Phosphatase 109 (45-117) U/L Troponin I 0.343 H* (0-0.045) ng/ml NT-Pro-B Natriuret Pep (0-900) pg/ml Total Protein 7.8 (6.4-8.2) gm/dl Albumin 3.6 (3.4-5.0) gm/dl Globulin 4.2 H (2.5-4.0) gm/dl Albumin/Globulin Ratio 0.9 (0.9-2) Lipase 139 (73-393) U/L TSH 0.362 (0.300-4.500) uIu/ml HCG, Qual (Negative) 06/16/19 06/16/19 06/16/19 Range/Units 14:45 14:45 14:45 WBC (4.8-10.8) K/uL RBC (4.2-5.4) M/uL Hgb (12.0-16.0) g/dL Hct (37-47) % MCV (80-100) fL MCH (25-34) pg MCHC (32-36) g/dL RDW Std Deviation (36.4-46.3) fL RDW Coeff of Clifford (11.5-14.5) % Plt Count (130-400) K/uL MPV (7.4-10.4) fL Immature Gran % (Auto) % Neut % (Auto) % Lymph % (Auto) % Stephens % (Auto) % Eos % (Auto) % Baso % (Auto) % Immature Gran # (Auto) (0.00-0.02) K/uL Neut # (Auto) (1.4-6.5) K/uL Lymph # (Auto) (1.2-3.4) K/uL Stephens # (Auto) (0.11-0.59) K/uL Eos # (Auto) (0-0.5) K/uL Baso # (Auto) (0-0.2) K/uL PT 9.9 (9.0-12.0) Seconds INR 1.0 (0.9-1.1) D-Dimer (0-500) ug/L FEU Sodium (136-145) mmol/L Potassium (3.5-5.1) mmol/L Chloride (98-107) mmol/L Carbon Dioxide (21-32) mmol/L Anion Gap (3-11) BUN (7-18) mg/dl Creatinine (0.6-1.2) mg/dl Est Cr Clr Drug Dosing ml/min Est GFR ( Amer) Est GFR (Non-Af Amer) BUN/Creatinine Ratio (10-20) Glucose (70-99) mg/dl Calcium (8.5-10.1) mg/dl Magnesium Cancelled (1.8-2.4) mg/dl Total Bilirubin (0.2-1) mg/dl AST (15-37) U/L ALT (12-78) U/L Alkaline Phosphatase (45-117) U/L Troponin I (0-0.045) ng/ml NT-Pro-B Natriuret Pep (0-900) pg/ml Total Protein (6.4-8.2) gm/dl Albumin (3.4-5.0) gm/dl Globulin (2.5-4.0) gm/dl Albumin/Globulin Ratio (0.9-2) Lipase (73-393) U/L TSH Cancelled (0.300-4.500) uIu/ml HCG, Qual Negative (Negative) 06/16/19 Range/Units 14:45 WBC (4.8-10.8) K/uL RBC (4.2-5.4) M/uL Hgb (12.0-16.0) g/dL Hct (37-47) % MCV (80-100) fL MCH (25-34) pg MCHC (32-36) g/dL RDW Std Deviation (36.4-46.3) fL RDW Coeff of Clifford (11.5-14.5) % Plt Count (130-400) K/uL MPV (7.4-10.4) fL Immature Gran % (Auto) % Neut % (Auto) % Lymph % (Auto) % Stephens % (Auto) % Eos % (Auto) % Baso % (Auto) % Immature Gran # (Auto) (0.00-0.02) K/uL Neut # (Auto) (1.4-6.5) K/uL Lymph # (Auto) (1.2-3.4) K/uL Stephens # (Auto) (0.11-0.59) K/uL Eos # (Auto) (0-0.5) K/uL Baso # (Auto) (0-0.2) K/uL PT (9.0-12.0) Seconds INR (0.9-1.1) D-Dimer (0-500) ug/L FEU Sodium (136-145) mmol/L Potassium (3.5-5.1) mmol/L Chloride (98-107) mmol/L Carbon Dioxide (21-32) mmol/L Anion Gap (3-11) BUN (7-18) mg/dl Creatinine (0.6-1.2) mg/dl Est Cr Clr Drug Dosing ml/min Est GFR ( Amer) Est GFR (Non-Af Amer) BUN/Creatinine Ratio (10-20) Glucose (70-99) mg/dl Calcium (8.5-10.1) mg/dl Magnesium (1.8-2.4) mg/dl Total Bilirubin (0.2-1) mg/dl AST (15-37) U/L ALT (12-78) U/L Alkaline Phosphatase (45-117) U/L Troponin I (0-0.045) ng/ml NT-Pro-B Natriuret Pep 68 (0-900) pg/ml Total Protein (6.4-8.2) gm/dl Albumin (3.4-5.0) gm/dl Globulin (2.5-4.0) gm/dl Albumin/Globulin Ratio (0.9-2) Lipase (73-393) U/L TSH (0.300-4.500) uIu/ml HCG, Qual (Negative) Imaging Data Radiologist's Impression: Radiology results as stated below per my review and the radiologist's interpretation: XR chest 1V portable CLINICAL HISTORY: 48 years-old Female presenting with Chest Pain. TECHNIQUE: Portable upright AP view of the chest was obtained. COMPARISON: 03/05/2019. FINDINGS: Borderline enlarged cardiac silhouette. Mild pulmonary vascular prominence. No focal opacity. No large effusion or pneumothorax. Osseous structures normal. Upper abdomen normal. IMPRESSION: 1. Possible mild volume overload. Otherwise no acute cardiopulmonary disease. Electronically signed by: Adolfo Abbott M.D. 06/16/2019 3:20 PM ECG Data Attestation: I personally reviewed and interpreted this ECG as follows: Indication: chest pain Rate (beats per minute): 74 Rhythm: normal sinus Findings: + other (normal intervals); no PVC, no ST depression and no ST elevation Blood Pressure Blood Pressure Findings: Normal blood pressure Blood Pressure Disposition: did not require urgent referral MDM Narrative Patient is a 48-year-old female with a history of cardiac disease and stents presenting today complaining of indigestion, nausea, intermittent mild chest pain rating of the jaw starting around. States feels somewhat similar to prior cardiac disease. Follows with Dr. Stafford. States medication compliance with her home medications including Plavix and aspirin. Benign abdomen. D-dimer is negative helping to exclude PE, this was likely negative. Doubt this is dissection. Chest x-ray without significant change does not appear grossly fluid overloaded. EKG without significant changes. Does have history of co ronary vasospasm may be occurring. 3 doses of nitroglycerin improved symptoms with still some persistence. Patient has an elevated troponin today. Compared to previous in February when she was here for unrelated chest symptoms appears to be more elevated. Very well this could be more of a vasospasm issue but given symptoms believe further evaluation and cardiac consultation in the hospital is warranted. [facility] contact and patient updated. Given a full dose aspirin. Impression & Plan Chest pain, Non-ST elevation [place] (NSTEMI) Discharge Plan Visit Data *Final* Discharge Date/Time: 06/16/19 18:06 Chief Complaint: Cardiac Assessment Stated Complaint: JAW PAIN, NAUSEA, INDIGESTION, SWEATY, WEAK ED Provider: Bakari Orr Discharge Problem: Chest pain, Non-ST elevation [place] (NSTEMI) Patient Disposition: Admitted As Inpatient Discharge Instructions Interventions: ED Discharge Assessment Last Done: 06/16/19 18:06 The scribe's documentation has been prepared under my direction and personally reviewed by me in its entirety. I confirm that the note above accurately reflects all work, treatment, procedures, and medical decision making performed by me.
[2019-06-16] MEDS ORDERED: POLYETHYLENE (MIRALAX) 17 GM PACK PO PRN (18:16)
[2019-06-16] MEDS ORDERED: ACETAMINOPHEN 325 MG TAB PO PRN (18:16)
[2019-06-16] MEDS ORDERED: ONDANSETRON INJ 2 MG/ML 2 ML VIAL IV PRN (18:16)
[2019-06-16] MEDS ORDERED: MAGNESIUM HYDROXIDE SUSP 30 ML UDC PO PRN (18:16)
[2019-06-16] MEDS ORDERED: ALUMINUM/MAGNESIUM SUSP 30 ML UDC PO PRN (18:16)
[2019-06-16] MEDS ORDERED: NITROGLYCERIN 2% OINTMENT 30GM TUBE EXT SCH (19:00)
[2019-06-16] MEDS: NITROGLYCERIN 2% OINTMENT 30GM TUBE EXT SCH (19:34)
[2019-06-16] MEDS: DOXYCYCLINE HYCLATE 100 MG CAP PO SCH (20:22)
[2019-06-16] MEDS: EZETIMIBE 10 MG TABLET PO SCH (20:22)
[2019-06-16] MEDS: OMEGA-3 (PURIFIED FISH OIL) 1 GM CAP PO SCH (20:23)
[2019-06-16] MEDS: ATORVASTATIN 40 MG TAB PO SCH (20:24)
[2019-06-17] MEDS: NITROGLYCERIN 2% OINTMENT 30GM TUBE EXT SCH ×3 (00:54→13:10)
[2019-06-17 02:26] LABS: Troponin I 0.302 ng/ml (0-0.045)
[2019-06-17 06:52] LABS: Estimated Average Glucose 134 mg/dl; Hemoglobin A1C 6.3 % (4.5-5.6)
[2019-06-17] MEDS: ISOSORBIDE MONO EXTENDED REL 60 MG TABCR PO SCH (08:38)
[2019-06-17] MEDS: PANTOprazole 40 MG TAB PO SCH (08:38)
[2019-06-17] MEDS: OMEGA-3 (PURIFIED FISH OIL) 1 GM CAP PO SCH ×2 (08:38→20:00)
[2019-06-17] MEDS: ASPIRIN 81 MG ECTAB PO SCH (08:38)
[2019-06-17] MEDS: DOXYCYCLINE HYCLATE 100 MG CAP PO SCH ×2 (08:38→20:00)
[2019-06-17] MEDS: CLOPIDOGREL BISULFATE 75 MG TAB PO SCH (08:39)
[2019-06-17] MEDS: FLUTICASONE PROPIONATE NA SPR 16 GM BTL SCH (08:39)
[2019-06-17] MEDS ORDERED: ISOSORBIDE MONO EXTENDED REL 60 MG TABCR PO SCH (09:00)
[2019-06-17] MEDS ORDERED: dilTIAZem HCL 180 MG CAPCR PO SCH (09:00)
--- NOTE | 2019-06-17 14:26 | Cardiology Consultation ---
Date of Consultation June 17, 2019 Assessment & Plan (1) Chest pain: 2. Coronary artery disease--NSTEMI 06/2017 post GILDARDO to distal RCA; residual branch vessel disease 3. Recurrent chest painthought secondary to coronary vasospasm 4. Dyslipidemia--on high intensity statin 5. Moderate concentric LVH 6. Dyslipidemia 7. Suspected chronic venous insufficiency Patient with recurrent chest pain reminiscent of prior recent episodes of chest pain attributed to coronary vasospasm. EKG and echo unchanged. Troponin mildly elevated but flat and in line with prior hospitalizations. Low suspicion that current chest pain represents recurrent acute coronary syndrome. Unclear of current trigger but again suspect chest pain secondary to coronary vasospasm or some degree of hypertrophic physiology. For now recommend further increasing diltiazem to 240 mg daily. Continue current Imdur. Continue aspirin, Plavix, high intensity statin. No need for additional cardiac testing at this time. If feeling well this afternoon feel can be discharged to home with continued cardiology follow-up. History of Present Illness Attending Physician: Iman Bauer MD History of Present Illness Mrs. Tucker is a very pleasant 48-year-old woman with a history of coronary disease post NSTEMI with distal RCA GILDARDO 06/21/2017, dyslipidemia, mild carotid artery disease, lower extremity peripheral artery disease and recurrent chest pain thought secondary to coronary vasospasm admitted again with acute onset chest pain. Patient's cardiac history remarkable for an STEMI in June 2018 in the setting of distal RCA occlusion. Post MS course comp gated by cardiac arrest. Since that time she had multiple hospitalizations with mild troponin elevations in the 0.2-0.3 range. Last cardiac catheterization August 2018 in which case was noted to have a stenosis in a very small diagonal but no other high risk disease. Since that time she is been managed with different combinations of coronary vasodilators including most recently diltiazem and Imdur. Last echo in November 2018 showed hyperdynamic LV with moderate concentric LVH. There was some concern for possible hypertrophic cardiomyopathy and underwent cardiac MRI in January 2019 which was largely unremarkable except for some base to mid inferior subendocardial scar. Patient was last seen as an outpatient back in February. At that time she was doing well, exercising more frequently with no additional chest pain. Last week noted increased lower extremity swelling which is since resolved. Otherwise was feeling well until yesterday morning when developed acute onset chest pain radiating to arms, jaw. Troponin again mildly elevated but no significant rise. EKG unchanged. Echo unchanged from 11/2018. Telemetry unremarkable. Allergies Allergy/AdvReac Type Severity Reaction Status Date / Time Penicillins Allergy Mild Hives Verified 06/16/19 15:01 Home Medications Home Medications Medication Instructions Recorded Confirmed Type Combivent Respimat 1 puff INHALATION QID PRN 08/27/18 06/16/19 History aspirin 81 mg PO QAM 08/27/18 06/16/19 History atorvastatin 80 mg PO QPM 08/27/18 06/16/19 History azelastine 2 spray INTRANASAL QAM 08/27/18 06/16/19 History clopidogrel 75 mg PO QAM 08/27/18 06/16/19 History ezetimibe 10 mg PO QPM 08/27/18 06/16/19 History fluticasone propionate 2 spray INTRANASAL QAM 08/27/18 06/16/19 History furosemide [Lasix] 20 mg PO DAILY PRN 08/27/18 06/16/19 History nitroglycerin 0.4 mg SUBLINGUAL DIRECTED PRN 08/27/18 06/16/19 History pantoprazole 40 mg PO QAM 08/27/18 06/16/19 History ranitidine HCl 300 mg PO HS 08/27/18 06/16/19 History diltiazem HCl 120 mg PO QAM 03/05/19 06/16/19 History isosorbide mononitrate 180 mg PO QAM 03/05/19 06/16/19 History omega 7-lxa-rot-fish oil [Fish Oil] 1 cap PO BID 03/05/19 06/16/19 History doxycycline monohydrate 100 mg PO BID 06/16/19 06/16/19 History diltiazem HCl 240 mg PO QAM 30 Days #30 cap 06/17/19 Rx Patient History Medical History Myocardial Infarction 06/2017 STENT X 1 TO RCA, second [place] in 08/2018 Pre-diabetes A1C 6.0 08/28/18 CAD (coronary artery disease) STENT X 1 TO RCA (06/2017) PVD (peripheral vascular disease) GERD (gastroesophageal reflux disease) CONTROLLED Dyslipidemia YUSUF (obstructive sleep apnea) CPAP Sjogrens syndrome Arthritis ON PLAQUENIL; PATIENT DENIES RHEUMATOID ARTHTIS Asthma STABLE Chronic obstructive pulmonary disease STABLE Hyperlipidemia Hypertension Osteoarthritis Rhinitis Surgical History History of procedure for peripheral vascular disease DISTAL AORTIC STENT/BALLOON ANGIOPLASTY (03/2018)- [facility]LLOWS WITH [facility] History of adenoidectomy History of arthroscopy RT KNEE History of cardiac cath X3 TOTAL 06/2017- STENT TO RCA X 1 PLACED 08/2018= NO STENTS History of carpal tunnel release History of dilatation and curettage History of sinus surgery ENDOSCOPIC SINUS SURGERY= 04/07/14= GRADE 2 VIEW, MAC 3, ETT 7.0 AT [facility] History of tonsillectomy S/P trigger finger release Family History Grandmother Coronary heart disease Diabetes Social History Preferred Language: [place] Communication Ability: Effective Visual Impairment: No Limitations Certified Registered Nurse Anesthetist Required: No Beliefs That Will Affect Care: None marital status: Current Living Situation: Spouse current occupational status: employed Other Information That Helps Us Care for You: No Feels Safe at Home: Yes Safety Concerns: Feels Safe At This Time Smoking Status: Former smoker Age Started Using Tobacco: 16 ; packs per day: 1 ; Years Smoked: 28 ; Number of Years Since Quit: 2 ; Second Hand Exposure: Yes ; Tobacco Cessation Education Requested by Patient: No (quit 3 years ago) Hx Alcohol Use: No Hx Substance Use: No Review of Systems Review of Systems: All systems reviewed & are unremarkable except as noted in HPI & below Physical Exam Physical Exam: General: Comfortable, no acute distress Eyes: Sclerae anicteric, extraocular movements intact HENT: Oropharynx clear mucous membranes moist Neck: Normal carotid upstrokes, no bruits. No JVD. Lungs: Clear to auscultation bilaterally, no rhonchi or wheezes Cardiac: Regular rate and rhythm, 2 out of 6 systolic ejection murmur Vascular: 2+ radial, DP and PT pulses. No varicosities. Abdomen: Soft, nontender, nondistended, positive bowel sounds. Extremities: Well perfused, no peripheral edema Skin: No rashes or lesions. Neuro: Nonfocal Psych: Alert orient x3, normal affect and mood Results & Data Vital Signs (Past 12 Hours) Vital Signs Temp Pulse Resp BP Pulse Ox 06/17/19 11:50 36.4 C L 64 20 134/61 96 06/17/19 07:00 36.5 C 58 L 18 97 06/17/19 04:00 36.7 C 80 16 138/63 96 PG Care Time/CCT Total # of Minutes Spent Total Time Spent with Patient: Total time spent is greater than 50% in coordination of care (as documented) at patient's floor/unit and/or counseling patient:
--- NOTE | 2019-06-17 15:34 | Hospitalist Progress Note ---
Date of Service June 17, 2019 Assessment & Plan (1) Chest pain: Presented with recurrent anginal symptom Appreciate input from cardiology Recurrent chest heaviness, radiating to jaw, possible attributed to coronary vasospasm Patient's EKG does not show evidence of acute ischemia Resting echo done, which is on changed from a prior echo done on November 2018 No evidence of acute coronary event Patient's troponin remains mildly elevated then plateaued: Which has been chronic -noted in her previous admissions Dr. Stafford: Cardiology recommends to increase patient's diltiazem to 240 mg daily Continue current dose of Imdur Patient will be continued with her previous dose of aspirin Plavix and high intensity statin No further cardiac testing needed at this time Possible discharge home later today with adjustment of diltiazem dose Outpatient follow-up with cardiology as scheduled (2) CAD (coronary artery disease): History of coronary artery disease status post NSTEMI with distal RCA GILDARDO 06/21/2017, EKG unchanged, troponin chronically elevated -chronic hemodynamically stable Supple coronary vasospasm with known distal RCA disease Resting echo done, unchanged from prior finding in November 2018 Echo: 1. Normal LV size, moderate concentric LVH. 2. LV ejection fraction 65-70% mild inferior base hypokinesis 3. Normal RV size and 4. No significant valvular pathology. 5. Normal estimated RA and PA pressures per 6. Grade 2 diastolic dysfunction. 7. Compared with prior study on 11/13/2018: No significant change Appreciate input from cardiology Diltiazem dose increased as outlined above Patient will continue her outpatient cardiac regimen of ASA, statin, Plavix, , Imdur (3) Hypertension: blood pressure acceptable on lisinopril, diltiazem, imdur (4) Dyslipidemia: continue high intensity statin, zetia (5) PVD (peripheral vascular disease): Hx of distal aortic stent 03/28/2018 with chronic mild lower extremity dependent edema continue high dose statin, ASA, plavix (6) Pre-diabetes: In setting of CAD/PVD recommend dietary and lifestyle modifications for disease prevention A1C 6.3 (7) YUSUF (obstructive sleep apnea): CPAP at HS (8) GERD (gastroesophageal reflux disease): continue PPI and [id number], sx controlled (9) DVT prophylaxis: SCD/TEDS Disposition: discharge home when medically stable Continues of mild chest heaviness, jaw tenderness today, Got 180 mg of diltiazem today, ordered to give 60 mg additional to make total 240 mg a day Complains of right groin pain with radiation pain down to right knee assist with tenderness, To to have nodule on back of the right knee Right lower extremity ultrasound ordered Patient will stay in telemetry overnight for further observation Follow up: Hospital follow-up scheduled with patient's family physician at [facility] with Dr. Kay on 06/21/2019 at 1:55 PM Cardiology follow-up with Dr. Kole Stafford as per schedule Subjective Chest pain has improved, no orthopnea no dyspnea on exertion Physical Exam Physical Exam: GENERAL: No sign of distress, HEENT: Sclera nonicteric, pink-purple bilateral equal reactive to light extraocular muscle intact Normal oral mucosa, neck: No JVD, no thyromegaly, trachea midline Lungs: Clear to auscultate, no wheeze or rales Cardiovascular: Regular S1 and S2, no murmur or gallop, no JVD, no lower extremity edema Abdomen: Soft, nontender, bowel sounds active, no hepatosplenomegaly Extremities: No rash or deformity, normal joint, Neuro: No focal neurological deficit, no dysarthria, no facial droop Psych: Alert awake oriented x3: Euthymic Skin: No rash LYMPH NODES: No cervical lymphadenopathy Results & Data Vital Signs (Past 12 Hours) Vital Signs Temp Pulse Resp BP Pulse Ox 06/17/19 15:29 36.9 C 58 L 18 139/61 95 06/17/19 11:50 36.4 C L 64 20 134/61 96 06/17/19 07:00 36.5 C 58 L 18 97 06/17/19 04:00 36.7 C 80 16 138/63 96
[2019-06-17] MEDS ORDERED: dilTIAZem HCL 120 MG CAPCR PO ONE (16:38)
[2019-06-17] MEDS: IPRATROPIUM BROMIDE/ALBUTEROL respimat INH INH PRN (16:55)
--- NOTE | 2019-06-17 17:41 | Ultrasound Report ---
RIGHT LOWER EXTREMITY VENOUS DOPPLER HISTORY: Right leg pain and swelling COMPARISON STUDY: None. FINDINGS: There is normal compressibility, flow, and augmentation within the right lower extremity de ep venous system. IMPRESSION: No DVT within the right lower extremity Electronically signed by: Josemanuel Joseph M.D. 06/17/2019 5:39 PM
[2019-06-17] MEDS ORDERED: CYCLOBENZAPRINE HCL 10 MG TAB PO PRN (19:32)
[2019-06-17] MEDS ORDERED: CYCLOBENZAPRINE HCL 10 MG TAB PO STA (19:32)
[2019-06-17] MEDS: ATORVASTATIN 40 MG TAB PO SCH (20:00)
[2019-06-17] MEDS: EZETIMIBE 10 MG TABLET PO SCH (20:01)
[2019-06-17 20:31] LABS: Appearance Urine Clear (Clear); Bilirubin Urine Negative (Negative); Blood Urine Negative (Negative); Color Urine Yellow; Glucose Urine UA Negative (Negative); Ketones Urine Negative (Negative); Leukocyte Esterase Urine Negative (Negative); Nitrite Urine Negative (Negative); Protein Urine Negative (Negative); Specific Gravity Urine 1.021 (1.000-1.030); Urobilinogen Urine Negative (Negative); pH Urine 5.5 (4.5-7.5)
[2019-06-18] MEDS: CLOPIDOGREL BISULFATE 75 MG TAB PO SCH (08:02)
[2019-06-18] MEDS: ISOSORBIDE MONO EXTENDED REL 60 MG TABCR PO SCH (08:03)
[2019-06-18] MEDS: DOXYCYCLINE HYCLATE 100 MG CAP PO SCH (08:03)
[2019-06-18] MEDS: PANTOprazole 40 MG TAB PO SCH (08:03)
[2019-06-18] MEDS: FLUTICASONE PROPIONATE NA SPR 16 GM BTL SCH (08:03)
[2019-06-18] MEDS: IPRATROPIUM BROMIDE/ALBUTEROL respimat INH INH PRN (08:03)
[2019-06-18] MEDS: OMEGA-3 (PURIFIED FISH OIL) 1 GM CAP PO SCH (08:03)
[2019-06-18] MEDS: ASPIRIN 81 MG ECTAB PO SCH (08:04)
--- NOTE | 2019-06-18 08:40 | Cardiology Progress Note ---
Date of Service June 18, 2019 Assessment & Plan (1) Chest pain: 2. Coronary artery disease--NSTEMI 06/2017 post GILDARDO to distal RCA; residual branch vessel disease 3. Recurrent chest painthought secondary to coronary vasospasm/hypertrophic physiology. 4. Dyslipidemia--on high intensity statin 5. Moderate concentric LVH 6. Dyslipidemia 7. Suspected chronic venous insufficiency 8. GERD Presenting chest/jaw pain improved. Do not feel related to ACS. Again suspect secondary to vasopasm/hypertrophic physiology. Trigger of symptoms unclear, ? reflux, dehydration (LE edema from CVI --> to PRN diuretics --> to hypovolemia and symptoms). From a cardiac standpoint OK for discharge today. Home on: -- increased diltiazem 240mg daily -- continue imdur 180mg daily -- continue home ASA/clopidogrel and statin -- consider trial of temporary BID PPI -- avoid dehydartion -- will evaluate for venous insufficiency and possible endovenous ablation as an outpatient. -- Follow-up with me in 1 month. Subjective Feeling better today. Jaw pain resolved with up walking to bathroom today. Still with mild belching with sitting up. Tele reviewed - sinus 50-70s, no events. LE duplex - negative for DVT Review of Systems Review of Systems: All systems reviewed & are unremarkable except as noted in HPI & below Physical Exam Constitutional: well developed and well nourished; no acute distress Eyes: + anicteric sclerae Respiratory: normal respiratory effort, lungs clear to auscultation Cardiovascular: Rate/Rhythm: regular rate Heart Sounds: + murmur (2/6 systolic at RUSB) Vessels: no JVD Extremities: + varicosities; no edema Gastrointestinal (Abdomen): Percussion/Palpation: abdomen soft; abdomen nontender Skin: no rashes, warm and dry Neurologic: moves all extremities; no focal motor deficits Psychiatric: A+Ox3, euthymic affect Results & Data Vital Signs (Past 12 Hours) Vital Signs Temp Pulse Pulse Resp BP Pulse Ox 06/18/19 07:00 36.8 C 68 16 118/64 93 06/18/19 04:00 36.5 C 62 16 119/58 L 97 06/18/19 00:11 70 06/17/19 23:03 36.8 C 68 18 120/61 96 PG Care Time/CCT Total # of Minutes Spent Total Time Spent with Patient: Total time spent is greater than 50% in coordination of care (as documented) at patient's floor/unit and/or counseling patient:
[2019-06-18] MEDS ORDERED: dilTIAZem HCL 240 MG CAPCR PO SCH (09:00)
--- NOTE | 2019-06-18 14:53 | Discharge Summary ---
Date of Service June 18, 2019 Admission HPI Per Admitting Provider Mrs. Tucker is a 48-year-old female with a significant PMH for coronary artery disease status post NSTEMI with distal RCA GILDARDO 06/21/2017, dyslipidemia, HTN, obesity, former tobacco use, mild carotid artery stenosis, peripheral arterial disease, Sjogren's, YUSUF, GERD who presents to [facility] ED secondary to chest pain x2 hours. 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 Symptoms lasted until arrival to ED where she was administered sublingual nitro and symptoms resolved. Pain rated 5/10. She further had associated diaphoresis and nausea. Symptoms improved with rest, but nothing made them worse. Sx similar to prior presentation of angina and NSTEMI. Pt overall very frustrated due to have similar presentations in past. Up until today she overall been doing well. Taking medications as prescribed. No significant weight gain. Denies any recent illness, fever, chills, sweats, ligh theadedness, dizziness, syncope, shortness breath at rest, hemoptysis, nausea, vomiting, diarrhea, change in bowel or urinary habits. Patient's cardiac history dates back to 06/21/2017 when she presented to [facility] acutely complaining of chest pain, jaw pain, diaphoresis. She was diagnosed with an NSTEMI and initial troponin elevation of 4.76. She underwent cardiac cath and had acute distal RCA occlusion and was treated with single drug-eluting stent. Most recently patient was readmitted to [facility] in 08/2018 with similar presenting chest pain. She had mild troponin elevation of 0.34. She underwent repeat cardiac catheterization which showed patent RCA stent. Further noted to have severe branch vessel disease involving small right PDA and second diagonal. This is unfortunately too small to undergo intervention. She was therefore managed medically. She presented to outpatient cardiology office in November 2018 with again similar symptoms but unchanged EKG or troponin. She was admitted to hospital for further observation and initiated on diltiazem. Cardiology has been managing her medically. She follows [facility] cardiology. Principal Diagnosis Chest pain/angina symptoms/possible secondary to coronary artery spasm/no evidence of KS or heart attack Discharge Data Allergies Allergy/AdvReac Type Severity Reaction Status Date / Time Penicillins Allergy Mild Hives Verified 06/16/19 15:01 Consultations 06/16/19 16:26 ED Decision to Admit Stat 06/16/19 18:16 Consult Cardiology Routine Ordered Studies 06/17/19 16:39 US venous doppler LE RT Routine Hospital Course (1) Chest pain: Presented with recurrent anginal symptom Appreciate input from cardiology Recurrent chest heaviness, radiating to jaw, possible attributed to coronary vasospasm Patient's EKG does not show evidence of acute ischemia Resting echo done, which is on changed from a prior echo done on November 2018 No evidence of acute coronary event Patient's troponin remains mildly elevated then plateaued: Which has been chronic -noted in her previous admissions Dr. Stafford: Cardiology recommends to increase patient's diltiazem to 240 mg daily Continue current dose of Imdur Patient will be continued with her previous dose of aspirin Plavix and high intensity statin No further cardiac testing needed at this time Able to be discharged home today Prescription for increased dose of Cardizem/diltiazem to 40 mg daily sent to [facility] Outpatient follow-up with cardiology as scheduled (2) CAD (coronary artery disease): History of coronary artery disease status post NSTEMI with distal RCA GILDARDO 06/21/2017, EKG unchanged, troponin chronically elevated -chronic hemodynamically stable Supple coronary vasospasm with known distal RCA disease Resting echo done, unchanged from prior finding in November 2018 Echo: 1. Normal LV size, moderate concentric LVH. 2. LV ejection fraction 65-70% mild inferior base hypokinesis 3. Normal RV size and 4. No significant valvular pathology. 5. Normal estimated RA and PA pressures per 6. Grade 2 diastolic dysfunction. 7. Compared with prior study on 11/13/2018: No significant change Appreciate input from cardiology Diltiazem dose increased as outlined above Patient will continue her outpatient cardiac regimen of ASA, statin, Plavix, , Imdur (3) Hypertension: blood pressure acceptable on lisinopril, diltiazem, imdur (4) Dyslipidemia: continue high intensity statin, zetia (5) PVD (peripheral vascular disease): Hx of distal aortic stent 03/28/2018 with chronic mild lower extremity dependent edema continue high dose statin, ASA, plavix (6) Pre-diabetes: In setting of CAD/PVD recommend dietary and lifestyle modifications for disease prevention A1C 6.3 (7) YUSUF (obstructive sleep apnea): CPAP at HS (8) GERD (gastroesophageal reflux disease): continue PPI and [id number], sx controlled (9) DVT prophylaxis: SCD/TEDS Disposition: She does not have any chest discomfort, no radiating pain to the jaw Right behind knee pain much improved after starting with Flexeril Lower extremity Doppler negative for DVT Stable to be discharged home today Follow up: Hospital follow-up scheduled with patient's family physician at [facility] with Dr. Kay on 06/21/2019 at 1:55 PM Cardiology follow-up with Dr. Kole Stafford as per schedule Total Time Total Time Spent Total Time Spent (In Minutes): Approximately 35 minutes Total Time Includes: Examination of the Patient, Discharge Planning and Medication Reconciliation Discharge Plan Discharge Items Patient Disposition: Home - Self-Care Reason For Visit: CHEST PAIN Discharge Diagnosis: Chest pain/angina symptoms/possible secondary to coronary artery spasm/no evidence of KS or heart attack Discharge Goals: Decrease discomfort and Diagnostic testing Activity: Resume your previous activity Non-emergency contact: Primary Care Provider Call non-emergency contact if: you have any medication questions Follow-up/Referrals: Rashawn Witt MD [Primary Care Provider] - 06/21/19 1:55 pm (Hospital follow-up with Dr[facility] Elieser [facility] at [facility] on 06/21/2019 at 1:55 PM) Diet: Heart Healthy Addtl Provider Instructions: Hospital follow-up with Dr. Elieser Kay(Dr. Price's schedule is full) on 06/21/2019 at 1:55 PM Please follow-up with cardiology Dr. Stafford as per schedule MEDICATION CHANGE: Diltiazem dose increased to 240 mg daily(was on 180 mg daily) Prescriptions: New diltiazem HCl 240 mg Capsule,Extended Release 24hr 240 mg PO QAM 30 Days Qty: 30 RF: 3 cyclobenzaprine 10 mg tablet 10 mg PO Q8H PRN (Reason: muscle spasm) Qty: 60 RF: 0 Continued atorvastatin 80 mg tablet 80 mg PO QPM RF: 0 ranitidine HCl 300 mg tablet 300 mg PO HS RF: 0 clopidogrel 75 mg tablet 75 mg PO QAM RF: 0 aspirin 81 mg tablet,delayed release (DR/EC) 81 mg PO QAM RF: 0 pantoprazole 40 mg tablet,delayed release (DR/EC) 40 mg PO QAM RF: 0 azelastine 137 mcg (0.1 %) aerosol,spray 2 spray Intranasal QAM RF: 0 fluticasone propionate 50 mcg/actuation spray,suspension 2 spray Intranasal QAM RF: 0 ezetimibe 10 mg tablet 10 mg PO QPM RF: 0 nitroglycerin 0.4 mg tablet, sublingual 0.4 mg Sublingual DIRECTED PRN (Reason: Chest Pain) RF: 0 furosemide [Lasix] 20 mg Tablet 20 mg PO DAILY PRN (Reason: Edema) RF: 0 Combivent Respimat 20-100 mcg/actuation Mist 1 puff Inhalation QID PRN (Reason: Shortness Of Breath Or Wheezing) RF: 0 isosorbide mononitrate 60 mg tablet extended release 24 hr 180 mg PO QAM RF: 0 omega 4-wex-vml-fish oil [Fish Oil] 1,000 mg (120 mg-180 mg) Capsule 1 cap PO BID RF: 0 Discontinued doxycycline monohydrate 100 mg capsule 100 mg PO BID RF: 0 diltiazem HCl 120 mg tablet 120 mg PO QAM RF: 0 Stand-Alone Forms: [facility] [employer] [facility]/Other Patient Handouts: A1C, Prediabetes, Diabetes Resources, Diabetes Healthy Meals, Diabetes Carbs, Diabetes Exercise Benefits, Diabetes Exercise Get Started, Diabetes Activity Tips Discharge Orders: Discharge Order (Routine); Ordered 06/18/19 Ordered By: Iman Bauer Admission Data Admit Date/Time: 06/16/19 17:08 Attending Provider: Iman Bauer Admit Provider: Iman Bauer Primary Care Provider: Rashawn Witt Other Providers: Daniel Mathew Ayesha H. Service: Telemetry Other Interventions: Discharge Summary Assessment (RN) Last Done: 06/18/19 13:41 DC Date/Time DO NOT enter until pt leaves facility: 06/18/19 14:32
== END 2019-06-18 14:32 | disposition home or self-care (01) ==
LOC: 2E 14:13 → ED 14:13 → 2E 18:06

== ENCOUNTER 2020-06-25 15:39 | Observation (INO) ==
[2020-06-25] MEDS ORDERED: ASPIRIN CHEW 324 MG PO STA (15:58)
--- NOTE | 2020-06-25 16:03 | Emergency Department Note ---
Impression & Plan Chest pain, Hypertension, CAD (coronary artery disease), Elevated troponin ED Provider Note NAME: JUSTINA RODRIGUEZ AGE: 50 SEX: F : 1970 ARRIVES VIA: Walk-In INFORMANT: Patient ED PROVIDER(S): Alex Juarez DO CHIEF COMPLAINT: Jaw pain HPI: Patient is a 48-year-old female with a past medical history of 2 previous MIs who presents the ER for left-sided jaw pain. She notes that the jaw pain started last night at 8 PM. Has been off and on and improved but is still present. Improved last night with nitro. She notes this feels exactly her previous 2 previous MIs with the jaw pain. She never had any chest pain with the 2 previous heart attacks but only jaw pain. She does admit to nausea and upset stomach. Denies any dysuria urgency or frequency. Intermittently will take a deep breath. She also has some left shoulder pain but notes that she just recently had a vaccine. No other exacerbating or remitting factors at this point. ROS: See above HPI for pertinent positives & negatives. A total of 10 systems reviewed and were otherwise negative. PAST MEDICAL HISTORY:See Below PAST SURGICAL HISTORY:See Below FAMILY HISTORY:See Below SOCIAL HISTORY:See Below HOME MEDICATIONS:See Below ALLERGIES:See Below VITALS:See Below PHYSICAL EXAMINATION: GENERAL: Sitting up in bed, alert, well appearing, well nourished, no distress, non-toxic EYE EXAM: normal conjunctiva. PERRL and EOM's grossly intact. OROPHARYNX: no exudate, no erythema, lips, buccal mucosa, and tongue normal and mucous membranes are moist NECK: supple, no nuchal rigidity, no adenopathy, non-tender LUNGS: Clear to auscultation. Normal chest wall mechanics HEART: no murmurs, S1 normal and S2 normal ABDOMEN: abdomen soft, non-tender, normo-active bowel sounds, no masses, no rebound or guarding. BACK: Back is symmetrical on inspection and there is no deformity, no midline tenderness, no CVA tenderness. SKIN: no rashes and no bruising UPPER EXTREMITIES: upper extremities are grossly normal. LOWER EXTREMITIES: No pitting edema. NEURO EXAM: Normal sensorium, cranial nerves II-XII grossly intact, normal speech, no gross weakness of arms, no gross weakness of legs. MEDICAL DECISION MAKING: Patient is a 50-year-old female with past medical history of VT, vasospasm who follows with Dr. Stafford. She presents the ER for neck pain/jaw pain. This consistent with her previous MIs. IV was established blood work was obtained. Initial EKG showed no acute ischemia. Labs show no significant leukocytosis or anemia. INR was unremarkable. BMP with a slightly elevated chloride. LFTs were unremarkable. Troponin was +0.095 which is actually less than her previous troponins as I do believe that she has a chronically elevated troponin. Lipase was normal. Chest x-ray was unremarkable. Repeat EKG was unchanged. Patient was updated bedside. Discussed with interventional cardiology who agreed with trending troponins as an inpatient holding on heparin at this time. To the hospitalist for further evaluation. Triage Nursing notes reviewed. Prior medical records reviewed Vital Signs: reviewed and remarkable for HTN Differential diagnosis: Differential diagnoses includes but is not limited to acute coronary syndrome, myocardial infarction, pericarditis, pulmonary embolus, aortic dissection, pneumonia, pneumothorax, musculoskeletal, shingles, esophageal. ER treatment provided: See below Diagnostics interpreted by me: ECG: Sinus rhythm rate of 60 Normal axis No PVCs Normal QTC EKG #2 Sinus rhythm rate [address] wave changes in the inferior leads Normal QTC No significant change from previous Cardiac Monitoring: An order was placed for continuous cardiac monitoring. The monitor shows a rate of 70 with sinus rhythm. Laboratory studies: As stated above and show below. Imaging studies: See below Consultation(s): Discussed with Dr. Stafford who agrees that this patient has a chronically elevated troponin and an extensive cardiac history including vasospasm and CAD. Agrees with holding on heparin at this time as troponin is lower than typical baseline and trending troponins from an inpatient. ED COURSE: Procedures: none Critical Care: None Past Med/Surg History Medical History (Updated 06/25/20 @ 19:56 by Alex Juarez DO) Arthritis Asthma stable CAD (coronary artery disease) stent x1 to RCA (06/2017) Chronic obstructive pulmonary disease stable Chronic venous insufficiency GERD (gastroesophageal reflux disease) controlled Hyperlipidemia Hypertension Myocardial Infarction 06/2017 (stent x1 to RCA), second VT 08/2018- follows with Dr. Stafford/[facility] [place] cardiology YUSUF (obstructive sleep apnea) CPAP Pre-diabetes A1C 6.0 08/28/18 PVD (peripheral vascular disease) Sjogrens syndrome Surgical History History of adenoidectomy History of arthroscopy RT KNEE History of cardiac cath X3 TOTAL 06/2017- STENT TO RCA X 1 PLACED- [facility] 08/2018= NO STENTS-[place] History of carpal tunnel release BILAT History of colonoscopy History of dilatation and curettage History of procedure for peripheral vascular disease DISTAL AORTIC STENT/BALLOON ANGIOPLASTY (03/2018)- FOLLOWS WITH [facility] History of sinus surgery ENDOSCOPIC SINUS SURGERY= 04/07/14= GRADE 2 VIEW, MAC 3, ETT 7.0 AT [facility] History of tonsillectomy S/P trigger finger release multiple Status post aortic coarctation stent placement 03/2018 in [place] - for circulation in legs Status post endovenous radiofrequency ablation (RFA) of saphenous vein bilateral Status post myringotomy with insertion of tube Right Myringotomy with Tube (Right): 08/29/19: [place]#4 [place] [facility] [place] History Grandmother Coronary heart disease Diabetes Social History Smoking Status: Former smoker Tobacco Type: Cigarettes Age Started Using Tobacco: 16; packs per day: 1; Number of Years Since Quit: 2; Second Hand Exposure: No; Hx Alcohol Use: No Hx Substance Use: No Preferred Language: [place] Communication Ability: Effective Visual Impairment: No Limitations Lidar Technician Required: No Beliefs That Will Affect Care: None marital status: Current Living Situation: Spouse current occupational status: employed Feels Safe at Home: Yes Allergies Allergies Allergy/AdvReac Type Severity Reaction Status Date / Time pollen extracts Allergy Intermediate itchy Verified 06/25/20 17:05 eyes, sneezing, congestion Penicillins Allergy Mild Hives Verified 06/25/20 17:05 octyl 2-cyanoacrylate AdvReac rash Verified 06/25/20 17:05 Home Meds Home Medications Medication Instructions Recorded Confirmed azelastine 2 spray INTRANASAL QAM 08/27/18 06/25/20 fluticasone propionate 2 spray INTRANASAL QAM 08/27/18 06/25/20 nitroglycerin 0.4 mg SUBLINGUAL DIRECTED PRN 08/27/18 06/25/20 pantoprazole 40 mg PO QAM 08/27/18 06/25/20 omega 6-xwk-lnx-fish oil [Fish Oil] 1 cap PO BID 03/05/19 06/25/20 cyclosporine 0.05 % eye drops in a 1 drops OPB BID PRN ea 08/16/19 06/25/20 dropperette hydroxychloroquine 200 mg tablet 200 mg PO BID tab 08/16/19 06/25/20 lorazepam 0.5 mg tablet 0.5 mg PO BID PRN #180 tab 08/16/19 06/25/20 meclizine 12.5 mg tablet 12.5 mg PO TID PRN #270 tab 08/16/19 06/25/20 levalbuterol tartrate 1 puff INHALATION Q4H PRN 08/22/19 06/25/20 clopidogrel [Plavix] 75 mg PO QAM 12/16/19 06/25/20 aspirin 81 mg PO QAM 12/26/19 06/25/20 famotidine 40 mg tablet 40 mg PO QAM 04/16/20 06/25/20 levocetirizine [Xyzal] 5 mg PO QAM 05/27/20 06/25/20 acetaminophen [Tylenol] 650 mg PO QID PRN 06/25/20 06/25/20 Previous Rx's Medication Instructions Recorded cyclobenzaprine 10 mg PO Q8H PRN #60 tab 06/18/19 atorvastatin 80 mg tablet 80 mg PO HS #90 tab 09/02/19 ezetimibe 10 mg tablet 10 mg PO HS #30 tab 01/28/20 diltiazem HCl 360 mg 360 mg PO QAM 90 Days #90 cap 04/19/20 capsule,extended release 24 hr isosorbide mononitrate 60 mg 300 mg PO QAM #150 tab 04/20/20 tablet,extended release 24 hr furosemide 20 mg tablet 20 - 40 mg PO QAM #30 tab 05/29/20 Results & Data (ED) Vital Signs Vital Signs - 24 hr 06/25/20 15:42 06/25/20 16:04 06/25/20 16:10 Temperature 36.7 C Temperature Source Oral Pulse Rate 70 73 64 Pulse Rate [Apical] Pulse Rate from SpO2 Sensor Pulse Rhythm Regular Respiratory Rate 18 22 15 Respiratory Effort / Characteristics Non-Labored Spontaneous Respiratory Depth Normal Respiratory Pattern Regular Blood Pressure 149/82 H Blood Pressure [Left Arm] Blood Pressure Mean 104 Blood Pressure Mean [Left Arm] Blood Pressure Position Sitting Pulse Oximetry 95 Oxygen Delivery Method Room Air Sepsis Recent Fever Within 48 Hours No Sepsis New/Unexplained Change in Mental Status N/A Sepsis Action Taken by Nursing No Action Required 06/25/20 16:19 06/25/20 16:20 06/25/20 16:25 Temperature Temperature Source Pulse Rate 65 66 Pulse Rate [Apical] 66 Pulse Rate from SpO2 Sensor 68 Pulse Rhythm Respiratory Rate 22 14 Respiratory Effort / Characteristics Respiratory Depth Respiratory Pattern Blood Pressure 140/78 Blood Pressure [Left Arm] 140/78 Blood Pressure Mean 94 Blood Pressure Mean [Left Arm] 98 Blood Pressure Position Pulse Oximetry 97 95 Oxygen Delivery Method Room Air Room Air Sepsis Recent Fever Within 48 Hours Sepsis New/Unexplained Change in Mental Status Sepsis Action Taken by Nursing 06/25/20 16:30 06/25/20 16:40 06/25/20 16:50 Temperature Temperature Source Pulse Rate 70 64 66 Pulse Rate [Apical] Pulse Rate from SpO2 Sensor 69 63 66 Pulse Rhythm Respiratory Rate 19 20 16 Respiratory Effort / Characteristics Respiratory Depth Respiratory Pattern Blood Pressure Blood Pressure [Left Arm] Blood Pressure Mean Blood Pressure Mean [Left Arm] Blood Pressure Position Pulse Oximetry 92 93 94 Oxygen Delivery Method Sepsis Recent Fever Within 48 Hours Sepsis New/Unexplained Change in Mental Status Sepsis Action Taken by Nursing 06/25/20 17:00 06/25/20 17:10 06/25/20 17:20 Temperature Temperature Source Pulse Rate 64 65 78 Pulse Rate [Apical] Pulse Rate from SpO2 Sensor 63 69 77 Pulse Rhythm Respiratory Rate 19 15 21 Respiratory Effort / Characteristics Respiratory Depth Respiratory Pattern Blood Pressure Blood Pressure [Left Arm] Blood Pressure Mean Blood Pressure Mean [Left Arm] Blood Pressure Position Pulse Oximetry 92 91 98 Oxygen Delivery Method Sepsis Recent Fever Within 48 Hours Sepsis New/Unexplained Change in Mental Status Sepsis Action Taken by Nursing 06/25/20 17:30 06/25/20 17:40 06/25/20 17:50 Temperature Temperature Source Pulse Rate 73 60 64 Pulse Rate [Apical] Pulse Rate from SpO2 Sensor 72 60 65 Pulse Rhythm Respiratory Rate 22 18 18 Respiratory Effort / Characteristics Respiratory Depth Respiratory Pattern Blood Pressure Blood Pressure [Left Arm] Blood Pressure Mean Blood Pressure Mean [Left Arm] Blood Pressure Position Pulse Oximetry 98 96 94 Oxygen Delivery Method Sepsis Recent Fever Within 48 Hours Sepsis New/Unexplained Change in Mental Status Sepsis Action Taken by Nursing 06/25/20 18:00 06/25/20 18:10 06/25/20 18:20 Temperature Temperature Source Pulse Rate 71 63 66 Pulse Rate [Apical] Pulse Rate from SpO2 Sensor 70 64 67 Pulse Rhythm Respiratory Rate 21 23 18 Respiratory Effort / Characteristics Respiratory Depth Respiratory Pattern Blood Pressure Blood Pressure [Left Arm] Blood Pressure Mean Blood Pressure Mean [Left Arm] Blood Pressure Position Pulse Oximetry 97 97 97 Oxygen Delivery Method Sepsis Recent Fever Within 48 Hours Sepsis New/Unexplained Change in Mental Status Sepsis Action Taken by Nursing 06/25/20 18:21 06/25/20 18:30 06/25/20 18:40 Temperature Temperature Source Pulse Rate 74 73 67 Pulse Rate [Apical] Pulse Rate from SpO2 Sensor 68 Pulse Rhythm Respiratory Rate 18 16 18 Respiratory Effort / Characteristics Respiratory Depth Respiratory Pattern Blood Pressure 196/108 H Blood Pressure [Left Arm] Blood Pressure Mean 151 Blood Pressure Mean [Left Arm] Blood Pressure Position Pulse Oximetry 96 Oxygen Delivery Method Sepsis Recent Fever Within 48 Hours Sepsis New/Unexplained Change in Mental Status Sepsis Action Taken by Nursing 06/25/20 18:50 Temperature Temperature Source Pulse Rate 0 L Pulse Rate [Apical] Pulse Rate from SpO2 Sensor Pulse Rhythm Respiratory Rate 16 Respiratory Effort / Characteristics Respiratory Depth Respiratory Pattern Blood Pressure Blood Pressure [Left Arm] Blood Pressure Mean Blood Pressure Mean [Left Arm] Blood Pressure Position Pulse Oximetry Oxygen Delivery Method Sepsis Recent Fever Within 48 Hours Sepsis New/Unexplained Change in Mental Status Sepsis Action Taken by Nursing Laboratory Data Result diagrams: 06/25/20 16:15 06/25/20 16:15 Lab Results 06/25/20 06/25/20 06/25/20 Range/Units 16:15 16:15 16:15 WBC 9.48 (4.8-10.8) K/uL RBC 4.63 (4.2-5.4) M/uL Hgb 13.1 (12.0-16.0) g/dL Hct 38.5 (37-47) % MCV 83.2 (80-100) fL MCH 28.3 (25-34) pg MCHC 34.0 (32-36) g/dL RDW Std Deviation 44.3 (36.4-46.3) fL RDW Coeff of Clifford 14.6 H (11.5-14.5) % Plt Count 230 (130-400) K/uL MPV 10.5 H (7.4-10.4) fL Immature Gran % (Auto) 0.2 % Neut % (Auto) 63.5 % Lymph % (Auto) 27.3 % [place] % (Auto) 7.2 % Eos % (Auto) 1.7 % Baso % (Auto) 0.1 % Neut # (Auto) 6.02 (1.4-6.5) K/uL Lymph # (Auto) 2.59 (1.2-3.4) K/uL [place] # (Auto) 0.68 H (0.11-0.59) K/uL Eos # (Auto) 0.16 (0-0.5) K/uL Baso # (Auto) 0.01 (0-0.2) K/uL Immature Gran # (Auto) 0.02 (0.00-0.02) K/uL PT 10.4 (9.0-12.0) Seconds INR 1.0 (0.9-1.1) APTT 29.1 (21.0-31.0) Seconds PTT Ratio 1.0 Sodium 139 (136-145) mmol/L Potassium 3.6 (3.5-5.1) mmol/L Chloride 109 H (98-107) mmol/L Carbon Dioxide 21 (21-32) mmol/L Anion Gap 9.0 (3-11) BUN 18 (7-18) mg/dl Creatinine 0.99 (0.6-1.2) mg/dl Est Cr Clr Drug Dosing 86.1 ml/min Est GFR ( Amer) 75.9 Est GFR (Non-Af Amer) 65.5 BUN/Creatinine Ratio 17.7 (10-20) Glucose 135 H (70-99) mg/dl Calcium 9.3 (8.5-10.1) mg/dl Total Bilirubin 0.4 (0.2-1) mg/dl AST 14 L (15-37) U/L ALT 25 (12-78) U/L Alkaline Phosphatase 112 (45-117) U/L Troponin I 0.095 H* (0-0.045) ng/ml Total Protein 7.9 (6.4-8.2) gm/dl Albumin 3.5 (3.4-5.0) gm/dl Globulin 4.4 H (2.5-4.0) gm/dl Albumin/Globulin Ratio 0.8 L (0.9-2) Lipase 120 (73-393) U/L Administered Medications Discontinued Medications Aspirin (Aspirin Chew 324 Mg) 324 mg PO NOW STA Stop: 06/25/20 15:59 Last Admin: 06/25/20 16:07 Dose: 324 mg Documented by: [id number] Heparin Sodium (Porcine) (Heparin Sod 5,000 Unit/0.5 Ml Vial) Confirm A dministered Dose 5,000 units .ROUTE .STK-MED ONE Stop: 06/25/20 19:23 Last Admin: 06/25/20 19:27 Dose: 5,000 units Documented by: [id number] Cosigned by: [id number] Heparin Sodium/Dextrose (Heparin Iv Standard With Bolus) 1 ea IV Q10M [facility]; Protocol Stop: 06/25/20 19:38 Last Admin: 06/25/20 19:41 Dose: Not Given Documented by: [id number] Admin: 06/25/20 19:41 Dose: Not Given Documented by: [id number] Admin: 06/25/20 19:41 Dose: Not Given Documented by: [id number] Admin: 06/25/20 19:41 Dose: Not Given Documented by: [id number] Heparin Sodium/Dextrose (Heparin 55036 Unit/500 Ml D5w) Confirm Administered Dose 25,000 units IV .STK-MED ONE Stop: 06/25/20 19:21 Last Admin: 06/25/20 19:36 Dose: 1,450 units Documented by: [id number] Cosigned by: [id number] Nitroglycerin (Nitroglycerin Sl 0.4 Mg/Tab Tab) 0.4 mg SL PRN PRN PRN Reason: Allergic Reaction Stop: 07/25/20 15:57 Last Admin: 06/25/20 16:30 Dose: 0.4 mg Documented by: [id number] Admin: 06/25/20 16:23 Dose: 0.4 mg Documented by: [id number] Admin: 06/25/20 16:07 Dose: 0.4 mg Documented by: [id number] Discharge Plan Visit Data Chief Complaint: Cardiac Assessment Stated Complaint: CARDIAC Hx, JAW PAIN, L SHOULDER PAIN ED Provider: Alex Juarez Discharge Problem: Chest pain, Hypertension, CAD (coronary artery disease), Elevated troponin Discharge Instructions Interventions: ED Discharge Assessment Last Done: 06/25/20 19:48 Forms Stand Alone Forms: My [facility] [address] Prescriptions Prescriptions: No Action atorvastatin 80 mg tablet 80 mg PO HS Qty: 90 RF: 3 ezetimibe 10 mg tablet 10 mg PO HS Qty: 30 RF: 11 furosemide [Lasix] 20 mg tablet 20 - 40 mg PO QAM Qty: 30 RF: 11 lorazepam 0.5 mg tablet 0.5 mg PO BID PRN (Reason: Anxiety) Qty: 180 RF: 0 meclizine 12.5 mg tablet 12.5 mg PO TID PRN (Reason: Vertigo) Qty: 270 RF: 0 hydroxychloroquine 200 mg tablet 200 mg PO BID RF: 0 cyclosporine 0.05 % dropperette 1 drops OPB BID PRN (Reason: Eye Irritation) RF: 0 famotidine 40 mg tablet 40 mg PO QAM RF: 0 diltiazem HCl 360 mg capsule,extended release 24hr 360 mg PO QAM 90 Days Qty: 90 RF: 3 isosorbide mononitrate 60 mg tablet extended release 24 hr 300 mg PO QAM Qty: 150 RF: 3 pantoprazole 40 mg tablet,delayed release (DR/EC) 40 mg PO QAM RF: 0 azelastine 137 mcg (0.1 %) aerosol,spray 2 spray Intranasal QAM RF: 0 fluticasone propionate 50 mcg/actuation spray,suspension 2 spray Intranasal QAM RF: 0 nitroglycerin 0.4 mg tablet, sublingual 0.4 mg Sublingual DIRECTED PRN (Reason: Chest Pain) RF: 0 levocetirizine [Xyzal] 5 mg Tablet 5 mg PO QAM RF: 0 cyclobenzaprine 10 mg tablet 10 mg PO Q8H PRN (Reason: muscle spasm) Qty: 60 RF: 0 clopidogrel [Plavix] 75 mg tablet 75 mg PO QAM RF: 0 aspirin 81 mg tablet,delayed release (DR/EC) 81 mg PO QAM RF: 0 omega 8-ajw-ozl-fish oil [Fish Oil] 1,000 mg (120 mg-180 mg) Capsule 1 cap PO BID RF: 0 levalbuterol tartrate 45 mcg/actuation HFA aerosol inhaler 1 puff inhalation Q4H PRN (Reason: Shortness Of Breath) RF: 0 acetaminophen [Tylenol] 325 mg Tablet 650 mg PO QID PRN (Reason: Fever Or Pain) RF: 0 Referrals Referrals: Rashawn Witt MD [Primary Care Provider] - Discharge Problem: Chest pain Qualifiers: Chest pain type: unspecified Qualified Code(s): R07.9 - Chest pain, unspecified Hypertension Qualifiers: Hypertension type: unspecified Qualified Code(s): I10 - Essential (primary) hypertension CAD (coronary artery disease) Qualifiers: Coronary Disease-Associated Artery/Lesion type: unspecified vessel or lesion type [place] vs. transplanted heart: unspecified whether [place] or transplanted heart Associated angina: angina presence unspecified Qualified Code(s): I25.10 - Atherosclerotic heart disease of [place] coronary artery without angina pectoris
[2020-06-25] MEDS: NITROGLYCERIN SL 0.4 MG/TAB TAB SL PRN ×3 (16:07→16:30)
--- NOTE | 2020-06-25 16:24 | XRay Report ---
XR chest 1V portable HISTORY: 50 years-old Female Chest Pain acute nausea with atypical chest pain COMPARISON: Chest radiograph 12/17/2019 TECHNIQUE: Portable AP view of the chest FINDINGS: Cardiomediastinal and hilar silhouettes are within normal limits. There is no pneumothorax, pleural e ffusion, airspace consolidation or overt pulmonary edema. Bones of the chest appear grossly intact. IMPRESSION: No acute process. ACT 112: Negative or not required by law. The above report was generated using voice recognition software. It may contain grammatical, syntax o r spelling errors. Electronically signed by: Last Bhandari M.D. 06/25/2020 4:23 PM
[2020-06-25 16:26] LABS: Basophils # (auto) 0.01 K/uL (0-0.2); Basophils % (auto) 0.1 %; Eosinophils # (auto) 0.16 K/uL (0-0.5); Eosinophils % (auto) 1.7 %; Hematocrit (blood only) 38.5 % (37-47); Hemoglobin 13.1 g/dL (12.0-16.0); Immature Granulocytes # (auto) 0.02 K/uL (0.00-0.02); Immature Granulocytes % (auto) 0.2 %; Lymphocytes # (auto) 2.59 K/uL (1.2-3.4); Lymphocytes % (auto) 27.3 %; Mean Corpuscular Hemoglobin 28.3 pg (25-34); Mean Corpuscular Volume 83.2 fL (80-100); Mean Platelet Volume 10.5 fL (7.4-10.4); Monocytes # (auto) 0.68 K/uL (0.11-0.59); Monocytes % (auto) 7.2 %; Neutrophils # (auto) 6.02 K/uL (1.4-6.5); Neutrophils % (auto) 63.5 %; Platelet Count 230 K/uL (130-400); RDW Coefficient of Variation 14.6 % (11.5-14.5); RDW Standard Deviation 44.3 fL (36.4-46.3); Red Blood Count 4.63 M/uL (4.2-5.4); White Blood Count 9.48 K/uL (4.8-10.8)
[2020-06-25 16:39] LABS: Partial Thromboplastin Time 29.1 Seconds (21.0-31.0); Prothrombin Time 10.4 Seconds (9.0-12.0)
[2020-06-25 16:54] LABS: Albumin Level 3.5 gm/dl (3.4-5.0); BUN Creatinine Ratio 17.7 (10-20); Calcium 9.3 mg/dl (8.5-10.1); Creatinine Clr Calc Pharmacy 86.1 ml/min; Est GFR (African American) 75.9; Est GFR (Non-African American) 65.5; Potassium 3.6 mmol/L (3.5-5.1)
[2020-06-25 17:15] LABS: Bilirubin,Total 0.4 mg/dl (0.2-1); Globulin 4.4 gm/dl (2.5-4.0); Total Protein 7.9 gm/dl (6.4-8.2); Troponin I 0.095 ng/ml (0-0.045)
[2020-06-25 17:16] LABS: Albumin Globulin Ratio 0.8 (0.9-2)
--- NOTE | 2020-06-25 18:05 | History & Physical Report ---
Date of Service June 25, 2020 Assessment & Plan (1) Chest pain: (2) Elevated troponin: History of Myocardial Infarctions in the past and with drug eluting coronary stent -This is a patient with history of myocardial infarction in June 2017 with drug eluting stent and a second myocardial infarction in 2018. Patient also with known heart murmur. She was had chest discomfort of nausea and left sided pain radiating to her left jaw that started in evening on 06/24/2020 for which she took 2 nitro at home. She tried to go to sleep but did not get much rest. The left sided jaw pain persisted and she presented to the ED on 06/25/2020. Patient denies recent history of dental work. She denies problems with her breathing. She does not feel shortness of breath. no dizziness. no headache. no nausea. no vomiting. no changes in bowel movements or urination. no fevers. -Family history of father and sister with myocardial infractions -initial troponin in the ED is 0.09 and while this is above reference range of normal, this is the lowest troponin level compared to recent history of troponin levels drawn in the past when at [facility] -patient was given 324 mg of aspirin and nitro in the ED. Patient reports she had taken all her cardiac medications on day of presentation to the ED on 06/25/2020 -patient agreed to be started on heparin drip IV -monitor on telemetry, trend the troponins, echocardiogram ordered -cardiology consult requested, patient follows [facility] Cardiology Dr. Kole Stafford -allow for dinner on 06/25/2020 and then NPO after midnight -continue patient's home dose aspirin, clopidogrel, furosemide, diltiazem, cholesterol medications of atorvastatin and ezetimibe Gastroesophageal reflux disease -patient no longer taking famotidine because not available at her pharmacy -continue protonics as pantoprazole IV 40 mg BID while on heparin drip COPD (Chronic Obstructive Sleep Apnea), group B, by GOLD 2016 -patient reports she quit smoking for 3 years -will give duonebs prn as needed -patient asked to have family members bring in her home inhalers Obstructive Sleep Apnea on CPAP -patient uses CPAP at home qhs but does not know her CPAP settings Sjogren's syndrome -patient follows with rheumatology Dr. Hair -takes hydroxychloroquine 200 mg twice a day Full Code Status Daughter Nandini Tucker [phone] History of Present Illness -This is a patient with history of myocardial infarction in June 2017 with drug eluting stent and a second myocardial infarction in 2018. Patient also with known heart murmur. She was had chest discomfort of nausea and left sided pain radiating to her left jaw that started in evening on 06/24/2020 for which she took 2 nitro at home. She tried to go to sleep but did not get much rest. The left sided jaw pain persisted and she presented to the ED on 06/25/2020. Patient denies recent history of dental work. She denies problems with her breathing. She does not feel shortness of breath. no dizziness. no headache. no nausea. no vomiting. no changes in bowel movements or urination. no fevers. -Family history of father and sister with myocardial infractions -initial troponin in the ED is 0.09 and while this is above reference range of normal, this is the lowest troponin level compared to recent history of troponin levels drawn in the past when at [facility] -patient was given 324 mg of aspirin and nitro in the ED. Patient reports she had taken all her cardiac medications on day of presentation to the ED on 06/25/2020 Primary Care Provider: Rashawn Witt MD Allergies Allergy/AdvReac Type Severity Reaction Status Date / Time pollen extracts Allergy Intermediate itchy Verified 06/25/20 17:05 eyes, sneezing, congestion Penicillins Allergy Mild Hives Verified 06/25/20 17:05 octyl 2-cyanoacrylate AdvReac rash Verified 06/25/20 17:05 Home Medications Home Medications Medication Instructions Recorded Confirmed Type azelastine 2 spray INTRANASAL QAM 08/27/18 06/25/20 History fluticasone propionate 2 spray INTRANASAL QAM 08/27/18 06/25/20 History nitroglycerin 0.4 mg SUBLINGUAL DIRECTED PRN 08/27/18 06/25/20 History pantoprazole 40 mg PO QAM 08/27/18 06/25/20 History omega 7-jas-zqy-fish oil [Fish Oil] 1 cap PO BID 03/05/19 06/25/20 History cyclobenzaprine 10 mg PO Q8H PRN #60 tab 06/18/19 06/25/20 Rx cyclosporine 0.05 % eye drops in a 1 drops OPB BID PRN ea 08/16/19 06/25/20 History dropperette hydroxychloroquine 200 mg tablet 200 mg PO BID tab 08/16/19 06/25/20 History lorazepam 0.5 mg tablet 0.5 mg PO BID PRN #180 tab 08/16/19 06/25/20 History meclizine 12.5 mg tablet 12.5 mg PO TID PRN #270 tab 08/16/19 06/25/20 History levalbuterol tartrate 1 puff INHALATION Q4H PRN 08/22/19 06/25/20 History atorvastatin 80 mg tablet 80 mg PO HS #90 tab 09/02/19 06/25/20 Rx clopidogrel [Plavix] 75 mg PO QAM 12/16/19 06/25/20 History aspirin 81 mg PO QAM 12/26/19 06/25/20 History ezetimibe 10 mg tablet 10 mg PO HS #30 tab 01/28/20 06/25/20 Rx famotidine 40 mg tablet 40 mg PO QAM 04/16/20 06/25/20 History diltiazem HCl 360 mg 360 mg PO QAM 90 Days #90 cap 04/19/20 06/25/20 Rx capsule,extended release 24 hr isosorbide mononitrate 60 mg 300 mg PO QAM #150 tab 04/20/20 06/25/20 Rx tablet,extended release 24 hr levocetirizine [Xyzal] 5 mg PO QAM 05/27/20 06/25/20 History furosemide 20 mg tablet 20 - 40 mg PO QAM #30 tab 05/29/20 06/25/20 Rx acetaminophen [Tylenol] 650 mg PO QID PRN 06/25/20 06/25/20 History Past Med/Surg History Medical History (Updated 06/25/20 @ 18:21 by Luis Trinidad MD) Arthritis Asthma stable CAD (coronary artery disease) stent x1 to RCA (06/2017) Chronic obstructive pulmonary disease stable Chronic venous insufficiency GERD (gastroesophageal reflux disease) controlled Hyperlipidemia Hypertension Myocardial Infarction 06/2017 (stent x1 to RCA), second MD 08/2018- follows with Dr. Stafford/[facility] [place] YUSUF (obstructive sleep apnea) CPAP Pre-diabetes A1C 6.0 08/28/18 PVD (peripheral vascular disease) Sjogrens syndrome Surgical History History of adenoidectomy History of arthroscopy RT KNEE History of cardiac cath X3 TOTAL 06/2017- STENT TO RCA X 1 PLACED- [facility] 08/2018= NO STENTS-[facility] History of carpal tunnel release BILAT History of colonoscopy History of dilatation and curettage History of procedure for peripheral vascular disease DISTAL AORTIC STENT/BALLOON ANGIOPLASTY (03/2018)- FOLLOWS WITH [facility] History of sinus surgery ENDOSCOPIC SINUS SURGERY= 04/07/14= GRADE 2 VIEW, MAC 3, ETT 7.0 AT [facility] History of tonsillectomy S/P trigger finger release multiple Status post aortic coarctation stent placement 03/2018 in [place] - for circulation in legs Status post endovenous radiofrequency ablation (RFA) of saphenous vein bilateral Status post myringotomy with insertion of tube Right Myringotomy with Tube (Right): 08/29/19: LMA#4 atraumatic placement at [facility] Family History Grandmother Coronary heart disease Diabetes Social History Smoking Status: Former smoker Tobacco Type: Cigarettes Age Started Using Tobacco: 16; packs per day: 1; Number of Years Since Quit: 2; Second Hand Exposure: No; Hx Alcohol Use: No Hx Substance Use: No Preferred Language: Syriac Communication Ability: Effective Visual Impairment: No Limitations Answering Service Telephone Operator Required: No Beliefs That Will Affect Care: None marital status: Current Living Situation: Spouse current occupational status: employed Feels Safe at Home: Yes Physical Exam Constitutional: + obese Eyes: PERRL, conjunctivae normal, anicteric sclerae EOM intact bilaterally ENMT: external ear and nose normal, oropharynx normal Neck: trachea midline, no thyromegaly normal visual inspection Respiratory: normal respiratory effort, lungs clear to auscultation Cardiovascular: Rate/Rhythm: regular rate and regular rhythm Heart Sounds: + murmur Gastrointestinal (Abdomen): normal bowel sounds, soft, nontender, no hepatosplenomegaly Musculoskeletal: Head/Neck/Chest: normocephalic and head atraumatic Neurologic: PERRL, EOMI, accommodation nl, no face palsy, no dysarthria CN's II-XI intact bilaterally Psychiatric: A+Ox3, euthymic affect Results & Data Results & Data ([facility]) Vital Signs (Past 12 Hours) Vital Signs Temp Pulse Pulse Resp BP BP Pulse Ox 06/25/20 16:25 66 18 140/78 95 06/25/20 16:19 97 06/25/20 15:42 36.7 C 70 18 149/82 H 95
[2020-06-25] MEDS ORDERED: ACETAMINOPHEN 325 MG TAB PO PRN (18:08)
[2020-06-25] MEDS ORDERED: NITROGLYCERIN SL 0.4 MG/TAB TAB SL PRN (18:10)
[2020-06-25] MEDS ORDERED: ALBUT/IPRATROP 3MG/0.5MG NEB 3 ML VIAL NEB PRN (18:41)
[2020-06-25] MEDS ORDERED: HEPARIN SOD (PORCINE) 1000 UNIT/ML 10 ML VIAL ONE (19:20)
[2020-06-25] MEDS ORDERED: HEPARIN 25000 UNIT/500 ML D5W IV ONE (19:20)
[2020-06-25] MEDS: HEPARIN SOD 5,000 UNIT/0.5 ML VIAL ONE ×2 (19:25→19:27)
[2020-06-25] MEDS: HEPARIN SODIUM/DEXTROSE 25,000 UNITS/500 ML BAG IV SCH (20:52)
[2020-06-25] MEDS ORDERED: ATORVASTATIN 40 MG TAB PO SCH (21:00)
[2020-06-25] MEDS ORDERED: EZETIMIBE 10 MG TABLET PO SCH (21:00)
[2020-06-25] MEDS: PANTOprazole 40 MG in SYRINGE 0 ML IV SCH (22:00)
[2020-06-25] MEDS: HYDROXYCHLOROQUINE SULFATE 200 MG TAB PO SCH (22:01)
[2020-06-26 02:03] LABS: Partial Thromboplastin Ratio 1.8
[2020-06-26 02:09] LABS: Partial Thromboplastin Time 49.5 Seconds (21.0-31.0)
--- NOTE | 2020-06-26 05:59 | Electrocardiogram Report ---
Test Reason : Blood Pressure : / mmHG Vent. Rate : 060 BPM Atrial Rate : 060 BPM P-R Int : 156 ms QRS Dur : 094 ms QT Int : 428 ms P-R-T Axes : 054 000 021 degrees QTc Int : 428 ms Normal sinus rhythm with sinus arrhythmia Possible Inferior infarct Abnormal ECG When compared with ECG of 22-AUG-2019 18:45, No significant change was found Confirmed by Dat Lemon ([id number]) on 06/26/2020 5:59:32 AM Referred By: Confirmed By:Dat Lemon
[2020-06-26 06:11] LABS: Estimated Average Glucose 120 mg/dl; Hemoglobin A1C 5.8 % (4.5-5.6)
[2020-06-26 07:01] LABS: Basophils # (auto) 0.03 K/uL (0-0.2); Basophils % (auto) 0.4 %; Eosinophils # (auto) 0.29 K/uL (0-0.5); Eosinophils % (auto) 3.4 %; Hemoglobin 13.3 g/dL (12.0-16.0); Immature Granulocytes # (auto) 0.02 K/uL (0.00-0.02); Immature Granulocytes % (auto) 0.2 %; Lymphocytes # (auto) 3.75 K/uL (1.2-3.4); Lymphocytes % (auto) 43.8 %; Mean Corpuscular Hemoglobin 28.4 pg (25-34); Mean Corpuscular Hgb Conc 33.3 g/dL (32-36); Mean Corpuscular Volume 85.5 fL (80-100); Mean Platelet Volume 10.2 fL (7.4-10.4); Monocytes # (auto) 0.62 K/uL (0.11-0.59); Monocytes % (auto) 7.2 %; Neutrophils # (auto) 3.86 K/uL (1.4-6.5); Platelet Count 224 K/uL (130-400); RDW Coefficient of Variation 14.9 % (11.5-14.5); RDW Standard Deviation 46.4 fL (36.4-46.3); Red Blood Count 4.68 M/uL (4.2-5.4); White Blood Count 8.57 K/uL (4.8-10.8)
[2020-06-26 07:24] LABS: BUN Creatinine Ratio 14.7 (10-20); Calcium 8.7 mg/dl (8.5-10.1); Creatinine Clr Calc Pharmacy 105.2 ml/min; Est GFR (African American) 96.8; Est GFR (Non-African American) 83.5; Potassium 3.8 mmol/L (3.5-5.1)
[2020-06-26 07:35] LABS: Albumin Globulin Ratio 0.8 (0.9-2); Bilirubin,Total 0.3 mg/dl (0.2-1); Troponin I 0.109 ng/ml (0-0.045)
[2020-06-26] MEDS: PANTOprazole 40 MG in SYRINGE 0 ML IV SCH (08:29)
[2020-06-26] MEDS: HYDROXYCHLOROQUINE SULFATE 200 MG TAB PO SCH (08:29)
[2020-06-26] MEDS ORDERED: CLOPIDOGREL BISULFATE 75 MG TAB PO SCH (09:00)
[2020-06-26] MEDS ORDERED: dilTIAZem HCL 180 MG CAPCR PO SCH (09:00)
[2020-06-26] MEDS ORDERED: ISOSORBIDE MONO EXTENDED REL 60 MG TABCR PO SCH (09:00)
[2020-06-26] MEDS ORDERED: ASPIRIN 81 MG ECTAB PO SCH (09:00)
--- NOTE | 2020-06-26 11:17 | Hospitalist Progress Note ---
Date of Service June 26, 2020 Assessment & Plan (1) Chest pain: (2) Elevated troponin: History of Myocardial Infarctions in the past and with drug eluting coronary stent -This is a patient with history of myocardial infarction in June 2017 with drug eluting stent and a second myocardial infarction in 2018. Patient also with known heart murmur. She was had chest discomfort of nausea and left sided pain radiating to her left jaw that started in evening on 06/24/2020 for which she took 2 nitro at home. She tried to go to sleep but did not get much rest. The left sided jaw pain persisted and she presented to the ED on 06/25/2020. Patient denies recent history of dental work. She denies problems with her breathing. She does not feel shortness of breath. no dizziness. no headache. no nausea. no vomiting. no changes in bowel movements or urination. no fevers. -Family history of father and sister with myocardial infractions -initial troponin in the ED is 0.095 and while this is above reference range of normal, this is the lowest troponin level compared to recent history of troponin levels drawn in the past when at [facility] -patient was given 324 mg of aspirin and nitro in the ED. Patient reports she had taken all her cardiac medications on day of presentation to the ED on 06/25/2020 -patient agreed to be started on heparin drip IV on 06/25/2020 -continue patient's home dose aspirin, clopidogrel, furosemide, diltiazem, cholesterol medications of atorvastatin and ezetimibe -telemetry of sinus bradycardia -her troponins generally flat as second troponin 0.095 and third troponin 0.109. patient had echocardiogram on 06/26/2020 and the results are pending. On hospitalist exam on 06/26/2020 patient with no acute distress but reports still some left jaw discomfort which is less than yesterday but persistent. She denies hearing problems -cardiology consult requested, patient follows [facility] Cardiology Dr. Kole Stafford Gastroesophageal reflux disease -patient no longer taking famotidine because not available at her pharmacy -continue protonics as pantoprazole IV 40 mg BID while on heparin drip COPD (Chronic Obstructive Sleep Apnea), group B, by GOLD 2017 -patient reports she quit smoking for 3 years -will give duonebs prn as needed -patient asked to have family members bring in her home inhalers Obstructive Sleep Apnea on CPAP -patient uses CPAP at home qhs but does not know her CPAP settings Sjogren's syndrome -patient follows with rheumatology Dr. Hair -takes hydroxychloroquine 200 mg twice a day Full Code Status Daughter Nandini Tucker [phone] Admission and Anticipated Discharge Date Admission Date: June 25, 2020 Subjective her troponins generally flat as second troponin 0.095 and third troponin 0.109. patient had echocardiogram on 06/26/2020 and the results are pending. On hosp italist exam on 06/26/2020 patient with no acute distress but reports still some left jaw discomfort which is less than yesterday but persistent. She denies hearing problems breathing on room air. no shortness of breath. no abdomen pain. no nausea. no dizziness. no dizziness. no headache. patient is NPO while awaiting cardiology service evaluation Review of Systems Review of Systems: All systems reviewed & are unremarkable except as noted in Subjective Physical Exam Constitutional: + obese Eyes: PERRL, conjunctivae normal, anicteric sclerae EOM intact bilaterally ENMT: external ear and nose normal, oropharynx normal Neck: trachea midline, no thyromegaly normal visual inspection Respiratory: normal respiratory effort, lungs clear to auscultation Cardiovascular: Rate/Rhythm: regular rate and regular rhythm Heart Sounds: + murmur Gastrointestinal (Abdomen): normal bowel sounds, soft, nontender, no hepatosplenomegaly Musculoskeletal: Head/Neck/Chest: normocephalic and head atraumatic Neurologic: PERRL, EOMI, accommodation nl, no face palsy, no dysarthria CN's II-XI intact bilaterally Psychiatric: A+Ox3, euthymic affect Results & Data Results & Data ([facility]) Vital Signs (Past 12 Hours) Vital Signs Temp Pulse Resp BP BP Pulse Ox 06/26/20 07:17 36.3 C L 52 L 20 109/61 97 06/26/20 03:44 36.4 C L 65 16 116/59 L 93 (1) Chest pain Chest pain type: unspecified Qualified Code(s): R07.9 - Chest pain, unspecified
[2020-06-26] MEDS: HEPARIN SODIUM/DEXTROSE 25,000 UNITS/500 ML BAG IV SCH (12:49)
--- NOTE | 2020-06-26 13:23 | XCELERA ---
[id number]
[2020-06-26 13:26] LABS: Partial Thromboplastin Ratio 1.6; Partial Thromboplastin Time 45.1 Seconds (21.0-31.0)
[2020-06-26] MEDS ORDERED: HEPARIN IV BOLUS 3,000 UNITS in SYRINGE 0 ML IV ONE (13:45)
--- NOTE | 2020-06-26 14:41 | Electrocardiogram Report ---
Test Reason : Blood Pressure : / mmHG Vent. Rate : 065 BPM Atrial Rate : 065 BPM P-R Int : 156 ms QRS Dur : 096 ms QT Int : 432 ms P-R-T Axes : 022 -07 006 degrees QTc Int : 449 ms Sinus rhythm with Premature atrial complexes Inferior infarct (cited on or before 22-AUG-2019) Abnormal ECG When compared with ECG of 25-JUN-2020 15:52, Premature atrial complexes are now Present Confirmed by Chuy Krause ([id number]) on 06/26/2020 2:41:24 PM Referred By: REFERRED SELF Confirmed By:Chuy Krause
--- NOTE | 2020-06-26 15:23 | Cardiology Consultation ---
Date of Consultation June 26, 2020 Assessment & Plan (1) Chest pain: --Recurrent chest pain thought secondary to coronary vasospasm, question hypertrophic physiology 2. CAD - NSTEMI 06/2017 post GILDARDO to distal RCA; residual branch vessel disease 3. Chronic diastolic heart failure -- moderate LVH/diastolic dysfunction on echo 4. Dyslipidemia--on high intensity statin 5. Hypertension--well-controlled on current therapy 6. Reported peripheral arterial disease 7. Chronic venous insufficiency 8. Prior tobacco abuse Serial troponins flat. EKG and echocardiogram unchanged from prior. Do not feel that recurrent pain represents acute coronary syndrome. Feel that again is secondary to suspected coronary vasospasm. No additional cardiac testing needed today. Can be safely discharged home today. Not concerned about mild sinus bradycardia on telemetry. Recommend increasing diltiazem from 360 to 480 mg daily. Can follow-up with me in 2 to 3 weeks. Discussed with patient that in the future if has recurrent similar symptoms-- will arrange for outpatient troponin and if < 0.4 after hours of pain can avoid returning to ED. History of Present Illness Attending Physician: Luis Trinidad MD History of Present Illness Mrs. Tucker is a very pleasant 49-year-old woman with a history of coronary disease post STEMI with distal RCA GILDARDO 06/21/2017, dyslipidemia, mild carotid artery disease, lower extremity peripheral artery disease, chronic venous insufficiency (post R GSV RFA 09/24, L GSV RFA 11/25) and recurrent chest pain thought secondary to coronary vasospasm readmitted in the setting of recurrent chest/jaw pain. Chest pain/jaw pain returned the night prior to admission. Was feeling well during the day preceding day. No real change to her normal activities. Has been eating and drinking normally. No changes to her recent medications. No other clear triggers. Upon arrival troponin flat around 0.1, less than prior admissions. ECG unchanged. Echocardiogram reviewed, normal function with no new regional wall motion abnormalities. Prior cardiac history: STEMI in June 2017 in the setting of distal RCA occlusion. Post RI course complicated by cardiac arrest. Since that time she had multiple hospitalizations with mild troponin elevations in the 0.3 to 0.7 range. Last cardiac catheterization August 2018 in which was noted to have a stenosis in a very small diagonal but no other high risk disease. Since that time she is been managed with different combinations of antianginal therapy (including norvasc, ranexa) most recently diltiazem and Imdur. Echo in November 2018 showed hyperdynamic LV with moderate concentric LVH. There was some concern for possible hypertrophic cardiomyopathy and underwent cardiac MRI in January 2019 which was largely unremarkable except for mild LVH and some base to mid inferior subendocardial scar. Last hospitalization 06/17/2019 with recurrent acute onset chest pain radiating to her jaw. Episode preceded by mild increased lower extremity edema which has since resolved. Troponin again mildly elevated but no significant rise. EKG unchanged. Echo unchanged from 11/2018. Telemetry unr emarkable. Diltiazem increased from 180 to 240 mg daily. Encouraged to avoid dehydration and discharged home. Last seen 04/2020 after a week of increased jaw pain. Imdur increased to 300 mg daily. Allergies Allergy/AdvReac Type Severity Reaction Status Date / Time pollen extracts Allergy Intermediate itchy Verified 06/25/20 17:05 eyes, sneezing, congestion Penicillins Allergy Mild Hives Verified 06/25/20 17:05 octyl 2-cyanoacrylate AdvReac rash Verified 06/25/20 17:05 Home Medications Home Medications Medication Instructions Recorded Confirmed Type azelastine 2 spray INTRANASAL QAM 08/27/18 06/25/20 History fluticasone propionate 2 spray INTRANASAL QAM 08/27/18 06/25/20 History nitroglycerin 0.4 mg SUBLINGUAL DIRECTED PRN 08/27/18 06/25/20 History pantoprazole 40 mg PO QAM 08/27/18 06/25/20 History omega 8-uhz-mlx-fish oil [Fish Oil] 1 cap PO BID 03/05/19 06/25/20 History cyclobenzaprine 10 mg PO Q8H PRN #60 tab 06/18/19 06/25/20 Rx cyclosporine 0.05 % eye drops in a 1 drops OPB BID PRN ea 08/16/19 06/25/20 His tory dropperette hydroxychloroquine 200 mg tablet 200 mg PO BID tab 08/16/19 06/25/20 History lorazepam 0.5 mg tablet 0.5 mg PO BID PRN #180 tab 08/16/19 06/25/20 History meclizine 12.5 mg tablet 12.5 mg PO TID PRN #270 tab 08/16/19 06/25/20 History levalbuterol tartrate 1 puff INHALATION Q4H PRN 08/22/19 06/25/20 History atorvastatin 80 mg tablet 80 mg PO HS #90 tab 09/02/19 06/25/20 Rx clopidogrel [Plavix] 75 mg PO QAM 12/16/19 06/25/20 History aspirin 81 mg PO QAM 12/26/19 06/25/20 History ezetimibe 10 mg tablet 10 mg PO HS #30 tab 01/28/20 06/25/20 Rx famotidine 40 mg tablet 40 mg PO QAM 04/16/20 06/25/20 History diltiazem HCl 360 mg 360 mg PO QAM 90 Days #90 cap 04/19/20 06/25/20 Rx capsule,extended release 24 hr isosorbide mononitrate 60 mg 300 mg PO QAM #150 tab 04/20/20 06/25/20 Rx tablet,extended release 24 hr levocetirizine [Xyzal] 5 mg PO QAM 05/27/20 06/25/20 History furosemide 20 mg tablet 20 - 40 mg PO QAM #30 tab 05/29/20 06/25/20 Rx acetaminophen [Tylenol] 650 mg PO QID PRN 06/25/20 06/25/20 History Patient History Medical History Arthritis Asthma stable CAD (coronary artery disease) stent x1 to RCA (06/2017) Chronic obstructive pulmonary disease stable Chronic venous insufficiency GERD (gastroesophageal reflux disease) controlled Hyperlipidemia Hypertension Myocardial Infarction 06/2017 (stent x1 to RCA), second RI 08/2018- follows with Dr. Stafford/[facility] cardiology YUSUF (obstructive sleep apnea) CPAP Pre-diabetes A1C 6.0 08/28/18 PVD (peripheral vascular disease) Sjogrens syndrome Surgical History History of adenoidectomy History of arthroscopy RT KNEE History of cardiac cath X3 TOTAL 06/2017- STENT TO RCA X 1 PLACED- [facility] 08/2018= NO STENTS-[place] History of carpal tunnel release BILAT History of colonoscopy History of dilatation and curettage History of procedure for peripheral vascular disease DISTAL AORTIC STENT/BALLOON ANGIOPLASTY (03/2018)- FOLLOWS WITH [facility] History of sinus surgery ENDOSCOPIC SINUS SURGERY= 04/07/14= GRADE 2 VIEW, MAC 3, ETT 7.0 AT [facility] History of tonsillectomy S/P trigger finger release multiple Status post aortic coarctation stent placement 03/2018 in [place] - for circulation in legs Status post endovenous radiofrequency ablation (RFA) of saphenous vein bilateral Status post myringotomy with insertion of tube Right Myringotomy with Tube (Right): 08/29/19: [place] [facility] Family History Grandmother Coronary heart disease Diabetes Social History Smoking Status: Former smoker Tobacco Type: Cigarettes Age Started Using Tobacco: 16; packs per day: 1; Number of Years Since Quit: 2; Second Hand Exposure: No; Hx Alcohol Use: No Hx Substance Use: No Preferred Language: Iranian Communication Ability: Effective Visual Impairment: No Limitations Inspector And Clipper Required: No Beliefs That Will Affect Care: None marital status: Current Living Situation: Spouse current occupational status: employed Other Information That Helps Us Care for You: No Feels Safe at Home: Yes Safety Concerns: Feels Safe At This Time Review of Systems Review of Systems: All systems reviewed & are unremarkable except as noted in HPI & below Physical Exam Physical Exam: General: Comfortable, no acute distress Eyes: Sclerae anicteric, extraocular movements intact HENT: Oropharynx clear mucous membranes moist Lungs: Clear to auscultation bilaterally, no rhonchi or wheezes Cardiac: Regular rate and rhythm 2/6 systolic ejection murmur Vascular: 2+ radial, DP and PT pulses. Telangiectasias Abdomen: Soft, nontender, nondistended, positive bowel sounds. Extremities: Well perfused, trace lower extremity edema Neuro: Nonfocal Psych: Alert orient x3, normal affect and mood Results & Data ([facility]) Vital Signs (Past 12 Hours) Vital Signs Temp Pulse Resp BP BP Pulse Ox 06/26/20 11:46 97.7 F 95 H 20 115/66 96 06/26/20 07:17 97.3 F L 52 L 20 109/61 97 06/26/20 03:44 97.5 F L 65 16 116/59 L 93 PG Care Time/CCT Total # of Minutes Spent Total Time Spent with Patient: Total time spent is greater than 50% in coordination of care (as documented) at patient's floor/unit and/or counseling p atient: Coding Level of Care Code 59308 Inpt Consult Level 4 Diagnoses Chest pain R07.9 Chest pain type: unspecified (1) Chest pain Chest pain type: unspecified Qualified Code(s): R07.9 - Chest pain, unspecified
--- NOTE | 2020-06-26 16:34 | Discharge Summary ---
Date of Service June 26, 2020 Admission HPI Per Admitting Provider -This is a patient with history of myocardial infarction in June 2017 with drug eluting stent and a second myocardial infarction in 2018. Patient also with known heart murmur. She was had chest discomfort of nausea and left sided pain radiating to her left jaw that started in evening on 06/24/2020 for which she took 2 nitro at home. She tried to go to sleep but did not get much rest. The left sided jaw pain persisted and she presented to the ED on 06/25/2020. Patient denies recent history of dental work. She denies problems with her breathing. She does not feel shortness of breath. no dizziness. no headache. no nausea. no vomiting. no changes in bowel movements or urination. no fevers. -Family history of father and sister with myocardial infractions -initial troponin in the ED is 0.09 and while this is above reference range of normal, this is the lowest troponin level compared to recent history of troponin levels drawn in the past when at [facility] -patient was given 324 mg of aspirin and nitro in the ED. 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 Elevated troponin: History of Myocardial Infarctions in the past and with drug eluting coronary stent Chronic diastolic heart failure -- moderate LVH/diastolic dysfunction on echo Gastroesophageal reflux disease COPD (Chronic Obstructive Sleep Apnea), group B, by GOLD 2017 Sjogren's syndrome Obstructive Sleep Apnea on CPAP Discharge Exam Constitutional + obese Eyes PERRL, conjunctivae normal, anicteric sclerae EOM intact bilaterally ENMT external ear and nose normal, oropharynx normal Neck trachea midline, no thyromegaly normal visual inspection Respiratory normal respiratory effort, lungs clear to auscultation Cardiovascular Rate/Rhythm: regular rate and regular rhythm Heart Sounds: + murmur Gastrointestinal (Abdomen) normal bowel sounds, soft, nontender, no hepatosplenomegaly Musculoskeletal Head/Neck/Chest: normocephalic and head atraumatic Neurologic PERRL, EOMI, accommodation nl, no face palsy, no dysarthria CN's II-XI intact bilaterally Psychiatric A+Ox3, euthymic affect Discharge Data Allergies Allergy/AdvReac Type Severity Reaction Status Date / Time pollen extracts Allergy Intermediate itchy Verified 06/25/20 17:05 eyes, sneezing, congestion Penicillins Allergy Mild Hives Verified 06/25/20 17:05 octyl 2-cyanoacrylate AdvReac rash Verified 06/25/20 17:05 Consultations 06/25/20 17:47 Consult Cardiology Routine 06/25/20 17:49 ED Decision to Admit Stat 06/25/20 20:12 Consult Case Management - Discharge Planning Routine Hospital Course (1) Chest pain: Chest pain secondary to Coronary artery Vasospasm (2) Elevated troponin: History of Myocardial Infarctions in the past and with drug eluting coronary stent Chronic diastolic heart failure - moderate LVH/diastolic dysfunction on echo -This is a patient with history of myocardial infarction in June 2017 with drug eluting stent and a second myocardial infarction in 2018. Patient also with known heart murmur. She was had chest discomfort of nausea and left sided pain radiating to her left jaw that started in evening on 06/24/2020 for which she took 2 nitro at home. She tried to go to sleep but did not get much rest. The left sided jaw pain persisted and she presented to the ED on 06/25/2020. Patient denies recent history of dental work. She denies problems with her breathing. She does not feel shortness of breath. no dizziness. no headache. no nausea. no vomiting. no changes in bowel movements or urination. no fevers. -Family history of father and sister with myocardial infractions -initial troponin in the ED is 0.095 and while this is above reference range of normal, this is the lowest troponin level compared to recent history of troponin levels drawn in the past when at [facility] -patient was given 324 mg of aspirin and nitro in the ED. Patient reports she had taken all her cardiac medications on day of presentation to the ED on 06/25/2020 -patient agreed to be started on heparin drip IV on 06/25/2020 -continue patient's home dose aspirin, clopidogrel, furosemide, diltiazem, cholesterol medications of atorvastatin and ezetimibe -telemetry of sinus bradycardia -her troponins generally flat as second troponin 0.095 and third troponin 0.109 and fourth troponin as 0.109. patient had echocardiogram on 06/26/2020 and the results are pending. On hospitalist exam on 06/26/2020 patient with no acute distress but reports still some left jaw discomfort which is less than yesterday but persistent. She denies hearing problems -cardiology consult requested, patient follows [facility] Dr. Kole Stafford As per Dr. Stafford "Serial troponins flat. EKG and echocardiogram unchanged from prior. Do not feel that recurrent pain represents acute coronary syndrome. Feel that again is secondary to suspected coronary vasospasm. No additional cardiac testing needed today. Can be safely discharged home today. Not concerned about mild sinus bradycardia on telemetry. Recommend increasing diltiazem from 360 to 480 mg daily. Can follow-up with me in 2 to 3 weeks. Discussed with patient that in the future if has recurrent similar symptoms-- will arrange for outpatient troponin and if < 0.4 after hours of pain can avoid returning to ED." Gastroesophageal reflux disease -patient no longer taking famotidine because not available at her pharmacy -continue protonics as pantoprazole IV 40 mg BID while on heparin drip COPD (Chronic Obstructive Sleep Apnea), group B, by GOLD 2017 -patient reports she quit smoking for 3 years -will give duonebs prn as needed -patient asked to have family members bring in her home inhalers Obstructive Sleep Apnea on CPAP -patient uses CPAP at home qhs but does not know her CPAP settings Sjogren's syndrome -patient follows with rheumatology Dr. Hair -takes hydroxychloroquine 200 mg twice a day Full Code Status Daughter Nandini Tucker [phone] Total Time Total Time Spent Total Time Spent (In Minutes): 40 minutes Total Time Includes: Examination of the Patient, Discharge Planning, Medication Reconciliation and Communication With Other Providers Discharge Plan Discharge Items Patient Disposition: Home - Self-Care Reason For Visit: CHEST PAIN, ELEVATED TROPONINS Discharge Diagnosis: Chest pain: Elevated troponin: History of Myocardial Infarctions in the past and with drug eluting coronary stent Chronic diastolic heart failure -- moderate LVH/diastolic dysfunction on echo Gastroesophageal reflux disease COPD (Chronic Obstructive Sleep Apnea), group B, by GOLD 2017 Sjogren's syndrome Obstructive Sleep Apnea on CPAP Condition on Discharge: Good Activity: Resume your previous activity Non-emergency contact: Primary Care Provider and Care Assistant Call non-emergency contact if: you have any medication questions Follow-up/Referrals: Rashawn Witt MD [Primary Care Provider] - Diet: Heart Healthy Addtl Attending Provider Instructions: discharge medications sent electronically to [facility] pharmacy [address] [place] [phone] of diltiazem 480 mg daily 07/03/2020 12:20 PM Provider Rashawn Witt MD Department [facility] 07/06/2020 3:30 PM Provider [id number] [facility] Department Radiology [address] [employer] Equipment [employer] Provider Instructions: As per Cardiology Dr. Kole Stafofrd "Serial troponins flat. EKG and echocardiogram unchanged from prior. Do not feel that recurrent pain represents acute coronary syndrome. Feel that again is secondary to suspected coronary vasospasm. No additional cardiac testing needed today. Can be safely discharged home today. Not concerned about mild sinus bradycardia on telemetry. Recommend increasing diltiazem from 360 to 480 mg daily. Can follow-up with me in 2 to 3 weeks. Discussed with patient that in the future if has recurrent similar symptoms-- will arrange for outpatient troponin and if < 0.4 after hours of pain can avoid returning to ED." Pending Studies at Discharge: No Stand-Alone Forms: My [facility], Smoking Cessation Medications and DC Order Prescriptions: New diltiazem HCl 240 mg capsule,extended release 24 hr 480 mg PO DAILY 30 Days Qty: 60 RF: 0 Continued atorvastatin 80 mg tablet 80 mg PO HS Qty: 90 RF: 3 ezetimibe 10 mg tablet 10 mg PO HS Qty: 30 RF: 11 furosemide [Lasix] 20 mg tablet 20 - 40 mg PO QAM Qty: 30 RF: 11 lorazepam 0.5 mg tablet 0.5 mg PO BID PRN (Reason: Anxiety) Qty: 180 RF: 0 meclizine 12.5 mg tablet 12.5 mg PO TID PRN (Reason: Vertigo) Qty: 270 RF: 0 hydroxychloroquine 200 mg tablet 200 mg PO BID RF: 0 cyclosporine 0.05 % dropperette 1 drops OPB BID PRN (Reason: Eye Irritation) RF: 0 famotidine 40 mg tablet 40 mg PO QAM RF: 0 isosorbide mononitrate 60 mg tablet extended release 24 hr 300 mg PO QAM Qty: 150 RF: 3 pantoprazole 40 mg tablet,delayed release (DR/EC) 40 mg PO QAM RF: 0 azelastine 137 mcg (0.1 %) aerosol,spray 2 spray Intranasal QAM RF: 0 fluticasone propionate 50 mcg/actuation spray,suspension 2 spray Intranasal QAM RF: 0 nitroglycerin 0.4 mg tablet, sublingual 0.4 mg Sublingual DIRECTED PRN (Reason: Chest Pain) RF: 0 levocetirizine [Xyzal] 5 mg Tablet 5 mg PO QAM RF: 0 cyclobenzaprine 10 mg tablet 10 mg PO Q8H PRN (Reason: muscle spasm) Qty: 60 RF: 0 clopidogrel [Plavix] 75 mg tablet 75 mg PO QAM RF: 0 aspirin 81 mg tablet,delayed release (DR/EC) 81 mg PO QAM RF: 0 omega 5-twi-suo-fish oil [Fish Oil] 1,000 mg (120 mg-180 mg) Capsule 1 cap PO BID RF: 0 levalbuterol tartrate 45 mcg/actuation HFA aerosol inhaler 1 puff inhalation Q4H PRN (Reason: Shortness Of Breath) RF: 0 Discontinued diltiazem HCl 360 mg capsule,extended release 24hr 360 mg PO QAM 90 Days Qty: 90 RF: 3 acetaminophen [Tylenol] 325 mg Tablet 650 mg PO QID PRN (Reason: Fever Or Pain) RF: 0 Discharge Orders: Discharge Order (Routine); Ordered 06/26/20 Ordered By: Luis Trinidad Admission Data Admit Date/Time: 06/25/20 18:10 Attending Provider: Luis Trinidad Admit Provider: Luis Trinidad Primary Care Provider: Rashawn Witt Other Providers: Daniel Stafford ; Luis Trinidad
== END 2020-06-26 18:32 | disposition home or self-care (01) ==
LOC: ED 15:39 → 2S 15:39 → UNDODISOB 06-26 18:29